=== PATIENT | female | born 1950 | race Two or more races ===

== ENCOUNTER → 2020-11-15 11:10 | Outpatient (BNVA) | payer OTHER, SELFPAY | PROVIDERS: PCP Internal Medicine; Visit Provider Internal Medicine | DX: I25.10 Atherosclerotic heart disease of native coronary artery without angina pectoris (principal); E78.00 Pure hypercholesterolemia, unspecified; E11.22 Type 2 diabetes mellitus with diabetic chronic kidney disease; I12.9 Hypertensive chronic kidney disease with stage 1 through stage 4 chronic kidney disease, or unspecified chronic kidney disease; N18.2 Chronic kidney disease, stage 2 (mild); Z79.4 Long term (current) use of insulin | CPT/HCPCS: 93005 ==

== ENCOUNTER 2020-11-30 07:22 | Outpatient (REF) | payer OTHER, SELFPAY ==
[2020-11-30 08:05] LABS: Basophils Absolute Auto 0.1 X10*3/uL (0.0-0.2); Eosinophils Absolute Auto 0.2 X10*3/uL (0.0-0.4); Eosinophils Percent Auto 3.4 % (0-4); Hematocrit 41.6 % (37-47); Hemoglobin 13.2 g/dl (12.0-16.0); Imm Gran Abs Auto 0.02 X10*3/uL (0.00-0.03); Imm Gran Pct Auto 0.3 % (0.0-0.4); Lymphocytes Absolute Auto 2.7 X10*3/uL (1.2-4.9); Lymphocytes Percent Auto 43.5 % (20-40); MANUAL DIFF FLAG NO; Mean Corpuscular HGB Conc 31.7 g/dl (31.0-35.0); Mean Corpuscular Hemoglobin 26.8 pg (27.0-33.0); Mean Corpuscular Volume 84.6 fL (80-98); Mean Platelet Volume 11.6 fL (9.4-12.3); Monocytes Absolute Auto 0.4 X10*3/uL (0.1-1.2); Monocytes Percent Auto 5.9 % (2-11); Neutrophils Absolute Auto 2.8 X10*3/uL (2.0-8.3); Neutrophils Percent Auto 45.9 % (45-73); Platelet Count 196 X10*3/uL (160-400); Red Blood Count 4.92 X10*6/uL (4.20-5.50); Red Cell Distribution Width 13.2 % (11.0-16.0); White Blood Count 6.1 X10*3/uL (4.8-10.8)
[2020-11-30 08:33] LABS: Creatinine Urine 70.17 mg/dL; Microalbum/Creatinine Ratio Ur 11.4 ug/mg cr
[2020-11-30 08:34] LABS: Alanine Aminotransferase 32 U/L (0-31); Albumin Level 4.4 g/dL (3.5-5.0); Alkaline Phosphatase 83 U/L (39-117); Anion Gap 13 (12-20); Aspartate Amino Transferase 34 U/L (5-31); Bilirubin Total 0.5 mg/dL (0.0-1.0); Blood Urea Nitrogen 17 mg/dL (9-16); Calcium 9.4 mg/dL (8.4-10.2); Carbon Dioxide 26 mmol/L (22-29); Chloride 105 mmol/L (96-108); Cholesterol 163 mg/dL; Estimated Glomerular Filt Rate 60; Glucose Fasting 153 mg/dL (60-99); HDL Cholesterol 35 mg/dL; LDL Cholesterol Calculated 65 mg/dl; Potassium 4.5 mmol/l (3.3-5.1); Sodium 139 mmol/L (135-145); Total Protein 7.1 g/dL (6.5-8.0); Triglycerides 315 mg/dL
[2020-11-30 08:57] LABS: TSH reflex Free T4 2.16 mIU/mL (0.32-4.0)
== END 2020-11-30 07:23 | disposition home or self-care (01) ==
LOC: HO.LAB 07:22
PROVIDERS: PCP Internal Medicine; Visit Provider Nurse Practitioner Family
DX: E11.22 Type 2 diabetes mellitus with diabetic chronic kidney disease (principal); I12.9 Hypertensive chronic kidney disease with stage 1 through stage 4 chronic kidney disease, or unspecified chronic kidney disease; N18.2 Chronic kidney disease, stage 2 (mild); Z79.4 Long term (current) use of insulin; E78.5 Hyperlipidemia, unspecified; E66.3 Overweight; E55.9 Vitamin D deficiency, unspecified
CPT/HCPCS: 36415; 80053; 80061; 82043; 84443; 85025

== ENCOUNTER → 2021-01-02 08:01 | Outpatient (BNVA) | payer OTHER, SELFPAY | PROVIDERS: PCP Internal Medicine; Visit Provider Internal Medicine Endocrinology, Diabetes & Metabolism ==

== ENCOUNTER → 2021-04-02 08:35 | Outpatient (BNVA) | payer OTHER, SELFPAY | PROVIDERS: PCP Internal Medicine; Visit Provider Internal Medicine Endocrinology, Diabetes & Metabolism | DX: E11.65 Type 2 diabetes mellitus with hyperglycemia (principal); E11.3293 Type 2 diabetes mellitus with mild nonproliferative diabetic retinopathy without macular edema, bilateral; E11.21 Type 2 diabetes mellitus with diabetic nephropathy; E11.42 Type 2 diabetes mellitus with diabetic polyneuropathy; Z79.4 Long term (current) use of insulin; E55.9 Vitamin D deficiency, unspecified; E78.00 Pure hypercholesterolemia, unspecified; I10 Essential (primary) hypertension | CPT/HCPCS: 82947 ==

== ENCOUNTER 2021-06-27 08:31 | Outpatient (REF) | payer OTHER, SELFPAY ==
[2021-06-27 09:13] LABS: Estimated Average Glucose 237 mg/dL; Hemoglobin A1c % 9.9 %
== END 2021-06-27 08:32 | disposition home or self-care (01) ==
LOC: HO.LAB 08:31
PROVIDERS: PCP Internal Medicine; Referring Provider Internal Medicine; Visit Provider Internal Medicine Endocrinology, Diabetes & Metabolism
DX: E11.65 Type 2 diabetes mellitus with hyperglycemia (principal)
CPT/HCPCS: 36415; 83036

== ENCOUNTER 2021-06-28 16:01 | Observation (INO) | payer OTHER, SELFPAY ==
[2021-06-28] VITALS (10 sets, daily range): BP systolic 142–205; BP diastolic 67–113; PULSE 65–78; RESP 14–24; TEMP 36.4–37; O2SAT 97–98; BMI 24.4; BMI 25.1
--- NOTE | ~2021-06-28 | CT_ITS ---
EXAMINATION: CT HEAD WITHOUT CONTRAST (STROKE PROTOCOL) CLINICAL INFORMATION: Stroke protocol. Left-sided weakness COMPARISON: None TECHNIQUE: Contiguous axial imaging was performed from the skull base to vertex without intravenous administration of contrast. This CT examination was performed using dose optimization techniques as appropriate, variously including the following: *Automated exposure control *Adjustment of mA and/or kV according to patient size (this includes techniques or standardized protocols for targeted exams where dose is matched to indication/reason for exam; i.e. extremities or head) *Use of iterative reconstruction technique DLP: 653 mGy-cm FINDINGS: There is no intracranial hemorrhage, hematoma, or extra-axial fluid collection. The ventricles are normal in size. There is no hydrocephalus, edema, or mass effect. The fierro-white matter differentiation appears symmetric. There is no acute infarct or mass lesion. The calvarium appears intact. There is no pneumocephalus or orbital emphysema. The visualized mastoid air cells show no significant mucosal thickening or opacification.. There is mucosal thickening seen within the right maxillary sinus. There are no air-fluid levels. CT/CT head for stroke IMPRESSION: No acute intracranial pathology. This critical result was discussed with Dr. Bowen at 4:20 PM hours on June 28, 2021. It was ascertained that the content and urgency of the report was understood at the time of direct communication.
--- NOTE | ~2021-06-28 | MR_ITS ---
EXAMINATION: MR BRAIN WITHOUT CONTRAST CLINICAL INFORMATION: Left-sided pain and slight weakness. COMPARISON: Head CTA June 28, 2021. TECHNIQUE: Multiplanar, multisequence imaging of the brain was performed without intravenous contrast. FINDINGS: There is no acute infarction, mass, hemorrhage, or extra-axial collection. The ventricles, sulci, and basilar cisterns are normal in size and configuration. The flow voids of the major intracranial arteries appear intact. The bones and extracranial soft tissues are unremarkable. MR/MR head/brain wo con IMPRESSION: No acute infarct, mass lesion, intracranial hemorrhage, or evidence of hydrocephalus.
--- NOTE | ~2021-06-28 | CT_ITS ---
EXAMINATION: CT ANGIOGRAM NECK WITH CONTRAST CT ANGIOGRAM BRAIN WITH CONTRAST CLINICAL INFORMATION: Left sided headache and weakness. COMPARISON: Head CT same day. TECHNIQUE: Test bolus sequences followed by intravenous administration 100 mL of Omnipaque 350. Helical imaging was performed in the axial plane from the thoracic inlet to the skull vertex. Delayed postcontrast imaging of the head was also performed. The data was processed at the lead nuclear medicine technologist workstation for generation of MIP sequences. Angled MIPs and volume rendered reformatted images were also generated at an offline 3D workstation. Stenoses are assessed in accordance with NASCET criteria unless otherwise indicated. This CT examination was performed using dose optimization techniques as appropriate, variously including the following: *Automated exposure control *Adjustment of mA and/or kV according to patient size (this includes techniques or standardized protocols for targeted exams where dose is matched to indication/reason for exam; i.e. extremities or head) *Use of iterative reconstruction technique DLP: 1466 mGy-cm FINDINGS: Head CT: There is no intracranial hemorrhage, large acute infarction, or mass lesion. The ventricles are normal in size and configuration without evidence of hydrocephalus. No abnormal enhancement is seen. Neck CTA: The aortic arch is patent. The great vessel origins are patent. The right common carotid artery is patent. There is focal stenosis at the right internal carotid artery origin estimated as 55% by NASCET criteria. The cervical segment of the right internal carotid artery is patent. The left common carotid artery is patent. No stenosis is seen at the left internal carotid artery origin. The cervical segment of the left internal carotid artery is patent. The bilateral vertebral arteries are patent with the right side being mildly dominant. Head CTA: Both vertebral arteries are patent. The basilar artery is patent. Both emblem fuser tender are patent. There is a small right posterior communicating artery. The intracranial internal carotid arteries are patent. The anterior cerebral arteries are patent. Both middle cerebral arteries are patent with symmetric collaterals. No aneurysm is seen. The dural venous sinuses are patent. Non-vascular findings: There is polypoid soft tissue thickening along the floor of the right maxillary sinus. The cervical soft tissues are within normal limits. No consolidation is seen within the upper lungs. Some mosaic attenuation and interlobular septal thickening are present in the lung apices. Multilevel degenerative spondylosis is seen. There is no high-grade osseous encroachment on the spinal canal. CT/CT angio head neck stroke IMPRESSION: CT head: No intracranial hemorrhage or large acute infarction. CTA neck: No high-grade stenosis within the major neck arteries. 55% stenosis of the right internal carotid artery. CTA head: No large vessel occlusion or significant stenosis within the intracranial circulation. This critical result was discussed with Jesus MAYA on 06/28/2021 4:39 PM, and it was ascertained that the content and urgency of the report was understood at the time of direct communication.
--- NOTE | ~2021-06-28 | XR_ITS ---
EXAMINATION: XR CHEST CLINICAL INFORMATION: Weakness COMPARISON: 01/25/2012 TECHNIQUE: Frontal view of the chest was obtained. FINDINGS: Cardiac leads overlie the chest. Elevated right hemidiaphragm. There is minimal left basilar airspace opacity. No edema or effusion. No pneumothorax. The cardiomediastinal silhouette is within normal limits. Degenerative changes of the spine. XR/XR chest 1V IMPRESSION: Minimal airspace opacity at the left base could represent atelectasis or pneumonia.
--- NOTE | 2021-06-28 16:07 | ECG_ITS ---
Test Reason : STROKE Blood Pressure : / mmHG Vent. Rate : 074 BPM Atrial Rate : 074 BPM P-R Int : 164 ms QRS Dur : 084 ms QT Int : 394 ms P-R-T Axes : 080 -35 050 degrees QTc Int : 437 ms Normal sinus rhythm Left axis deviation Abnormal ECG When compared with ECG of 21-MAR-2016 03:47, No significant change was found Referred By: Jesus Bowen Electronically Signed By:KAREN VELEZ
--- NOTE | 2021-06-28 16:25 | ED.WEAKNESS ---
HPI - Weakness General Chief complaint: Stroke Stated complaint: left sided weakness Time Seen by Provider: 06/28/21 16:07 Source: patient and family Mode of arrival: wheelchair Limitations: no limitations History of Present Illness HPI Narrative: 70-year-old female with past medical history that is significant for insulin-dependent diabetes with associated neuropathy, atherosclerotic cardiovascular disease, osteoarthritis, vitamin-D deficiency, gastroesophageal reflux disease, hypertension, CKD stage 2 who presents with complaint of sudden onset of left-sided headache with feeling of left-sided weakness shortly after 1500 (1 hour prior to arrival) MD Complaint: focal weakness Onset (ago): hour(s) (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 ) Location: left hand Migration: none Severity: severe Severity scale (1-10): 8 Quality: numbness and aching Relieving factors: none Exacerbating factors: none Associated symptoms: denies other symptoms Related Data Home Medications Medication Instructions Recorded Confirmed albuterol sulfate 90 mcg/actuation 2 puff INHALATION QID PRN 08/31/20 06/28/21 aerosol inhaler (ProAir HFA) aspirin 81 mg chewable tablet 81 mg PO DAILY 08/31/20 06/28/21 Previous Rx's Medication Instructions Recorded benazepril 5 mg tablet 5 mg PO DAILY #90 cap 12/26/20 cholecalciferol (vitamin D3) 50 50 mcg PO DAILY 30 Days #30 tab 04/02/21 mcg (2,000 unit) tablet insulin lispro 100 unit/mL See Rx Instructions SUBCUT DAILY 04/02/21 subcutaneous solution (Humalog 30 Days #30 ml U-100 Insulin) omega-3 fatty acids 1,000 mg 1,000 mg PO BID 30 Days #60 cap 04/02/21 capsule rosuvastatin 40 mg tablet 40 mg PO DAILY 30 Days #30 tab 04/02/21 sitagliptin 50 mg-metformin 1,000 1 tab PO DAILY 90 Days #90 cap 04/02/21 mg tablet (Janumet) sub-q insulin device, 30 unit #30 ea 04/02/21 (V-GO 30) Allergies Allergy/AdvReac Type Severity Reaction Status Date / Time latex [LATEX] Allergy Intermediate RASH Verified 06/28/21 16:11 atorvastatin [From Lipitor] Allergy Mild MUSCLE Verified 06/28/21 16:11 ACHES dulaglutide [Trulicity] Allergy Unknown rash and Verified 06/28/21 16:11 itching pioglitazone Allergy Unknown Urinary Verified 06/28/21 16:11 frequency pork derived (porcine) Allergy Unknown LUTHERAN Verified 06/28/21 16:11 [PORK DERIVED (PORCINE)] BELIEF canagliflozin [Invokana] AdvReac Unknown recurrent Verified 06/28/21 16:11 UTI, dizziness Tanzeum Allergy Unknown rash Uncoded 11/15/20 11:35 Review of Systems Review of Systems: Yes all other systems are reviewed and are negative [facility] Past Medical History Medical History Allergic rhinitis Chronic interstitial cystitis Chronic kidney disease, stage 2 (mild) Coronary artery disease Diabetes mellitus with stage 2 chronic kidney disease, with long-term current use of insulin Diabetes type 2, uncontrolled Diabetic nephropathy associated with type 2 diabetes mellitus Diabetic polyneuropathy associated with type 2 diabetes mellitus Essential hypertension GERD (gastroesophageal reflux disease) Hyperlipidemia snf (current) use of insulin Lumbosacral spondylosis Non-proliferative diabetic retinopathy, both eyes Osteoarthritis of left hip Overweight (BMI 25.0-29.9) Pityriasis rosea Restrictive lung disease Varicose veins of both lower extremities Vitamin D deficiency Surgical History FH: JUANCHO-BSO (total abdominal hysterectomy and bilateral salpingo-oophorectomy) Family History Family History Father Diabetes Mother CVD (cardiovascular disease) Social History Social History (Updated 09/02/20 @ 23:39 by Darryl Robles MD) Alcohol intake: never Patient Tobacco Use Status: Never used Tobacco Use of substances other than those prescribed or required for medical reasons: No Advance Directives: No Advance Directives Information Provided: No Physical Exam Vital Signs: Vital Signs: Last Vital Signs Temp 98.0 F 06/28/21 19:13 Pulse 69 06/28/21 20:40 Resp 16 06/28/21 20:40 BP 161/67 H 06/28/21 20:40 Pulse Ox 98 06/28/21 20:40 Body Mass Index 24.4 Const: General: cooperative and healthy appearing; No acute distress or intoxicated appearing Nutritional Appearance: average body habitus Orientation/consciousness: patient oriented x3 HENMT: Head: Yes normal to inspection Ears: hearing grossly normal bilaterally Eyes: General: appearance normal, both eyes and all related structures Visual Bennett: normal visual bennett by confrontation Neck: Neck: Yes normal visual inspection, No positive Brudzinski's sign, No positive Kernig's sign and No tender Thyroid: Thyroid normal Chest: Chest palpation & inspection: normal inspection of the chest Resp: Effort & Inspection: normal respiratory effort Cardio: Jugular venous distension: no JVD Bruits: Abdominal aortic bruit present GI: Inspection: Yes normal to inspection Palpation (GI): Abdominal aortic bruit present Percussion: Yes normal to percussion Auscultation: normal bowel sounds : General: Yes no CVA tenderness Back/Spine/Pelvis: Back: no CVA tenderness Skin: General skin exam: no rashes or lesions noted Neuro: General: patient oriented x3 Cranial nerves: Yes CN's II-XII intact bilaterally Cognition (Neuro): normal cognition Gait exam (Neuro): Normal gait present Motor exam (neuro): Other motor observations present (Very mild pronator drift on the left) Sensory Exam: Normal double simultaneous stimulation for sensation Deep tendon reflexes (DTR's): Right triceps reflex intensity grade: 2+, Left triceps reflex intensity grade: 2+, Rt Biceps (C5, C6): 2+, Left biceps reflex intensity grade: 2+, Right brachioradialis reflex intensity grade: 2+, Left brachioradialis reflex intensity grade: 2+, Right patellar reflex intensity grade: 2+, Left patellar reflex intensity grade: 2+, Right ankle reflex intensity grade: 2+ and Left ankle reflex intensity grade: 2+ Coordination: [id number] test normal Comatose Patient: corneal reflex present Pupils: Normal pupillary reactivity/response: right and left (L + colloboma hx of ) Extrem: General: Yes normal to inspection NIH Stroke Scale Internal: Initial- Upon Arrival Level of Consciousness: Alert Level of Consciousness Questions: Answers both questions correctly Level of Consciousness Commands: Performs both tasks correctly Best Gaze: Normal Visual: No visual loss Facial Palsy: Normal Motor Arm (Right): No drift Motor Arm (Left): Drift Motor Leg (Right): No drift Motor Leg (Left): No drift Limb Ataxia: Absent Sensory: Normal Best Language: No aphasia Dysarthia: Normal Extinction and Inattention: No abnormality Score: 1 Course Course Course Narrative: Atypical for CVA stat head CT and CTA head and neck done upon arrival unremarkable. Case discussed with Neurology agreeable consistent with complex migraine type recommendation for aspirin and routine MRI admission for observation. Patient feels much better after treatment with IV fluids, Fioricet, IV Benadryl and Reglan. Reevaluation(s) Reevaluation #1: [id number] Call from [facility] with head CT without evidence of acute findings, specifically no acute bleed/mass/shift. Proceed with CT head neck angio, call placed to neurology. 1640 [facility] with read of the stroke CTA of the head neck- aside from some stenosis of the right ICA about 55% there is no evidence of acute occlusion. MDM - Weakness Lab Data Result diagrams: 06/28/21 16:20 06/28/21 16:20 Labs: Lab Results 06/28/21 06/28/21 06/28/21 Range/Units 16:20 16:20 16:20 WBC 8.4 (4.8-10.8) X10*3/uL RBC 4.90 (4.20-5.50) X10*6/uL Hgb 13.3 (12.0-16.0) g/dl Hct 40.2 (37-47) % MCV 82.0 (80-98) fL MCH 27.1 (27.0-33.0) pg MCHC 33.1 (31.0-35.0) g/dl RDW 13.2 (11.0-16.0) % Plt Count 180 (160-400) X10*3/uL MPV 11.3 (9.4-12.3) fL Immature Gran % (Auto) 0.4 (0.0-0.4) % Neut % (Auto) 46.5 (45-73) % Lymph % (Auto) 45.1 H (20-40) % [place] % (Auto) 5.7 (2-11) % Eos % (Auto) 1.7 (0-4) % Baso % (Auto) 0.6 (0-2) % Lymph # (Auto) 3.8 (1.2-4.9) X10*3/uL [place] # (Auto) 0.5 (0.1-1.2) X10*3/uL Eos # (Auto) 0.1 (0.0-0.4) X10*3/uL Baso # (Auto) 0.1 (0.0-0.2) X10*3/uL Abs Immat Gran (auto) 0.03 (0.00-0.03) X10*3/uL Absolute Neuts (auto) 3.9 (2.0-8.3) X10*3/uL Absolute Nucleated RBC 0.000 (0.0-0.012) X10*3/uL Nucleated RBC % (auto) 0.0 (0.0-0.2) /100WBC ESR (0-20) MM/HR PT 9.7 L (9.9-13.0) SEC INR 0.9 (0.9-1.1) APTT 34.6 (24.1-38.0) SEC Sodium 138 (135-145) mmol/L Potassium 4.0 (3.3-5.1) mmol/L Chloride 105 (96-108) mmol/L Carbon Dioxide 18 L (22-29) mmol/L Anion Gap 19 (12-20) BUN 23 H (9-16) mg/dL Creatinine 1.14 (0.5-1.4) mg/dL Estim Creat Clear Calc 44.2 Estimated GFR 47 POC Glucose (60-115) mg/dL Random Glucose 241 H (60-115) mg/dL Calcium 10.2 D (8.4-10.2) mg/dL Total Bilirubin 0.4 (0.0-1.0) mg/dL AST 40 H (5-31) U/L ALT 42 H (0-31) U/L Alkaline Phosphatase 106 D (39-117) U/L Troponin I High Sens (<3.5-17.0) ng/L Total Protein 7.5 (6.5-8.0) g/dL Albumin 4.5 (3.5-5.0) g/dL TSH 4.76 H (0.32-4.0) uIU/mL COVID-19 (YAO) (Negative) COVID-19 Clin Com 06/28/21 06/28/21 06/28/21 Range/Units 16:20 16:20 16:57 WBC (4.8-10.8) X10*3/uL RBC (4.20-5.50) X10*6/uL Hgb (12.0-16.0) g/dl Hct (37-47) % MCV (80-98) fL MCH (27.0-33.0) pg MCHC (31.0-35.0) g/dl RDW (11.0-16.0) % Plt Count (160-400) X10*3/uL MPV (9.4-12.3) fL Immature Gran % (Auto) (0.0-0.4) % Neut % (Auto) (45-73) % Lymph % (Auto) (20-40) % [place] % (Auto) (2-11) % Eos % (Auto) (0-4) % Baso % (Auto) (0-2) % Lymph # (Auto) (1.2-4.9) X10*3/uL [place] # (Auto) (0.1-1.2) X10*3/uL Eos # (Auto) (0.0-0.4) X10*3/uL Baso # (Auto) (0.0-0.2) X10*3/uL Abs Immat Gran (auto) (0.00-0.03) X10*3/uL Absolute Neuts (auto) (2.0-8.3) X10*3/uL Absolute Nucleated RBC (0.0-0.012) X10*3/uL Nucleated RBC % (auto) (0.0-0.2) /100WBC ESR 13 (0-20) MM/HR PT (9.9-13.0) SEC INR (0.9-1.1) APTT (24.1-38.0) SEC Sodium (135-145) mmol/L Potassium (3.3-5.1) mmol/L Chloride (96-108) mmol/L Carbon Dioxide (22-29) mmol/L Anion Gap (12-20) BUN (9-16) mg/dL Creatinine (0.5-1.4) mg/dL Estim Creat Clear Calc Estimated GFR POC Glucose 214 H (60-115) mg/dL Random Glucose (60-115) mg/dL Calcium (8.4-10.2) mg/dL Total Bilirubin (0.0-1.0) mg/dL AST (5-31) U/L ALT (0-31) U/L Alkaline Phosphatase (39-117) U/L Troponin I High Sens 4.2 (<3.5-17.0) ng/L Total Protein (6.5-8.0) g/dL Albumin (3.5-5.0) g/dL TSH (0.32-4.0) uIU/mL COVID-19 (YAO) (Negative) COVID-19 Clin Com 06/28/21 Range/Units 19:31 WBC (4.8-10.8) X10*3/uL RBC (4.20-5.50) X10*6/uL Hgb (12.0-16.0) g/dl Hct (37-47) % MCV (80-98) fL MCH (27.0-33.0) pg MCHC (31.0-35.0) g/dl RDW (11.0-16.0) % Plt Count (160-400) X10*3/uL MPV (9.4-12.3) fL Immature Gran % (Auto) (0.0-0.4) % Neut % (Auto) (45-73) % Lymph % (Auto) (20-40) % [place] % (Auto) (2-11) % Eos % (Auto) (0-4) % Baso % (Auto) (0-2) % Lymph # (Auto) (1.2-4.9) X10*3/uL [place] # (Auto) (0.1-1.2) X10*3/uL Eos # (Auto) (0.0-0.4) X10*3/uL Baso # (Auto) (0.0-0.2) X10*3/uL Abs Immat Gran (auto) (0.00-0.03) X10*3/uL Absolute Neuts (auto) (2.0-8.3) X10*3/uL Absolute Nucleated RBC (0.0-0.012) X10*3/uL Nucleated RBC % (auto) (0.0-0.2) /100WBC ESR (0-20) MM/HR PT (9.9-13.0) SEC INR (0.9-1.1) APTT (24.1-38.0) SEC Sodium (135-145) mmol/L Potassium (3.3-5.1) mmol/L Chloride (96-108) mmol/L Carbon Dioxide (22-29) mmol/L Anion Gap (12-20) BUN (9-16) mg/dL Creatinine (0.5-1.4) mg/dL Estim Creat Clear Calc Estimated GFR POC Glucose (60-115) mg/dL Random Glucose (60-115) mg/dL Calcium (8.4-10.2) mg/dL Total Bilirubin (0.0-1.0) mg/dL AST (5-31) U/L ALT (0-31) U/L Alkaline Phosphatase (39-117) U/L Troponin I High Sens (<3.5-17.0) ng/L Total Protein (6.5-8.0) g/dL Albumin (3.5-5.0) g/dL TSH (0.32-4.0) uIU/mL COVID-19 (YAO) Negative (Negative) COVID-19 Clin Com See Note Discharge Plan Discharge Clinical Impression: Headache, Acute left-sided weakness Patient Disposition: Admitted As Inpatient Prescriptions: No Action benazepril 5 mg tablet 5 mg PO DAILY Qty: 90 RF: 3 albuterol sulfate [ProAir HFA] 90 mcg/actuation HFA aerosol inhaler 2 puff inhalation QID PRN (Reason: Shortness Of Breath) RF: 0 aspirin 81 mg tablet,chewable 81 mg PO DAILY RF: 0 insulin lispro [Humalog U-100 Insulin] 100 unit/mL solution See Rx Instructions subcut DAILY 30 Days Qty: 30 RF: 5 Janumet 50-1,000 mg tablet 1 tab PO DAILY 90 Days Qty: 90 RF: 2 (DME) V-GO 30 Device See Rx Instructions .ROUTE .MEDSUPPLY Qty: 30 RF: 5 cholecalciferol (vitamin D3) 50 mcg (2,000 unit) tablet 50 mcg PO DAILY 30 Days Qty: 30 RF: 5 rosuvastatin 40 mg tablet 40 mg PO DAILY 30 Days Qty: 30 RF: 5 omega-3 fatty acids 1,000 mg capsule 1,000 mg PO BID 30 Days Qty: 60 RF: 6
[2021-06-28 16:28] LABS: MANUAL DIFF FLAG NO
[2021-06-28 16:31] LABS: Basophils Absolute Auto 0.1 X10*3/uL (0.0-0.2); Basophils Percent Auto 0.6 % (0-2); Eosinophils Absolute Auto 0.1 X10*3/uL (0.0-0.4); Eosinophils Percent Auto 1.7 % (0-4); Hematocrit 40.2 % (37-47); Hemoglobin 13.3 g/dl (12.0-16.0); Imm Gran Abs Auto 0.03 X10*3/uL (0.00-0.03); Imm Gran Pct Auto 0.4 % (0.0-0.4); Lymphocytes Absolute Auto 3.8 X10*3/uL (1.2-4.9); Lymphocytes Percent Auto 45.1 % (20-40); Mean Corpuscular HGB Conc 33.1 g/dl (31.0-35.0); Mean Corpuscular Hemoglobin 27.1 pg (27.0-33.0); Mean Platelet Volume 11.3 fL (9.4-12.3); Monocytes Absolute Auto 0.5 X10*3/uL (0.1-1.2); Monocytes Percent Auto 5.7 % (2-11); Neutrophils Absolute Auto 3.9 X10*3/uL (2.0-8.3); Neutrophils Percent Auto 46.5 % (45-73); Platelet Count 180 X10*3/uL (160-400); Red Cell Distribution Width 13.2 % (11.0-16.0); White Blood Count 8.4 X10*3/uL (4.8-10.8)
[2021-06-28 16:37] LABS: INTERNATIONAL NORM RATIO 0.9 (0.9-1.1); Prothrombin Time 9.7 SEC (9.9-13.0)
[2021-06-28 16:40] LABS: Partial Thromboplastin Time 34.6 SEC (24.1-38.0)
[2021-06-28] MEDS: iohexoL 350 MG/ML 100 ML INFUS..BTL IV (16:40)
[2021-06-28 16:53] LABS: Alanine Aminotransferase 42 U/L (0-31); Albumin Level 4.5 g/dL (3.5-5.0); Alkaline Phosphatase 106 U/L (39-117); Anion Gap 19 (12-20); Aspartate Amino Transferase 40 U/L (5-31); Bilirubin Total 0.4 mg/dL (0.0-1.0); Blood Urea Nitrogen 23 mg/dL (9-16); Calcium 10.2 mg/dL (8.4-10.2); Carbon Dioxide 18 mmol/L (22-29); Chloride 105 mmol/L (96-108); Creatinine Clr Calc Pharmacy 44.2; Estimated Glomerular Filt Rate 47; Glucose Random 241 mg/dL (60-115); Sodium 138 mmol/L (135-145); Total Protein 7.5 g/dL (6.5-8.0)
[2021-06-28 16:55] LABS: Troponin-I High Sensitivity 4.2 ng/L (<3.5-17.0)
[2021-06-28] MEDS: Aspirin Enteric Coated 325 MG TABLET.DR PO (16:58)
[2021-06-28] MEDS: 0.9 % Sodium Chloride 1,000 ML 999 ML IV ×2 (16:58→18:22)
[2021-06-28] MEDS: Butalb/Acetamin/Caff 50/325/40 TABLET 1 TAB PO (16:59)
[2021-06-28 17:12] LABS: Glucose, Whole Blood 214 mg/dL (60-115)
[2021-06-28 17:13] LABS: Thyroid Stimulating Hormone 4.76 uIU/mL (0.32-4.0)
--- NOTE | 2021-06-28 18:10 | PC.NURSE ---
Patient ambulated with minimal assistance to the bathroom and back. Patient needed to pick left leg up with her hands to place it on the bed. Pt continues to have left side facial and head pain.
[2021-06-28] MEDS: Ketorolac Tromethamine 15 MG/ML VIAL IVPUSH (18:17)
[2021-06-28] MEDS: diphenhydrAMINE HCL 50 MG/ML VIAL 25 MG IVPUSH (18:22)
[2021-06-28] MEDS: Metoclopramide HCl 10 MG/2 ML VIAL IVPUSH (18:23)
--- NOTE | 2021-06-28 19:17 | PC.NURSE ---
Pt aaox4, asleep on stretcher in between care. Pt awoke when this RN entered room d/t noise. Pt speech is clear, pt c/o L facial discomfort as charted. When this RN attempted to assess pupils, pt repeatedly moved head away from light when it was shone into L eye. Pt reports light increases pain significantly and she was unable to tolerate the light. R pupil is reactive to light. L pupils is abnormal in shape and not centered in iris. Pt reports this is is baseline when I was little I had a head injury and my pupil has been like that ever since. This RN appreciates LUE and LLE weakness as compared to R side. Pt is able to reposition self independently in bed. Pt without additional complaints at this time. Pt stretcher in low locked position, rails raised, call mancuso within reach, red socks on, red fall star posted and red fall bracelet applied. Pt expresses understanding of needing to call for assistance prior to exiting stretcher.
[2021-06-28 19:26] LABS: Erythrocyte Sedimentation Rate 13 MM/HR (0-20)
--- NOTE | 2021-06-28 19:35 | PHA.MEDREC ---
Pharmacy Consult ? Medication Reconciliation Pharmacy has completed the medication reconciliation. PT will be changing the insulin pump tonight.
[2021-06-28 19:52] LABS: IDNOW Serial# 9DD0AD1C
[2021-06-28 19:53] LABS: COVID-19 Test Negative (Negative)
--- NOTE | 2021-06-28 20:42 | PC.NURSE ---
this rn TT dr gutierrez to ask about asa order. Per Dr Gutierrez, hold 81mg as pt rec'd 325mg asa earlier today as documented in chart
--- NOTE | 2021-06-28 20:51 | PC.NURSE ---
MRI form completed and faxxed to MRI for pt.
--- NOTE | 2021-06-28 21:00 | PC.NURSE ---
This RN TT Dr Mendez regarding pt's insulin pump vs lispro coverage as ordered. Dr Mendez states it doesn't need to be removed. Family bringing a new pump for her. I think pharmacy talked to her so ignore the coverage I'll cancel it.
[2021-06-28 21:15] LABS: Glucose, Whole Blood 193 mg/dL (60-115)
[2021-06-28] MEDS: Zolpidem Tartrate 5 MG TABLET PO (21:22)
[2021-06-28] MEDS: SUMAtriptan succinate 50 MG TABLET PO (21:22)
--- NOTE | 2021-06-28 21:47 | P.HPHOSP_ITS ---
History of Present Illness Date of Service: 06/28/21 Chief Complaint: headache,pain 70-year-old female with extensive past medical history including diabetes, diabetic neuropathy, HTN, GERD HLD, among others who presents to the hospital with complaints of left-sided headache, facial pain, left arm pain, and leg pa in. Patient denies any weakness numbness or tingling, reports that the symptoms started earlier today, she is reporting intolerance to sound and light. Denies any similar previous episode. Reports blurry vision on the left eye, denies any chest pain, no palpitations, no shortness of breath, no abdominal pain, no nausea or vomiting, no diarrhea constipation, no urinary symptoms and no lower extremity edema. On arrival to the ED hemodynamically stable with elevated blood pressure of 1 60s reaching to 190s systolic with no symptoms. Generally unremarkable, head CT showed no intracranial hemorrhage or large acute infarct, CTA head and neck showed no high-grade stenosis Patient's case was discussed with Neurology, thinks this may be complex migraine, to be admitted with MRI in morning Review of system otherwise negative Past medical history as below Review of Systems Review of Systems: Yes all other systems are reviewed and are negative [facility] Medical History Allergic rhinitis Chronic interstitial cystitis Chronic kidney disease, stage 2 (mild) Coronary artery disease Diabetes mellitus with stage 2 chronic kidney disease, with long-term current use of insulin Diabetes type 2, uncontrolled Diabetic nephropathy associated with type 2 diabetes mellitus Diabetic polyneuropathy associated with type 2 diabetes mellitus Essential hypertension GERD (gastroesophageal reflux disease) Hyperlipidemia senior care (current) use of insulin Lumbosacral spondylosis Non-proliferative diabetic retinopathy, both eyes Osteoarthritis of left hip Overweight (BMI 25.0-29.9) Pityriasis rosea Restrictive lung disease Varicose veins of both lower extremities Vitamin D deficiency Family History Father Diabetes Mother CVD (cardiovascular disease) Surgical History FH: JUANCHO-BSO (total abdominal hysterectomy and bilateral salpingo-oophorectomy) Social History Household Members: None Housing: House Do you presently have visiting nurse or other home services: No Alcohol intake: never Patient Tobacco Use Status: Never used Tobacco Use of substances other than those prescribed or required for medical reasons: No Currently Displaying Signs/Symptoms of Drug Intoxication Withdrawal: No Have you been hit, kicked, punched, or otherwise hurt by someone within the past year? If so, by whom?: No Do you feel safe in your current relationship?: No Current Relationship Is there a partner from a previous relationship who is making you feel unsafe now?: No Advance Directives: No Advance Directives Information Provided: No Do you have thoughts of harming others: None Do you have a plan to hurt others: No Plan Recently lost weight without trying: No Eating poorly because of decreased appetite: No Nutrition Risks: No Nutritional Risk Patient : No : No Poor oral hygiene: No Meds Allergies Allergy/AdvReac Type Severity Reaction Status Date / Time latex [LATEX] Allergy Intermediate RASH Verified 06/28/21 16:11 atorvastatin [From Lipitor] Allergy Mild MUSCLE Verified 06/28/21 16:11 ACHES dulaglutide [Trulicity] Allergy Unknown rash and Verified 06/28/21 16:11 itching pioglitazone Allergy Unknown Urinary Verified 06/28/21 16:11 frequency pork derived (porcine) Allergy Unknown GNOSTICIST Verified 06/28/21 16:11 [PORK DERIVED (PORCINE)] BELIEF canagliflozin [Invokana] AdvReac Unknown recurrent Verified 06/28/21 16:11 UTI, dizziness Tanzeum Allergy Unknown rash Uncoded 11/15/20 11:35 Active Medications: Current Medications Generic Name Dose Route Start Last Admin Trade Name Freq PRN Reason Stop Dose Admin Acetaminophen 650 mg 06/28/21 20:35 Acetaminophen 325 Mg Tablet PO Q6H PRN Pain, Mild (Pain Scale 1-3) Albuterol Sulfate 2 puff 06/28/21 20:35 Albuterol Sulfate 90 Mcg 8 Gm Inhaler INHALE QID PRN Shortness Of Breath Aspirin 81 mg 06/28/21 20:35 06/28/21 20:42 Aspirin 81 Mg Tab.Chew PO Not Given DAILY JAY JAY Docusate Sodium 100 mg 06/28/21 21:00 06/28/21 21:22 Docusate Sodium 100 Mg Capsule PO Not Given BID [facility] Insulin Human Lispro 0 unit 06/28/21 21:00 06/28/21 21:05 Insulin Lispro 100 Unit/Ml 3 Ml Vial SUBCUT Not Given QIDACHS [facility] Protocol Lisinopril 5 mg 06/29/21 09:00 Lisinopril 5 Mg Tablet PO DAILY [facility] Non-Formulary Medication 40 mg 06/29/21 09:00 Rosuvastatin PO DAILY [facility] Ondansetron HCl 4 mg 06/28/21 20:35 Ondansetron Hcl 4 Mg/2 Ml Vial IVPUSH Q8H PRN Nausea and Vomiting Pharmacy Consult 1 each 06/28/21 19:15 Consult Rx Perform Med Rec MISCELLANE ONCE PRN Consult order Sodium Chloride 3 ml 06/29/21 00:00 0.9 % Sodium Chloride Flush 3 M[facility] Vitamin D 50 mcg 06/29/21 09:00 Cholecalciferol (Vitamin D3) 25 Mcg Tablet PO DAILY [facility] Home Medications Medication Instructions Recorded Confirmed Last Taken Type albuterol sulfate 90 mcg/actuation 2 puff INHALATION QID PRN 08/31/20 06/28/21 Unknown History aerosol inhaler (ProAir HFA) aspirin 81 mg chewable tablet 81 mg PO DAILY 08/31/20 06/28/21 06/28/21 History Physical Exam Vital Signs and Narrative: Vital Signs: Last Vital Signs Temp 98.0 F 06/28/21 19:13 Pulse 69 06/28/21 20:40 Resp 16 06/28/21 20:40 BP 161/67 H 06/28/21 20:40 Pulse Ox 98 06/28/21 20:40 Body Mass Index 24.4 Const: General: cooperative and no acute distress Orientation/consciousness: patient oriented x3 Eyes: General: appearance normal, both eyes and all related structures Resp: Effort & Inspection: normal respiratory effort and able to speak in complete sentences Cardio: Rate: regular rate Rhythm: regular rhythm GI: Palpation (GI): Soft to palpation Auscultation: normal bowel sounds Skin: General skin exam: no rashes or lesions noted Neuro: Other: Strength only slightly decreased on the left upper extremity may be 4.5 out of Otherwise no neurological deficit General: patient oriented x3 Cognition (Neuro): normal cognition Extrem: General: Yes normal to inspection and Yes no pedal edema Results Labs CBC and Chem 7: 06/29/21 05:33 06/28/21 16:20 Labs: Laboratory Results - last 24 hr 06/28/21 06/28/21 06/28/21 16:20 16:20 16:20 MCV 82.0 MCH 27.1 MCHC 33.1 RDW 13.2 Plt Count 180 MPV 11.3 Immature Gran % (Auto) 0.4 Neut % (Auto) 46.5 Lymph % (Auto) 45.[address] [place] % (Auto) 5.7 Eos % (Auto) 1.7 Baso % (Auto) 0.6 Lymph # (Auto) 3.8 [place] # (Auto) 0.5 Eos # (Auto) 0.1 Baso # (Auto) 0.1 Abs Immat Gran (auto) 0.03 Absolute Neuts (auto) 3.9 Absolute Nucleated RBC 0.000 Nucleated RBC % (auto) 0.0 ESR PT 9.7 L INR 0.9 APTT 34.6 Anion Gap 19 Estim Creat Clear Calc 44.2 Estimated GFR 47 POC Glucose Random Glucose 241 H Calcium 10.2 D Total Bilirubin 0.4 AST 40 H ALT 42 H Alkaline Phosphatase 106 D Troponin I High Sens Total Protein 7.5 Albumin 4.5 TSH 4.76 H COVID-19 (YAO) COVID-19 [employer] 06/28/21 06/28/21 06/28/21 16:20 16:20 16:57 MCV MCH MCHC RDW Plt Count MPV Immature Gran % (Auto) Neut % (Auto) Lymph % (Auto) [place] % (Auto) Eos % (Auto) Baso % (Auto) Lymph # (Auto) [place] # (Auto) Eos # (Auto) Baso # (Auto) Abs Immat Gran (auto) Absolute Neuts (auto) Absolute Nucleated RBC Nucleated RBC % (auto) ESR 13 PT INR APTT Anion Gap Estim Creat Clear Calc Estimated GFR POC Glucose 214 H Random Glucose Calcium Total Bilirubin AST ALT Alkaline Phosphatase Troponin I High Sens 4.2 Total Protein Albumin TSH COVID-19 (YAO) COVID-19 [employer] 06/28/21 06/28/21 19:31 21:10 MCV MCH MCHC RDW Plt Count MPV Immature Gran % (Auto) Neut % (Auto) Lymph % (Auto) [place] % (Auto) Eos % (Auto) Baso % (Auto) Lymph # (Auto) [place] # (Auto) Eos # (Auto) Baso # (Auto) Abs Immat Gran (auto) Absolute Neuts (auto) Absolute Nucleated RBC Nucleated RBC % (auto) ESR PT INR APTT Anion Gap Estim Creat Clear Calc Estimated GFR POC Glucose 193 H Random Glucose Calcium Total Bilirubin AST ALT Alkaline Phosphatase Troponin I High Sens Total Protein Albumin TSH COVID-19 (YAO) Negative COVID-19 Clin Com See Note Imaging Radiologist's Impressions: Impressions Chest X-Ray 06/28/21 16:07 IMPRESSION: Minimal airspace opacity at the left base could represent atelectasis or pneumonia. Head CT 06/28/21 16:07 IMPRESSION: No acute intracranial pathology. This critical result was discussed with Dr. Bowen at 4:20 PM hours on June 28, 2021. It was ascertained that the content and urgency of the report was understood at the time of direct communication. Head/Neck CTA 06/28/21 16:07 IMPRESSION: CT head: No intracranial hemorrhage or large acute infarction. CTA neck: No high-grade stenosis within the major neck arteries. 55% stenosis of the right internal carotid artery. CTA head: No large vessel occlusion or significant stenosis within the intracranial circulation. This critical result was discussed with Jesus MAYA on 06/28/2021 4:39 PM, and it was ascertained that the content and urgency of the report was understood at the time of direct communication. Assessment and Plan (1) Headache: Status: Acute (2) Acute left-sided weakness: Status: Acute 70-year-old female who presents to the hospital with complaints of left-sided pain # left-sided headache, facial pain, arm pain and leg - complex migraine versus stroke - CT head and CT angio head and neck negative - will give 1 dose of sumatriptan - MRI in a.m. - aspirin give - neurology consulted # acute left-sided weakness - no significant weakness on my exam - MRI in a.m. - neurology consult # diabetes - continue home insulin - will add low-dose sliding scale - diabetic diet # hypertension - elevated status post 10 mg of IV labetalol - patient asymptomatic - resume home medications # DVT prophylaxis: lovenox Quality Stroke Does the patient have a stroke diagnosis?: No VTE Prior VTE?: No VTE Risk Level:: Medical - low VTE Device Contraindication: Treatment Not Indicated VTE Drug Contraindication: Treatment Not Indicated
[2021-06-28] MEDS: 0.9 % Sodium Chloride Flush 3 ML SYRINGE IVFLUSH (22:38)
[2021-06-28] MEDS: Labetalol HCL 100 MG/20 ML VIAL 10 MG IVPUSH (22:59)
[2021-06-29 03:55] VITALS: BP 173/93; PULSE 67; RESP 17; TEMP 36.7; O2SAT 94
[2021-06-29 05:58] LABS: MANUAL DIFF FLAG NO
[2021-06-29 06:06] LABS: Basophils Percent Auto 0.4 % (0-2); Eosinophils Absolute Auto 0.2 X10*3/uL (0.0-0.4); Hematocrit 38.2 % (37-47); Hemoglobin 12.3 g/dl (12.0-16.0); Imm Gran Abs Auto 0.02 X10*3/uL (0.00-0.03); Imm Gran Pct Auto 0.3 % (0.0-0.4); Lymphocytes Absolute Auto 3.2 X10*3/uL (1.2-4.9); Lymphocytes Percent Auto 42.5 % (20-40); Mean Corpuscular HGB Conc 32.2 g/dl (31.0-35.0); Mean Corpuscular Hemoglobin 26.7 pg (27.0-33.0); Mean Corpuscular Volume 82.9 fL (80-98); Mean Platelet Volume 11.6 fL (9.4-12.3); Monocytes Absolute Auto 0.5 X10*3/uL (0.1-1.2); Monocytes Percent Auto 6.4 % (2-11); Neutrophils Absolute Auto 3.6 X10*3/uL (2.0-8.3); Neutrophils Percent Auto 48.4 % (45-73); Platelet Count 153 X10*3/uL (160-400); Red Blood Count 4.61 X10*6/uL (4.20-5.50); Red Cell Distribution Width 13.2 % (11.0-16.0); White Blood Count 7.5 X10*3/uL (4.8-10.8)
[2021-06-29 06:41] LABS: Anion Gap 12 (12-20); Blood Urea Nitrogen 17 mg/dL (9-16); Calcium 9.6 mg/dL (8.4-10.2); Carbon Dioxide 21 mmol/L (22-29); Chloride 109 mmol/L (96-108); Creatinine Clr Calc Pharmacy 52.4; Estimated Glomerular Filt Rate 58; Glucose Random 193 mg/dL (60-115); Potassium 4.1 mmol/L (3.3-5.1); Sodium 138 mmol/L (135-145)
[2021-06-29 07:26] VITALS: BP 155/72; PULSE 72; RESP 18; TEMP 36.9; O2SAT 97
[2021-06-29 07:35] LABS: Glucose, Whole Blood 173 mg/dL (60-115)
[2021-06-29] MEDS: Cholecalciferol (Vitamin D3) 25 MCG TABLET 50 MCG PO (07:56)
[2021-06-29 07:58] VITALS: BP 155/72; PULSE 72
[2021-06-29] MEDS: Aspirin 81 MG TAB.CHEW PO (07:58)
[2021-06-29] MEDS: 0.9 % Sodium Chloride Flush 3 ML SYRINGE IVFLUSH (07:59)
--- NOTE | 2021-06-29 08:03 | PC.NURSE ---
Skin assessment completed today. Patient has an insulin pump on left upper arm, clean and intact. No other skin issues noted.
[2021-06-29] MEDS: Fondaparinux Sodium 2.5 MG/0.5 ML SYRINGE SUBCUT (10:08)
[2021-06-29] MEDS: Acetaminophen 325 MG TABLET 650 MG PO (10:13)
[2021-06-29 10:51] VITALS: BP 142/72; PULSE 76; RESP 20; TEMP 36; O2SAT 98
--- NOTE | 2021-06-29 11:07 | MHC.CM.PN ---
met with pt who reports being indepedent cm interventin is not indicated at th time
[2021-06-29 11:30] LABS: Glucose, Whole Blood 237 mg/dL (60-115)
[2021-06-29] MEDS: Butalb/Acetamin/Caff 50/325/40 TABLET 1 TAB PO (12:31)
[2021-06-29] MEDS: Insulin Lispro 100 UNIT/ML 3 ML VIAL SUBCUT (12:32)
--- NOTE | 2021-06-29 13:45 | PM.NEUROCN ---
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 She also noted some difficulty walking because she was having some left foot pain and left hand pain, but no definite weakness. She didd not fall or pass out no speech impediment. No sinus symptoms. She's had a head CT scan in the CT a of the intracranial circulation with no evidence of aneuryysm and AVM etc., no acute findings. Her ESR is 13. She has some right-sided sinusitis on MRI Review of Systems Eyes: Eyes: Reports no additional eye complaints ENT: Reports system reviewed and no additional complaints, except as documented and Reports Normal hearing present Cardiovascular: Cardiovascular: Reports no additional cardiovascular complaints Respiratory: Respiratory: Reports no additional respiratory complaints Gastrointestinal: Gastrointestinal: Reports no additional gastrointestinal complaints Musculoskeletal: Musculoskeletal: Reports no additional musculoskeletal complaints Integumentary/Breasts: Skin/Breast: Reports system reviewed and no additional complaints, except as docu Neurologic: Reports as per HPI and Reports Normal hearing present Psychiatric: Psychiatric: Reports as per HPI Endocrine: Endocrine: Reports no additional endocrine complaints Hematologic/Lymphatic: Hematologic/Lymphatic: Reports no additional hematologic/lymphatic complaints Allergic/Immunologic: Allergic/Immunologic: Reports no additional allergic/immunologic complaints [facility] Past Medical History Medical History Allergic rhinitis Chronic interstitial cystitis Chronic kidney disease, stage 2 (mild) Coronary artery disease Diabetes mellitus with stage 2 chronic kidney disease, with long-term current use of insulin Diabetes type 2, uncontrolled Diabetic nephropathy associated with type 2 diabetes mellitus Diabetic polyneuropathy associated with type 2 diabetes mellitus Essential hypertension GERD (gastroesophageal reflux disease) Hyperlipidemia half-way (current) use of insulin Lumbosacral spondylosis Non-proliferative diabetic retinopathy, both eyes Osteoarthritis of left hip Overweight (BMI 25.0-29.9) Pityriasis rosea Restrictive lung disease Varicose veins of both lower extremities Vitamin D deficiency Family History Family History Father Diabetes Mother CVD (cardiovascular disease) Surgical History Surgical History FH: JUANCHO-BSO (total abdominal hysterectomy and bilateral salpingo-oophorectomy) Social History Social History Household Members: None Housing: House Do you presently have visiting nurse or other home services: No Alcohol intake: never Patient Tobacco Use Status: Never used Tobacco Use of substances other than those prescribed or required for medical reasons: No Currently Displaying Signs/Symptoms of Drug Intoxication Withdrawal: No Have you been hit, kicked, punched, or otherwise hurt by someone within the past year? If so, by whom?: No Do you feel safe in your current relationship?: No Current Relationship Is there a partner from a previous relationship who is making you feel unsafe now?: No Advance Directives: No Advance Directives Information Provided: No Do you have thoughts of harming others: None Do you have a plan to hurt others: No Plan Recently lost weight without trying: No Eating poorly because of decreased appetite: No Nutrition Risks: No Nutritional Risk Patient : No : No Poor oral hygiene: No service: No Meds Allergies Allergy/AdvReac Type Severity Reaction Status Date / Time latex [LATEX] Allergy Intermediate RASH Verified 06/28/21 16:11 atorvastatin [From Lipitor] Allergy Mild MUSCLE Verified 06/28/21 16:11 ACHES dulaglutide [Trulicity] Allergy Unknown rash and Verified 06/28/21 16:11 itching pioglitazone Allergy Unknown Urinary Verified 06/28/21 16:11 frequency pork derived (porcine) Allergy Unknown ORIENTAL ORTHODOX Verified 06/28/21 16:11 [PORK DERIVED (PORCINE)] BELIEF canagliflozin [Invokana] AdvReac Unknown recurrent Verified 06/28/21 16:11 UTI, dizziness Tanzeum Allergy Unknown rash Uncoded 11/15/20 11:35 Active Medications: Current Medications Generic Name Dose Route Start Last Admin Trade Name Freq PRN Reason Stop Dose Admin Acetaminophen 650 mg 06/28/21 20:35 06/29/21 10:13 Acetaminophen 325 Mg Tablet PO 650 mg Q6H PRN Administration Pain, Mild (Pain Scale 1-3) Acetaminophen/Butalbital/Caffeine 1 tab 06/29/21 11:28 06/29/21 12:31 Butalb/Acetamin/Caff 50/325/40 Tablet PO 1 tab Q6H PRN Administration Headache Albuterol Sulfate 2 puff 06/28/21 20:35 Albuterol Sulfate 90 Mcg 8 Gm Inhaler INHALE QID PRN Shortness Of Breath Aspirin 81 mg 06/28/21 20:35 06/29/21 07:58 Aspirin 81 Mg Tab.Chew PO 81 mg DAILY JAY JAY Administration Docusate Sodium 100 mg 06/28/21 21:00 06/29/21 08:22 Docusate Sodium 100 Mg Capsule PO Not Given BID JAY JAY Fondaparinux 2.5 mg 06/29/21 09:00 06/29/21 10:08 Fondaparinux Sodium 2.5 Mg/0.5 Ml Syringe SUBCUT 2.5 mg Q24H JAY JAY Administration Insulin Human Lispro 0 unit 06/28/21 21:00 06/29/21 12:32 Insulin Lispro 100 Unit/Ml 3 Ml Vial SUBCUT 4 unit QIDACHS [facility] Administration Protocol Lisinopril 5 mg 06/29/21 09:00 06/29/21 07:58 Lisinopril 5 Mg Tablet PO 5 mg DAILY [facility] Administration Non-Formulary Medication 40 mg 06/29/21 09:00 Rosuvastatin PO DAILY [facility] Ondansetron HCl 4 mg 06/28/21 20:35 Ondansetron Hcl 4 Mg/2 Ml Vial IVPUSH Q8H PRN Nausea and Vomiting Pharmacy Consult 1 each 06/28/21 19:15 Consult Rx Perform Med Rec MISCELLANE ONCE PRN Consult order Sodium Chloride 3 ml 06/29/21 00:00 06/29/21 07:59 0.9 % Sodium Chloride Flush 3 Ml Syringe IVFLUSH 3 ml QSHIFT [facility] Administration Vitamin D 50 mcg 06/29/21 09:00 06/29/21 07:56 Cholecalciferol (Vitamin D3) 25 Mcg Tablet PO 50 mcg DAILY [facility] Administration Home Medications Medication Instructions Recorded Confirmed Last Taken Type albuterol sulfate 90 mcg/actuation 2 puff INHALATION QID PRN 08/31/20 06/28/21 Unknown History aerosol inhaler (ProAir HFA) aspirin 81 mg chewable tablet 81 mg PO DAILY 08/31/20 06/28/21 06/28/21 History Physical Exam Vital Signs: Vital Signs: Last Vital Signs Temp 96.8 F 06/29/21 10:51 Pulse 76 06/29/21 10:51 Resp 20 06/29/21 10:51 BP 142/72 H 06/29/21 10:51 Pulse Ox 98 06/29/21 10:51 Body Mass Index 25.1 Const: General: cooperative, comfortable, no acute distress, well developed, alert and awake Nutritional Appearance: well nourished Orientation/consciousness: oriented to person, oriented to place and oriented to time Limitations: no limitations HENMT: Head: Yes normal to inspection, Yes normocephalic and Yes atraumatic Ears: hearing grossly normal bilaterally General nose exam: Normal external nose present Face and sinus: Yes normal facial exam Mouth: Normal oral and palatal mucosa present Eyes: General: appearance normal, both eyes and all related structures Visual Perez: normal visual perez by confrontation Alignment and Position: alignment normal Periorbital: periorbital findings normal Eyelids: Yes eyelids normal Conjunctivae: conjunctivae normal Sclerae: sclerae normal Corneas: corneas normal Pupils: Equal, round and reactive pupils present and Pupil accommodation reflex normal EOM: EOMs intact bilaterally Direct Ophthalmoscopy: normal light reflex Neck: Neck: Yes normal visual inspection, Yes full ROM and Yes no meningeal signs Thyroid: Thyroid normal Carotids: normal carotid upstroke and bounding pulses Chest: Chest palpation & inspection: normal inspection of the chest Resp: Effort & Inspection: normal respiratory effort Auscultation: clear to auscultation bilaterally Cardio: Rate: regular rate Rhythm: regular rhythm Heart sounds: S1 normal heart sound present and S2 normal heart sound present Peripheral pulses: Peripheral pulses 2+ throughout GI: Inspection: Yes normal to inspection Percussion: Yes normal to percussion Auscultation: normal bowel sounds Rectal Exam - Female: deferred Back/Spine/Pelvis: Cervical Spine: normal cervical lordosis and cervical ROM normal Thoracic/Lumbar Spine: thoracic and lumbar spine normal to inspection Skin: General skin exam: no rashes or lesions noted Neuro: General: oriented to person, oriented to place, oriented to time, gait normal, tone normal, moves all extremities, Normal light touch and pain sensation, no meningeal signs, no focal motor deficits, CN's II-XI intact bilaterally, normal sensation to monofilament and deep tendon reflexes 2+ bilaterally Cranial nerves: Yes CN's II-XII intact bilaterally, Yes Equal, round and reactive pupils present, Yes Bilaterally intact EOM present, Yes Nystagmus not present, Yes Normal facial strength present, Yes Midline tongue present, Yes Normal gag reflex present, Yes Symmetric palate elevation present, Yes Normal hearing present and Yes Ability to bilaterally rotate head present Cognition (Neuro): normal cognition Speech: Other speech findings present (Neuro) Gait exam (Neuro): Normal gait present Motor exam (neuro): 5/5 motor strength present throughout, Pronator motor function not present, no tremor noted, no asterixis, Motor fasciculations not present, Normal motor muscle tone present throughout and Motor abnormalities not present Sensory Exam: Bilaterally intact graphesthesia Deep tendon reflexes (DTR's): Right triceps reflex intensity grade: 2+, Left triceps reflex intensity grade: 2+, Rt Biceps (C5, C6): 2+, Left biceps reflex intensity grade: 2+, Right brachioradialis reflex intensity grade: 2+, Left brachioradialis reflex intensity grade: 2+, Right patellar reflex intensity grade: 2+, Left patellar reflex intensity grade: 2+, Right ankle reflex intensity grade: 2+ and Left ankle reflex intensity grade: 2+ Plantar Reflex Responses: downgoing: right, left and bilateral Coordination: [id number]-[id number] test normal, iyrx-om-[id number] test normal, tandem gait normal and Romberg test negative Pupils: Normal pupillary reactivity/response: bilateral Extrem: General: Yes normal to inspection, Yes normal exam except as noted and Yes no pedal edema Psych: Appearance: grossly normal Mental Status: mental status grossly normal Speech and movement: Normal speech and movement present and Clear speech present Affect: normal affect Attitude: cooperative Thought process: Normal thought process present Results Labs CBC & Chem 7: 06/29/21 05:33 06/29/21 05:33 Labs: Short CBC 06/28/21 06/29/21 Range/Units 16:20 05:33 WBC 8.4 7.5 (4.8-10.8) X10*3/uL Hgb 13.3 12.3 (12.0-16.0) g/dl Hct 40.2 38.2 (37-47) % Plt Count 180 153 L (160-400) X10*3/uL BMP 06/28/21 06/29/21 16:20 05:33 Sodium 138 138 Potassium 4.0 4.1 Chloride 105 109 H Carbon Dioxide 18 L 21 L BUN 23 H 17 H Creatinine 1.14 0.96 Calcium 10.2 D 9.6 Liver Function 06/28/21 Range/Units 16:20 Total Bilirubin 0.4 (0.0-1.0) mg/dL AST 40 H (5-31) U/L ALT 42 H (0-31) U/L Alkaline Phosphatase 106 D (39-117) U/L Albumin 4.5 (3.5-5.0) g/dL Assessment and Plan (1) Headache: Qualifiers: Headache type: tension-type Status: Acute Recommend treating symptomatically with the Fioricet one every 6 hours when necessary. Ambien 10 mg at bedtime for insomnia. Outpatient followup if headaches persist (2) Diabetic polyneuropathy associated with type 2 diabetes mellitus: Status: Acute Procedures Date of Service Date of Service: 06/29/21
--- NOTE | 2021-06-29 14:39 | MHC.CM.PN ---
pt dcd home no skilled servceis mordered by
--- NOTE | 2021-06-29 14:40 | P.DS_ITS ---
DS: Providers Provider Date of Service: 06/29/21 Date of admission: 06/28/21 20:02 Primary care physician: Darryl Robles MD Consults: 06/28/21 20:35 Consult to Neurology Routine Consulting Provider: [facility] Reason for consultation: left sided pain possible complex migraine, r/o TIA DS: Diagnosis Discharge Diagnosis (1) Headache: Status: Acute (2) Diabetic polyneuropathy associated with type 2 diabetes mellitus: Status: Acute DS: Medications Discharge Medications Home Medications: Home Medications Medication Instructions Recorded Confirmed albuterol sulfate 90 mcg/actuation 2 puff INHALATION QID PRN 08/31/20 06/28/21 aerosol inhaler (ProAir HFA) aspirin 81 mg chewable tablet 81 mg PO DAILY 08/31/20 06/28/21 Previous Rx's Medication Instructions Recorded benazepril 5 mg tablet 5 mg PO DAILY #90 cap 12/26/20 cholecalciferol (vitamin D3) 50 50 mcg PO DAILY 30 Days #30 tab 04/02/21 mcg (2,000 unit) tablet insulin lispro 100 unit/mL See Rx Instructions SUBCUT DAILY 04/02/21 subcutaneous solution (Humalog 30 Days #30 ml U-100 Insulin) omega-3 fatty acids 1,000 mg 1,000 mg PO BID 30 Days #60 cap 04/02/21 capsule rosuvastatin 40 mg tablet 40 mg PO DAILY 30 Days #30 tab 04/02/21 sitagliptin 50 mg-metformin 1,000 1 tab PO DAILY 90 Days #90 cap 04/02/21 mg tablet (Janumet) sub-q insulin device, 30 unit #30 ea 04/02/21 (V-GO 30) tpgclyxwem-vsrdslkiqxtlb-kdkygqgt 1 tab PO Q6H PRN #20 tab 06/29/21 50 mg-325 mg-40 mg tablet zolpidem 5 mg tablet (Ambien) 5 mg PO BEDTIME PRN #10 tab 06/29/21 DS: Summary Hospital Course Hospital Course: History of presenting illness Chief Complaint: headache,pain 70-year-old female with extensive past medical history including diabetes, diabetic neuropathy, HTN, GERD HLD, among others who presents to the hospital with complaints of left-sided headache, facial pain, left arm pain, and leg pain.? Patient denies any weakness numbness or tingling, reports that the symptoms started earlier today, she is reporting intolerance to sound and light.? Denies any similar previous episode.? Reports blurry vision on the left eye, denies any chest pain, no palpitations, no shortness of breath, no abdominal pain, no nausea or vomiting, no diarrhea constipation, no urinary symptoms and no lower extremity edema. On arrival to the ED hemodynamically stable with elevated blood pressure of 1 60s reaching to 190s systolic with no symptoms. Generally unremarkable, head CT? showed no intracranial hemorrhage or large acute infarct, CTA head and neck showed no high-grade stenosis Patient's case was discussed with Neurology, thinks this may be complex migraine, to be admitted with MRI in morning 70-year-old female with past medical history of diabetes, hypertension presented to the hospital with complaints of headache and left-sided weakness, initial workup in the ER including head CT and CT angio head and neck was negative due to persistent symptoms of headache and left-sided weakness she was admitted to hospital and MRI study was obtained that showed no acute abnormality patient evaluated by neurologist Dr. Santos who felt patient has tension headache and insomnia contributing to her symptoms, since patient headache has improved and left-sided weakness has resolved therefore she is being discharged home on Fioricet and Ambien 5 mg 10 tablets and recommended her to follow-up with primary care physician , in regard to her chronic medical issues including diabetes and hypertension she has been recommended to continue home medications. Time Spent with Patient Time attestation: Total time spent providing and/or coordinating discharge services: Discharge coordination time: Greater than 30 minutes Quality: Stroke Does the patient have a stroke diagnosis?: No Physical Exam Vital Signs: Vital Signs: Last Vital Signs Temp 96.8 F 06/29/21 10:51 Pulse 76 06/29/21 10:51 Resp 20 06/29/21 10:51 BP 142/72 H 06/29/21 10:51 Pulse Ox 98 06/29/21 10:51 Body Mass Index 25.1 General no acute distress. Neck supple no JVD. CVS regular rate rhythm, Respiratory lungs clear to auscultation, no respiratory distress, no wheeze, no rhonchi. Gastrointestinal abdomen soft, nontender, bowel sounds audible, no guarding , no rigidity. Extremities no edema. Neuro nonfocal , normalstrength upper and lower extremity, plantar responses downgoing, no pronator drift, speech clear. Skin no rash DS: Data Data Completed and Pending Labs on day of discharge: Laboratory Results - last 24 hr 06/28/21 06/28/21 06/28/21 16:20 16:20 16:20 WBC 8.4 RBC 4.90 Hgb 13.3 Hct 40.2 MCV 82.0 MCH 27.1 MCHC 33.1 RDW 13.2 Plt Count 180 MPV 11.3 Immature Gran % (Auto) 0.4 Neut % (Auto) 46.5 Lymph % (Auto) 45.1 H [place] % (Auto) 5.7 Eos % (Auto) 1.7 Baso % (Auto) 0.6 Lymph # (Auto) 3.8 [place] # (Auto) 0.5 Eos # (Auto) 0.1 Baso # (Auto) 0.1 Abs Immat Gran (auto) 0.03 Absolute Neuts (auto) 3.9 Absolute Nucleated RBC 0.000 Nucleated RBC % (auto) 0.0 ESR PT 9.7 L INR 0.9 APTT 34.6 Sodium 138 Potassium 4.0 Chloride 105 Carbon Dioxide 18 L Anion Gap 19 BUN 23 H Creatinine 1.14 Estim Creat Clear Calc 44.2 Estimated GFR 47 POC Glucose Random Glucose 241 H Calcium 10.2 D Total Bilirubin 0.4 AST 40 H ALT 42 H Alkaline Phosphatase 106 D Troponin I High Sens Total Protein 7.5 Albumin 4.5 TSH 4.76 H COVID-19 (YAO) COVID-[employer] Com 06/28/21 06/28/21 06/28/21 16:20 16:20 16:57 WBC RBC Hgb Hct MCV MCH MCHC RDW Plt Count MPV Immature Gran % (Auto) Neut % (Auto) Lymph % (Auto) [place] % (Auto) Eos % (Auto) Baso % (Auto) Lymph # (Auto) [place] # (Auto) Eos # (Auto) Baso # (Auto) Abs Immat Gran (auto) Absolute Neuts (auto) Absolute Nucleated RBC Nucleated RBC % (auto) ESR 13 PT INR APTT Sodium Potassium Chloride Carbon Dioxide Anion Gap BUN Creatinine Estim Creat Clear Calc Estimated GFR POC Glucose 214 H Random Glucose Calcium Total Bilirubin AST ALT Alkaline Phosphatase Troponin I High Sens 4.2 Total Protein Albumin TSH COVID-19 (YAO) COVID-19 Clin Com 06/28/21 06/28/2121 19:31 21:10 05:33 WBC 7.5 RBC 4.61 Hgb 12.3 Hct 38.2 MCV 82.9 MCH 26.7 L MCHC 32.2 RDW 13.2 Plt Count 153 L MPV 11.6 Immature Gran % (Auto) 0.3 Neut % (Auto) 48.4 Lymph % (Auto) 42.5 H [place] % (Auto) 6.4 Eos % (Auto) 2.0 Baso % (Auto) 0.4 Lymph # (Auto) 3.2 [place] # (Auto) 0.5 Eos # (Auto) 0.2 Baso # (Auto) 0.0 Abs Immat Gran (auto) 0.02 Absolute Neuts (auto) 3.6 Absolute Nucleated RBC 0.000 Nucleated RBC % (auto) 0.0 ESR PT INR APTT Sodium Potassium Chloride Carbon Dioxide Anion Gap BUN Creatinine Estim Creat Clear Calc Estimated GFR POC Glucose 193 H Random Glucose Calcium Total Bilirubin AST ALT Alkaline Phosphatase Troponin I High Sens Total Protein Albumin TSH COVID-19 (YAO) Negative COVID-19 Clin Com See Note 06/29/21 06/29/21 06/29/21 05:33 07:25 11:26 WBC RBC Hgb Hct MCV MCH MCHC RDW Plt Count MPV Immature Gran % (Auto) Neut % (Auto) Lymph % (Auto) [place] % (Auto) Eos % (Auto) Baso % (Auto) Lymph # (Auto) [place] # (Auto) Eos # (Auto) Baso # (Auto) Abs Immat Gran (auto) Absolute Neuts (auto) Absolute Nucleated RBC Nucleated RBC % (auto) ESR PT INR APTT Sodium 138 Potassium 4.1 Chloride 109 H Carbon Dioxide 21 L Anion Gap 12 BUN 17 H Creatinine 0.96 Estim Creat Clear Calc 52.4 Estimated GFR 58 POC Glucose 173 H 237 H Random Glucose 193 H Calcium 9.6 Total Bilirubin AST ALT Alkaline Phosphatase Troponin I High Sens Total Protein Albumin TSH COVID-19 (YAO) COVID-19 Clin Com Discharge Plan Discharge Patient Disposition: Home, Self-Care Discharge Diagnosis: Headache Left-sided weakness resolved Diabetes Referrals: Darryl Robles MD [Primary Care Provider] - 1 Week Discharge Medications: New qxvmcekdlg-bumxmkdydmowj-ualt 50-325-40 mg Tablet 1 tab PO Q6H PRN (Reason: Headache) Qty: 20 RF: 0 zolpidem [Ambien] 5 mg tablet 5 mg PO BEDTIME PRN (Reason: insomnia) Qty: 10 RF: 0 Continued benazepril 5 mg tablet 5 mg PO DAILY Qty: 90 RF: 3 albuterol sulfate [ProAir HFA] 90 mcg/actuation HFA aerosol inhaler 2 puff inhalation QID PRN (Reason: Shortness Of Breath) RF: 0 aspirin 81 mg tablet,chewable 81 mg PO DAILY RF: 0 insulin lispro [Humalog U-100 Insulin] 100 unit/mL solution See Rx Instructions subcut DAILY 30 Days Qty: 30 RF: 5 Janumet 50-1,000 mg tablet 1 tab PO DAILY 90 Days Qty: 90 RF: 2 cholecalciferol (vitamin D3) 50 mcg (2,000 unit) tablet 50 mcg PO DAILY 30 Days Qty: 30 RF: 5 rosuvastatin 40 mg tablet 40 mg PO DAILY 30 Days Qty: 30 RF: 5 omega-3 fatty acids 1,000 mg capsule 1,000 mg PO BID 30 Days Qty: 60 RF: 6 No Action (DME) V-GO 30 Device See Rx Instructions .ROUTE .MEDSUPPLY Qty: 30 RF: 5 Discharge Orders: Discharge Order (Routine); Ordered 06/29/21 Ordered By: Sandip Lou Diet: diabetic diet Activity on Discharge: As tolerated Stand Alone Forms: Patient Portal Discharge page Care Plan Goals: Take Fioricet 1 tablet every 6 hours as needed for recurrent headache Health Concerns: Diabetes mellitus/continue all home medication Plan of Treatment: Follow-up with Dr. Robles in next 7-10 days Assessment: As above
== END 2021-06-29 16:37 | disposition home or self-care (01) ==
LOC: HO.ED 20:50 → HO.IMC 21:18
PROVIDERS: Nurse Practitioner Primary Care; Admitting Provider Internal Medicine; Emergency Provider Internal Medicine; PCP Internal Medicine; Visit Provider Hospitalist
DX: R51.9 Headache, unspecified (principal); G81.94 Hemiplegia, unspecified affecting left nondominant side; H53.8 Other visual disturbances; E11.65 Type 2 diabetes mellitus with hyperglycemia; E11.42 Type 2 diabetes mellitus with diabetic polyneuropathy; E11.22 Type 2 diabetes mellitus with diabetic chronic kidney disease; E11.21 Type 2 diabetes mellitus with diabetic nephropathy; E11.3293 Type 2 diabetes mellitus with mild nonproliferative diabetic retinopathy without macular edema, bilateral; I65.21 Occlusion and stenosis of right carotid artery; I12.9 Hypertensive chronic kidney disease with stage 1 through stage 4 chronic kidney disease, or unspecified chronic kidney disease; N18.2 Chronic kidney disease, stage 2 (mild); E78.5 Hyperlipidemia, unspecified; E55.9 Vitamin D deficiency, unspecified; K21.9 Gastro-esophageal reflux disease without esophagitis; R94.31 Abnormal electrocardiogram [ECG] [EKG]; Z20.822 Contact with and (suspected) exposure to COVID-19; Z90.710 Acquired absence of both cervix and uterus; Z90.79 Acquired absence of other genital organ(s); Z90.722 Acquired absence of ovaries, bilateral; Z91.040 Latex allergy status; Z88.8 Allergy status to other drugs, medicaments and biological substances; Z91.018 Allergy to other foods; Z79.4 Long term (current) use of insulin; Z79.899 Other long term (current) drug therapy
CPT/HCPCS: 36415; 70450; 70496; 70498; 70551; 71045; 80048; 80053; 82947; 84443; 84484; 85025; 85610; 85652; 85730; 87635; 93005; 99219; 99285; J1200; J1652; J1885; J2765; Q9967

== ENCOUNTER 2021-10-17 14:28 | Emergency (ER) | payer OTHER, SELFPAY ==
--- NOTE | ~2021-10-17 | XR_ITS ---
EXAMINATION: XR CHEST CLINICAL INFORMATION: Shortness of breath, pain COMPARISON: Chest radiographs 06/28/2021, 01/25/2012 TECHNIQUE: 2 views of the chest were obtained. FINDINGS: There is no pneumothorax or pleural reaction. No airspace consolidation or definite groundglass opacity. The costophrenic sulci are clear. There is no effusion. The heart is normal in size. The vascularity is normal. The hilar and mediastinal contours are normal. There are degenerative changes thoracic spine. XR/XR chest 2V IMPRESSION: No acute intrathoracic disease.
[2021-10-17 14:35] VITALS: BP 131/78; PULSE 75; RESP 16; TEMP 35.9; O2SAT 98; BMI 24.0
--- NOTE | 2021-10-17 15:04 | ECG_ITS ---
Test Reason : dyspena Blood Pressure : / mmHG Vent. Rate : 072 BPM Atrial Rate : 072 BPM P-R Int : 158 ms QRS Dur : 080 ms QT Int : 394 ms P-R-T Axes : 061 -45 044 degrees QTc Int : 431 ms Normal sinus rhythm Left anterior fascicular block Abnormal ECG When compared with ECG of 28-JUN-2021 17:08, No significant change was found Referred By: Sindi Apple Electronically Signed By:JOSE ALFREDO BEE MD
--- NOTE | 2021-10-17 15:14 | ED.SOB ---
HPI - SOB/Dyspnea General Chief Complaint: Dyspnea Stated Complaint: diff breathing, lung pain, cough Time Seen by Provider: 10/17/21 14:57 Source: patient Mode of arrival: ambulatory Limitations: no limitations History of Present Illness HPI Narrative: 71 y/o female with history of DM2, HTN, CAD, CKD II, restrictive lung disease, allergic rhinitis, GERD, OA, obesity who presents to the ER with 7-8 days of persistent SOB and central chest pain. She reports being seen at a walk in clinic 1 week ago, being diagnosed with bronchitis and was given a prescription for steroids. She reports no improvement in her symptoms. She reports a productive cough of thick phlegm, SOB, HUNT, subjective fever and chills. She is fully vaccinated against COVID-19 and has no known sick contacts. She reports her chest pain comes and goes, worse with inspiration and coughing. MD elicited complaint: shortness of breath, cough, pain with inspiration and chest pain Pertinent past history: diabetes Onset (ago): week(s) (1) Context: recent illness Timing: progressively worsening Severity: moderate Exacerbating factors: exertion, coughing and deep breaths Relieving factors: rest Known history of: diabetes Associated symptoms: chest pain, pain with inspiration, fever, cough, wheezing, sputum production and chest congestion Treatment prior to arrival: none Related Data Home oxygen amount: none Home Medications Medication Instructions Recorded Confirmed albuterol sulfate 90 mcg/actuation 2 puff INHALATION QID PRN 08/31/20 07/15/21 aerosol inhaler (ProAir HFA) Previous Rx's Medication Instructions Recorded benazepril 5 mg tablet 5 mg PO DAILY #90 cap 12/26/20 cholecalciferol (vitamin D3) 50 50 mcg PO DAILY 30 Days #30 tab 04/02/21 mcg (2,000 unit) tablet insulin lispro 100 unit/mL See Rx Instructions SUBCUT DAILY 04/02/21 subcutaneous solution (Humalog 30 Days #30 ml U-100 Insulin) omega-3 fatty acids 1,000 mg 1,000 mg PO BID 30 Days #60 cap 04/02/21 capsule sub-q insulin device, 30 unit #30 ea 04/02/21 (V-GO 30) nakbfibiov-jbporslskaxdy-otujxeyl 1 tab PO Q6H PRN #20 tab 06/29/21 50 mg-325 mg-40 mg tablet zolpidem 5 mg tablet (Ambien) 5 mg PO BEDTIME PRN #10 tab 06/29/21 linagliptin 5 mg-metformin ER 1 tab PO DAILY 30 Days #30 ea 07/13/21 1,000 mg tablet,extended release 24 hr (Jentadueto XR) aspirin 81 mg chewable tablet 1 tab PO DAILY #90 tab 07/29/21 rosuvastatin 40 mg tablet 40 mg PO DAILY 30 Days #30 tab 10/16/21 amoxicillin 875 mg-potassium 1 tab PO BID #14 tab 10/17/21 clavulanate 125 mg tablet (Augmentin) benzonatate 100 mg capsule 100 mg PO Q6H PRN #20 cap 10/17/21 hydrocodone-homatropine 5 mg-1.5 5 ml PO Q6H PRN #60 ml 10/17/21 mg/5 mL oral syrup (Hycodan (with homatropine)) Allergies Allergy/AdvReac Type Severity Reaction Status Date / Time latex [LATEX] Allergy Intermediate RASH Verified 07/15/21 04:55 atorvastatin [From Lipitor] Allergy Mild MUSCLE Verified 07/15/21 04:55 ACHES dulaglutide [Trulicity] Allergy Unknown rash and Verified 07/15/21 04:55 itching pioglitazone Allergy Unknown Urinary Verified 07/15/21 04:55 frequency pork derived (porcine) Allergy Unknown CONGREGATIONAL Verified 07/15/21 04:55 [PORK DERIVED (PORCINE)] BELIEF canagliflozin [Invokana] AdvReac Unknown recurrent Verified 07/15/21 04:55 UTI, dizziness Tanzeum Allergy Unknown rash Uncoded 07/15/21 04:55 [facility] Past Medical History Medical History (Updated 10/17/21 @ 16:45 by ZULMA Mejia) Allergic rhinitis Chronic interstitial cystitis Chronic kidney disease, stage 2 (mild) Coronary artery disease Diabetes mellitus with stage 2 chronic kidney disease, with long-term current use of insulin Diabetes type 2, uncontrolled Diabetic nephropathy associated with type 2 diabetes mellitus Diabetic polyneuropathy associated with type 2 diabetes mellitus Essential hypertension GERD (gastroesophageal reflux disease) Hyperlipidemia Insomnia half-way (current) use of insulin Lumbosacral spondylosis Non-proliferative diabetic retinopathy, both eyes Osteoarthritis of left hip Overweight (BMI 25.0-29.9) Pityriasis rosea Restrictive lung disease Varicose veins of both lower extremities Vitamin D deficiency Surgical History FH: JUANCHO-BSO (total abdominal hysterectomy and bilateral salpingo-oophorectomy) Family History Family History Father Diabetes Mother CVD (cardiovascular disease) Social History Social History Household Members: None Housing: House Do you presently have visiting nurse or other home services: No Alcohol intake: never Patient Tobacco Use Status: Never used Tobacco Second Hand Smoke Exposure: Yes Advance Directives: No Advance Directives Information Provided: No service: No Current occupational status: employed 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 No improvement with prescribed methylprednisolone. She denies having a chest x-ray performed at the urgent care clinic last week. Will get chest x-ray, EKG, lab workup. She is nontoxic appearing with clear lungs and SpO2 99% on room air. Doubt ACS or PE. Reevaluation(s) Reevaluation #1: Chest x-ray is clear, EKG is unremarkable. Troponin is negative and D-dimer is negative. She continues to saturate 99% on RA. Will plan to treat with oral antibiotics and antitussive agents for acute bronchitis. Patient is stable for discharge home with supportive care. Encourage follow-up with her primary care doctor, patient agrees with plan. MDM - SOB/Dyspnea Differential Diagnosis Differential diagnosis: Likely acute exacerbation of chronic obstructive airways disease, congestive heart failure, pneumonia, pulmonary embolism, pleural effusion, sleep apnea and anemia Medical Records Attestation: I reviewed the patient's medical records. Lab Data Attestation: I reviewed the patient's lab results. Result diagrams: 10/17/21 15:19 10/17/21 15:19 Labs: Lab Results 10/17/21 10/17/21 10/17/21 Range/Units 15:19 15:19 15:19 WBC 10.2 (4.8-10.8) X10*3/uL RBC 5.06 (4.20-5.50) X10*6/uL Hgb 13.6 (12.0-16.0) g/dl Hct 42.8 (37.0-47.0) % MCV 84.6 (80.0-98.0) fL MCH 26.9 L (27.0-33.0) pg MCHC 31.8 (31.0-35.0) g/dl RDW 13.3 (11.0-16.0) % Plt Count 239 (160-400) X10*3/uL MPV 11.4 (9.4-12.3) fL Immature Gran % (Auto) 0.7 H (0.0-0.4) % Neut % (Auto) 39.3 L (45-73) % Lymph % (Auto) 52.7 H (20-40) % [place] % (Auto) 5.5 (2-11) % Eos % (Auto) 1.3 (0-4) % Baso % (Auto) 0.5 (0-2) % Lymph # (Auto) 5.4 H (1.2-4.9) X10*3/uL [place] # (Auto) 0.6 (0.1-1.2) X10*3/uL Eos # (Auto) 0.1 (0.0-0.4) X10*3/uL Baso # (Auto) 0.1 (0.0-0.2) X10*3/uL Abs Immat Gran (auto) 0.07 H (0.00-0.03) X10*3/uL Absolute Neuts (auto) 4.0 (2.0-8.3) x10*3/uL Absolute Nucleated RBC 0.000 (0.0-0.012) X10*3/uL Nucleated RBC % (auto) 0.0 (0.0-0.2) /100WBC Smear Tech's Comments VERIFIED D-Dimer High Sensitivty NG/ML Sodium 134 L (135-145) mmol/L Potassium 4.6 (3.3-5.1) mmol/L Chloride 99 (96-108) mmol/L Carbon Dioxide 23 (22-29) mmol/L Anion Gap 17 (12-20) BUN 38 H D (9-16) mg/dL Creatinine 1.27 (0.5-1.4) mg/dL Estim Creat Clear Calc 36.0 Estimated GFR 42 Random Glucose 319 H (60-115) mg/dL Calcium 9.7 (8.4-10.2) mg/dL Magnesium 2.0 (1.6-2.6) mg/dL Total Bilirubin 0.3 (0.0-1.0) mg/dL Direct Bilirubin < 0.2 (0.0-0.5) mg/dL AST 25 (5-31) U/L ALT 26 (0-31) U/L Alkaline Phosphatase 137 H D (39-117) U/L Troponin I High Sens < 3.5 (<3.5-17.0) ng/L B-Natriuretic Peptide 16 (<100) pg/mL Total Protein 7.3 (6.5-8.0) g/dL Albumin 4.1 (3.5-5.0) g/dL Influenza Type A (PCR) (Negative) Influenza Type B (PCR) (Negative) RSV RNA Qual (PCR) (Negative) SARS-CoV-2 RNA (RT-PCR) (Negative) 10/17/21 10/17/21 Range/Units 15:19 15:19 WBC (4.8-10.8) X10*3/uL RBC (4.20-5.50) X10*6/uL Hgb (12.0-16.0) g/dl Hct (37.0-47.0) % MCV (80.0-98.0) fL MCH (27.0-33.0) pg MCHC (31.0-35.0) g/dl RDW (11.0-16.0) % Plt Count (160-400) X10*3/uL MPV (9.4-12.3) fL Immature Gran % (Auto) (0.0-0.4) % Neut % (Auto) (45-73) % Lymph % (Auto) (20-40) % [place] % (Auto) (2-11) % Eos % (Auto) (0-4) % Baso % (Auto) (0-2) % Lymph # (Auto) (1.2-4.9) X10*3/uL [place] # (Auto) (0.1-1.2) X10*3/uL Eos # (Auto) (0.0-0.4) X10*3/uL Baso # (Auto) (0.0-0.2) X10*3/uL Abs Immat Gran (auto) (0.00-0.03) X10*3/uL Absolute Neuts (auto) (2.0-8.3) x10*3/uL Absolute Nucleated RBC (0.0-0.012) X10*3/uL Nucleated RBC % (auto) (0.0-0.2) /100WBC Smear Tech's Comments D-Dimer High Sensitivty < 150 NG/ML Sodium (135-145) mmol/L Potassium (3.3-5.1) mmol/L Chloride (96-108) mmol/L Carbon Dioxide (22-29) mmol/L Anion Gap (12-20) BUN (9-16) mg/dL Creatinine (0.5-1.4) mg/dL Estim Creat Clear Calc Estimated GFR Random Glucose (60-115) mg/dL Calcium (8.4-10.2) mg/dL Magnesium (1.6-2.6) mg/dL Total Bilirubin (0.0-1.0) mg/dL Direct Bilirubin (0.0-0.5) mg/dL AST (5-31) U/L ALT (0-31) U/L Alkaline Phosphatase (39-117) U/L Troponin I High Sens (<3.5-17.0) ng/L B-Natriuretic Peptide (<100) pg/mL Total Protein (6.5-8.0) g/dL Albumin (3.5-5.0) g/dL Influenza Type A (PCR) NEGATIVE (Negative) Influenza Type B (PCR) NEGATIVE (Negative) RSV RNA Qual (PCR) NEGATIVE (Negative) SARS-CoV-2 RNA (RT-PCR) NEGATIVE (Negative) ECG Data Attestation: I personally reviewed and interpreted this ECG as follows: ECG interpretation date: 10/17/21 ECG interpretation time: 15:38 Prior ECG tracings: available for review Interpretation: normal sinus rhythm, left axis deviation, HR 72 bpm, normal ME interval, no ST segment elevations or depressions. No significant change from prior May 2021 Critical Care Time Critical Care Time Critical Care Time: No Discharge Plan Discharge Clinical Impression: Acute bronchitis Qualifiers: Bronchitis organism: unspecified organism Qualified Code(s): J20.9 - Acute bronchitis, unspecified Patient Disposition: Home, Self-Care Instructions: Acute Bronchitis (ED) Additional Instructions: Your chest x-ray was normal. Your EKG was normal. Your blood workup was unremarkable. You are being treated for acute bronchitis with antibiotics and cough medication. Take all medications as prescribed. Do not drive after taking the cough syrup, this can make you lethargic. Recommend taking before bed. Rest and drink plenty of fluids. Follow up with your doctor in 1 week. If you develop new or worsening symptoms call 911 or come back to the ER for further evaluation. Prescriptions: New amoxicillin-pot clavulanate [Augmentin] 875-125 mg tablet 1 tab PO BID Qty: 14 RF: 0 benzonatate 100 mg capsule 100 mg PO Q6H PRN (Reason: cough) Qty: 20 RF: 0 hydrocodone-homatropine [Hycodan (with homatropine)] 5-1.5 mg/5 mL syrup 5 ml PO Q6H PRN (Reason: cough) Qty: 60 RF: 0 No Action benazepril 5 mg tablet 5 mg PO DAILY Qty: 90 RF: 3 aspirin 81 mg tablet,chewable 1 tab PO DAILY Qty: 90 RF: 3 rosuvastatin 40 mg tablet 40 mg PO DAILY 30 Days Qty: 30 RF: 4 navxpzyfzz-kxhfvdrcljdep-rrpt 50-325-40 mg Tablet 1 tab PO Q6H PRN (Reason: Headache) Qty: 20 RF: 0 zolpidem [Ambien] 5 mg tablet 5 mg PO BEDTIME PRN (Reason: insomnia) Qty: 10 RF: 0 albuterol sulfate [ProAir HFA] 90 mcg/actuation HFA aerosol inhaler 2 puff inhalation QID PRN (Reason: Shortness Of Breath) RF: 0 Jentadueto XR 5-1,000 mg tablet, IR - ER, biphasic 24hr 1 tab PO DAILY 30 Days Qty: 30 RF: 3 insulin lispro [Humalog U-100 Insulin] 100 unit/mL solution See Rx Instructions subcut DAILY 30 Days Qty: 30 RF: 5 (DME) V-GO 30 Device See Rx Instructions .ROUTE .MEDSUPPLY Qty: 30 RF: 5 cholecalciferol (vitamin D3) 50 mcg (2,000 unit) tablet 50 mcg PO DAILY 30 Days Qty: 30 RF: 5 omega-3 fatty acids 1,000 mg capsule 1,000 mg PO BID 30 Days Qty: 60 RF: 6 Referrals: Darryl Robles MD [Primary Care Provider] - 1 week (f/u bronchitis) Stand Alone Forms: Work/School Release
[2021-10-17] MEDS: 0.9 % Sodium Chloride 1,000 ML 999 ML IVCONT (15:21)
[2021-10-17 15:32] VITALS: BP 143/74; PULSE 72; RESP 16; TEMP 37.1; O2SAT 99
[2021-10-17 15:35] LABS: Basophils Absolute Auto 0.1 X10*3/uL (0.0-0.2); Basophils Percent Auto 0.5 % (0-2); Eosinophils Absolute Auto 0.1 X10*3/uL (0.0-0.4); Eosinophils Percent Auto 1.3 % (0-4); Hematocrit 42.8 % (37.0-47.0); Hemoglobin 13.6 g/dl (12.0-16.0); Imm Gran Abs Auto 0.07 X10*3/uL (0.00-0.03); Imm Gran Pct Auto 0.7 % (0.0-0.4); Lymphocytes Absolute Auto 5.4 X10*3/uL (1.2-4.9); Lymphocytes Percent Auto 52.7 % (20-40); MANUAL DIFF FLAG SCAN; Mean Corpuscular HGB Conc 31.8 g/dl (31.0-35.0); Mean Corpuscular Hemoglobin 26.9 pg (27.0-33.0); Mean Corpuscular Volume 84.6 fL (80.0-98.0); Mean Platelet Volume 11.4 fL (9.4-12.3); Monocytes Absolute Auto 0.6 X10*3/uL (0.1-1.2); Monocytes Percent Auto 5.5 % (2-11); Neutrophils Percent Auto 39.3 % (45-73); Platelet Count 239 X10*3/uL (160-400); Red Blood Count 5.06 X10*6/uL (4.20-5.50); Red Cell Distribution Width 13.3 % (11.0-16.0); SCAN SMEAR FLAG 1; White Blood Count 10.2 X10*3/uL (4.8-10.8)
[2021-10-17 15:38] LABS: D Dimer High Sensitivity < 150 NG/ML
[2021-10-17 15:48] LABS: B Type Natriuretic Peptide 16 pg/mL (<100); Troponin-I High Sensitivity < 3.5 ng/L (<3.5-17.0)
[2021-10-17 15:49] LABS: Alanine Aminotransferase 26 U/L (0-31); Albumin Level 4.1 g/dL (3.5-5.0); Alkaline Phosphatase 137 U/L (39-117); Anion Gap 17 (12-20); Aspartate Amino Transferase 25 U/L (5-31); Bilirubin Direct < 0.2 mg/dL (0.0-0.5); Bilirubin Total 0.3 mg/dL (0.0-1.0); Blood Urea Nitrogen 38 mg/dL (9-16); Calcium 9.7 mg/dL (8.4-10.2); Carbon Dioxide 23 mmol/L (22-29); Chloride 99 mmol/L (96-108); Estimated Glomerular Filt Rate 42; Glucose Random 319 mg/dL (60-115); Potassium 4.6 mmol/L (3.3-5.1); Sodium 134 mmol/L (135-145); Total Protein 7.3 g/dL (6.5-8.0)
[2021-10-17 16:03] LABS: SLIDE REVIEW VERIFIED
[2021-10-17 16:06] LABS: Influenza A PCR NEGATIVE (Negative); Influenza B PCR NEGATIVE (Negative); Resp Syncy Virus RNA Qual PCR NEGATIVE (Negative); SARS COV2 PCR INHOUSE NEGATIVE (Negative)
== END 2021-10-17 17:09 | disposition home or self-care (01) ==
PROVIDERS: Physician Assistant; Emergency Provider Emergency Medicine; PCP Internal Medicine
DX: J20.9 Acute bronchitis, unspecified (principal); I12.9 Hypertensive chronic kidney disease with stage 1 through stage 4 chronic kidney disease, or unspecified chronic kidney disease; E11.22 Type 2 diabetes mellitus with diabetic chronic kidney disease; N18.2 Chronic kidney disease, stage 2 (mild); I25.10 Atherosclerotic heart disease of native coronary artery without angina pectoris; Z79.4 Long term (current) use of insulin; Z20.822 Contact with and (suspected) exposure to COVID-19
CPT/HCPCS: 0241U; 36415; 71046; 80048; 80076; 83735; 83880; 84484; 85025; 85379; 93005; 96360; 99283; 99284

== ENCOUNTER → 2021-11-05 10:06 | Outpatient (BNVA) | payer OTHER, SELFPAY | PROVIDERS: PCP Internal Medicine; Referring Provider Internal Medicine; Visit Provider Internal Medicine ==

== ENCOUNTER → 2022-01-07 07:28 | Outpatient (BNVA) | payer OTHER, SELFPAY | PROVIDERS: PCP Internal Medicine; Visit Provider Nurse Practitioner Gerontology | DX: E11.65 Type 2 diabetes mellitus with hyperglycemia (principal); E11.3293 Type 2 diabetes mellitus with mild nonproliferative diabetic retinopathy without macular edema, bilateral; E11.21 Type 2 diabetes mellitus with diabetic nephropathy; E55.9 Vitamin D deficiency, unspecified; E78.00 Pure hypercholesterolemia, unspecified; I10 Essential (primary) hypertension; Z79.4 Long term (current) use of insulin | CPT/HCPCS: 82947 ==

== ENCOUNTER 2022-02-13 07:08 | Outpatient (REF) | payer OTHER, SELFPAY ==
[2022-02-13 08:02] LABS: Appearance Urine CLEAR; Color Urine YELLOW; Glucose Urine UA NEG (NEG); Leukocyte Esterase Urine NEG (NEG); Nitrite Urine NEG (NEG); PH 5.5 (5.0-8.0); Specific Gravity - Urine >= 1.030 (1.005-1.025); Urine Blood NEG (NEG); Urine Ketones NEG (NEG); Urine Protein NEG (NEG-TRACE)
[2022-02-13 08:17] LABS: Estimated Average Glucose 226 mg/dL; Hemoglobin A1c % 9.5 %
[2022-02-13 08:26] LABS: Alanine Aminotransferase 42 U/L (0-31); Albumin Level 4.4 g/dL (3.5-5.0); Alkaline Phosphatase 89 U/L (39-117); Anion Gap 15 (12-20); Aspartate Amino Transferase 44 U/L (5-31); Bilirubin Total 0.5 mg/dL (0.0-1.0); Blood Urea Nitrogen 17 mg/dL (9-16); Calcium 10.2 mg/dL (8.4-10.2); Carbon Dioxide 23 mmol/L (22-29); Chloride 108 mmol/L (96-108); Cholesterol 127 mg/dL; Estimated Glomerular Filt Rate 58; Glucose Fasting 151 mg/dL (60-99); HDL Cholesterol 38 mg/dL; LDL Cholesterol Calculated 58 mg/dl; Potassium 4.7 mmol/L (3.3-5.1); Sodium 141 mmol/L (135-145); Total Protein 7.2 g/dL (6.5-8.0); Triglycerides 159 mg/dL
[2022-02-13 08:28] LABS: Creatinine Urine 136.72 mg/dL
[2022-02-13 08:37] LABS: TSH reflex Free T4 2.39 uIU/mL (0.32-4.0)
== END 2022-02-13 07:09 | disposition home or self-care (01) ==
LOC: HO.LAB 07:08
PROVIDERS: Nurse Practitioner Gerontology; PCP Internal Medicine; Visit Provider Internal Medicine
DX: E78.00 Pure hypercholesterolemia, unspecified (principal); E11.9 Type 2 diabetes mellitus without complications; I10 Essential (primary) hypertension
CPT/HCPCS: 36415; 80053; 80061; 81003; 82043; 83036; 84443

== ENCOUNTER 2022-02-25 05:45 | Emergency (ER) | payer OTHER, SELFPAY ==
--- NOTE | ~2022-02-25 | XR_ITS ---
EXAMINATION: XR CHEST CLINICAL INFORMATION: Cough COMPARISON: Previous chest x-ray October 2021 TECHNIQUE: Frontal view of the chest was obtained. FINDINGS: The cardiac and mediastinal contours are stable. The lungs are clear. There is no pleural effusion or pneumothorax. There is slight elevation of the right hemidiaphragm that is stable. There are degenerative changes of the spine. XR/XR chest 1V IMPRESSION: No evidence for acute disease in the chest.
[2022-02-25 06:01] VITALS: BP 146/69; PULSE 88; RESP 16; TEMP 37.3; O2SAT 98; BMI 25.0
--- NOTE | 2022-02-25 07:26 | ED_ITS ---
HPI - URI/Sore Throat General Chief Complaint: Upper Respiratory Symptoms Stated Complaint: fever, cough, CP when coughing Time Seen by Provider: 02/25/22 07:25 Source: patient Mode of arrival: ambulatory Limitations: no limitations History of Present Illness MD elicited complaint: fever, cough and rhinorrhea Pertinent past history: other (pneumonia, bronchitis) Onset (ago): day(s) (2) Consistency: constant Severity: moderate Able to tolerate fluids by mouth: Yes Exacerbating factors: nothing Relieving factors: other (albuterol INH) Context: sick contacts (works at [employer]) Associated symptoms: fever, chills, rhinorrhea and cough Treatments prior to arrival: none Related Data Home Medications Medication Instructions Recorded Confirmed albuterol sulfate 90 mcg/actuation 2 puff INHALATION QID PRN 08/31/20 02/19/22 aerosol inhaler (ProAir HFA) Previous Rx's Medication Instructions Recorded benazepril 5 mg tablet 5 mg PO DAILY #90 cap 12/26/20 cholecalciferol (vitamin D3) 50 50 mcg PO DAILY 30 Days #30 tab 04/02/21 mcg (2,000 unit) tablet insulin lispro 100 unit/mL See Rx Instructions SUBCUT DAILY 04/02/21 subcutaneous solution (Humalog 30 Days #30 ml U-100 Insulin) omega-3 fatty acids 1,000 mg 1,000 mg PO BID 30 Days #60 cap 04/02/21 capsule pwkvlzzkem-vxutbddxngmhg-llohcrff 1 tab PO Q6H PRN #20 tab 06/29/21 50 mg-325 mg-40 mg tablet zolpidem 5 mg tablet (Ambien) 5 mg PO BEDTIME PRN #10 tab 06/29/21 aspirin 81 mg chewable tablet 1 tab PO DAILY #90 tab 07/29/21 rosuvastatin 40 mg tablet 40 mg PO DAILY 30 Days #30 tab 10/16/21 V-GO 40 device #30 ea 10/23/21 pen needle, diabetic 32 gauge x #100 ea 01/09/22 (BD Ultra-Fine [place] Pen Needle) flash glucose scanning reader #1 ea 01/14/22 (FreeStyle Consuelo 2 [place]) flash glucose sensor (FreeStyle #2 ea 01/14/22 Consuelo 2 Sensor) insulin glargine 100 unit/mL (3 8 unit (0.08 mL) SUBCUT QPM #15 ml 01/15/22 mL) subcutaneous pen (Lantus Solostar U-100 Insulin) linagliptin 5 mg-metformin ER 1 tab PO DAILY #30 tab 01/30/22 1,000 mg tablet,extended release 24 hr (Jentadueto XR) sub-q insulin device, 40 unit #30 each 02/11/22 (V-GO 40) mometasone 0.1 % topical cream 1 appl TOPICAL DAILY PRN 30 Days 02/19/22 #45 g doxycycline hyclate 100 mg capsule 100 mg PO BID 7 Days #14 cap 02/25/22 Allergies Allergy/AdvReac Type Severity Reaction Status Date / Time latex [LATEX] Allergy Intermediate RASH Verified 02/19/22 09:04 atorvastatin [From Lipitor] Allergy Mild MUSCLE Verified 02/19/22 09:04 ACHES dulaglutide [Trulicity] Allergy Unknown rash and Verified 02/19/22 09:04 itching pioglitazone Allergy Unknown Urinary Verified 02/19/22 09:04 frequency pork derived (porcine) Allergy Unknown ADVENTIST Verified 02/19/22 09:04 [PORK DERIVED (PORCINE)] BELIEF canagliflozin [Invokana] AdvReac Unknown recurrent Verified 02/19/22 09:04 UTI, dizziness Tanzeum Allergy Unknown rash Uncoded 02/19/22 09:04 Review of Systems Review of Systems: Constitutional : positive Fever, positive Chills, no fatigue, no Malaise ENT/Mouth : no sore throat, positive runny nose Eyes: No Discharge Cardiovascular : No Chest Pain, No SOB Respiratory : pos Cough, pos Sputum Gastrointestinal : No Nausea, No Vomiting, No Diarrhea Genitourinary : No Dysuria, No Urinary Frequency Musculoskeletal : positive Myalgia Skin : No rash, no skin lesions Neuro : No Headache PMFSH Past Medical History Attestation statement: The following information was validated with the patient. Medical History Allergic rhinitis Chronic interstitial cystitis Chronic kidney disease, stage 2 (mild) Coronary artery disease Diabetes mellitus with stage 2 chronic kidney disease, with long-term current use of insulin Diabetes type 2, uncontrolled Diabetic nephropathy associated with type 2 diabetes mellitus Diabetic polyneuropathy associated with type 2 diabetes mellitus Essential hypertension GERD (gastroesophageal reflux disease) Hyperlipidemia Insomnia intermediate (current) use of insulin Lumbosacral spondylosis Non-proliferative diabetic retinopathy, both eyes Osteoarthritis of left hip Overweight (BMI 25.0-29.9) Pityriasis rosea Restrictive lung disease Varicose veins of both lower extremities Vitamin D deficiency Surgical History FH: JUANCHO-BSO (total abdominal hysterectomy and bilateral salpingo-oophorectomy) Family History Family History Father Diabetes Mother CVD (cardiovascular disease) Social History Social History Household Members: None Housing: House Do you presently have visiting nurse or other home services: No Alcohol intake: never Patient Tobacco Use Status: Never used Tobacco Second Hand Smoke Exposure: Yes Advance Directives: No Advance Directives Information Provided: Yes service: No Current occupational status: employed 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 Oriented X3. No acute distress. Eyes: Pupils equal, round and reactive to light. ENT: Pharynx normal. Neck: Normal inspection. Neck supple. CVS: Normal heart rate and rhythm. Pulses normal. Respiratory: No respiratory distress. Breath sounds mild anterior rhonchi noted Abdomen: Soft and nontender. Skin: Skin warm and dry. Normal skin color. Normal skin turgor. Extremities: No lower extremity edema. No calf ttp Neuro: Oriented X 3. No motor deficit. No sensory deficit. Course Course Course Narrative: negative flu/covid and chest xray stable for DC will treat as bronchitis MDM - URI/Sore Throat MDM Narrative Medical decision making narrative: 71 yo female with multiple medical problems including DM, CAD, HTN, HLD, asthma works at [employer] notes 2 days of fevers, productive cough her VS are stable she has been using her INH. She is not toxic or in respiratory distress. Has a hx of bronchitis and pneumonia. Will obtain COVID/Flu and CXR. Dispo per results and findings. Lab Data Labs: Lab Results 02/25/22 02/25/22 Range/Units 07:22 07:44 COVID-19 (YAO) Negative (Negative) COVID-19 Clin Com See Note Influenza Type A (DANIA) Negative (Negative) Influenza Type B (DANIA) Negative (Negative) Influenza A & B Note See Note Discharge Plan Discharge Clinical Impression: Bronchitis Patient Disposition: Home, Self-Care Instructions: Acute Bronchitis (ED) Additional Instructions: return to ED for any worsening symptoms or concerns NEGATIVE FOR FLU/COVID CHEST XRAY NO PNEUMONIA Prescriptions: New doxycycline hyclate 100 mg capsule 100 mg PO BID 7 Days Qty: 14 0RF No Action benazepril 5 mg tablet 5 mg PO DAILY Qty: 90 3RF aspirin 81 mg tablet,chewable 1 tab PO DAILY Qty: 90 3RF rosuvastatin 40 mg tablet 40 mg PO DAILY 30 Days Qty: 30 4RF (DME) pen needle, diabetic [BD Ultra-Fine [place] Pen Needle] 32 gauge x 5/32 needle See Rx Instructions .ROUTE .MEDSUPPLY Qty: 100 3RF Rx Instructions: As directed once daily (DME) FreeStyle Consuelo 2 Sensor Kit See Rx Instructions .ROUTE .MEDSUPPLY Qty: 2 11RF Rx Instructions: As directed every 2 weeks (DME) FreeStyle Consuelo 2 [place] Misc See Rx Instructions .ROUTE .MEDSUPPLY Qty: 1 0RF Rx Instructions: As directed Lantus Solostar U-100 Insulin 100 unit/mL (3 mL) insulin pen 8 unit subcut QPM Qty: 15 2RF Jentadueto XR 5-1,000 mg tablet, IR - ER, biphasic 24hr 1 tab PO DAILY Qty: 30 3RF (DME) V-GO 40 Device See Rx Instructions .ROUTE .COMPLEX Qty: 30 3RF Dose Instruction: USE DIRECTED Rx Instructions: USE DIRECTED dldulmvxhn-hpknhjoszgngo-vhdj 50-325-40 mg Tablet 1 tab PO Q6H PRN (Reason: Headache) Qty: 20 0RF zolpidem [Ambien] 5 mg tablet 5 mg PO BEDTIME PRN (Reason: insomnia) Qty: 10 0RF albuterol sulfate [ProAir HFA] 90 mcg/actuation HFA aerosol inhaler 2 puff inhalation QID PRN (Reason: Shortness Of Breath) 0RF (DME) V-GO 40 device See Rx Instructions .Route .MEDSUPPLY Qty: 30 3RF Rx Instructions: As directed mometasone 0.1 % cream 1 appl topical DAILY PRN (Reason: skin irritation) 30 Days Qty: 45 2RF insulin lispro [Humalog U-100 Insulin] 100 unit/mL solution See Rx Instructions subcut DAILY 30 Days Qty: 30 5RF Rx Instructions: Up to 78 units via VGO subcut daily; cholecalciferol (vitamin D3) 50 mcg (2,000 unit) tablet 50 mcg PO DAILY 30 Days Qty: 30 5RF omega-3 fatty acids 1,000 mg capsule 1,000 mg PO BID 30 Days Qty: 60 6RF Referrals: Darryl Robles MD [Primary Care Provider] - 2 days (IF NOT BETTER) Stand Alone Forms: Work/School Release
[2022-02-25 07:48] LABS: COVID-19 Test Negative (Negative); IDNOW Serial# 16C4AD1C
[2022-02-25 08:04] LABS: Influenza A Negative (Negative); Influenza B2 Negative (Negative)
[2022-02-25] MEDS: Acetaminophen 325 MG TABLET 650 MG PO (08:26)
--- NOTE | 2022-02-25 09:17 | PC.NURSE ---
PT EVALUATED BY DR DAS. SWABS SENT, CXR COMPLETE. PLAN IS FOR DC HOME PT AGREEABLE TO PLAN
== END 2022-02-25 09:19 | disposition home or self-care (01) ==
PROVIDERS: Emergency Provider Emergency Medicine; PCP Internal Medicine
DX: J40 Bronchitis, not specified as acute or chronic (principal); R50.9 Fever, unspecified; E11.22 Type 2 diabetes mellitus with diabetic chronic kidney disease; I12.9 Hypertensive chronic kidney disease with stage 1 through stage 4 chronic kidney disease, or unspecified chronic kidney disease; N18.30 Chronic kidney disease, stage 3 unspecified; E78.5 Hyperlipidemia, unspecified; Z20.822 Contact with and (suspected) exposure to COVID-19; Z79.4 Long term (current) use of insulin; Z79.02 Long term (current) use of antithrombotics/antiplatelets; Z79.82 Long term (current) use of aspirin
CPT/HCPCS: 71045; 87502; 87635; 99283

== ENCOUNTER → 2022-03-21 11:09 | Outpatient (BNVA) | payer OTHER, SELFPAY | PROVIDERS: PCP Internal Medicine; Visit Provider Internal Medicine | DX: Z13.89 Encounter for screening for other disorder (principal) ==

== ENCOUNTER → 2022-05-06 07:35 | Outpatient (BNVA) | payer OTHER, SELFPAY | PROVIDERS: PCP Internal Medicine; Visit Provider Nurse Practitioner Gerontology | DX: E11.21 Type 2 diabetes mellitus with diabetic nephropathy (principal); E55.9 Vitamin D deficiency, unspecified; E78.00 Pure hypercholesterolemia, unspecified; I10 Essential (primary) hypertension | CPT/HCPCS: 82947 ==

== ENCOUNTER 2022-05-13 10:08 | Outpatient (REF) | payer OTHER, SELFPAY ==
--- NOTE | ~2022-05-13 | XR_ITS ---
EXAMINATION: XR CHEST CLINICAL INFORMATION: J45.909 - Unspecified asthma, uncomplicated COMPARISON: Chest radiographs 02/25/2022, 10/17/2021 TECHNIQUE: 2 views of the chest were obtained. FINDINGS: Lungs clear. Heart size normal. Vascularity normal. Costophrenic sulci are clear. No hyperinflation. Hilar and mediastinal contours and visualized bony structures are stable. XR/XR chest 2V IMPRESSION: Unremarkable examination.
[2022-05-13 11:59] LABS: Alanine Aminotransferase 33 U/L (0-31); Albumin Level 4.4 g/dL (3.5-5.0); Alkaline Phosphatase 93 U/L (39-117); Anion Gap 15 (12-20); Aspartate Amino Transferase 37 U/L (5-31); Bilirubin Total 0.7 mg/dL (0.0-1.0); Blood Urea Nitrogen 21 mg/dL (9-16); Calcium 9.9 mg/dL (8.4-10.2); Carbon Dioxide 24 mmol/L (22-29); Chloride 108 mmol/L (96-108); Cholesterol 198 mg/dL; Estimated Glomerular Filt Rate 50; Glucose Fasting 97 mg/dL (60-99); HDL Cholesterol 37 mg/dL; LDL Cholesterol Calculated 96 mg/dl; Potassium 4.4 mmol/L (3.3-5.1); Sodium 143 mmol/L (135-145); Total Protein 7.3 g/dL (6.5-8.0); Triglycerides 326 mg/dL
[2022-05-13 12:14] LABS: Estimated Average Glucose 209 mg/dL; Hemoglobin A1c % 8.9 %
[2022-05-13 12:24] LABS: Appearance Urine CLEAR; Color Urine YELLOW; Glucose Urine UA NEG (NEG); Leukocyte Esterase Urine TRACE (NEG); Nitrite Urine NEG (NEG); PH 5.5 (5.0-8.0); Specific Gravity - Urine 1.025 (1.005-1.025); Urine Blood NEG (NEG); Urine Ketones NEG (NEG); Urine Protein NEG (NEG-TRACE)
[2022-05-13 13:18] LABS: Bacteria Urine 1+ /LPF; Squamous Epithelial Cell Urine 2+ /LPF
== END 2022-05-13 10:09 | disposition home or self-care (01) ==
LOC: HO.XRAY 10:08
PROVIDERS: Absent Provider Internal Medicine; PCP Internal Medicine; Visit Provider Internal Medicine
DX: J45.909 Unspecified asthma, uncomplicated (principal); J98.4 Other disorders of lung; E11.9 Type 2 diabetes mellitus without complications; E78.00 Pure hypercholesterolemia, unspecified
CPT/HCPCS: 36415; 71046; 80053; 80061; 81001; 83036; 94010

== ENCOUNTER → 2022-10-10 09:17 | Outpatient (BNVA) | payer OTHER, SELFPAY | PROVIDERS: PCP Internal Medicine; Visit Provider Internal Medicine Endocrinology, Diabetes & Metabolism | DX: E11.65 Type 2 diabetes mellitus with hyperglycemia (principal) | CPT/HCPCS: 82947 ==

== ENCOUNTER → 2022-10-31 09:49 | Outpatient (BNVA) | payer OTHER, SELFPAY | PROVIDERS: PCP Internal Medicine; Referring Provider Internal Medicine; Visit Provider Internal Medicine | DX: I25.10 Atherosclerotic heart disease of native coronary artery without angina pectoris (principal); I10 Essential (primary) hypertension | CPT/HCPCS: 93005 ==

== ENCOUNTER 2022-12-19 07:22 | Outpatient (REF) | payer OTHER, SELFPAY ==
[2022-12-19 09:10] LABS: Appearance Urine Clear; Color Urine Yellow; Glucose Urine UA 250 mg/dL (Negative); Leukocyte Esterase Urine Small (1+) (Negative); Nitrite Urine Negative (Negative); PH 5.5 (5.0-9.0); UMIC TRIGGER UACC YES; Urine Blood Negative (Negative); Urine Ketones Negative (Negative); Urine Protein Negative (Neg-Trace)
[2022-12-19 09:16] LABS: Bacteria Urine None Seen (None Seen); Hyaline Casts Urine 0-2 /LPF (0-2); RBC Urine 0-2 /HPF (0-2); UACC Culture Trigger YES
[2022-12-19 09:22] LABS: Estimated Average Glucose 220 mg/dL; Hemoglobin A1c % 9.3 %
[2022-12-19 09:37] LABS: Creatinine Urine 88.47 mg/dL
[2022-12-19 09:50] LABS: Alanine Aminotransferase 29 U/L (0-31); Albumin Level 4.3 g/dL (3.5-5.0); Alkaline Phosphatase 84 U/L (39-117); Anion Gap 15 (12-20); Aspartate Amino Transferase 29 U/L (5-31); Bilirubin Total 0.6 mg/dL (0.0-1.0); Blood Urea Nitrogen 19 mg/dL (9-16); Calcium 9.7 mg/dL (8.4-10.2); Carbon Dioxide 24 mmol/L (22-29); Chloride 106 mmol/L (96-108); Cholesterol 126 mg/dL; Estimated Glomerular Filt Rate 55; Glucose Fasting 147 mg/dL (60-99); HDL Cholesterol 31 mg/dL; LDL Cholesterol Calculated 56 mg/dl; Potassium 4.2 mmol/L (3.3-5.1); Sodium 141 mmol/L (135-145); Total Protein 7.1 g/dL (6.5-8.0); Triglycerides 198 mg/dL
== END 2022-12-19 07:23 | disposition home or self-care (01) ==
LOC: HO.LAB 07:22
PROVIDERS: PCP Internal Medicine; Visit Provider Internal Medicine
DX: E78.00 Pure hypercholesterolemia, unspecified (principal); E11.9 Type 2 diabetes mellitus without complications; R30.0 Dysuria
CPT/HCPCS: 36415; 80053; 80061; 81001; 82043; 83036; 87086

== ENCOUNTER → 2023-01-08 07:55 | Outpatient (BNVA) | payer OTHER, SELFPAY | PROVIDERS: PCP Internal Medicine; Visit Provider Internal Medicine Endocrinology, Diabetes & Metabolism | DX: E11.65 Type 2 diabetes mellitus with hyperglycemia (principal); Z79.84 Long term (current) use of oral hypoglycemic drugs; Z79.4 Long term (current) use of insulin | CPT/HCPCS: 82947 ==

== ENCOUNTER 2023-02-27 07:39 | Outpatient (REF) | payer OTHER, SELFPAY ==
[2023-02-27 07:54] LABS: MANUAL DIFF FLAG NO
[2023-02-27 08:16] LABS: Basophils Absolute Auto 0.1 X10*3/uL (0.0-0.2); Basophils Percent Auto 0.8 % (0-2); Eosinophils Absolute Auto 0.1 X10*3/uL (0.0-0.4); Eosinophils Percent Auto 1.8 % (0-4); Hematocrit 42.7 % (37.0-47.0); Imm Gran Abs Auto 0.04 X10*3/uL (0.00-0.03); Imm Gran Pct Auto 0.5 % (0.0-0.4); Lymphocytes Absolute Auto 3.1 X10*3/uL (1.2-4.9); Lymphocytes Percent Auto 40.2 % (20-40); Mean Corpuscular HGB Conc 32.8 g/dl (31.0-35.0); Mean Corpuscular Hemoglobin 27.2 pg (27.0-33.0); Mean Corpuscular Volume 83.1 fL (80.0-98.0); Monocytes Absolute Auto 0.4 X10*3/uL (0.1-1.2); Monocytes Percent Auto 5.7 % (2-11); Neutrophils Absolute Auto 3.9 x10*3/uL (2.0-8.3); Platelet Count 210 X10*3/uL (160-400); Red Blood Count 5.14 X10*6/uL (4.20-5.50); Red Cell Distribution Width 14.1 % (11.0-16.0); White Blood Count 7.7 X10*3/uL (4.8-10.8)
[2023-02-27 08:18] LABS: Appearance Urine Clear; Color Urine Yellow; Glucose Urine UA Negative (Negative); Leukocyte Esterase Urine Trace (Negative); Nitrite Urine Negative (Negative); PH 5.5 (5.0-9.0); UMIC TRIGGER UACC YES; Urine Blood Negative (Negative); Urine Ketones Negative (Negative); Urine Protein Negative (Neg-Trace)
[2023-02-27 08:24] LABS: Estimated Average Glucose 200 mg/dL; Hemoglobin A1C 263.4594 umol/L; Hemoglobin A1c % 8.6 %
[2023-02-27 08:24] LABS: Bacteria Urine None Seen (None Seen); Hyaline Casts Urine 0-2 /LPF (0-2); RBC Urine 0-2 /HPF (0-2); WBC Urine 0-5 /HPF (0-5)
[2023-02-27 08:39] LABS: Creatinine Urine 135.46 mg/dL; Microalbum/Creatinine Ratio Ur 19.9 ug/mg cr
[2023-02-27 08:51] LABS: Alanine Aminotransferase 32 U/L (0-31); Albumin Level 4.3 g/dL (3.5-5.0); Alkaline Phosphatase 88 U/L (39-117); Anion Gap 15 (12-20); Aspartate Amino Transferase 31 U/L (5-31); Bilirubin Total 0.6 mg/dL (0.0-1.0); Blood Urea Nitrogen 19 mg/dL (9-16); Carbon Dioxide 24 mmol/L (22-29); Chloride 106 mmol/L (96-108); Cholesterol 214 mg/dL; Estimated Glomerular Filt Rate 49; Glucose Fasting 146 mg/dL (60-99); HDL Cholesterol 37 mg/dL; LDL Cholesterol Calculated 108 mg/dl; Potassium 4.7 mmol/L (3.3-5.1); Sodium 140 mmol/L (135-145); Total Protein 7.1 g/dL (6.5-8.0); Triglycerides 345 mg/dL
[2023-02-27 09:09] LABS: TSH reflex Free T4 8.99 uIU/mL (0.32-4.0)
== END 2023-02-27 07:40 | disposition home or self-care (01) ==
LOC: HO.LAB 07:39
PROVIDERS: PCP Internal Medicine; Visit Provider Internal Medicine
DX: E78.00 Pure hypercholesterolemia, unspecified (principal); E11.9 Type 2 diabetes mellitus without complications; E55.9 Vitamin D deficiency, unspecified; I10 Essential (primary) hypertension
CPT/HCPCS: 36415; 80053; 80061; 81001; 82043; 82306; 83036; 84439; 84443; 85025

== ENCOUNTER 2023-03-19 09:28 | Outpatient (REF) | payer OTHER, SELFPAY ==
--- NOTE | ~2023-03-19 | XR_ITS ---
EXAMINATION: XR CHEST CLINICAL INFORMATION: Bronchitis. COMPARISON: 05/13/2022 TECHNIQUE: 2 views of the chest were obtained. FINDINGS: Lungs are well expanded and clear. No airspace disease, mass or pleural effusion. Cardiac silhouette is normal in size. The hilar contours are normal. The right diaphragm is chronically elevated. Mild spondylosis of the thoracic spine. XR/XR chest 2V IMPRESSION: No acute pulmonary disease.
== END 2023-03-19 09:29 | disposition home or self-care (01) ==
LOC: HO.HMGCX 09:28
PROVIDERS: PCP Internal Medicine; Visit Provider Internal Medicine
DX: J40 Bronchitis, not specified as acute or chronic (principal)
CPT/HCPCS: 71046

== ENCOUNTER 2023-05-12 07:38 | Outpatient (REF) | payer OTHER, SELFPAY ==
[2023-05-12 07:54] LABS: MANUAL DIFF FLAG NO
[2023-05-12 08:23] LABS: Basophils Percent Auto 0.5 % (0-2); Eosinophils Absolute Auto 0.2 X10*3/uL (0.0-0.4); Eosinophils Percent Auto 2.2 % (0-4); Hematocrit 40.2 % (37.0-47.0); Hemoglobin 12.7 g/dl (12.0-16.0); Imm Gran Abs Auto 0.03 X10*3/uL (0.00-0.03); Imm Gran Pct Auto 0.4 % (0.0-0.4); Lymphocytes Absolute Auto 2.7 X10*3/uL (1.2-4.9); Lymphocytes Percent Auto 37.4 % (20-40); Mean Corpuscular HGB Conc 31.6 g/dl (31.0-35.0); Mean Corpuscular Hemoglobin 26.5 pg (27.0-33.0); Mean Corpuscular Volume 83.9 fL (80.0-98.0); Mean Platelet Volume 12.2 fL (9.4-12.3); Monocytes Absolute Auto 0.4 X10*3/uL (0.1-1.2); Monocytes Percent Auto 5.6 % (2-11); Neutrophils Absolute Auto 3.9 x10*3/uL (2.0-8.3); Neutrophils Percent Auto 53.9 % (45-73); Platelet Count 206 X10*3/uL (160-400); Red Blood Count 4.79 X10*6/uL (4.20-5.50); Red Cell Distribution Width 13.9 % (11.0-16.0); White Blood Count 7.3 X10*3/uL (4.8-10.8)
[2023-05-12 08:35] LABS: Estimated Average Glucose 197 mg/dL; Hemoglobin A1c % 8.5 %
[2023-05-12 09:12] LABS: Alanine Aminotransferase 29 U/L (0-31); Albumin Level 4.3 g/dL (3.5-5.0); Alkaline Phosphatase 77 U/L (39-117); Anion Gap 13 (12-20); Aspartate Amino Transferase 33 U/L (5-31); Bilirubin Total 0.6 mg/dL (0.0-1.0); Blood Urea Nitrogen 15 mg/dL (9-16); Calcium 9.6 mg/dL (8.4-10.2); Carbon Dioxide 25 mmol/L (22-29); Chloride 109 mmol/L (96-108); Cholesterol 107 mg/dL; Estimated Glomerular Filt Rate 57; Glucose Fasting 110 mg/dL (60-99); HDL Cholesterol 37 mg/dL; LDL Cholesterol Calculated 36 mg/dl; Potassium 4.7 mmol/L (3.3-5.1); Sodium 142 mmol/L (135-145); Total Protein 6.7 g/dL (6.5-8.0); Triglycerides 173 mg/dL
[2023-05-12 10:00] LABS: Free T4 (Free Thyroxine) 0.82 ng/dL (0.71-1.85); Vitamin D 25-OH Total 34.4 ng/mL (>30)
[2023-05-12 10:18] LABS: Creatinine Urine 102.48 mg/dL; Microalbum/Creatinine Ratio Ur 6.8 ug/mg cr
[2023-05-12 10:52] LABS: Appearance Urine Cloudy; Color Urine Yellow; Glucose Urine UA Negative (Negative); Leukocyte Esterase Urine Small (1+) (Negative); Nitrite Urine Negative (Negative); PH 5.5 (5.0-9.0); UMIC TRIGGER UACC YES; Urine Blood Negative (Negative); Urine Ketones Negative (Negative); Urine Protein Negative (Neg-Trace)
[2023-05-12 11:06] LABS: Bacteria Urine None Seen (None Seen); Hyaline Casts Urine 0-2 /LPF (0-2); RBC Urine 0-2 /HPF (0-2); UACC Culture Trigger YES; WBC Urine 0-5 /HPF (0-5)
== END 2023-05-12 07:39 | disposition home or self-care (01) ==
LOC: HO.LAB 07:38
PROVIDERS: PCP Internal Medicine; Visit Provider Internal Medicine
DX: E78.00 Pure hypercholesterolemia, unspecified (principal); I10 Essential (primary) hypertension; E55.9 Vitamin D deficiency, unspecified; E03.9 Hypothyroidism, unspecified; E11.9 Type 2 diabetes mellitus without complications; R82.90 Unspecified abnormal findings in urine
CPT/HCPCS: 36415; 80053; 80061; 81001; 81003; 82043; 82306; 83036; 84439; 84443; 85025; 87086

== ENCOUNTER 2023-07-20 13:19 | Emergency (ER) | payer OTHER, SELFPAY ==
--- NOTE | ~2023-07-20 | XR_ITS ---
EXAMINATION: XR CHEST CLINICAL INFORMATION: Cough off ingested bleach COMPARISON: None available. TECHNIQUE: 2 views of the chest were obtained. FINDINGS: No significant abnormality is noted involving the heart, lungs, mediastinum and soft tissues. There is mild to moderate spondylosis mid and lower dorsal spine. XR/XR chest 2V IMPRESSION: Unremarkable chest examination.
[2023-07-20 13:41] VITALS: BP 133/65; PULSE 87; RESP 20; TEMP 37.3; O2SAT 97; BMI 25.7
--- NOTE | 2023-07-20 13:48 | ED_ITS ---
HPI - General Adult General Chief complaint: General Medical Stated complaint: accidently drank bleach Time Seen by Provider: 07/20/23 14:06 Source: patient Mode of arrival: ambulatory Limitations: no limitations History of Present Illness HPI narrative: 73 yo female with hx of diabetes accidentally drank household lysol bleach which was kept in water bottle she states she drank one mouthful then tried to rinse m outh with water has burning in mouth and throat. No other ingestions occurred one hour prior to arrival. MD complaint: accidental bleach household ingestion Onset (ago): hour(s) (1) Location: mouth Radiation: non-radiation Severity: mild Quality: burning Pain Consistency: constant Relieving factors: none Exacerbating factors: other (swallowing) Associated symptoms: cough Treatments prior to arrival: none Related Data Previous Rx's Medication Instructions Recorded omega-3 fatty acids 1,000 mg 1,000 mg PO BID 30 days #60 caps 04/02/21 capsule V-GO 40 device #30 ea 10/23/21 pen needle, diabetic 32 gauge x #100 ea 01/09/22/32 (BD Ultra-Fine Bronwyn Pen Needle) flash glucose scanning reader #1 ea 01/14/22 (FreeStyle Consuelo 2 [place]) flash glucose sensor (FreeStyle #2 ea 01/14/22 Consuelo 2 Sensor kit) insulin glargine 100 unit/mL (3 16 unit (0.16 mL) subcut QPM #15 mL 05/06/22 mL) subcutaneous pen (Lantus Solostar U-100 Insulin) albuterol sulfate 90 mcg/actuation 2 puff inhalation QID PRN 10/02/22 aerosol inhaler (ProAir HFA) shortness of breath or wheezing 30 days #8.5 grams mometasone 0.1 % topical cream 1 appl topical DAILY PRN skin 10/02/22 irritation 30 days #45 grams betamethasone dipropionate 0.05 % 1 appl topical BID PRN skin rash 12/20/22 topical cream #45 grams cholecalciferol (vitamin D3) 50 50 mcg PO DAILY 90 days #90 caps 03/03/23 mcg (2,000 unit) capsule hydroxyzine HCl 10 mg tablet 10 mg PO Q8H PRN itching/rash #90 03/03/23 tabs levothyroxine 25 mcg tablet 25 mcg PO DAILY 90 days #90 tabs 04/03/23 rosuvastatin 40 mg tablet 40 mg PO DAILY 90 days #90 tabs 03/03/23 prednisone 20 mg tablet 60 mg PO DAILY #9 tabs 03/11/23 benzonatate 100 mg capsule 100 mg PO TID #30 caps 03/19/23 prednisone 10 mg tablet 10 mg PO DAILY #28 tabs 03/19/23 insulin lispro 100 unit/mL See Rx Instructions subcut DAILY 05/09/23 subcutaneous solution (Humalog 30 days #30 mL U-100 Insulin) Jardiance 25 mg tablet 25 mg PO QAM 30 days #30 tabs 05/12/23 (empagliflozin) benazepril 5 mg tablet 5 mg PO DAILY 90 days #90 caps 05/12/23 sub-q insulin device, 40 unit #30 ea 05/29/23 (V-GO 40 device) Allergies Allergy/AdvReac Type Severity Reaction Status Date / Time latex [LATEX] Allergy Intermediate RASH Verified 05/12/23 16:35 atorvastatin [From Lipitor] Allergy Mild MUSCLE Verified 05/12/23 16:35 ACHES dulaglutide [Trulicity] Allergy Unknown rash and Verified 05/12/23 16:35 itching pioglitazone Allergy Unknown Urinary Verified 05/12/23 16:35 frequency pork derived (porcine) Allergy Unknown RESTORATION Verified 05/12/23 16:35 [PORK DERIVED (PORCINE)] BELIEF canagliflozin [Invokana] AdvReac Unknown recurrent Verified 05/12/23 16:35 UTI, dizziness Tanzeum Allergy Unknown rash Uncoded 05/12/23 16:35 Review of Systems Review of Systems: Constitutional : No Weight loss, No Fever, No Chills ENT/Mouth : pos sore throat, No Rhinorrhea Cardiovascular : No Chest Pain, No SOB, NoEdema Respiratory : pos Cough, No Sputum, No Wheezing Gastrointestinal : no Nausea, no Vomiting, no Diarrhea, positive abdominal Pain, No Hematochezia, No Melena Genitourinary : No Dysuria, No Urinary Frequency, No Hematuria, No Urgency Musculoskeletal : No joint pain, No Myalgias, No Joint Swelling Skin : No Skin Lesions, No rash Neuro : No Weakness, No Numbness, No Dizziness, No Headache Psych : No Anxiety/Panic, No Depression All other systems reviewed and are negative. [facility] Past Medical History Attestation statement: The following information was validated with the patient. 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 Lumbosacral spondylosis Non-proliferative diabetic retinopathy, both eyes Osteoarthritis of left hip Overweight (BMI 25.0-29.9) Pityriasis rosea Restrictive lung disease Restrictive lung disease Restrictive lung disease Varicose veins of both lower extremities Vitamin D deficiency Surgical History FH: JUANCHO-BSO (total abdominal hysterectomy and bilateral salpingo-oophorectomy) Hx of colonoscopy (~08/11/19) Family History Family History Father Diabetes Mother CVD (cardiovascular disease) Social History Social History Household Members: None Housing: House Do you presently have visiting nurse or other home services: No Alcohol intake: never Patient Tobacco Use Status: Never used Tobacco e-Cigarette/Vaping Use: Never Used Second Hand Smoke Exposure: Yes Advance Directives: No Advance Directives Information Provided: No service: No Current occupational status: employed 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 Oriented X3. No acute distress. Eyes: Pupils equal, round and reactive to light. ENT: Pharynx normal. no blisters seen no stridor no hoarseness no drooling Neck: Normal inspection. Neck supple. CVS: Normal heart rate and rhythm. Pulses normal. Respiratory: No respiratory distress. Breath sounds normal. Abdomen: Soft and nontender. Skin: Skin warm and dry. Normal skin color. Normal skin turgor. Extremities: No lower extremity edema. No calf ttp Neuro: Oriented X 3. No motor deficit. No sensory deficit. Course Course Course Narrative: RME: 73 yold female brought to the ED drinking bleache by accident while cleaning. patient state drinking a large gulp and than came to the ED. Patient states burning sensatino in throat. Patient brought immeiatley to the ED into bed 22. Medications Administered Discontinued Medications Generic Name Dose Route Start Last Admin Trade Name Freq PRN Reason Stop Dose Admin Al Hydroxide/Mg Hydroxide 15 ml 07/20/23 15:43 07/20/23 15:57 Magnesium Hydrox/Alum Hydrox 30 Ml Oral.Susp PO 07/20/23 15:44 15 ml ONCE ONE Administration Albuterol Sulfate 2 puff 07/20/23 15:47 07/20/23 15:57 Albuterol Sulfate 90 Mcg 8 Gm Inhaler INHALE 07/20/23 15:48 2 puff ONCE ONE Administration Medical Decision Making Medical Decision Making MDM Narrative: 73 yo female with PMH of diabetes, hypothyroidism here with c/o accidental household bleach ingestion swallowed one mouthful would not anticipate much other than supportive care but will obtain CXR - she has no stridor no drooling she does not like the burning feeling will consult poison control. at this time I see no blisters or swelling. Differential Diagnosis Differential Diagnoses: The differential diagnosis associated with the presentation includes accidental ingestion Admission/Observation Consideration of admission/observation: Escalation of care including admission/observation considered observe for 4 to 6 hours in ED per poison control Consult Healthcare Provider Management of the patient was discussed with: Truck Rental Manager poison control poison control - monitor for 4 to 6 hours - GI consult for vomiting or mouth blisters, difficulty breathing. supportive care only Independent Interpretation I performed an independent interpretation of an: Plain X-Ray (no free air) Radiology Impression Discussion of test interpretation with radiology: I have reviewed the radiologist's reading. External Record Review External record reviewed: Inpatient record Prescription Management I considered prescription management with: Other Discharge Plan Discharge Clinical Impression: Ingestion of bleach Qualifiers: Encounter type: initial encounter Injury intent: accidental or unintentional Qualified Code(s): T54.91XA - Toxic effect of unspecified corrosive substance, accidental (unintentional), initial encounter Patient Disposition: Home, Self-Care Instructions: Foreign Body Ingestion (ED) Additional Instructions: return for drooling, vomiting, swelling, blisters, bleeding, difficulty breathing or any other concerns. avoid NSAIDs for 8 days (motrin, aleve, ibuprofen). eat a bland diet for 48 hours. Prescriptions: No Action (DME) pen needle, diabetic [BD Ultra-Fine Bronwyn Pen Needle] 32 gauge x 5/32 needle See Rx Instructions .ROUTE .MEDSUPPLY Qty: 100 3RF Rx Instructions: As directed once daily (DME) FreeStyle Consuelo 2 Sensor Kit See Rx Instructions .ROUTE .MEDSUPPLY Qty: 2 11RF Rx Instructions: As directed every 2 weeks (DME) FreeStyle Consuelo 2 [place] Misc See Rx Instructions .ROUTE .MEDSUPPLY Qty: 1 0RF Rx Instructions: As directed insulin lispro [Humalog U-100 Insulin] 100 unit/mL solution See Rx Instructions subcut DAILY 30 Days Qty: 30 3RF Rx Instructions: Up to 78 units via VGO subcut daily; (DME) V-GO 40 Device See Rx Instructions .ROUTE .COMPLEX Qty: 30 3RF Dose Instruction: USE DIRECTED Rx Instructions: USE DIRECTED (DME) V-GO 40 device See Rx Instructions .Route .MEDSUPPLY Qty: 30 3RF Rx Instructions: As directed mometasone 0.1 % cream 1 appl topical DAILY PRN (Reason: skin irritation) 30 Days Qty: 45 2RF albuterol sulfate [ProAir HFA] 90 mcg/actuation HFA aerosol inhaler 2 puff inhalation QID PRN (Reason: shortness of breath or wheezing) 30 Days Qty: 8.5 0RF cholecalciferol (vitamin D3) 50 mcg (2,000 unit) capsule 50 mcg PO DAILY 90 Days Qty: 90 3RF rosuvastatin 40 mg tablet 40 mg PO DAILY 90 Days Qty: 90 3RF hydroxyzine HCl 10 mg tablet 10 mg PO Q8H PRN (Reason: itching/rash) Qty: 90 1RF levothyroxine 25 mcg tablet 25 mcg PO DAILY 90 Days Qty: 90 1RF Rx Instructions: Take on an empty stomach, first thing in the morning, with water. Do not eat or drink anything else for 30 minutes afterwards prednisone 20 mg tablet 60 mg PO DAILY Qty: 9 0RF betamethasone dipropionate 0.05 % cream 1 appl topical BID PRN (Reason: skin rash) Qty: 45 0RF Jardiance 25 mg tablet 25 mg PO QAM 30 Days Qty: 30 2RF benazepril 5 mg tablet 5 mg PO DAILY 90 Days Qty: 90 3RF prednisone 10 mg tablet 10 mg PO DAILY Qty: 28 0RF Rx Instructions: 6 pills by mouth day 1, 6 pills by mouth day 2, 5 pills by mouth day 3, 4 pills by mouth day 4, 3 pills by mouth day 5, 2 pills by mouth day 6, 1 pill by mouth day 7 and 1 pill by mouth day 8. benzonatate 100 mg capsule 100 mg PO TID Qty: 30 0RF omega-3 fatty acids 1,000 mg capsule 1,000 mg PO BID 30 Days Qty: 60 6RF Lantus Solostar U-100 Insulin 100 unit/mL (3 mL) insulin pen 16 unit subcut QPM Qty: 15 2RF Stand Alone Forms: Work/School Release Interventions: ED Discharge Assessment Last Done: 07/20/23 18:17 Discharge Date/Time: 07/20/23 18:16
--- NOTE | 2023-07-20 14:40 | PC.NURSE ---
Poison control called, they recommend supportive care. observation 4-6 hrs then po challenge if sxs progress to drooling,vomiting,chest burning, recommend GI consult
[2023-07-20] MEDS: Magnesium Hydrox/Alum Hydrox 30 ML ORAL.SUSP 15 ML PO (15:57)
[2023-07-20] MEDS: Albuterol Sulfate 90 MCG 8 GM INHALER 2 PUFF INHALE (15:57)
[2023-07-20 16:49] VITALS: BP 138/66; PULSE 69; RESP 16; O2SAT 98
--- NOTE | 2023-07-20 16:49 | PC.NURSE ---
pt is speaking in full clear sentences, she periodically feels the need to clear her throat, but no visible irritation noted in the post mouth.
== END 2023-07-20 18:16 | disposition home or self-care (01) ==
PROVIDERS: Emergency Provider Emergency Medicine; PCP Internal Medicine
DX: T54.91XA Toxic effect of unspecified corrosive substance, accidental (unintentional), initial encounter (principal); Y92.9 Unspecified place or not applicable
CPT/HCPCS: 71046; 99283

== ENCOUNTER 2023-08-05 06:38 | Outpatient (REF) | payer OTHER, SELFPAY ==
[2023-08-05 07:10] LABS: MANUAL DIFF FLAG NO
[2023-08-05 07:51] LABS: Basophils Percent Auto 0.6 % (0-2); Eosinophils Absolute Auto 0.2 X10*3/uL (0.0-0.4); Eosinophils Percent Auto 3.3 % (0-4); Hematocrit 46.1 % (37.0-47.0); Hemoglobin 14.6 g/dl (12.0-16.0); Imm Gran Abs Auto 0.01 X10*3/uL (0.00-0.03); Imm Gran Pct Auto 0.2 % (0.0-0.4); Lymphocytes Percent Auto 45.9 % (20-40); Mean Corpuscular HGB Conc 31.7 g/dl (31.0-35.0); Mean Platelet Volume 11.9 fL (9.4-12.3); Monocytes Absolute Auto 0.4 X10*3/uL (0.1-1.2); Monocytes Percent Auto 6.3 % (2-11); Neutrophils Absolute Auto 2.9 x10*3/uL (2.0-8.3); Neutrophils Percent Auto 43.7 % (45-73); Platelet Count 163 X10*3/uL (160-400); Red Blood Count 5.62 X10*6/uL (4.20-5.50); Red Cell Distribution Width 14.3 % (11.0-16.0); White Blood Count 6.6 X10*3/uL (4.8-10.8)
[2023-08-05 07:57] LABS: Estimated Average Glucose 192 mg/dL; Hemoglobin A1c % 8.3 % (<6.0)
[2023-08-05 08:20] LABS: Alanine Aminotransferase 27 U/L (0-31); Albumin Level 4.3 g/dL (3.5-5.0); Alkaline Phosphatase 96 U/L (39-117); Anion Gap 13 (12-20); Aspartate Amino Transferase 30 U/L (5-31); Bilirubin Total 0.3 mg/dL (0.0-1.0); Blood Urea Nitrogen 21 mg/dL (9-16); Calcium 10.4 mg/dL (8.4-10.2); Carbon Dioxide 23 mmol/L (22-29); Chloride 110 mmol/L (96-108); Cholesterol 268 mg/dL (<200); Estimated Glomerular Filt Rate 40; Glucose Fasting 177 mg/dL (60-99); HDL Cholesterol 42 mg/dL (>40); Potassium 4.3 mmol/L (3.3-5.1); Sodium 142 mmol/L (135-145); Total Protein 7.5 g/dL (6.5-8.0); Triglycerides 407 mg/dL (<150)
[2023-08-05 08:37] LABS: TSH reflex Free T4 4.62 uIU/mL (0.32-4.0); Vitamin D 25-OH Total 40.5 ng/mL (>30)
[2023-08-05 09:10] LABS: Free T4 (Free Thyroxine) 0.79 ng/dL (0.71-1.85)
[2023-08-05 10:51] LABS: Appearance Urine Clear; Color Urine Yellow; Glucose Urine UA >=1000 mg/dL (Negative); Leukocyte Esterase Urine Negative (Negative); Nitrite Urine Negative (Negative); PH 5.5 (5.0-9.0); Specific Gravity - Urine >= 1.030 (1.005-1.025); UMIC TRIGGER UACC YES; Urine Blood Negative (Negative); Urine Ketones Negative (Negative); Urine Protein Negative (Neg-Trace)
[2023-08-05 10:59] LABS: Bacteria Urine None Seen (None Seen); Hyaline Casts Urine 0-2 /LPF (0-2); RBC Urine 0-2 /HPF (0-2); Squamous Epithelial Cell Urine 0-2 /HPF (0-2); WBC Urine 0-5 /HPF (0-5)
[2023-08-05 11:32] LABS: Creatinine Urine 60.53 mg/dL; Microalbumin Urine < 5.0 mg/L
== END 2023-08-05 06:39 | disposition home or self-care (01) ==
LOC: HO.LAB 06:38
PROVIDERS: PCP Internal Medicine; Visit Provider Internal Medicine
DX: E11.9 Type 2 diabetes mellitus without complications (principal); I10 Essential (primary) hypertension; E55.9 Vitamin D deficiency, unspecified; E78.00 Pure hypercholesterolemia, unspecified
CPT/HCPCS: 36415; 80053; 80061; 81001; 82043; 82306; 82570; 83036; 84439; 84443; 85025

== ENCOUNTER 2023-08-22 15:28 | Outpatient (AMB) | payer OTHER, SELFPAY ==
--- NOTE | 2023-08-22 15:54 | AM.OFFWIN_ITS ---
Intake Vital Signs 08/22/23 15:55 Height 5 ft 4 in Weight 152 lb BMI 26.1 BP 128/70 Blood Pressure Location Lt brachial Position Sitting Pulse 78 Pulse Source Pulse Oximeter Temp 98.5 F Temp Source Oral Pulse Oximetry (%) 98 Oxygen Delivery Method Room Air Intake Visit Reasons: EST/sore throat Intake Note: Patient here for sore throat, cough, feverish, thick and green mucus and feels like she has a temp which has been present for about 3-4 days. Patient Tobacco Use Status: Never used Tobacco Allergies latex [LATEX] Allergy (Intermediate, Verified 08/22/23 15:57) RASH atorvastatin [From Lipitor] Allergy (Mild, Verified 08/22/23 15:57) MUSCLE ACHES dulaglutide [Trulicity] Allergy (Unknown, Verified 08/22/23 15:57) rash and itching pioglitazone Allergy (Unknown, Verified 08/22/23 15:57) Urinary frequency pork derived (porcine) [PORK DERIVED (PORCINE)] Allergy (Unknown, Verified 08/22/23 15:57) NONDENOMINATIONAL BELIEF canagliflozin [Invokana] Adverse Reaction (Unknown, Verified 08/22/23 15:57) recurrent UTI, dizziness Tanzeum Allergy (Unknown, Uncoded 08/22/23 15:57) rash Do you need a note to return to daycare/school/sports/work: No HPI HPI Comments History of Present Illness Details This is a 73-year-old female who presents to the office today for sick visit. Patient complaining of sore throat, dry cough, congestion, and subjective fevers x4 days. 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 She reports some mild chest pain with coughing. She denies any shortness of breath. She denies any abdominal pain or nausea/vomiting/diarrhea. 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 Lumbosacral spondylosis Non-proliferative diabetic retinopathy, both eyes Osteoarthritis of left hip Overweight (BMI 25.0-29.9) Pityriasis rosea Restrictive lung disease Restrictive lung disease Restrictive lung disease Varicose veins of both lower extremities Vitamin D deficiency Surgical History FH: JUANCHO-BSO (total abdominal hysterectomy and bilateral salpingo-oophorectomy) Hx of colonoscopy (~08/11/19) Family History Father Diabetes Mother CVD (cardiovascular disease) Social History Household Members: None Housing: House Do you presently have visiting nurse or other home services: No Alcohol intake: never Patient Tobacco Use Status: Never used Tobacco e-Cigarette/Vaping Use: Never Used Second Hand Smoke Exposure: Yes service: No Current occupational status: employed 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 needs: No Hearing needs: No Vision needs: No Review of Systems Const All systems reviewed & are unremarkable except as noted in HPI and below Reports no additional complaints Eyes Reports no additional complaints ENT Reports no additional complaints Card Reports no additional complaints Resp Reports no additional complaints GI Reports no additional complaints Reports no additional complaints Musc Reports no additional complaints Skin/Breast Reports system reviewed and no additional complaints, except as documented Neuro Reports no additional complaints Psych Reports no additional complaints Endo Reports no additional complaints Woody/Lymph Reports no additional complaints Aller/Immun Reports no additional complaints Physical Exam Vital Signs: Last Vital Signs Temp 98.5 F 08/22/23 15:55 Pulse 78 08/22/23 15:55 BP 128/70 08/22/23 15:55 Pulse Ox 98 08/22/23 15:55 Oxygen Delivery Method Room Air 08/22/23 15:55 BMI result Body Mass Index 26.1 Const Other: Vital signs reviewed. Constitutional: Non-toxic appearing. No acute distress. Well-developed and well-nourished. HEENT: Normocephalic and atraumatic. Tympanic membranes without erythema, edema, or bulging bilaterally. External auditory canals without erythema or e kt bilaterally. Moist mucous membranes. No pharyngeal erythema or exudates. Skin: Warm and dry. No rashes or lesions noted. Neck: Full and painless range of motion. No cervical lymphadenopathy. Cardio: Regular rate and rhythm. No murmurs, gallops, or rubs. No lower extremity edema. No JVD. Pulmonary: No respiratory distress. No accessory muscle usage. Clear to auscultation bilaterally without wheezing, crackles, or rhonchi. Gastrointestinal: Soft, nontender, and nondistended in all 4 quadrants. Normoactive bowel sounds in all 4 quadrants. Genitourinary: No CVA tenderness. Musculoskeletal: Normal range of motion in joints throughout the body. No deformity or other signs of injury. Neuro: Alert and oriented x4. Cranial nerves 2-12 grossly intact. No focal deficits appreciated. Psych: Normal mood and affect. Results AMB Rapid Strep AMB Rapid Strep Negative Last Edit by RACHELL Bustamante on 08/22/23 16:12 Results Reviewed Results Reviewed: Laboratory Last Values Strep Scn Rapid Clinic Negative 08/22/23 16:11 Assessment & Plan Assessment & Plan (1) Bronchitis: Code(s): J40 - Bronchitis, not specified as acute or chronic (2) Viral URI with cough: Code(s): J06.9 - Acute upper respiratory infection, unspecified Plan This is a 73-year-old female presenting to the office with dry cough, sore throat, congestion, and subjective fevers x4 days. Her physical examination is completely benign. Her vital signs are stable and she is overall nontoxic appearing. Her history and physical most consistent with acute bronchitis secondary to viral URI. Rapid strep negative. Patient was sent home with p.o. azithromycin 500 mg today followed by 250 mg daily x4 days, p.o. prednisone 40 mg daily x5 days, and PO benzonatate 100 mg 3 times daily as needed for cough. Recommended symptomatic management including rest, increased fluids, advil/tylenol for pain/fever, and over the counter throat lozenges/decongestants. Patient advised to follow up here or go to the emergency room for worsening/persistent symptoms. Patient verbalized understanding and is agreeable with the plan. Orders: Orders AMB Rapid Strep Screen Today Z13.9 - Encounter for screening, unspecified Medications: New prednisone 40 mg (2 x 20 mg) PO DAILY 10 tabs 0RF benzonatate 100 mg PO TID PRN 14 caps 0RF cough azithromycin For 250 mg dose pack: take 500 mg today (day 1), then 250 mg for 4 days (days 2-5) PO 6 tabs 0RF Coding Level of Care Code Est Pt Level 3 (81035) Diagnoses Bronchitis J40 Viral URI with cough J06.9
[2023-08-22 15:55] VITALS: BP 128/70; PULSE 78; TEMP 36.9; O2SAT 98; BMI 26.1
== END 2023-08-22 16:33 | disposition home or self-care (01) ==
PROVIDERS: PCP Internal Medicine; Visit Provider Physician Assistant Medical
DX: J40 Bronchitis, not specified as acute or chronic (principal); J06.9 Acute upper respiratory infection, unspecified; J02.9 Acute pharyngitis, unspecified
CPT/HCPCS: 87880; 99213

== ENCOUNTER 2023-10-17 09:06 | Outpatient (AMB) | payer OTHER, SELFPAY ==
--- NOTE | 2023-10-17 09:08 | A.OFFPC_ITS ---
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: No Accompanied by: Self / Same As Patient Allergies latex [LATEX] Allergy (Intermediate, Verified 10/17/23 09:33) RASH atorvastatin [From Lipitor] Allergy (Mild, Verified 10/17/23 09:33) MUSCLE ACHES dulaglutide [Trulicity] Allergy (Unknown, Verified 10/17/23 09:33) rash and itching pioglitazone Allergy (Unknown, Verified 10/17/23 09:33) Urinary frequency pork derived (porcine) [PORK DERIVED (PORCINE)] Allergy (Unknown, Verified 10/17/23 09:33) HOAHAOISM BELIEF canagliflozin [Invokana] Adverse Reaction (Unknown, Verified 10/17/23 09:33) recurrent UTI, dizziness Tanzeum Allergy (Unknown, Uncoded 10/17/23 09:33) rash Medication List - Last Reconciled 10/17/23 by Darryl Robles MD albuterol sulfate 90 mcg/actuation (ProAir HFA) 2 puffs inhalation QID PRN 30 days benazepril 5 mg PO DAILY 90 days betamethasone dipropionate 0.05% 1 appl topical BID PRN cholecalciferol (vitamin D3) 50 mcg PO DAILY 90 days flash glucose scanning reader (FreeStyle [place]uel[place] 2 [place]) As directed flash glucose sensor (FreeStyle Consuelo 2 Sensor kit) As directed every 2 weeks hydroxyzine HCl 10 mg PO Q8H PRN insulin glargine (Lantus Solostar U-100 Insulin) 16 units (0.16 mL) subcut QPM insulin lispro (Humalog U-100 Insulin) Up to 78 units via VGO subcut daily; 30 days Jardiance (empagliflozin) 25 mg PO QAM 30 days NS levothyroxine 25 mcg PO DAILY 90 days mometasone 0.1% 1 appl topical DAILY PRN 30 days omega-3 fatty acids 1,000 mg PO BID 30 days pen needle, diabetic (BD Ultra-Fine [place] Pen Needle) As directed once daily rosuvastatin 40 mg PO DAILY 90 days sub-q insulin device, 40 unit (V-GO 40 device) USE DIRECTED [V-GO 40 device As directed] Tobacco use date assessed: 10/17/23 Fall risk assessment: No Falls in past year Last assessed Fall Risk: 10/17/23 Dental Screening Dental Screen Date: 10/17/23 Did you have a dental visit in the last 12 months?: Yes Did you have a dental problem in the last 6 months where you did not have access to dental care?: No Was dental information given to patient?: Patient has dentist HPI Annual exam HPI Details Patient comes in today for her annual physical examination States that she has been experiencing increased cough and congestion for at least 3 days now - tested negative for COVID at work recently Relates (+) fatigue and sore throat; denies any fever Has been reportedly coughing up thick whitish to yellowish phlegm at times She denies any headaches or dizziness Denies any chest pains, no increased SOB but states that her chest feels congested for the past few days No nausea/vomiting, no abdominal pain No change in bowel habits noted Relates (+) urinary frequency but no dysuria lately Had her follow up labs done a couple of months ago - to discuss her results States that she missed her last appointment and had to reschedule but could not get in right away Admits that she stopped taking her Jardiance a while back as she felt that it was causing her to develop some palpitations but now thinks that it may have be en because she was sick at the time as well and is willing to try taking it again now She also has not followed up with Dr. Jimenez since January 2023 as she felt that he was pressuring her to get a CGM, which her insurance would not cover and she cannot afford to pay for it [id number] She is not due yet for her repeat colonoscopy until 2028 but has not had her annual mammogram done since 2019 and also had not had BMD done in over 10 years [facility] Medical History Acquired hypothyroidism Restrictive lung disease Restrictive lung disease Bronchial asthma Allergic rhinitis Insomnia Diabetic polyneuropathy associated with type 2 diabetes mellitus Diabetic nephropathy associated with type 2 diabetes mellitus Non-proliferative diabetic retinopathy, both eyes retirement (current) use of insulin Diabetes type 2, uncontrolled Overweight (BMI 25.0-29.9) Chronic interstitial cystitis Varicose veins of both lower extremities Osteoarthritis of left hip Lumbosacral spondylosis Vitamin D deficiency Pityriasis rosea GERD (gastroesophageal reflux disease) Allergic rhinitis Restrictive lung disease Coronary artery disease Essential hypertension Hyperlipidemia Chronic kidney disease, stage 2 (mild) Diabetes mellitus with stage 2 chronic kidney disease, with long-term current use of insulin Surgical History Hx of colonoscopy (~08/11/19) FH: JUANCHO-BSO (total abdominal hysterectomy and bilateral salpingo-oophorectomy) Family History Father Diabetes Mother CVD (cardiovascular disease) Social History Household Members: None Housing: House Do you presently have visiting nurse or other home services: No Alcohol intake: never Patient Tobacco Use Status: Never used Tobacco e-Cigarette/Vaping Use: Never Used Second Hand Smoke Exposure: Yes service: No Current occupational status: employed 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 1. Little interest or pleasure in doing things: not at all 2. Feeling down, depressed, or hopeless: not at all 3. Trouble falling or staying asleep, or sleeping too much: not at all 4. Feeling tired or having little energy: not at all 5. Poor appetite or overeating: not at all 6. Feeling bad about yourself - or that you are a failure or have let yourself or your family down: not at all 7. Trouble concentrating on things, such as reading the newspaper or watching television: not at all 8. Moving or speaking so slowly that other people could have noticed. Or the opposite - being so fidgety or restless that you have been moving around a lot more than usual: not at all 9. Thoughts that you would be better off or of hurting yourself in some way: not at all Total score: 0 Depression Screening Interpretation: Negative Depression Screening Done: Yes 17360 - PHQ-9 Billing: Yes Source: Developed by Drs. Gilbert Khan, Hugo Tillman and colleagues, with an educational jose alfredo from [employer]. Thrive Questionnaire Date Thrive assessed: 10/17/23 I am a: Patient What is your living situation today?: I have a steady place to live Within the past 12 months, did the food you bought not last and you didn't have the money to get more?: Never true Within the past 12 months, did you worry whether your food would run out before you got money to buy more?: Never true Do you have trouble paying for medicines?: No Do you have trouble getting transportation to medical appointments?: No Do you have trouble paying your heating and electricity bill?: No Do you have trouble taking care of your child, family member or friend?: No Do you have trouble with day-to-day activities such as bathing, preparing meals, shopping, managing finances, etc.?: No Are you currently unemployed and looking for a job?: No Are you interested in more education?: No Please select the resources that you would like help with: None Currently or been in a relationship where the following occur: no concerns reported AUDIT C Alcohol Use Questionnaire (AUDIT-C) 1. How often do you have a drink containing alcohol?: Never 3. How often do you have six or more drinks on one occasion?: Never Total Score: 0 Score Reviewed/Action Taken: Yes VITALY-7 AMB Questionnaire VITALY-7 Date VITALY - 7 assessed: 10/17/23 Feeling nervous, anxious, or on edge: 0 = Not at all Not being able to stop or control worryin = Not at all Worrying too much about different things: 0 = Not at all Trouble relaxin = Not at all Being so restless that it is hard to sit still: 0 = Not at all Becoming easily annoyed or irritable: 0 = Not at all Feeling afraid as if something awful might happen: 0 = Not at all Total VITALY-7 score (0-4 normal; 5-9 mild; 10-14 moderate; 15-21 severe): 0 Source: Developed by Drs. Gilbert Khan, Hugo Tillman and colleagues, with an educational jose alfredo from [employer]. Review of Systems Const Denies chills, Reports fatigue, Denies fever(s), Denies headache(s) and Denies malaise Eyes Reports blurry vision (has cataract), Denies change in vision, Denies irritation and Denies itchy eyes ENT Denies dysphagia, Denies dizziness, Denies otalgia (but ears feel full/congested lately), Denies headache(s), Reports nasal congestion, Denies neck pain, Denies odynophagia, Denies sinus pain and Denies sore throat Card Denies chest pain, Denies rapid heart rate, Denies irregular heart rhythm, Denies palpitations and Reports dyspnea on exertion (mild) Resp Reports chest congestion, Reports cough (recurrent - coughs up thick whitish to yellowish phlegm at times), Reports dyspnea on exertion (mild) and Denies wheezing GI Denies abdominal pain, Denies constipation, Denies dysphagia, Denies heartburn, Denies diarrhea, Denies nausea, Denies odynophagia and Denies vomiting Denies hematuria, Denies urinary frequency, Reports nocturia, Denies dysuria, Denies urinary incontinence and Denies urinary urgency Musc Denies back pain, Denies arthralgias, Denies joint swelling, Denies muscle weakness and Denies neck pain Skin/Breast Denies breast pain, Denies breast mass, Denies change in pigmentation, Denies lesions, Denies rash and Denies unusual bruising Neuro Denies dizziness, Denies headache(s) and Denies paresthesias Psych Denies anxiety and Denies depression Endo Reports fatigue and Denies palpitations Woody/Lymph Denies easy bruising Aller/Immun Denies itchy eyes and Denies wheezing Physical exam (Primary Care) Vital Signs: Last Vital Signs Pulse 90 10/17/23 09:09 BP 142/80 H 10/17/23 09:09 Pulse Ox 98 10/17/23 09:09 Oxygen Delivery Method Room Air 10/17/23 09:09 BMI result Body Mass Index 26.9 Tobacco/Smoking Status: Tobacco use Status Tobacco use date assessed 10/17/23 10/17/23 09:16 Patient Tobacco Use Status Never used Tobacco 10/17/23 09:16 e-Cigarette/Vaping Use Never Used 10/17/23 09:16 PHQ-9: PHQ-9 Score PHQ-9: Total score 0 10/17/23 09:16 Depression Screening Interpretation: Negative Thrive Assessment: Date of Thrive Assessment Date Thrive assessed 10/17/23 10/17/23 09:16 Currently or been in a relationship where the following occur: no concerns reported Const General: no acute distress, alert and awake Orientation/consciousness: patient oriented x3 HENMT Head: Yes normocephalic and Yes atraumatic Ears: external ears normal, TM's normal bilaterally and EAC's normal General nose exam: No nasal discharge present Face and sinus: Yes normal facial exam and Yes sinuses nontender Teeth and gingiva: dentition normal Throat: Yes posterior oropharynx normal and Yes tonsils normal (no TP congestion) Eyes Eyelids: Yes eyelids normal Conjunctivae: conjunctivae normal Pupils: Equal, round and reactive pupils present EOM: EOMs intact bilaterally Neck Neck: Yes no lymphadenopathy and Yes supple Thyroid: Thyroid normal Resp Auscultation: no crackles, no rales, rhonchi (scattered) throughout, no wheezes and diminished lung sounds (slightly) bilateral Cardio Rate: regular rate Rhythm: regular rhythm Heart sounds: no murmurs GI Palpation (GI): Soft to palpation, nontender and No hepatosplenomegaly present Auscultation: normal bowel sounds General: Yes no CVA tenderness Back/Spine/Pelvis Back: no CVA tenderness Thoracic/Lumbar Spine: thoracic and lumbar spine normal to inspection Skin Lesions: no lesions Rashes: no rashes Neuro General: patient oriented x3, moves all extremities, no focal motor deficits and CN's II-XI intact bilaterally Cranial nerves: Yes Equal, round and reactive pupils present Cognition (Neuro): normal cognition Gait exam (Neuro): Normal gait present Extrem General: Yes no clubbing, cyanosis or edema Results Reviewed Results Reviewed: Laboratory Tests 08/05/23 08/05/23 08/05/23 07:04 07:09 07:09 WBC 6.6 Hgb 14.6 Hct 46.1 Plt Count 163 Sodium 142 Potassium 4.3 Creatinine 1.30 Estimated GFR 40 Fasting Glucose 177 H Hemoglobin A1c % 8.3 H Calcium 10.4 H D AST 30 ALT 27 Triglycerides 407 H Cholesterol 268 H LDL Cholesterol, Calc TNP HDL Cholesterol 42 25-OH Vitamin D Total 40.5 TSH 4.62 H Free T4 0.79 Ur Specific [place] >= 1.030 H Urine Protein Negative Urine Glucose (UA) >=1000 H Urine Blood Negative Assessment and Plan Assessment & Plan (1) Annual physical exam: Code(s): Z00.00 - Encounter for general adult medical examination without abnormal findings Plan: Results of her labs done a couple of months ago reviewed and discussed with patient - she missed her previous appt 1 to 2 months ago and could not get her appt rescheduled until today She is up-to-date with her colon cancer screening (repeat colonoscopy not due until 2028) but is overdue for her annual mammogram (last done in 2019) and BMD (last done >10 years ago) She no longer has to keep up with 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 and pap smear, based on her age (2) Diabetes mellitus with stage 2 chronic kidney disease, with long-term current use of insulin: Code(s): E11.22 - Type 2 diabetes mellitus with diabetic chronic kidney disease; N18.2 - Chronic kidney disease, stage 2 (mild); 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 1 click for correction BS > 200 mg/DL, 1 click with snacks. To use bolus 10 min before meals Per her request, we switched her from Jantidueto XR 5-1000 mg QD to Jardiance 25 mg QD at her last visit but she admits to stopping it a few months ago as she felt that the medication was causing her to experience heart palpitations but she now thinks that it may have been because she was also sick at the time and is now willing to try taking Jardiance again She has not been back to see endocrinology since January 2023 as she states that Endocrinology was trying to get her started additionally on the CeQur insulin administration device/pump but patient states that she will likely not be able to afford it as her insurance is declining to cover a lot of her Rx, and that her VGo alone is costing her already up to $150 per device Is advised that she really needs to get her diabetes under control as quickly as possible as her renal function has declined significantly on her recent labs from previous Will try to refer her BACK to Dr. iJmenez for endocrinology consultation and management of her poorly-controlled diabetes (3) Chronic kidney disease, stage III (moderate): Code(s): N18.30 - Chronic kidney disease, stage 3 unspecified Qualifiers: Chronic kidney disease stage 3 subtype: stage 3b (GFR 30-44) Qualified Code(s): N18.32 - Chronic kidney disease, stage 3b Plan: Patient is cautioned that her renal function and GFR have declined significantly on her recent labs, likely because of her ongoing poor diabetes control Will refer her now to nephrology ANA for further evaluation and management (4) Hyperlipidemia: Code(s): E78.5 - Hyperlipidemia, unspecified Qualifiers: Hyperlipidemia type: pure hypercholesterolemia Qualified Code(s): E78.00 - Pure hypercholesterolemia, unspecified Plan: She is advised/cautioned that her cholesterol levels, especially her serum triglyceride, have all increased significantly from previous on her recent labs, likely related to her poor diabetes control lately Reinforced low cholesterol diet Continue Rosuvastatin 40 mg QD for now Will recheck her labs and fasting lipids in 3 months for follow-up (5) Essential hypertension: Code(s): I10 - Essential (primary) hypertension Plan: Reinforced low sodium diet - goal is systolic BP of at least 130 mm or less Continue Benazepril 5 mg QD - patient stopped taking this on her own a while back and never mentioned it to us but she was started back on this at her last visit (6) Coronary artery disease: Code(s): I25.10 - Atherosclerotic heart disease of [place] coronary artery without angina pectoris Qualifiers: Coronary Disease-Associated Artery/Lesion type: [place] artery [place] vs. transplanted heart: [place] heart Associated angina: without angina Qualified Code(s): I25.10 - Atherosclerotic heart disease of [place] coronary artery without angina pectoris Plan: Follow up with cardiology as scheduled (7) Acquired hypothyroidism: Code(s): E03.9 - Hypothyroidism, unspecified Plan: Advised that her TFTs remain off on her recent labs Will increase her Levothyroxine to 50 mcg QD Will recheck her TFTs in 3 months for follow up (8) Restrictive lung disease: Code(s): J98.4 - Other disorders of lung Plan: PFTs done in January 2019 revealed (+) moderately severe restrictive pulmonary disease with no obstructive component Patient uses her Albuterol inhaler (ProAir HFA) 4 times a day as needed mostly for symptomatic relief Follow up with pulmonary as scheduled - now sees Dr. Gamboa (9) Headache: Code(s): R51.9 - Headache, unspecified Qualifiers: Headache chronicity pattern: acute headache Headache type: unspecified Intractability: not intractable Qualified Code(s): R51.9 - Headache, unspecified Plan: Most likely tension headaches Continue Fioricet 1 tablet 3 to 4 times a day as needed Follow up with neurology as scheduled (10) Allergic rhinitis: Code(s): J30.9 - Allergic rhinitis, unspecified Qualifiers: Allergic rhinitis trigger: unspecified Allergic rhinitis seasonality: unspecified Qualified Code(s): J30.9 - Allergic rhinitis, unspecified Plan: Continue Hydroxyzine 10 mg every 8 hours as needed Patient also takes OTC Benadryl 25 mg Q 6 hrs PRN additionally for symptomatic relief (11) Pityriasis rosea: Code(s): L42 - Pityriasis rosea Plan: Continue Betamethasone dipropionate 0.05% BID PRN; Mometasone 0.1% cream QD was not helping Follow up with dermatology as scheduled (12) Vitamin D deficiency: Code(s): E55.9 - Vitamin D deficiency, unspecified Plan: Continue Vitamin D3 2000 units (capsule) QD (13) Insomnia: Code(s): G47.00 - Insomnia, unspecified Qualifiers: Insomnia type: unspecified Qualified Code(s): G47.00 - Insomnia, unspecified Plan: Sleep hygiene reinforced Continue Zolpidem 5 mg Q HS PRN (14) Overweight (BMI 25.0-29.9): Code(s): E66.3 - Overweight Plan: Reinforced diet/exercise as tolerated/lose weight (15) Breast cancer screening by mammogram: Code(s): Z12.31 - Encounter for screening mammogram for malignant neoplasm of breast Plan: Will send patient for screening mammogram - last done in 2019 (16) Osteoporosis screening: Code(s): Z13.820 - Encounter for screening for osteoporosis Plan: Will send patient for BMD for osteoporosis screening - states that she has not had one done in over 10 years Plan Follow up in 3 months Orders: Orders Complete Blood Count Auto Diff 3 Months I10 - Essential (primary) hypertension Comprehensive [place]. Panel Fast 3 Months E78.00 - Pure hypercholesterolemia, unspecified Lipid Panel 3 Months E78.00 - Pure hypercholesterolemia, unspecified Microalbumin, Random (w Creat) 3 Months E11.9 - Type 2 diabetes mellitus without complications Vitamin D 25-OH Total 3 Months E55.9 - Vitamin D deficiency, unspecified MM tomosynthesis screening BI Today Z12.31 - Encounter for screening mammogram for malignant neoplasm of breast XR DEXA axial skeleton Today Z78.0 - Asymptomatic menopausal state Hemoglobin A1c 3 Months E11.9 - Type 2 diabetes mellitus without complications Thyroid Stimulating Hormone 3 Months E03.9 - Hypothyroidism, unspecified Free T4 (Free Thyroxine) 3 Months E03.9 - Hypothyroidism, unspecified UA CC w/rflx Micro + Cult 3 Months R30.0 - Dysuria Referrals Endocrinology Referral E11.65 - Type 2 diabetes mellitus with hyperglycemia, N18.30 - Chronic kidney disease, stage 3 unspecified Nephrology Referral E11.21 - Type 2 diabetes mellitus with diabetic nephropathy, E11.65 - Type 2 diabetes mellitus with hyperglycemia, N18.30 - Chronic kidney disease, stage 3 unspecified Medications: New doxycycline monohydrate 100 mg PO BID 10 days 20 tabs 0RF Changed From levothyroxine Take on an empty stomach, first thing in the morning, with water. Do not eat or drink anything else for 30 minutes afterwards 25 mcg PO DAILY 90 days 90 tabs 1RF E03.9 - Hypothyroidism, unspecified To levothyroxine Take on an empty stomach, first thing in the morning, with water. Do not eat or drink anything else for 30 minutes afterwards 50 mcg PO DAILY 90 days 90 tabs 1RF E03.9 - Hypothyroidism, unspecified Coding Level of Care Code Est Pt Prev Care >65y(67745) Diagnoses Annual physical exam Z00.00 Type 2 diabetes mellitus with stage 2 chronic kidney disease, with long-term current use of insulin E11.22; N18.2; Z79.4 Diabetes mellitus type: type 2 Stage 3b chronic kidney disease N18.32 Chronic kidney disease stage 3 subtype: stage 3b (GFR 30-44) Pure hypercholesterolemia E78.00 Hyperlipidemia type: pure hypercholesterolemia Essential hypertension I10 Coronary artery disease involving [place] coronary artery of [place] heart without angina pectoris I25.10 Coronary Disease-Associated Artery/Lesion type: [place] artery [place] vs. transplanted heart: [place] heart Associated angina: without angina Acquired hypothyroidism E03.9 Restrictive lung disease J98.4 Acute nonintractable headache, unspecified headache type R51.9 Headache chronicity pattern: acute headache Headache type: unspecified Intractability: not intractable Allergic rhinitis, unspecified seasonality, unspecified trigger J30.9 Allergic rhinitis trigger: unspecified Allergic rhinitis seasonality: unspecified Pityriasis rosea L42 Vitamin D deficiency E55.9 Insomnia, unspecified type G47.00 Insomnia type: unspecified Overweight (BMI 25.0-29.9) E66.3 Breast cancer screening by mammogram Z12.31 Osteoporosis screening Z13.820
[2023-10-17 09:09] VITALS: BP 142/80; PULSE 90; O2SAT 98; BMI 26.9
== END 2023-10-17 09:59 | disposition home or self-care (01) ==
PROVIDERS: Visit Provider Internal Medicine
DX: Z00.00 Encounter for general adult medical examination without abnormal findings (principal); E11.22 Type 2 diabetes mellitus with diabetic chronic kidney disease; Z79.4 Long term (current) use of insulin; N18.32 Chronic kidney disease, stage 3b; N18.2 Chronic kidney disease, stage 2 (mild); E78.00 Pure hypercholesterolemia, unspecified; I12.9 Hypertensive chronic kidney disease with stage 1 through stage 4 chronic kidney disease, or unspecified chronic kidney disease; I25.10 Atherosclerotic heart disease of native coronary artery without angina pectoris; E03.9 Hypothyroidism, unspecified; J98.4 Other disorders of lung; R51.9 Headache, unspecified; J30.9 Allergic rhinitis, unspecified
CPT/HCPCS: 99397

== ENCOUNTER 2023-10-31 10:30 | Outpatient (AMB) | payer OTHER, SELFPAY ==
[2023-10-31 10:35] VITALS: BP 124/70; PULSE 78; BMI 26.5
--- NOTE | 2023-10-31 10:35 | HO.NEPHOV_ITS ---
HPI HPI Comments History of Present Illness Details I had the privilege of seeing Dre in consultation for chronic kidney disease. She has longstanding diabetes and hypertension. Her blood sugar control is fair. She is not known to have any significant proteinuria. She is on angiotensin receptor racheal. She has no family history of any renal disease. She has no history of malignancy, renal stones, edema or hematuria. She denies having chest pain, shortness of breath, proximal nocturnal dyspnea, orthopnea. She was given Invokana in the past which she did not tolerate due to urinary symptoms. She is currently on Jardiance or having other medications including statins. She denies congestive heart failure, carotid stenosis, CVA, SVETLANA or PD. She is active. Her last serum creatinine was 1.3. 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 Diabetes type 2, uncontrolled Overweight (BMI 25.0-29.9) Chronic interstitial cystitis Varicose veins of both lower extremities Osteoarthritis of left hip Lumbosacral spondylosis Vitamin D deficiency Pityriasis rosea GERD (gastroesophageal reflux disease) Allergic rhinitis Restrictive lung disease Coronary artery disease Essential hypertension Hyperlipidemia Chronic kidney disease, stage 2 (mild) Diabetes mellitus with stage 2 chronic kidney disease, with long-term current use of insulin Surgical History Hx of colonoscopy (~08/11/19) FH: JUANCHO-BSO (total abdominal hysterectomy and bilateral salpingo-oophorectomy) Family History Father Diabetes Mother CVD (cardiovascular disease) Social History Household Members: None Housing: House Do you presently have visiting nurse or other home services: No Alcohol intake: never Patient Tobacco Use Status: Never used Tobacco e-Cigarette/Vaping Use: Never Used Second Hand Smoke Exposure: Yes service: No Current occupational status: employed 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 needs: No Hearing needs: No Vision needs: No Vital Signs 10/31/23 10:35 Height 5 ft 4 in Weight 154 lb 8 oz BMI 26.5 BP 124/70 Blood Pressure Location Lt brachial Position Sitting Pulse 78 Pulse Source Pulse Oximeter Physical Exam Vital Signs: Last Vital Signs Pulse 78 10/31/23 10:35 BP 124/70 10/31/23 10:35 BMI result Body Mass Index 26.5 Const General: comfortable and no acute distress Orientation/consciousness: patient oriented x3 HEENT Head: Yes normocephalic Mouth: Normal oral and palatal mucosa present Eyes EOM: EOMs intact bilaterally Neck Neck: Yes supple Resp Auscultation: clear to auscultation bilaterally Cardio Jugular venous distension: no JVD Rate: regular rate GI Palpation (GI): Soft to palpation Auscultation: normal bowel sounds General: Yes no CVA tenderness Back/Spine/Pelvis Back: no CVA tenderness Skin General skin exam: no rashes or lesions noted Neuro General: patient oriented x3 and moves all extremities Extrem General: Yes no pedal edema Assessment & Plan Assessment & Plan (1) CKD stage 2 due to type 2 diabetes mellitus: Code(s): E11.22 - Type 2 diabetes mellitus with diabetic chronic kidney disease; N18.2 - Chronic kidney disease, stage 2 (mild) (2) Essential hypertension: Code(s): I10 - Essential (primary) hypertension Plan Dre has chronic kidney disease most likely from vascular disease. She does not have any proteinuria. There was a question of her having retinopathy. She denies any neuropathy as well as peripheral arterial disease. Her urine output is good. She is on Jardiance and benazepril. I will get a renal ultrasound in the future. I have ordered preliminary blood work and urine studies. She may need a renal biopsy. I did not make any medication changes today. She should avoid nonsteroidal anti-inflammatories, maintain good hydration and minimize sodium in the diet. All questions were answered. Follow-up given Orders: Orders Creatinine 10/31/23 E11.22 - Type 2 diabetes mellitus with diabetic chronic kidney disease, N18.2 - Chronic kidney disease, stage 2 (mild) Calcium 10/31/23 E11.22 - Type 2 diabetes mellitus with diabetic chronic kidney disease, N18.2 - Chronic kidney disease, stage 2 (mild) Parathyroid Hormone Intact 10/31/23 E11.22 - Type 2 diabetes mellitus with diabetic chronic kidney disease, N18.2 - Chronic kidney disease, stage 2 (mild) Complete Blood Count Auto Diff 10/31/23 E11. - Type 2 diabetes mellitus with diabetic chronic kidney disease, N18.2 - Chronic kidney disease, stage 2 (mild) Protein Creatinine Ratio, Ur 10/31/23. - Type 2 diabetes mellitus with diabetic chronic kidney disease, N18.2 - Chronic kidney disease, stage 2 (mild) Electrolytes 10/31/23. - Type 2 diabetes mellitus with diabetic chronic kidney disease, N18.2 - Chronic kidney disease, stage 2 (mild) Blood Urea Nitrogen 10/31/23. - Type 2 diabetes mellitus with diabetic chronic kidney disease, N18.2 - Chronic kidney disease, stage 2 (mild) Immunofixation Pnl, Serum 10/31/23 - Type 2 diabetes mellitus with diabetic chronic kidney disease, N18.2 - Chronic kidney disease, stage 2 (mild) Coding Level of Care Code New Pt Level 4 (26098) Diagnoses CKD stage 2 due to type 2 diabetes mellitus ; N18.2 Essential hypertension I10 Results Reviewed Nephrology Results: Hgb 14.6 g/dl (12.0-16.0) 08/05/23 WBC 6.6 X10*3/uL (4.8-10.8) 08/05/23 Plt Count 163 X10*3/uL (160-400) 08/05/23 Sodium 142 mmol/L (135-145) 08/05/23 Potassium 4.3 mmol/L (3.3-5.1) 08/05/23 Chloride 110 mmol/L (96-108) H 08/05/23 Carbon Dioxide 23 mmol/L (22-29) 08/05/23 BUN 21 mg/dL (9-16) H 08/05/23 Creatinine 1.30 mg/dL (0.5-1.4) 08/05/23 Calcium 10.4 mg/dL (8.4-10.2) H 08/05/23 Urine Protein Negative mg/dL (Neg-Trace) 08/05/23 Urine Creatinine 60.53 mg/dL 08/05/23
== END 2023-10-31 11:23 | disposition home or self-care (01) ==
LOC: HO.HKA 10:31
PROVIDERS: PCP Internal Medicine; Visit Provider Internal Medicine Nephrology
DX: E11.22 Type 2 diabetes mellitus with diabetic chronic kidney disease (principal); N18.2 Chronic kidney disease, stage 2 (mild); I12.9 Hypertensive chronic kidney disease with stage 1 through stage 4 chronic kidney disease, or unspecified chronic kidney disease
CPT/HCPCS: 99204

== ENCOUNTER → 2023-10-31 10:30 | Outpatient (BNVA) | payer OTHER, SELFPAY | PROVIDERS: PCP Internal Medicine; Visit Provider Internal Medicine Nephrology ==

== ENCOUNTER 2024-01-05 07:06 | Outpatient (REF) | payer OTHER, SELFPAY ==
[2024-01-05 07:26] LABS: MANUAL DIFF FLAG NO
[2024-01-05 07:44] LABS: Appearance Urine Clear; Color Urine Yellow; Glucose Urine UA >=1000 mg/dL (Negative); Leukocyte Esterase Urine Negative (Negative); Nitrite Urine Negative (Negative); PH 5.5 (5.0-9.0); Specific Gravity - Urine 1.025 (1.005-1.025); UMIC TRIGGER UACC YES; Urine Blood Negative (Negative); Urine Ketones Negative (Negative); Urine Protein Negative (Neg-Trace)
[2024-01-05 07:47] LABS: Basophils Absolute Auto 0.1 X10*3/uL (0.0-0.2); Basophils Percent Auto 0.7 % (0-2); Eosinophils Absolute Auto 0.1 X10*3/uL (0.0-0.4); Eosinophils Percent Auto 1.4 % (0-4); Hematocrit 48.4 % (37.0-47.0); Hemoglobin 15.6 g/dl (12.0-16.0); Imm Gran Abs Auto 0.04 X10*3/uL (0.00-0.03); Imm Gran Pct Auto 0.4 % (0.0-0.4); Lymphocytes Absolute Auto 2.5 X10*3/uL (1.2-4.9); Mean Corpuscular HGB Conc 32.2 g/dl (31.0-35.0); Mean Corpuscular Hemoglobin 26.6 pg (27.0-33.0); Mean Corpuscular Volume 82.5 fL (80.0-98.0); Mean Platelet Volume 12.1 fL (9.4-12.3); Monocytes Absolute Auto 0.4 X10*3/uL (0.1-1.2); Monocytes Percent Auto 4.9 % (2-11); Neutrophils Absolute Auto 5.8 x10*3/uL (2.0-8.3); Neutrophils Percent Auto 64.6 % (45-73); Platelet Count 216 X10*3/uL (160-400); Red Blood Count 5.87 X10*6/uL (4.20-5.50); Red Cell Distribution Width 13.5 % (11.0-16.0)
[2024-01-05 07:50] LABS: Bacteria Urine None Seen (None Seen); Hyaline Casts Urine 0-2 /LPF (0-2); RBC Urine 0-2 /HPF (0-2); WBC Urine 0-5 /HPF (0-5)
[2024-01-05 07:52] LABS: Estimated Average Glucose 183 mg/dL
[2024-01-05 08:15] LABS: Alanine Aminotransferase 22 U/L (0-31); Albumin Level 4.5 g/dL (3.5-5.0); Alkaline Phosphatase 103 U/L (39-117); Anion Gap 16 (12-20); Aspartate Amino Transferase 22 U/L (5-31); Bilirubin Total 0.5 mg/dL (0.0-1.0); Blood Urea Nitrogen 29 mg/dL (9-16); Calcium 10.1 mg/dL (8.4-10.2); Carbon Dioxide 23 mmol/L (22-29); Chloride 105 mmol/L (96-108); Cholesterol 190 mg/dL (<200); Estimated Glomerular Filt Rate 33; Glucose Fasting 257 mg/dL (60-99); HDL Cholesterol 42 mg/dL (>40); LDL Cholesterol Calculated 92 mg/dL (<100); Sodium 139 mmol/L (135-145); Triglycerides 280 mg/dL (<150)
[2024-01-05 08:23] LABS: Creatinine Urine 92.88 mg/dL; Microalbum/Creatinine Ratio Ur 9.6 ug/mg cr (<30)
[2024-01-05 08:37] LABS: Free T4 (Free Thyroxine) 0.86 ng/dL (0.71-1.85); Thyroid Stimulating Hormone 4.42 uIU/mL (0.32-4.0); Vitamin D 25-OH Total 26.9 ng/mL (>30)
== END 2024-01-05 07:07 | disposition home or self-care (01) ==
LOC: HO.LAB 07:06
PROVIDERS: Absent Provider Internal Medicine Nephrology; PCP Internal Medicine; Visit Provider Internal Medicine
DX: I10 Essential (primary) hypertension (principal); E78.00 Pure hypercholesterolemia, unspecified; E11.9 Type 2 diabetes mellitus without complications; E03.9 Hypothyroidism, unspecified; E55.9 Vitamin D deficiency, unspecified
CPT/HCPCS: 36415; 80053; 80061; 81001; 82043; 82306; 82570; 83036; 84439; 84443; 85025

== ENCOUNTER 2024-01-09 09:27 | Outpatient (AMB) | payer OTHER, SELFPAY ==
[2024-01-09 09:30] VITALS: BP 112/60; PULSE 84; O2SAT 96; BMI 26.5
--- NOTE | 2024-01-09 09:30 | HO.NEPHOV_ITS ---
HPI HPI Comments History of Present Illness Details I had the privilege of seeing Dre in follow up for chronic kidney disease. She has longstanding diabetes and hypertension. Her blood sugar control is fair. She is not known to have any significant proteinuria. She is on angiotensin receptor racheal. She has no family history of any renal disease. She has no history of malignancy, renal stones, edema or hematuria. She denies having chest pain, shortness of breath, proximal nocturnal dyspnea, orthopnea. She was given Invokana in the past which she did not tolerate due to urinary symptoms. She is currently on Jardiance & statins. She denies loi estive heart failure, carotid stenosis, CVA, SVETLANA or PD. She is active. 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 Diabetes type 2, uncontrolled Overweight (BMI 25.0-29.9) Chronic interstitial cystitis Varicose veins of both lower extremities Osteoarthritis of left hip Lumbosacral spondylosis Vitamin D deficiency Pityriasis rosea GERD (gastroesophageal reflux disease) Allergic rhinitis Restrictive lung disease Coronary artery disease Essential hypertension Hyperlipidemia Chronic kidney disease, stage 2 (mild) Diabetes mellitus with stage 2 chronic kidney disease, with long-term current use of insulin Surgical History Hx of colonoscopy (~08/11/19) FH: JUANCHO-BSO (total abdominal hysterectomy and bilateral salpingo-oophorectomy) Family History Father Diabetes Mother CVD (cardiovascular disease) Social History Household Members: None Housing: House Do you presently have visiting nurse or other home services: No Alcohol intake: never Patient Tobacco Use Status: Never used Tobacco e-Cigarette/Vaping Use: Never Used Second Hand Smoke Exposure: Yes service: No Current occupational status: employed 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 needs: No Hearing needs: No Vision needs: No Vital Signs 01/09/24 09:30 Height 5 ft 4 in Weight 154 lb 4 oz BMI 26.5 BP 112/60 Blood Pressure Location Rt brachial Position Sitting Pulse 84 Pulse Source Pulse Oximeter Pulse Oximetry (%) 96 Oxygen Delivery Method Room Air Physical Exam Vital Signs: Last Vital Signs Pulse 84 01/09/24 09:30 BP 112/60 01/09/24 09:30 Pulse Ox 96 01/09/24 09:30 Oxygen Delivery Method Room Air 01/09/24 09:30 BMI result Body Mass Index 26.5 Const General: comfortable and no acute distress Orientation/consciousness: patient oriented x3 HEENT Head: Yes normocephalic Mouth: Normal oral and palatal mucosa present Eyes EOM: EOMs intact bilaterally Neck Neck: Yes supple Resp Auscultation: clear to auscultation bilaterally Cardio Jugular venous distension: no JVD Rate: regular rate GI Palpation (GI): Soft to palpation Auscultation: normal bowel sounds General: Yes no CVA tenderness Back/Spine/Pelvis Back: no CVA tenderness Skin General skin exam: no rashes or lesions noted Neuro General: patient oriented x3 and moves all extremities Extrem General: Yes no pedal edema Assessment & Plan Assessment & Plan (1) Chronic kidney disease, stage III (moderate): Code(s): N18.30 - Chronic kidney disease, stage 3 unspecified Qualifiers: Chronic kidney disease stage 3 subtype: stage 3b (GFR 30-44) Qualified Code(s): N18.32 - Chronic kidney disease, stage 3b (2) Essential hypertension: Code(s): I10 - Essential (primary) hypertension Plan Dre has chronic kidney disease most likely from vascular disease. She does not have any proteinuria. There was a question of her having retinopathy. She denies any neuropathy as well as peripheral arterial disease. Her urine output is good. She is on Jardiance and benazepril. Her serum creatinine has gone up to 1.54. I reduced the benazepril by 50%. I will get a renal ultrasound in the future. I have ordered follow-up blood work. She may need a renal biopsy. I did not make any other medication changes today. She should avoid nonsteroidal anti-inflammatories, maintain good hydration and minimize sodium in the diet. All questions were answered. Follow-up given Orders: Orders Electrolytes Today N18.30 - Chronic kidney disease, stage 3 unspecified Blood Urea Nitrogen Today N18.30 - Chronic kidney disease, stage 3 unspecified Creatinine Today N18.30 - Chronic kidney disease, stage 3 unspecified Medications: New benzonatate 100 mg PO TID 30 caps 0RF Changed From benazepril 5 mg PO DAILY 90 days 90 caps 3RF To benazepril 2.5 mg (1/2 x 5 mg) PO DAILY 45 caps 3RF 90 days Coding Level of Care Code Est Pt Level 4 (11254) Diagnoses Stage 3b chronic kidney disease N18.32 Chronic kidney disease stage 3 subtype: stage 3b (GFR 30-44) Essential hypertension I10 Results Reviewed Nephrology Results: Hgb 15.6 g/dl (12.0-16.0) 01/05/24 WBC 9.0 X10*3/uL (4.8-10.8) 01/05/24 Plt Count 216 X10*3/uL (160-400) 01/05/24 Sodium 139 mmol/L (135-145) 01/05/24 Potassium 5.0 mmol/L (3.3-5.1) 01/05/24 Chloride 105 mmol/L (96-108) 01/05/24 Carbon Dioxide 23 mmol/L (22-29) 01/05/24 BUN 29 mg/dL (9-16) H 01/05/24 Creatinine 1.54 mg/dL (0.5-1.4) H 01/05/24 Calcium 10.1 mg/dL (8.4-10.2) 01/05/24 Urine Protein Negative mg/dL (Neg-Trace) 01/05/24 Urine Creatinine 92.88 mg/dL 01/05/24
== END 2024-01-09 10:04 | disposition home or self-care (01) ==
PROVIDERS: PCP Internal Medicine; Visit Provider Internal Medicine Nephrology
DX: N18.32 Chronic kidney disease, stage 3b (principal); I10 Essential (primary) hypertension
CPT/HCPCS: 99214

== ENCOUNTER → 2024-01-09 09:27 | Outpatient (BNVA) | payer OTHER, SELFPAY | PROVIDERS: PCP Internal Medicine; Visit Provider Internal Medicine Nephrology | DX: E11.22 Type 2 diabetes mellitus with diabetic chronic kidney disease (principal); N18.2 Chronic kidney disease, stage 2 (mild) ==

== ENCOUNTER 2024-02-04 08:11 | Outpatient (REF) | payer OTHER, SELFPAY ==
--- NOTE | ~2024-02-04 | MM_ITS ---
EXAMINATION: BONE DENSITOMETRY CLINICAL INDICATION: Menopause. COMPARISON: Baseline BD dated 10/18/2008. TECHNIQUE: Using a [employer] DXA System (software version: 13.1) manufactured by [employer], dual-energy x-ray absorptiometry was performed of the lumbar spine and left hip. The images are of good technical quality. Summary results are attached. FINDINGS: LEFT FEMUR, NECK: Current: BMD 1.069 g/cm2, Z-score 2.0, T-score 0.2, normal. Baseline: BMD 1.098 g/cm2. LEFT FEMUR, TOTAL: Current: BMD 1.172 g/cm2, Z-score 2.8, T-score 1.3, normal, 2.6% decrease from baseline (<5% change is not significant). Baseline: BMD 1.203 g/cm2. AP SPINE L1-L4: Current: BMD 1.254 g/cm2, Z-score 2.3, T-score 0.6, normal, 1.4% decrease from baseline (<5% change is not significant). Baseline: BMD 1.272 g/cm2. IDENTIFIED RISK FACTORS: Early menopause, bilateral oophorectomy, hysterectomy, secondary osteoporosis. HISTORY OF FRACTURE: None listed. MEDICATIONS: Multivitamin, vitamin D. MM/XR DEXA axial skeleton IMPRESSION: 1. DIAGNOSIS: Normal bone density based on the lowest T-score value of 0.2 in the femoral neck applying World Health Organization criteria. 2. 10-YEAR FRACTURE RISK PREDICTION, FRAX: According to the guidelines, FRAX calculation should only be performed on patients in the osteopenia bone density category. Therefore, FRAX was not performed on this patient. 3. Treatment Recommendations: NOF guidelines recommend consideration for treatment in postmenopausal women and men age 50 and older presenting with the following: -A hip or vertebral (clinical or morphometric) fracture. -T-score less than or equal to -2.5 at the femoral neck or spine after appropriate evaluation to exclude secondary causes. -Low bone mass at the hip or spine and a 10-year fracture probability by FRAX of greater than or equal to 3% for hip fracture or greater than or equal to 20% for major osteoporotic fracture based on the [place] adapted WHO algorithm. 4. Other Recommendations: All treatment decisions require clinical judgment and consideration of individual patient factors, including patient preferences, comorbidities, previous drug use, risk factors not captured in the FRAX model (e.g. frailty, falls, vitamin D deficiency, increased bone turnover, interval significant decline in bone density) and possible under or overestimation of fracture risk by FRAX. FUTURE SCAN RECOMMENDATION: People with diagnosed cases of osteoporosis or at high risk for fracture should have regular bone mineral density tests. For patients eligible for Medicare, routine testing is allowed once every 2 years. The testing frequency can be increased to one year for patients who have rapidly progressing disease, those who are receiving or discontinuing medical therapy to restore bone mass, or have additional risk factors.
--- NOTE | ~2024-02-04 | MM_ITS ---
EXAMINATION: MM SCREENING DIGITAL BREAST TOMOSYNTHESIS, BILATERAL CLINICAL INFORMATION: Screening. Asymptomatic. The patient has a history of a benign left excisional biopsy in 2012. COMPARISON: Mammography: This study is compared with prior exams dating back to 2018. TECHNIQUE: Digital breast tomosynthesis is performed in both the craniocaudal and mediolateral oblique views along with computer-aided detection (CAD). Synthesized 2D images are generated from the tomosynthesis. FINDINGS: There are scattered areas of fibroglandular density (ACR BI-RADS breast composition Category b). There are no significant masses, abnormal calcifications, or other abnormalities. MM/MM tomosynthesis screening BI IMPRESSION: No mammographic evidence of malignancy. ASSESSMENT: BI-RADS BI-RADS 1 - Negative RECOMMENDATION: Routine annual mammography screening. 1 year F/U This examination should not preclude the clinical evaluation of a suspicious palpable abnormality. This patient's information was entered into a reminder system with a target due date for their next mammogram.
== END 2024-02-04 08:12 | disposition home or self-care (01) ==
LOC: HO.MAMMO 08:11
PROVIDERS: PCP Internal Medicine; Visit Provider Internal Medicine
DX: Z12.31 Encounter for screening mammogram for malignant neoplasm of breast (principal); Z13.820 Encounter for screening for osteoporosis; Z78.0 Asymptomatic menopausal state
CPT/HCPCS: 77063; 77067; 77080

== ENCOUNTER → 2024-02-04 08:45 | Outpatient (BNV) | payer OTHER, SELFPAY | PROVIDERS: PCP Internal Medicine; Visit Provider Radiology Diagnostic Radiology | DX: Z12.31 Encounter for screening mammogram for malignant neoplasm of breast (principal) | CPT/HCPCS: 77063; 77067 ==

== ENCOUNTER 2024-02-05 07:41 | Outpatient (AMB) | payer OTHER, SELFPAY ==
--- NOTE | 2024-02-05 07:51 | A.OFFVIS_ITS ---
Intake Vital Signs 02/05/24 07:52 Height 5 ft 4 in Weight 154 lb 15.759 oz BMI 26.6 BP 114/62 Blood Pressure Location Rt brachial Position Sitting Pulse 59 Pulse Source Pulse Oximeter Intake Visit Reasons: DM-confirmed Intake Note: Patient presents today to follow up on D2MT. Last Diabetic Eye exam: October 2023 Last Podiatry Visit: Doesn't have one. 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 Accompanied by: Self / Same As Patient Allergies latex [LATEX] Allergy (Intermediate, Verified 02/05/24 07:57) RASH atorvastatin [From Lipitor] Allergy (Mild, Verified 02/05/24 07:57) MUSCLE ACHES dulaglutide [Trulicity] Allergy (Unknown, Verified 02/05/24 07:57) rash and itching pioglitazone Allergy (Unknown, Verified 02/05/24 07:57) Urinary frequency pork derived (porcine) [PORK DERIVED (PORCINE)] Allergy (Unknown, Verified 02/05/24 07:57) ZOROASTRIANISM BELIEF canagliflozin [Invokana] Adverse Reaction (Unknown, Verified 02/05/24 07:57) recurrent UTI, dizziness Tanzeum Allergy (Unknown, Uncoded 02/05/24 07:57) rash HPI HPI Comments History of Present Illness Details Patient is 73-year-old female with DM type 2 diagnosed October 2005 who pres ents for management of diabetes. Past medical history: Diabetes type 2, hypertension, hyperlipidemia Micro and macrovascular complications: retinopathy, nephropathy, neuropathy, CAD Diabetes medications: Lantus 16 units not using , V Go 40, 5 clicks with meals. Plus one click for blood glucose over 200, 1 with snacks (but does not eat snacks), Jardiance 25 mg QD Intolerant of Trulicity causes allergic site reactions. Reports intolerant of Victoza, Tanzeum. She had recurrent UTI with Invokana Blood glucose monitoring: Unfortunately, patient did not bring her her sensor or glucometer with her to the follow-up visit Symptoms reported: denies numbness, tingling, cramping in lower extremities Hypoglycemia: No Hyperglycemia: urinary frequency, nocturia 1x/night, occasional polydypsia Exercise: walks all-night at home. 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 Other specialists: [employer], Dr. Ayala Did not meet with the consumer educator Laboratory Tests 02/13/22 02/13/22 02/13/22 07:20 07:22 07:22 Creatinine 0.96 Estimated GFR 58 Hemoglobin A1c % 9.5 Triglycerides 159 Cholesterol 127 D LDL Cholesterol, C alc 58 HDL Cholesterol 38 TSH 2.39 Microalb/Creat Rat io 8.0 06/28/21 10/17/21 10/23/21 16:20 15:19 08:51 Creatinine 1.27 Estimated GFR 42 Hgb A1c (Clinic) 10.9 H TSH 4.76 [facility] Medical History (Updated 01/09/24 @ 09:59 by Shoaib Boucher MD) Chronic kidney disease, stage III (moderate) Acquired hypothyroidism Restrictive lung disease Restrictive lung disease Bronchial asthma Allergic rhinitis Insomnia Diabetic polyneuropathy associated with type 2 diabetes mellitus Diabetic nephropathy associated with type 2 diabetes mellitus Non-proliferative diabetic retinopathy, 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 Diabetes type 2, uncontrolled Overweight (BMI 25.0-29.9) Chronic interstitial cystitis Varicose veins of both lower extremities Osteoarthritis of left hip Lumbosacral spondylosis Vitamin D deficiency Pityriasis rosea GERD (gastroesophageal reflux disease) Allergic rhinitis Restrictive lung disease Coronary artery disease Essential hypertension Hyperlipidemia Chronic kidney disease, stage 2 (mild) Diabetes mellitus with stage 2 chronic kidney disease, with long-term current use of insulin Surgical History Hx of colonoscopy (~08/11/19) FH: JUANCHO-BSO (total abdominal hysterectomy and bilateral salpingo-oophorectomy) Family History Father Diabetes Mother CVD (cardiovascular disease) Social History Household Members: None Housing: House Do you presently have visiting nurse or other home services: No Alcohol intake: never Patient Tobacco Use Status: Never used Tobacco e-Cigarette/Vaping Use: Never Used Second Hand Smoke Exposure: Yes service: No Current occupational status: employed 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 needs: No Hearing needs: No Vision needs: No Physical Exam Vital Signs: Last Vital Signs Pulse 59 02/05/24 07:52 BP 114/62 02/05/24 07:52 BMI result Body Mass Index 26.6 Assessment & Plan Assessment & Plan (1) Diabetes type 2, uncontrolled: Code(s): E11.65 - Type 2 diabetes mellitus with hyperglycemia Qualifiers: Glycemic state: with hyperglycemia Qualified Code(s): E11.65 - Type 2 diabetes mellitus with hyperglycemia Plan: This is a 72-year-old female with a history of type 2 diabetes being treated with Tradjenta, metformin, basal insulin along with V-Go system with glycemic control and known microvascular and macrovascular complications namely retinopathy, nephropathy, neuropathy, CAD. Plan is have the patient bring the sensor or glucometer with a to follow-up visit. Because of lack of data can not make any changes to the regimen.. I am not sure the V-Go is the best way to treat long-term. Once she meets with the educator, we could consider stopping the V-GO and increasing Lantus to 20 units, using a Humalog scale before meals and adding Ozempic. I would not attempt to do this without having a sensor in place. Will once again refer patient to consumer educator Coding Level of Care Code Est Pt Level 4 (64471) Diagnoses Uncontrolled type 2 diabetes mellitus with hyperglycemia E11.65 Glycemic state: with hyperglycemia
[2024-02-05 07:52] VITALS: BP 114/62; PULSE 59; BMI 26.6
[2024-02-05 08:03] LABS: Glucose, Whole Blood 106 mg/dL (60-115)
== END 2024-02-05 08:25 | disposition home or self-care (01) ==
PROVIDERS: PCP Internal Medicine; Visit Provider Internal Medicine Endocrinology, Diabetes & Metabolism
DX: E11.65 Type 2 diabetes mellitus with hyperglycemia (principal)
CPT/HCPCS: 99214

== ENCOUNTER → 2024-02-05 07:41 | Outpatient (BNVA) | payer OTHER, SELFPAY | PROVIDERS: PCP Internal Medicine; Visit Provider Internal Medicine Endocrinology, Diabetes & Metabolism | DX: E11.65 Type 2 diabetes mellitus with hyperglycemia (principal); Z79.4 Long term (current) use of insulin | CPT/HCPCS: 82947 ==

== ENCOUNTER 2024-03-15 07:07 | Outpatient (REF) | payer OTHER, SELFPAY ==
[2024-03-15 07:23] LABS: MANUAL DIFF FLAG NO
[2024-03-15 07:31] LABS: Basophils Percent Auto 0.6 % (0-2); Eosinophils Absolute Auto 0.2 X10*3/uL (0.0-0.4); Eosinophils Percent Auto 2.5 % (0-4); Hematocrit 48.4 % (37.0-47.0); Hemoglobin 15.4 g/dl (12.0-16.0); Imm Gran Abs Auto 0.02 X10*3/uL (0.00-0.03); Imm Gran Pct Auto 0.3 % (0.0-0.4); Lymphocytes Absolute Auto 2.5 X10*3/uL (1.2-4.9); Lymphocytes Percent Auto 36.5 % (20-40); Mean Corpuscular HGB Conc 31.8 g/dl (31.0-35.0); Mean Corpuscular Hemoglobin 26.2 pg (27.0-33.0); Mean Corpuscular Volume 82.5 fL (80.0-98.0); Mean Platelet Volume 11.2 fL (9.4-12.3); Monocytes Absolute Auto 0.4 X10*3/uL (0.1-1.2); Monocytes Percent Auto 5.2 % (2-11); Neutrophils Absolute Auto 3.8 x10*3/uL (2.0-8.3); Neutrophils Percent Auto 54.9 % (45-73); Platelet Count 197 X10*3/uL (160-400); Red Blood Count 5.87 X10*6/uL (4.20-5.50); Red Cell Distribution Width 14.4 % (11.0-16.0); White Blood Count 6.9 X10*3/uL (4.8-10.8)
[2024-03-15 07:45] LABS: Anion Gap 14 (12-20); Blood Urea Nitrogen 26 mg/dL (9-16); Calcium 10.3 mg/dL (8.4-10.2); Carbon Dioxide 26 mmol/L (22-29); Chloride 105 mmol/L (96-108); Estimated Glomerular Filt Rate 46; Potassium 4.7 mmol/L (3.3-5.1); Sodium 140 mmol/L (135-145)
[2024-03-15 07:54] LABS: Parathyroid Hormone Intact 116.4 pg/mL (8.7-77.1)
[2024-03-18 14:34] LABS: IgA 290 mg/dL (70-320); IgG 1126 mg/dL (600-1540); IgM 65 mg/dL (50-300)
== END 2024-03-15 07:08 | disposition home or self-care (01) ==
LOC: HO.LAB 07:07
PROVIDERS: Absent Provider Internal Medicine; PCP Internal Medicine; Visit Provider Internal Medicine Nephrology
DX: E11.22 Type 2 diabetes mellitus with diabetic chronic kidney disease (principal); N18.30 Chronic kidney disease, stage 3 unspecified
CPT/HCPCS: 36415; 80051; 82310; 82565; 82784; 83970; 84520; 85025; 86334

== ENCOUNTER 2024-03-26 14:28 | Outpatient (AMB) | payer OTHER, SELFPAY ==
[2024-03-26 14:33] VITALS: BP 144/74; PULSE 78; O2SAT 97; BMI 26.3
--- NOTE | 2024-03-26 14:33 | MHC.PC.OV ---
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: No Accompanied by: Self / Same As Patient Allergies latex [LATEX] Allergy (Intermediate, Verified 03/26/24 15:02) RASH atorvastatin [From Lipitor] Allergy (Mild, Verified 03/26/24 15:02) MUSCLE ACHES dulaglutide [Trulicity] Allergy (Unknown, Verified 03/26/24 15:02) rash and itching pioglitazone Allergy (Unknown, Verified 03/26/24 15:02) Urinary frequency pork derived (porcine) [PORK DERIVED (PORCINE)] Allergy (Unknown, Verified 03/26/24 15:02) MANDAEISM BELIEF canagliflozin [Invokana] Adverse Reaction (Unknown, Verified 03/26/24 15:02) recurrent UTI, dizziness Tanzeum Allergy (Unknown, Uncoded 03/26/24 15:02) rash Medication List - Last Reconciled 03/26/24 by Darryl Robles MD albuterol sulfate 90 mcg/actuation (ProAir HFA) 2 puffs inhalation QID PRN 30 days benazepril 2.5 mg (1/2 x 5 mg) PO DAILY 90 days benzonatate 100 mg PO TID betamethasone dipropionate 0.05% 1 appl topical BID PRN blood sugar diagnostic (FreeStyle Lite Strips) As directed 4 times a day blood-glucose meter (FreeStyle Lite Meter kit) As directed cholecalciferol (vitamin D3) 50 mcg PO DAILY 90 days flash glucose scanning reader (FreeStyle Consuelo 2 [place]) As directed flash glucose sensor (FreeStyle Consuelo 2 Sensor kit) As directed every 2 weeks hydroxyzine HCl 10 mg PO Q8H PRN insulin lispro (Humalog U-100 Insulin) Up to 78 units via VGO subcut daily; 30 days Jardiance (empagliflozin) 25 mg PO QAM 30 days NS lancets (FreeStyle Lancets) As directed 4 times a day levothyroxine 50 mcg PO DAILY 90 days mometasone 0.1% 1 appl topical DAILY PRN 30 days omega-3 fatty acids 1,000 mg PO BID 30 days pen needle, diabetic (BD Ultra-Fine [place] Pen Needle) As directed once daily rosuvastatin 40 mg PO DAILY 90 days sub-q insulin device, 40 unit (V-GO 40 device) USE DIRECTED [V-GO 40 device As directed] Tobacco use date assessed: 03/26/24 Fall risk assessment: No Falls in past year Last assessed Fall Risk: 03/26/24 Dental Screening Dental Screen Date: 03/26/24 Did you have a dental visit in the last 12 months?: Yes Did you have a dental problem in the last 6 months where you did not have access to dental care?: No Was dental information given to patient?: Patient has dentist HPI DM, CKD, Hyperlipidemia HPI Details Patient comes in today for her follow up visit States that she currently feels okay She denies any headaches or dizziness Denies any chest pains, no SOB No nausea/vomiting, no abdominal pain No change in bowel habits noted Needs a couple of her Rx refilled She had her follow up labs done early last week - to discuss her results [facility] Medical History (Updated 03/26/24 @ 15:13 by Darryl Robles MD) Chronic kidney disease, stage III (moderate) Acquired hypothyroidism Restrictive lung disease Restrictive lung disease Bronchial asthma Allergic rhinitis Insomnia Diabetic polyneuropathy associated with type 2 diabetes mellitus Diabetic nephropathy associated with type 2 diabetes mellitus Non-proliferative diabetic retinopathy, both eyes manager long term care (current) use of insulin Diabetes type 2, uncontrolled Overweight (BMI 25.0-29.9) Chronic interstitial cystitis Varicose veins of both lower extremities Osteoarthritis of left hip Lumbosacral spondylosis Vitamin D deficiency Pityriasis rosea GERD (gastroesophageal reflux disease) Allergic rhinitis Restrictive lung disease Coronary artery disease Essential hypertension Hyperlipidemia Chronic kidney disease, stage 2 (mild) Diabetes mellitus with stage 2 chronic kidney disease, with long-term current use of insulin Surgical History Hx of colonoscopy (~08/11/19) FH: JUANCHO-BSO (total abdominal hysterectomy and bilateral salpingo-oophorectomy) Family History Father Diabetes Mother CVD (cardiovascular disease) Social History Household Members: None Housing: House Do you presently have visiting nurse or other home services: No Alcohol intake: never Patient Tobacco Use Status: Never used Tobacco e-Cigarette/Vaping Use: Never Used Second Hand Smoke Exposure: Yes service: No Current occupational status: employed 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 1. Little interest or pleasure in doing things: not at all 2. Feeling down, depressed, or hopeless: not at all 3. Trouble falling or staying asleep, or sleeping too much: not at all 4. Feeling tired or having little energy: not at all 5. Poor appetite or overeating: not at all 6. Feeling bad about yourself - or that you are a failure or have let yourself or your family down: not at all 7. Trouble concentrating on things, such as reading the newspaper or watching television: not at all 8. Moving or speaking so slowly that other people could have noticed. Or the opposite - being so fidgety or restless that you have been moving around a lot more than usual: not at all 9. Thoughts that you would be better off or of hurting yourself in some way: not at all Total score: 0 Depression Screening Interpretation: Negative Depression Screening Done: Yes 95148 - PHQ-9 Billing: Yes Source: Developed by Drs. Gilbert Khan, Aleja Phillip, Hugo Aleman and colleagues, with an educational jose alfredo from [employer]. Thrive Questionnaire Date Thrive assessed: 03/26/24 I am a: Patient What is your living situation today?: I have a steady place to live Within the past 12 months, did the food you bought not last and you didn't have the money to get more?: Never true Within the past 12 months, did you worry whether your food would run out before you got money to buy more?: Never true Do you have trouble paying for medicines?: No Do you have trouble getting transportation to medical appointments?: No Do you have trouble paying your heating and electricity bill?: No Do you have trouble taking care of your child, family member or friend?: No Do you have trouble with day-to-day activities such as bathing, preparing meals, shopping, managing finances, etc.?: No Are you currently unemployed and looking for a job?: No Are you interested in more education?: No Please select the resources that you would like help with: None Currently or been in a relationship where the following occur: no concerns reported THRIVE Score: 0 AUDIT C Alcohol Use Questionnaire (AUDIT-C) 1. How often do you have a drink containing alcohol?: Never 3. How often do you have six or more drinks on one occasion?: Never Total Score: 0 Score Reviewed/Action Taken: Yes VITALY-7 AMB Questionnaire VITALY-7 Date VITALY - 7 assessed: 03/26/24 Feeling nervous, anxious, or on edge: 0 = Not at all Not being able to stop or control worryin = Not at all Worrying too much about different things: 0 = Not at all Trouble relaxin = Not at all Being so restless that it is hard to sit still: 0 = Not at all Becoming easily annoyed or irritable: 0 = Not at all Feeling afraid as if something awful might happen: 0 = Not at all Total VITALY-7 score (0-4 normal; 5-9 mild; 10-14 moderate; 15-21 severe): 0 Source: Developed by Drs. Gilbert Khan, Aleja Phillip, Hugo Aleman and colleagues, with an educational jose alfredo from [employer]. VITALY-7 Assessment Billing VITALY-7 Assessment Tool: VITALY-7 Assessment 96925 Review of Systems Const Denies chills, Reports fatigue, Denies fever(s) and Denies headache(s) ENT Denies dysphagia, Denies dizziness, Denies otalgia, Denies headache(s), Denies neck pain, Denies odynophagia and Denies sore throat Card Denies chest pain, Denies rapid heart rate, Denies irregular heart rhythm, Denies palpitations and Denies dyspnea Resp Denies cough, Denies dyspnea and Denies wheezing GI Denies abdominal pain, Denies constipation, Denies dysphagia, Denies heartburn, Denies diarrhea, Denies nausea, Denies odynophagia and Denies vomiting Denies hematuria, Denies urinary frequency, Reports nocturia, Denies dysuria and Denies urinary urgency Musc Denies back pain, Denies arthralgias and Denies neck pain Skin/Breast Denies rash Neuro Denies dizziness, Denies headache(s) and Denies paresthesias Psych Denies anxiety and Denies depression Endo Reports fatigue and Denies palpitations Woody/Lymph Denies easy bruising Aller/Immun Denies wheezing Physical exam (Primary Care) Vital Signs: Last Vital Signs Pulse 78 03/26/24 14:33 BP 144/74 H 03/26/24 14:33 Pulse Ox 97 03/26/24 14:33 Oxygen Delivery Method Room Air 03/26/24 14:33 BMI result Body Mass Index 26.3 Tobacco/Smoking Status: Tobacco use Status Tobacco use date assessed 03/26/24 03/26/24 14:40 Patient Tobacco Use Status Never used Tobacco 03/26/24 14:40 e-Cigarette/Vaping Use Never Used 03/26/24 14:40 PHQ-9: PHQ-9 Score PHQ-9: Total score 0 03/26/24 15:07 Depression Screening Interpretation: Negative Thrive Assessment: Date of Thrive Assessment Date Thrive assessed 03/26/24 03/26/24 14:40 Currently or been in a relationship where the following occur: no concerns reported Const General: no acute distress and alert HENMT Ears: TM's normal bilaterally and EAC's normal Throat: Yes posterior oropharynx normal and Yes tonsils normal (no TP congestion) Neck Neck: Yes no lymphadenopathy and Yes supple Thyroid: Thyroid normal Resp Auscultation: no rales, no wheezes and diminished lung sounds (slightly) bilateral Cardio Rate: regular rate Rhythm: regular rhythm Heart sounds: no murmurs GI Palpation (GI): Soft to palpation and nontender Auscultation: normal bowel sounds General: Yes no CVA tenderness Back/Spine/Pelvis Back: no CVA tenderness Thoracic/Lumbar Spine: thoracic and lumbar spine normal to inspection Skin Rashes: no rashes Extrem General: Yes no clubbing, cyanosis or edema Results Reviewed Results Reviewed: Laboratory Tests 01/05/24 03/15/24 07:25 07:20 WBC 6.9 Hgb 15.4 Hct 48.4 H Plt Count 197 Sodium 140 Potassium 4.7 Creatinine 1.16 Estimated GFR 46 Fasting Glucose 257 H Hemoglobin A1c % 8.0 H Calcium 10.3 H AST 22 ALT 22 Triglycerides 280 H Cholesterol 190 LDL Cholesterol, Calc 92 HDL Cholesterol 42 25-OH Vitamin D Total 26.9 L TSH 4.42 H Free T4 0.86 PTH Intact 116.4 H Ur Specific [place] 1.025 Urine Protein Negative Urine Glucose (UA) >=1000 H Urine Blood Negative Urine Nitrite Negative Ur Leukocyte Esterase Negative Microalb/Creat Ratio 9.6 IgG Total 1126 IgA Total 290 IgM 65 Assessment and Plan Assessment & Plan (1) Diabetes mellitus with stage 2 chronic kidney disease, with long-term current use of insulin: Code(s): E11.22 - Type 2 diabetes mellitus with diabetic chronic kidney disease; N18.2 - Chronic kidney disease, stage 2 (mild); Z79.4 - longterm (current) use of insulin Qualifiers: Diabetes mellitus type: type 2 Qualified Code(s): E11.22 - Type 2 diabetes mellitus with diabetic chronic kidney disease; N18.2 - Chronic kidney disease, stage 2 (mild); Z79.4 - manager long term care (current) use of insulin Plan: In-office HgbA1c done today is at 8.4% (her HgbA1c was at 8.0% about 2 to 3 months ago) - goal is at least <7.0% Reinforced diabetic diet Per her request, we previously switched her from Jantidueto XR 5-1000 mg QD to Jardiance 25 mg QD at her last visit but she admits to stopping it a few months ago as she felt that the medication was causing her to experience heart palpitations but she now thinks that it may have been because she was also sick at the time but has since gone back on Jardiance again Continue Humalog via [employer] at 40, 5 clicks with meals. 1 click for correction BS > 200 mg/DL, 1 click with snacks. To use bolus 10 min before meals and Jardiance 25 mg QD for now She has not been back to see endocrinology since January 2023 as she states that Endocrinology was trying to get her started additionally on the CeQur insulin administration device/pump but patient states that she will likely not be able to afford it as her insurance is declining to cover a lot of her Rx, and that her VGo alone is costing her already up to $150 per device She was advised at her last visit that she really needs to get her diabetes under control as quickly as possible as her renal function has declined significantly on her recent labs She was referred her BACK to Dr. Jimenez for endocrinology consultation and management of her poorly-controlled diabetes and she was seen by him briefly last month and he is currently trying to gather more information on her before deciding on what to do BUT he did mention that the VGo may not be the way to go with this patient - is thinking about switching her later over to Lantus 20 units QD, Humalog TID with meals per sliding scale and weekly Ozempic Patient also adds that she has been eating a lot of beets lately as she read somewhere and heard from some family members that it can help with her diabetes States that she now also eats mostly just 2 meals a day and takes her insulin only when her blood sugars goes up very high and states that she actually feels much better than she did before when doing her meal and schedule this way Follow up with endocrinology as scheduled (2) Chronic kidney disease, stage III (moderate): Code(s): N18.30 - Chronic kidney disease, stage 3 unspecified Qualifiers: Chronic kidney disease stage 3 subtype: stage 3b (GFR 30-44) Qualified Code(s): N18.32 - Chronic kidney disease, stage 3b Plan: She is now seeing nephrology for follow up and management of her CKD Follow up with nephrology as scheduled (3) Hyperlipidemia: Code(s): E78.5 - Hyperlipidemia, unspecified Qualifiers: Hyperlipidemia type: pure hypercholesterolemia Qualified Code(s): E78.00 - Pure hypercholesterolemia, unspecified Plan: Results of her labs done a couple of months ago reviewed and discussed with patient Reinforced low cholesterol diet Continue Rosuvastatin 40 mg QD for now Will recheck her labs and fasting lipids in 3 months for follow-up (4) Essential hypertension: Code(s): I10 - Essential (primary) hypertension Plan: Reinforced low sodium diet - goal is systolic BP of at least 130 mm or less Continue Benazepril 2.5 mg QD (5) Coronary artery disease: Code(s): I25.10 - Atherosclerotic heart disease of [place] coronary artery without angina pectoris Qualifiers: Coronary Disease-Associated Artery/Lesion type: [place] artery [place] vs. transplanted heart: [place] heart Associated angina: without angina Qualified Code(s): I25.10 - Atherosclerotic heart disease of [place] coronary artery without angina pectoris Plan: Follow up with cardiology as scheduled (6) Acquired hypothyroidism: Code(s): E03.9 - Hypothyroidism, unspecified Plan: Her TFTs were okay on her recent labs Continue Levothyroxine 50 mcg QD Will recheck her TFTs in 3 months for follow up (7) Restrictive lung disease: Code(s): J98.4 - Other disorders of lung Plan: PFTs done in January 2019 revealed (+) moderately severe restrictive pulmonary disease with no obstructive component Patient uses her Albuterol inhaler (ProAir HFA) 4 times a day as needed mostly for symptomatic relief Follow up with pulmonary as scheduled - now sees Dr. Gamboa (8) Headache: Code(s): R51.9 - Headache, unspecified Qualifiers: Headache chronicity pattern: acute headache Headache type: unspecified Intractability: not intractable Qualified Code(s): R51.9 - Headache, unspecified Plan: Most likely tension headaches Continue Fioricet 1 tablet 3 to 4 times a day as needed Follow up with neurology as scheduled (9) Allergic rhinitis: Code(s): J30.9 - Allergic rhinitis, unspecified Qualifiers: Allergic rhinitis trigger: unspecified Allergic rhinitis seasonality: unspecified Qualified Code(s): J30.9 - Allergic rhinitis, unspecified Plan: Continue Hydroxyzine 10 mg every 8 hours as needed Patient also takes OTC Benadryl 25 mg Q 6 hrs PRN additionally for symptomatic relief (10) Pityriasis rosea: Code(s): L42 - Pityriasis rosea Plan: Continue Betamethasone dipropionate 0.05% BID PRN; Mometasone 0.1% cream QD was not helping Follow up with dermatology as scheduled (11) Vitamin D deficiency: Code(s): E55.9 - Vitamin D deficiency, unspecified Plan: Continue Vitamin D3 2000 units (capsule) QD (12) Insomnia: Code(s): G47.00 - Insomnia, unspecified Qualifiers: Insomnia type: unspecified Qualified Code(s): G47.00 - Insomnia, unspecified Plan: Sleep hygiene reinforced Continue Zolpidem 5 mg Q HS PRN (13) Overweight (BMI 25.0-29.9): Code(s): E66.3 - Overweight Plan: Reinforced diet/exercise as tolerated/lose weight Plan Follow up in 3 months Orders: Orders Complete Blood Count Auto Diff 3 Months D64.9 - Anemia, unspecified, N25.81 - Secondary hyperparathyroidism of renal origin Comprehensive [place]. Panel Fast 3 Months E78.00 - Pure hypercholesterolemia, unspecified, N25.81 - Secondary hyperparathyroidism of renal origin Hemoglobin A1c 3 Months E11.9 - Type 2 diabetes mellitus without complications, N25.81 - Secondary hyperparathyroidism of renal origin UA CC w/rflx Micro + Cult 3 Months N25.81 - Secondary hyperparathyroidism of renal origin, R30.0 - Dysuria Lipid Panel 3 Months E78.00 - Pure hypercholesterolemia, unspecified, N25.81 - Secondary hyperparathyroidism of renal origin Microalbumin, Random (w Creat) 3 Months E11.9 - Type 2 diabetes mellitus without complications, N25.81 - Secondary hyperparathyroidism of renal origin Thyroid Stimulating Hormone 3 Months E03.9 - Hypothyroidism, unspecified, N25.81 - Secondary hyperparathyroidism of renal origin Free T4 (Free Thyroxine) 3 Months E03.9 - Hypothyroidism, unspecified, N25.81 - Secondary hyperparathyroidism of renal origin Vitamin D 25-OH Total 3 Months E55.9 - Vitamin D deficiency, unspecified, N25.81 - Secondary hyperparathyroidism of renal origin Vitamin B12 and Folate 3 Months E53.8 - Deficiency of other specified B group vitamins, N25.81 - Secondary hyperparathyroidism of renal origin Parathyroid Hormone Intact 3 Months N25.81 - Secondary hyperparathyroidism of renal origin Medications: Refilled benzonatate 100 mg PO TID 30 caps 0RF levothyroxine Take on an empty stomach, first thing in the morning, with water. Do not eat or drink anything else for 30 minutes afterwards 50 mcg PO DAILY 90 days 90 tabs 1RF E03.9 - Hypothyroidism, unspecified Coding Level of Care Code Est Pt Level 4 (99304) Diagnoses Type 2 diabetes mellitus with stage 2 chronic kidney disease, with long-term current use of insulin E11.22; N18.2; Z79.4 Diabetes mellitus type: type 2 Stage 3b chronic kidney disease N18.32 Chronic kidney disease stage 3 subtype: stage 3b (GFR 30-44) Pure hypercholesterolemia E78.00 Hyperlipidemia type: pure hypercholesterolemia Essential hypertension I10 Coronary artery disease involving [place] coronary artery of [place] heart without angina pectoris I25.10 Coronary Disease-Associated Artery/Lesion type: [place] artery [place] vs. transplanted heart: [place] heart Associated angina: without angina Acquired hypothyroidism E03.9 Restrictive lung disease J98.4 Acute nonintractable headache, unspecified headache type R51.9 Headache chronicity pattern: acute headache Headache type: unspecified Intractability: not intractable Allergic rhinitis, unspecified seasonality, unspecified trigger J30.9 Allergic rhinitis trigger: unspecified Allergic rhinitis seasonality: unspecified Pityriasis rosea L42 Vitamin D deficiency E55.9 Insomnia, unspecified type G47.00 Insomnia type: unspecified Overweight (BMI 25.0-29.9) E66.3 Additional Codes VITALY-7 Assessment Billing - VITALY-7 Assessment Tool: VITALY-7 Assessment [id number] ([id number])
== END 2024-03-26 15:12 | disposition home or self-care (01) ==
PROVIDERS: PCP Internal Medicine; Visit Provider Internal Medicine
DX: E11.22 Type 2 diabetes mellitus with diabetic chronic kidney disease (principal); N18.2 Chronic kidney disease, stage 2 (mild); Z79.4 Long term (current) use of insulin; N18.32 Chronic kidney disease, stage 3b; E78.00 Pure hypercholesterolemia, unspecified; I12.9 Hypertensive chronic kidney disease with stage 1 through stage 4 chronic kidney disease, or unspecified chronic kidney disease; I25.10 Atherosclerotic heart disease of native coronary artery without angina pectoris; E03.9 Hypothyroidism, unspecified; J98.4 Other disorders of lung; R51.9 Headache, unspecified; J30.9 Allergic rhinitis, unspecified; L42 Pityriasis rosea; E55.9 Vitamin D deficiency, unspecified; G47.00 Insomnia, unspecified; E66.3 Overweight
CPT/HCPCS: 99214

== ENCOUNTER 2024-05-05 14:41 | Outpatient (AMB) | payer OTHER, SELFPAY ==
[2024-05-05 14:49] VITALS: BP 118/60; PULSE 74; O2SAT 95; BMI 26.5
--- NOTE | 2024-05-05 14:49 | HO.NEPHOV ---
Vital Signs 05/05/24 14:49 Height 5 ft 4 in Weight 154 lb 2 oz BMI 26.5 BP 118/60 Blood Pressure Location Rt brachial Position Sitting Pulse 74 Pulse Source Pulse Oximeter Pulse Oximetry (%) 95 Oxygen Delivery Method Room Air Intake Visit Reasons: Rsjay'suzette 04/14 appt/ Conf [employer] Work[employer] Required: No Accompanied by: Self / Same As Patient Allergies latex [LATEX] Allergy (Intermediate, Verified 05/05/24 14:51) RASH atorvastatin [From Lipitor] Allergy (Mild, Verified 05/05/24 14:51) MUSCLE ACHES dulaglutide [Trulicity] Allergy (Unknown, Verified 05/05/24 14:51) rash and itching pioglitazone Allergy (Unknown, Verified 05/05/24 14:51) Urinary frequency pork derived (porcine) [PORK DERIVED (PORCINE)] Allergy (Unknown, Verified 05/05/24 14:51) JAINISM BELIEF canagliflozin [Invokana] Adverse Reaction (Unknown, Verified 05/05/24 14:51) recurrent UTI, dizziness Tanzeum Allergy (Unknown, Uncoded 03/26/24 15:02) rash HPI Comments Details: I had the privilege of seeing Dre in follow up for chronic kidney disease. She has longstanding diabetes and hypertension. Her blood sugar control is fair. She is not known to have any significant proteinuria. She is on angiotensin receptor racheal. She has no family history of any renal disease. She has no history of malignancy, renal stones, edema or hematuria. She denies having chest pain, shortness of breath, proximal nocturnal dyspnea, orthopnea. She was given Invokana in the past which she did not tolerate due to urinary symptoms. She is currently on Jardiance & statins. She denies congestive heart failure, carotid stenosis, CVA, SVETLANA or PD. She is active. Her last serum creatinine has settled to baseline [facility] Medical History (Updated 03/26/24 @ 15:13 by Darryl Robles MD) Chronic kidney disease, stage III (moderate) Acquired hypothyroidism Restrictive lung disease Restrictive lung disease Bronchial asthma Allergic rhinitis Insomnia Diabetic polyneuropathy associated with type 2 diabetes mellitus Diabetic nephropathy associated with type 2 diabetes mellitus Non-proliferative diabetic retinopathy, both eyes intermediate designer (current) use of insulin Diabetes type 2, uncontrolled Overweight (BMI 25.0-29.9) Chronic interstitial cystitis Varicose veins of both lower extremities Osteoarthritis of left hip Lumbosacral spondylosis Vitamin D deficiency Pityriasis rosea GERD (gastroesophageal reflux disease) Allergic rhinitis Restrictive lung disease Coronary artery disease Essential hypertension Hyperlipidemia Chronic kidney disease, stage 2 (mild) Diabetes mellitus with stage 2 chronic kidney disease, with long-term current use of insulin Surgical History Hx of colonoscopy (~08/11/19) FH: JUANCHO-BSO (total abdominal hysterectomy and bilateral salpingo-oophorectomy) Family History Father Diabetes Mother CVD (cardiovascular disease) Social History Household Members: None Housing: House Do you presently have visiting nurse or other home services: No Alcohol intake: never Patient Tobacco Use Status: Never used Tobacco e-Cigarette/Vaping Use: Never Used Second Hand Smoke Exposure: Yes service: No Current occupational status: employed 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 needs: No Hearing needs: No Vision needs: No Physical Exam Vital Signs: Last Vital Signs Pulse 74 05/05/24 14:49 BP 118/60 05/05/24 14:49 Pulse Ox 95 05/05/24 14:49 Oxygen Delivery Method Room Air 05/05/24 14:49 BMI result Body Mass Index 26.5 Const General: comfortable and no acute distress Orientation/consciousness: patient oriented x3 HEENT Head: Yes normocephalic Mouth: Normal oral and palatal mucosa present Eyes EOM: EOMs intact bilaterally Neck Neck: Yes supple Resp Auscultation: clear to auscultation bilaterally Cardio Jugular venous distension: no JVD Rate: regular rate GI Palpation (GI): Soft to palpation Auscultation: normal bowel sounds General: Yes no CVA tenderness Back/Spine/Pelvis Back: no CVA tenderness Skin General skin exam: no rashes or lesions noted Neuro General: patient oriented x3 and moves all extremities Extrem General: Yes no pedal edema Results Reviewed Nephrology Results: Hgb 15.4 g/dl (12.0-16.0) 03/15/24 WBC 6.9 X10*3/uL (4.8-10.8) 03/15/24 Plt Count 197 X10*3/uL (160-400) 03/15/24 Sodium 140 mmol/L (135-145) 03/15/24 Potassium 4.7 mmol/L (3.3-5.1) 03/15/24 Chloride 105 mmol/L (96-108) 03/15/24 Carbon Dioxide 26 mmol/L (22-29) 03/15/24 BUN 26 mg/dL (9-16) H 03/15/24 Creatinine 1.16 mg/dL (0.5-1.4) 03/15/24 Calcium 10.3 mg/dL (8.4-10.2) H 03/15/24 PTH Intact 116.4 pg/mL (8.7-77.1) H 03/15/24 Urine Protein Negative mg/dL (Neg-Trace) 01/05/24 Urine Creatinine 92.88 mg/dL 01/05/24 Assessment & Plan Assessment & Plan (1) Essential hypertension: Code(s): I10 - Essential (primary) hypertension Category: Medical (2) Chronic kidney disease, stage III (moderate): Code(s): N18.30 - Chronic kidney disease, stage 3 unspecified Category: Medical Qualifiers: Chronic kidney disease stage 3 subtype: stage 3b (GFR 30-44) Qualified Code(s): N18.32 - Chronic kidney disease, stage 3b Plan Dre has chronic kidney disease most likely from vascular disease. She does not have any proteinuria. There was a question of her having retinopathy. She denies any neuropathy as well as peripheral arterial disease. Her urine output is good. She is on Jardiance and benazepril. She may need a sestamibi scan for her parathyroid given her calcium and PTH levels being on the higher side. I have ordered follow-up blood work. She does not need a renal biopsy now. I did not make any other medication changes today. She should avoid nonsteroidal anti-inflammatories, maintain good hydration and minimize sodium in the diet. All questions were answered. Follow-up given Orders: Orders Blood Urea Nitrogen 05/05/24 I10 - Essential (primary) hypertension, N18.32 - Chronic kidney disease, stage 3b Creatinine 05/05/24 I10 - Essential (primary) hypertension Electrolytes 05/05/24 I10 - Essential (primary) hypertension, N18.32 - Chronic kidney disease, stage 3b Protein Creatinine Ratio, Ur 05/05/24 I10 - Essential (primary) hypertension, N18.32 - Chronic kidney disease, stage 3b Medications: Refilled benzonatate 100 mg PO TID 30 caps 0RF albuterol sulfate 90 mcg/actuation (ProAir HFA) 2 puffs inhalation QID 30 days PRN 8.5 grams 0RF shortness of breath or wheezing Coding Level of Care Code Est Pt Level 4 (93481) Diagnoses Essential hypertension I10 Stage 3b chronic kidney disease N18.32 Chronic kidney disease stage 3 subtype: stage 3b (GFR 30-44)
== END 2024-05-05 15:09 | disposition home or self-care (01) ==
PROVIDERS: PCP Internal Medicine; Visit Provider Internal Medicine Nephrology
DX: I10 Essential (primary) hypertension (principal); N18.32 Chronic kidney disease, stage 3b
CPT/HCPCS: 99214

== ENCOUNTER → 2024-05-05 14:41 | Outpatient (BNVA) | payer OTHER, SELFPAY | PROVIDERS: PCP Internal Medicine; Visit Provider Internal Medicine Nephrology | DX: I12.9 Hypertensive chronic kidney disease with stage 1 through stage 4 chronic kidney disease, or unspecified chronic kidney disease (principal); N18.32 Chronic kidney disease, stage 3b | CPT/HCPCS: 99212 ==

== ENCOUNTER 2024-05-08 07:19 | Emergency (ER) | payer OTHER, SELFPAY ==
--- NOTE | ~2024-05-08 | XR_ITS ---
EXAMINATION: XR CHEST CLINICAL INFORMATION: Shortness of breath cough COMPARISON: Chest radiograph from 07/20/2023 TECHNIQUE: 2 views of the chest were obtained. FINDINGS: Stable elevation right hemidiaphragm. No pneumothorax. Trachea is midline. Cardiac mediastinal silhouette is not enlarged. No large pleural effusion. Degenerative changes of the thoracolumbar spine. Soft tissues are unremarkable. XR/XR chest 2V IMPRESSION: 1. No acute cardiopulmonary process. 2. Stable elevation right hemidiaphragm.
--- NOTE | 2024-05-08 07:24 | ECG_ITS ---
Test Reason : CHEST PAIN Blood Pressure : / mmHG Vent. Rate : 066 BPM Atrial Rate : 066 BPM P-R Int : 164 ms QRS Dur : 086 ms QT Int : 442 ms P-R-T Axes : 065 -43 059 degrees QTc Int : 463 ms Normal sinus rhythm Left axis deviation Septal infarct (cited on or before 08-MAY-2024) Abnormal ECG When compared with ECG of 17-OCT-2021 15:25, No significant change was found Referred By: Generic ED Physician Electronically Signed By:SARAH BGIGS MD
[2024-05-08 07:37] VITALS: BP 130/62; PULSE 66; RESP 16; TEMP 36.4; O2SAT 99; BMI 26.6
[2024-05-08 07:55] LABS: MANUAL DIFF FLAG NO
[2024-05-08 07:58] LABS: Basophils Absolute Auto 0.1 X10*3/uL (0.0-0.2); Basophils Percent Auto 0.6 % (0-2); Eosinophils Absolute Auto 0.2 X10*3/uL (0.0-0.4); Eosinophils Percent Auto 2.9 % (0-4); Hemoglobin 14.6 g/dl (12.0-16.0); Imm Gran Abs Auto 0.03 X10*3/uL (0.00-0.03); Imm Gran Pct Auto 0.4 % (0.0-0.4); Lymphocytes Absolute Auto 3.9 X10*3/uL (1.2-4.9); Lymphocytes Percent Auto 47.2 % (20-40); Mean Corpuscular HGB Conc 33.2 g/dl (31.0-35.0); Mean Corpuscular Hemoglobin 27.3 pg (27.0-33.0); Mean Corpuscular Volume 82.2 fL (80.0-98.0); Mean Platelet Volume 11.4 fL (9.4-12.3); Monocytes Absolute Auto 0.4 X10*3/uL (0.1-1.2); Monocytes Percent Auto 5.3 % (2-11); Neutrophils Absolute Auto 3.6 x10*3/uL (2.0-8.3); Neutrophils Percent Auto 43.6 % (45-73); Platelet Count 210 X10*3/uL (160-400); Red Blood Count 5.35 X10*6/uL (4.20-5.50); Red Cell Distribution Width 13.7 % (11.0-16.0); White Blood Count 8.3 X10*3/uL (4.8-10.8)
[2024-05-08 08:31] LABS: Alanine Aminotransferase 24 U/L (0-31); Albumin Level 4.2 g/dL (3.5-5.0); Alkaline Phosphatase 90 U/L (39-117); Anion Gap 13 (12-20); Aspartate Amino Transferase 29 U/L (5-31); Bilirubin Total 0.3 mg/dL (0.0-1.0); Blood Urea Nitrogen 21 mg/dL (9-16); Calcium 9.9 mg/dL (8.4-10.2); Carbon Dioxide 23 mmol/L (22-29); Chloride 109 mmol/L (96-108); Creatinine Clr Calc Pharmacy 47.7; Estimated Glomerular Filt Rate 52; Glucose Random 164 mg/dL (60-115); Potassium 4.1 mmol/L (3.3-5.1); Sodium 141 mmol/L (135-145); Total Protein 7.3 g/dL (6.5-8.0)
[2024-05-08 09:15] LABS: Influenza A PCR NEGATIVE (Negative); Influenza B PCR NEGATIVE (Negative); Resp Syncy Virus RNA Qual PCR NEGATIVE (Negative); SARS COV2 PCR INHOUSE NEGATIVE (Negative)
[2024-05-08 09:28] VITALS: BP 145/65; PULSE 65; RESP 15; O2SAT 98
--- NOTE | 2024-05-08 09:36 | ED_ITS ---
HPI - General Adult General Chief complaint: Dyspnea Stated complaint: chest pain diff breathing cough Time Seen by Provider: 05/08/24 09:31 History of Present Illness HPI narrative: The patient is a 73-year-old woman who comes to the emergency room because she has not been feeling well for about a week. She says she has been coughing a lot. She says that she has bringing up a lot of sputum that she says is yellow sputum. She feels run down. She has a burning sensation in her chest when she coughs. She has had no pain or swelling in her legs. No definite fever. Related Data Previous Rx's ?Medication ?Instructions ?Recorded omega-3 fatty acids 1,000 mg 1,000 mg PO BID 30 days #60 caps 04/02/21 capsule V-GO 40 device #30 ea 10/23/21 pen needle, diabetic 32 gauge x #100 ea 01/09/22 (BD Ultra-Fine [place] Pen Needle) mometasone 0.1 % topical cream 1 appl topical DAILY PRN skin 10/02/22 irritation 30 days #45 grams betamethasone dipropionate 0.05 % 1 appl topical BID PRN skin rash 12/20/22 topical cream #45 grams cholecalciferol (vitamin D3) 50 50 mcg PO DAILY 90 days #90 caps 03/03/23 mcg (2,000 unit) capsule hydroxyzine HCl 10 mg tablet 10 mg PO Q8H PRN itching/rash #90 03/03/23 tabs benazepril 5 mg tablet 2.5 mg (1/2 x 5 mg) PO DAILY 90 01/09/24 days #45 caps rosuvastatin 40 mg tablet 40 mg PO DAILY 90 days #90 tabs 03/15/24 blood sugar diagnostic (FreeStyle #120 ea 03/25/24 Lite Strips) blood-glucose meter (FreeStyle #1 ea 03/25/24 Lite Meter kit) lancets 28 gauge (FreeStyle #120 ea 03/25/24 Lancets) levothyroxine 50 mcg tablet 50 mcg PO DAILY 90 days #90 tabs 03/26/24 sub-q insulin device, 40 unit #30 ea 04/12/24 (V-GO 40 device) Jardiance 25 mg tablet 25 mg PO QAM 30 days #30 tabs 05/16/24 (empagliflozin) insulin lispro 100 unit/mL See Rx Instructions subcut DAILY 04/15/24 subcutaneous solution (Humalog 30 days #30 mL U-100 Insulin) albuterol sulfate 90 mcg/actuation 2 puff inhalation QID PRN 05/05/24 aerosol inhaler (ProAir HFA) shortness of breath or wheezing 30 days #8.5 grams benzonatate 100 mg capsule 100 mg PO TID #30 caps 05/05/24 blood-glucose meter,continuous #1 ea 05/05/24 (FreeStyle Consuelo 3 [place]) blood-glucose sensor (FreeStyle #2 ea 05/05/24 Consuelo 3 Sensor device) azithromycin 250 mg tablet 250 mg PO DAILY 4 days #4 tabs 05/08/24 prednisone 20 mg tablet 40 mg (2 x 20 mg) PO DAILY 4 days 05/08/24 #8 tabs Allergies Allergy/AdvReac Type Severity Reaction Status Date / Time latex [LATEX] Allergy Intermediate RASH Verified 05/08/24 07:38 atorvastatin [From Lipitor] Allergy Mild MUSCLE Verified 05/08/24 07:38 ACHES dulaglutide [Trulicity] Allergy Unknown rash and Verified 05/08/24 07:38 itching pioglitazone Allergy Unknown Urinary Verified 05/08/24 07:38 frequency pork derived (porcine) Allergy Unknown JEW Verified 05/08/24 07:38 [PORK DERIVED (PORCINE)] BELIEF canagliflozin [Invokana] AdvReac Unknown recurrent Verified 05/08/24 07:38 UTI, dizziness Tanzeum Allergy Unknown rash Uncoded 05/08/24 07:38 [facility] Past Medical History Medical History (Updated 05/08/24 @ 10:36 by Ayush Harden MD) Chronic kidney disease, stage III (moderate) Acquired hypothyroidism Restrictive lung disease Restrictive lung disease Bronchial asthma Allergic rhinitis Insomnia Diabetic polyneuropathy associated with type 2 diabetes mellitus Diabetic nephropathy associated with type 2 diabetes mellitus Non-proliferative diabetic retinopathy, both eyes detention (current) use of insulin Diabetes type 2, uncontrolled Overweight (BMI 25.0-29.9) Chronic interstitial cystitis Varicose veins of both lower extremities Osteoarthritis of left hip Lumbosacral spondylosis Vitamin D deficiency Pityriasis rosea GERD (gastroesophageal reflux disease) Allergic rhinitis Restrictive lung disease Coronary artery disease Essential hypertension Hyperlipidemia Chronic kidney disease, stage 2 (mild) Diabetes mellitus with stage 2 chronic kidney disease, with long-term current use of insulin Surgical History Hx of colonoscopy (~08/11/19) FH: JUANCHO-BSO (total abdominal hysterectomy and bilateral salpingo-oophorectomy) Family History Family History Father Diabetes Mother CVD (cardiovascular disease) Social History Social History Household Members: None Housing: House Do you presently have visiting nurse or other home services: No Alcohol intake: never Patient Tobacco Use Status: Never used Tobacco e-Cigarette/Vaping Use: Never Used Second Hand Smoke Exposure: Yes Advance Directives: Yes Advance Directives on File: Yes Advance Directives Date on File: 07/02/21 service: No Current occupational status: employed 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 Coughing intermittently throughout the interview but did not seem in distress otherwise. Pleasant and cooperative HENMT Other: Face is symmetrical, mucous membranes moist. Eyes Other: Pupils are round equal, conjunctivae clear, extraocular movements intact Neck Other: No JVD Resp Other: Breath sounds are mildly diminished but without wheezing or crackles. No increased work of breathing. Cardio Rate: regular rate Rhythm: regular rhythm Heart sounds: S1 normal heart sound present and S2 normal heart sound present GI Other: Abdomen is soft and nontender Skin Other: Skin is dry and unremarkable Neuro Other: The patient is awake, alert, oriented, appropriate, grossly neurologically intact. Extrem Other: Calves are soft and nontender. No swelling. No edema. No tenderness. No asymmetry. Medications Administered Discontinued Medications Generic Name Dose Route Start Last Admin Trade Name Radha PRN Reason Stop Dose Admin Albuterol/Ipratropium 3 ml 05/08/24 09:42 05/08/24 09:50 Albuterol/Iprat 2.5/0.5mg 3 Ml Ampul.Neb INHALE 05/08/24 09:43 3 ml ONCE ONE Administration Azithromycin 500 mg 05/08/24 10:35 05/08/24 10:48 Azithromycin 500 Mg Tablet PO 05/08/24 10:36 500 mg ONCE ONE Administration Prednisone 60 mg 05/08/24 10:35 05/08/24 10:48 Prednisone 20 Mg Tablet PO 05/08/24 10:36 60 mg ONCE ONE Administration Medical Decision Making Medical Decision Making [facility] Narrative: The patient is a very pleasant 73-year-old who reports a history of asthma and who says she has felt unwell for about a week with a frequent cough and sputum production. She feels run down but she has not had a fever. She says ?I think I have pneumonia. ? 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 ? Chest x-ray shows no pneumonia. EKG is unremarkable and unchanged from previous. She has a normal white count of 8.3 with lymphocyte predominance. I suspect that she likely has a viral illness causing an asthmatic bronchitis. The patient was given a DuoNeb updraft with improvement in her symptoms. She will be discharged with a 5 day course of prednisone, a course of azithromycin, and instructions to continue using her inhaler. Lab Data 05/08/24 07:51 05/08/24 07:51 Labs: Lab Results 05/08/24 Range/Units 07:51 WBC 8.3 (4.8-10.8) X10*3/uL RBC 5.35 (4.20-5.50) X10*6/uL Hgb 14.6 (12.0-16.0) g/dl Hct 44.0 (37.0-47.0) % MCV 82.2 (80.0-98.0) fL MCH 27.3 (27.0-33.0) pg MCHC 33.2 (31.0-35.0) g/dl RDW 13.7 (11.0-16.0) % Plt Count 210 (160-400) X10*3/uL MPV 11.4 (9.4-12.3) fL Immature Gran % (Auto) 0.4 (0.0-0.4) % Neut % (Auto) 43.6 L (45-73) % Lymph % (Auto) 47.2 H (20-40) % Beadle % (Auto) 5.3 (2-11) % Eos % (Auto) 2.9 (0-4) % Baso % (Auto) 0.6 (0-2) % Lymph # (Auto) 3.9 (1.2-4.9) X10*3/uL Beadle # (Auto) 0.4 (0.1-1.2) X10*3/uL Eos # (Auto) 0.2 (0.0-0.4) X10*3/uL Baso # (Auto) 0.1 (0.0-0.2) X10*3/uL Abs Immat Gran (auto) 0.03 (0.00-0.03) X10*3/uL Absolute Neuts (auto) 3.6 (2.0-8.3) x10*3/uL Absolute Nucleated RBC 0.000 (0.0-0.012) X10*3/uL Nucleated RBC % (auto) 0.0 (0.0-0.2) /100WBC Sodium 141 (135-145) mmol/L Potassium 4.1 (3.3-5.1) mmol/L Chloride 109 H (96-108) mmol/L Carbon Dioxide 23 (22-29) mmol/L Anion Gap 13 (12-20) BUN 21 H (9-16) mg/dL Creatinine 1.04 (0.5-1.4) mg/dL Estim Creat Clear Calc 47.7 Estimated GFR 52 Random Glucose 164 H (60-115) mg/dL Calcium 9.9 (8.4-10.2) mg/dL Total Bilirubin 0.3 (0.0-1.0) mg/dL AST 29 (5-31) U/L ALT 24 (0-31) U/L Alkaline Phosphatase 90 (39-117) U/L Troponin I High Sens < 2.7 (<3.5-17.0) ng/L Total Protein 7.3 (6.5-8.0) g/dL Albumin 4.2 (3.5-5.0) g/dL Influenza Type A (PCR) NEGATIVE (Negative) Influenza Type B (PCR) NEGATIVE (Negative) RSV RNA Qual (PCR) NEGATIVE (Negative) SARS-CoV-2 RNA (RT-PCR) NEGATIVE (Negative) Discharge Plan Discharge Clinical Impression: Acute asthmatic bronchitis Patient Disposition: Home, Self-Care Instructions: Asthma (ED), Acute Bronchitis (ED) Additional Instructions: Your chest x-ray today does not show an actual pneumonia. I think you have a case of asthmatic bronchitis. Please take the prednisone daily as prescribed. Next dose tomorrow. Please also take the azithromycin daily as prescribed, next dose tomorrow. Continue to use your albuterol inhaler as needed. Follow up soon with your regular doctor. Return emergency room if you feel significantly worse. Prescriptions: New prednisone 20 mg tablet 40 mg PO DAILY 4 Days Qty: 8 0RF azithromycin 250 mg tablet 250 mg PO DAILY 4 Days Qty: 4 0RF Rx Instructions: start on day 2 of therapy No Action (DME) pen needle, diabetic [BD Ultra-Fine [place] Pen Needle] 32 gauge x 5/32 needle See Rx Instructions .ROUTE .MEDSUPPLY Qty: 100 3RF Rx Instructions: As directed once daily rosuvastatin 40 mg tablet 40 mg PO DAILY 90 Days Qty: 90 3RF (DME) blood-glucose meter [FreeStyle Lite Meter] Kit See Rx Instructions .ROUTE .MEDSUPPLY Qty: 1 0RF Rx Instructions: As directed (DME) FreeStyle Lite Strips Strip See Rx Instructions .ROUTE .MEDSUPPLY Qty: 120 12RF Rx Instructions: As directed 4 times a day (DME) lancets [FreeStyle Lancets] 28 gauge misc See Rx Instructions .ROUTE .MEDSUPPLY Qty: 120 12RF Rx Instructions: As directed 4 times a day (DME) V-GO 40 Device See Rx Instructions .ROUTE .COMPLEX Qty: 30 3RF Dose Instruction: USE DIRECTED Rx Instructions: USE DIRECTED Jardiance 25 mg tablet 25 mg PO QAM 30 Days Qty: 30 2RF insulin lispro [Humalog U-100 Insulin] 100 unit/mL solution See Rx Instructions subcut DAILY 30 Days Qty: 30 3RF Rx Instructions: Up to 78 units via VGO subcut daily; (DME) FreeStyle Consuelo 3 Sensor Device See Rx Instructions .Route Qty: 2 4RF Rx Instructions: As directed change every 14 days (DME) FreeStyle Consuelo 3 [place] Misc See Rx Instructions .Route Qty: 1 0RF Rx Instructions: As directed (DME) V-GO 40 device See Rx Instructions .Route .MEDSUPPLY Qty: 30 3RF Rx Instructions: As directed mometasone 0.1 % cream 1 appl topical DAILY PRN (Reason: skin irritation) 30 Days Qty: 45 2RF cholecalciferol (vitamin D3) 50 mcg (2,000 unit) capsule 50 mcg PO DAILY 90 Days Qty: 90 3RF hydroxyzine HCl 10 mg tablet 10 mg PO Q8H PRN (Reason: itching/rash) Qty: 90 1RF betamethasone dipropionate 0.05 % cream 1 appl topical BID PRN (Reason: skin rash) Qty: 45 0RF levothyroxine 50 mcg tablet 50 mcg PO DAILY 90 Days Qty: 90 1RF Rx Instructions: Take on an empty stomach, first thing in the morning, with water. Do not eat or drink anything else for 30 minutes afterwards omega-3 fatty acids 1,000 mg capsule 1,000 mg PO BID 30 Days Qty: 60 6RF benazepril 5 mg tablet 2.5 mg PO DAILY 90 Days Qty: 45 3RF benzonatate 100 mg capsule 100 mg PO TID Qty: 30 0RF albuterol sulfate [ProAir HFA] 90 mcg/actuation HFA aerosol inhaler 2 puff inhalation QID PRN (Reason: shortness of breath or wheezing) 30 Days Qty: 8.5 0RF Discharge Date/Time: 05/08/24 11:06 Print Language: Luxembourgish
[2024-05-08 09:50] VITALS: PULSE 65; RESP 15; O2SAT 100
[2024-05-08] MEDS: Albuterol/Iprat 2.5/0.5MG 3 ML AMPUL.NEB INHALE (09:50)
[2024-05-08 10:10] LABS: Troponin-I High Sensitivity < 2.7 ng/L (<3.5-17.0)
[2024-05-08 10:46] VITALS: BP 142/55; PULSE 66; RESP 18; TEMP 36.4; O2SAT 98
[2024-05-08] MEDS: predniSONE 20 MG TABLET 60 MG PO (10:48)
[2024-05-08] MEDS: Azithromycin 500 MG TABLET PO (10:48)
[2024-05-08 13:36] LABS: Adenovirus PCR Not Detected (Not Detect.); Bordetella parapertussis PCR Not Detected (Not Detect.); Bordetella pertussis PCR Not Detected (Not Detect.); Chlamydia pneumoniae PCR Not Detected (Not Detect.); Coronavirus 229E PCR Not Detected (Not Detect.); Coronavirus HKU1 PCR Not Detected (Not Detect.); Coronavirus NL63 PCR Not Detected (Not Detect.); Coronavirus OC43 PCR Not Detected (Not Detect.); Human metapneumovirus PCR Not Detected (Not Detect.); Influenza A PCR Not Detected (Not Detect.); Influenza B PCR Not Detected (Not Detect.); Mycoplasma pneumoniae PCR Not Detected (Not Detect.); Parainfluenza 1 PCR Not Detected (Not Detect.); Parainfluenza 2 PCR Not Detected (Not Detect.); Parainfluenza 3 PCR Not Detected (Not Detect.); Parainfluenza 4 PCR Not Detected (Not Detect.); RSV PCR Not Detected (Not Detect.); Rhino/Enterovirus PCR Detected (Not Detect.)
[2024-05-08 13:42] LABS: SARS-CoV-2 PCR Not Detected (Not Detect.)
== END 2024-05-08 11:06 | disposition home or self-care (01) ==
PROVIDERS: Emergency Provider Emergency Medicine; PCP Internal Medicine
DX: J45.909 Unspecified asthma, uncomplicated (principal); B34.1 Enterovirus infection, unspecified; R05.9 Cough, unspecified; Z03.818 Encounter for observation for suspected exposure to other biological agents ruled out
CPT/HCPCS: 0241U; 71046; 80053; 84484; 85025; 87633; 93005; 94640; 99284

== ENCOUNTER → 2024-05-08 07:24 | Outpatient (BNV) | payer OTHER, SELFPAY | PROVIDERS: Emergency Provider Emergency Medicine; PCP Internal Medicine; Visit Provider Internal Medicine Cardiovascular Disease | DX: R94.31 Abnormal electrocardiogram [ECG] [EKG] (principal); R07.9 Chest pain, unspecified | CPT/HCPCS: 93010 ==

== ENCOUNTER 2024-06-07 08:38 | Outpatient (AMB) | payer OTHER, SELFPAY ==
--- NOTE | 2024-06-07 08:39 | MHC.OFFVIS ---
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: No Accompanied by: Self / Same As Patient Allergies latex [LATEX] Allergy (Intermediate, Verified 06/07/24 08:40) RASH atorvastatin [From Lipitor] Allergy (Mild, Verified 06/07/24 08:40) MUSCLE ACHES dulaglutide [Trulicity] Allergy (Unknown, Verified 06/07/24 08:40) rash and itching pioglitazone Allergy (Unknown, Verified 06/07/24 08:40) Urinary frequency pork derived (porcine) [PORK DERIVED (PORCINE)] Allergy (Unknown, Verified 06/07/24 08:40) CATHOLIC BELIEF canagliflozin [Invokana] Adverse Reaction (Unknown, Verified 06/07/24 08:40) recurrent UTI, dizziness Tanzeum Allergy (Unknown, Uncoded 06/07/24 08:40) rash Medication List - Last Reconciled 06/07/24 by Bettina Doran PA-C albuterol sulfate 90 mcg/actuation (ProAir HFA) 2 puffs inhalation QID PRN 30 days azithromycin 250 mg PO DAILY 4 days benazepril 2.5 mg (1/2 x 5 mg) PO DAILY 90 days benzonatate 100 mg PO TID betamethasone dipropionate 0.05% 1 appl topical BID PRN blood sugar diagnostic (FreeStyle Lite Strips) As directed 4 times a day blood-glucose meter (FreeStyle Lite Meter kit) As directed blood-glucose meter,continuous (FreeStyle Consuelo 3 [place]) USE DIRECTED blood-glucose sensor (FreeStyle Consuelo 3 Sensor device) As directed change every 14 days cholecalciferol (vitamin D3) 50 mcg PO DAILY 90 days [DIABETIC SHOES As directed] Humalog U-100 Insulin (insulin lispro) Up to 78 units via VGO subcut daily; 30 days NS hydroxyzine HCl 10 mg PO Q8H PRN Jardiance (empagliflozin) 25 mg PO QAM 30 days NS lancets (FreeStyle Lancets) As directed 4 times a day levothyroxine 50 mcg PO DAILY 90 days mometasone 0.1% 1 appl topical DAILY PRN 30 days [NEBULIZER and all related accessories, including tubing and mask As directed] omega-3 fatty acids 1,000 mg PO BID 30 days pen needle, diabetic (BD Ultra-Fine [place]wyn Pen Needle) As directed once daily rosuvastatin 40 mg PO DAILY 90 days sub-q insulin device, 40 unit (V-GO 40 device) USE DIRECTED [V-GO 40 device As directed] HPI HPI [id number]: Details: Patient is a 73-year-old female with a significant past medical history chronic kidney disease, secondary hyperparathyroidism, hypothyroidism, asthma, GERD, hypertension, hyperlipidemia and type 2 diabetes with long-term insulin use presenting today for a diabetic follow-up. Endo: She last saw Dr. Jimenez in January for management of dm. At last visit she was supposed to follow with the health promotion educator however she did not. The plan was to stop the pump, start Lantus nightly and use Humalog t.i.d. and add on Ozempic. She states that she is allergic to Ozempic and that her PCP has already tried this and Trulicity. Her last A1c was 8.2 today. She is currently on Humalog, Jardiance and insulin pump. 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 She understands how to count carbohydrates and understands what she should be eating. She does not believe that a health promotion educator would be helpful. CGM-use age 66% of the time, average glucose 169, 7.4%, variability 28.4. Very high 6%, high 34%, target 60%, hypoglycemic 0% Denies hypoglycemic events. She uses soda to correct her hypoglycemic events. States that she does not want any glucose tablets. Follows with Podiatry and Ophthalmology She states that she has tried ozempic and trulicity but developed a rash and other times felt drunk with it. CV: Blood pressure in the office is 104/74. She is currently on benazepril 2.5 mg. Cholesterol is controlled with Crestor 40 mg. 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 Diabetes type 2, uncontrolled Overweight (BMI 25.0-29.9) Chronic interstitial cystitis Varicose veins of both lower extremities Osteoarthritis of left hip Lumbosacral spondylosis Vitamin D deficiency Pityriasis rosea GERD (gastroesophageal reflux disease) Allergic rhinitis Restrictive lung disease Coronary artery disease Essential hypertension Hyperlipidemia Chronic kidney disease, stage 2 (mild) Diabetes mellitus with stage 2 chronic kidney disease, with long-term current use of insulin Surgical History Hx of colonoscopy (~08/11/19) FH: JUANCHO-BSO (total abdominal hysterectomy and bilateral salpingo-oophorectomy) Family History Father Diabetes Mother CVD (cardiovascular disease) Social History Household Members: None Housing: House Do you presently have visiting nurse or other home services: No Alcohol intake: never Patient Tobacco Use Status: Never used Tobacco e-Cigarette/Vaping Use: Never Used Second Hand Smoke Exposure: Yes Advance Directives Date on File: 07/02/21 service: No Current occupational status: employed 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 needs: No Hearing needs: No Vision needs: No Physical Exam Vital Signs: Last Vital Signs Pulse 73 06/07/24 08:42 BP 104/74 06/07/24 08:42 BMI result Body Mass Index 25.7 Const Orientation/consciousness: patient oriented x3 Neck Neck: Yes no lymphadenopathy Thyroid: Thyroid normal Carotids: no bruits Resp Auscultation: clear to auscultation bilaterally Cardio Rate: regular rate Rhythm: regular rhythm Heart sounds: S1 normal heart sound present and S2 normal heart sound present Peripheral pulses: dorsalis pedis present Neuro General: patient oriented x3, gait normal and no focal motor deficits Extrem Other: Monofilament sensation intact bilaterally. Vibratory sensation intact bilaterally. Skin intact. 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 Continue with pump and Jardiance. Signs and symptoms of hyper and hypoglycemia that required emergent medical treatment were discussed. Offered glucose tabs. Declines. Feels comfortable using her CGM. (2) Diabetic nephropathy associated with type 2 diabetes mellitus: Code(s): E11.21 - Type 2 diabetes mellitus with diabetic nephropathy Category: Medical Plan: As above. Labs ordered to complete prior to 3. Dr. Jimenez. Sooner if needed. (3) Essential hypertension: Code(s): I10 - Essential (primary) hypertension Category: Medical Plan: Continue current regimen. Blood pressure WNL today. (4) Hyperlipidemia: Code(s): E78.5 - Hyperlipidemia, unspecified Category: Medical Qualifiers: Hyperlipidemia type: pure hypercholesterolemia Qualified Code(s): E78.00 - Pure hypercholesterolemia, unspecified Plan: We will check lipids prior to next appointment. 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
[2024-06-07 08:42] VITALS: BP 104/74; PULSE 73; BMI 25.7
[2024-06-07 08:53] LABS: Glucose, Whole Blood 161 mg/dL (60-115)
== END 2024-06-07 09:16 | disposition home or self-care (01) ==
PROVIDERS: PCP Internal Medicine; Visit Provider Physician Assistant
DX: Z79.4 Long term (current) use of insulin (principal); E11.21 Type 2 diabetes mellitus with diabetic nephropathy; I10 Essential (primary) hypertension; E78.00 Pure hypercholesterolemia, unspecified
CPT/HCPCS: 99214; G2211

== ENCOUNTER → 2024-06-07 08:38 | Outpatient (BNVA) | payer OTHER, SELFPAY | PROVIDERS: PCP Internal Medicine; Visit Provider Physician Assistant | DX: E11.21 Type 2 diabetes mellitus with diabetic nephropathy (principal); I10 Essential (primary) hypertension; E78.00 Pure hypercholesterolemia, unspecified; Z79.4 Long term (current) use of insulin | CPT/HCPCS: 82947; 83036; 99212 ==

== ENCOUNTER 2024-06-19 16:31 | Emergency (ER) | payer OTHER, SELFPAY ==
--- NOTE | ~2024-06-19 | XR_ITS ---
EXAMINATION: XR CHEST CLINICAL INFORMATION: Cough COMPARISON: None available. TECHNIQUE: 2 views of the chest were obtained. FINDINGS: No significant abnormality is noted involving the heart, lungs, mediastinum, bony thorax or soft tissues. XR/XR chest 2V IMPRESSION: Unremarkable examination.
[2024-06-19 16:38] VITALS: BP 116/57; PULSE 76; RESP 18; TEMP 37.2; O2SAT 95; BMI 25.5
--- NOTE | 2024-06-19 16:40 | ED_ITS ---
HPI - General Adult General Chief complaint: Upper Respiratory Symptoms Stated complaint: dry cough/body pain and fever Time Seen by Provider: 06/19/24 16:55 Source: patient Mode of arrival: ambulatory Limitations: no limitations History of Present Illness ED Provider: Yelena Rollins APRN HPI narrative: This is a 73-year-old female who has a history of chronic kidney disease, high cholesterol, asthma who presents to the ER with complaints of 2 days of productive cough, subjective fevers, chills, poor p.o. intake. 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 She is on known to have any sick exposure. She denies recent travel. She has no chest pain, shortness of breath, leg swelling, leg pain, abdominal pain, vomiting or diarrhea. No skin rash, neck pain or neck stiffness. Related Data Previous Rx's ?Medication ?Instructions ?Recorded omega-3 fatty acids 1,000 mg 1,000 mg PO BID 30 days #60 caps 04/02/21 capsule V-GO 40 device #30 ea 10/23/21 pen needle, diabetic 32 gauge x #100 ea 01/09/22/32 (BD Ultra-Fine [place] Pen Needle) mometasone 0.1 % topical cream 1 appl topical DAILY PRN skin 10/02/22 irritation 30 days #45 grams betamethasone dipropionate 0.05 % 1 appl topical BID PRN skin rash 12/20/22 topical cream #45 grams cholecalciferol (vitamin D3) 50 50 mcg PO DAILY 90 days #90 caps 03/03/23 mcg (2,000 unit) capsule hydroxyzine HCl 10 mg tablet 10 mg PO Q8H PRN itching/rash #90 03/03/23 tabs benazepril 5 mg tablet 2.5 mg (1/2 x 5 mg) PO DAILY 90 01/09/24 days #45 caps rosuvastatin 40 mg tablet 40 mg PO DAILY 90 days #90 tabs 03/15/24 blood sugar diagnostic (FreeStyle #120 ea 03/25/24 Lite Strips) blood-glucose meter (FreeStyle #1 ea 03/25/24 Lite Meter kit) lancets 28 gauge (FreeStyle #120 ea 03/25/24 Lancets) levothyroxine 50 mcg tablet 50 mcg PO DAILY 90 days #90 tabs 03/26/24 sub-q insulin device, 40 unit #30 ea 04/12/24 (V-GO 40 device) albuterol sulfate 90 mcg/actuation 2 puff inhalation QID PRN 05/05/24 aerosol inhaler (ProAir HFA) shortness of breath or wheezing 30 days #8.5 grams benzonatate 100 mg capsule 100 mg PO TID #30 caps 05/05/24 blood-glucose sensor (FreeStyle #2 ea 05/05/24 Consuelo 3 Sensor device) azithromycin 250 mg tablet 250 mg PO DAILY 4 days #4 tabs 05/08/24 DIABETIC SHOES #2 ea 05/21/24 blood-glucose meter,continuous #1 ea 05/24/24 (FreeStyle Consuelo 3 [place]) Humalog U-100 Insulin 100 unit/mL See Rx Instructions subcut DAILY 05/25/24 subcutaneous solution (insulin 30 days #30 mL lispro) NEBULIZER and all related #1 ea 06/07/24 accessories, including tubing and mask insulin glargine 100 unit/mL (3 10 unit (0.1 mL) subcut QPM #15 mL 06/07/24 mL) subcutaneous pen (Lantus Solostar U-100 Insulin) pen needle, diabetic 31 gauge x #100 ea 06/07/24/ (1st Tier Unifine Pentips) albuterol sulfate 2.5 mg/3 mL 2.5 mg (3 mL) inhalation QID PRN 06/11/24 (0.083 %) solution for nebulization shortness of breath or wheezing 30 days #180 mL Jardiance 25 mg tablet 25 mg PO QAM 30 days #30 tabs 06/16/24 (empagliflozin) benzonatate 200 mg capsule 200 mg PO TID PRN cough #30 caps 06/19/24 nirmatrelvir 150 mg-ritonavir 100 See Rx Instructions PO .COMPLEX 06/19/24 mg tablets in a dose pack #20 ea (Paxlovid) Allergies Allergy/AdvReac Type Severity Reaction Status Date / Time latex [LATEX] Allergy Intermediate RASH Verified 06/19/24 16:40 atorvastatin [From Lipitor] Allergy Mild MUSCLE Verified 06/19/24 16:40 ACHES dulaglutide [Trulicity] Allergy Unknown rash and Verified 06/19/24 16:40 itching pioglitazone Allergy Unknown Urinary Verified 06/19/24 16:40 frequency pork derived (porcine) Allergy Unknown RELIGION Verified 06/19/24 16:40 [PORK DERIVED (PORCINE)] BELIEF canagliflozin [Invokana] AdvReac Unknown recurrent Verified 06/19/24 16:40 UTI, dizziness Tanzeum Allergy Unknown rash Uncoded 06/19/24 16:40 Review of Systems Review of Systems: Yes all other systems are reviewed and are negative Constitutional: Constitutional: Reports no additional constitutional complaints, Reports body ache(s), Denies chills, Reports fever(s), Denies headache(s), Reports poor appetite and Denies weakness Eyes: Eyes: Reports no additional eye complaints and Denies change in vision ENT: Reports system reviewed and no additional complaints, except as documented, Denies dizziness, Denies headache(s), Denies nasal congestion, De nies nasal discharge and Denies neck pain Cardiovascular: Cardiovascular: Reports no additional cardiovascular complaints, Denies chest pain, Denies leg edema and Denies dyspnea Respiratory: Respiratory: Reports no additional respiratory complaints, Reports cough and Denies dyspnea Gastrointestinal: Gastrointestinal: Reports no additional gastrointestinal complaints, Denies abdominal pain, Denies diarrhea, Denies nausea and Denies vom iting Genitourinary: Genitourinary: Reports no additional female genitourinary complaints and Denies urinary incontinence Musculoskeletal: Musculoskeletal: Reports no additional musculoskeletal complaints, Denies back pain, Denies arthralgias, Denies joint swelling, Denies neck pain, Denies numbness and Denies tingling Integumentary/Breasts: Skin/Breast: Reports system reviewed and no additional complaints, except as docu and Denies rash Neurologic: Reports system reviewed and no additional complaints, except as documented, Denies Abnormal speech present, Denies dizziness, Denies headache(s), Denies numbness, Denies tingling and Denies weakness [facility] Past Medical History Attestation statement: The following information was validated with the patient. Source: old records reviewed and nursing notes reviewed Medical History Chronic kidney disease, stage III (moderate) Acquired hypothyroidism Restrictive lung disease Restrictive lung disease Bronchial asthma Allergic rhinitis Insomnia Diabetic polyneuropathy associated with type 2 diabetes mellitus Diabetic nephropathy associated with type 2 diabetes mellitus Non-proliferative diabetic retinopathy, both eyes care home (current) use of insulin Diabetes type 2, uncontrolled Overweight (BMI 25.0-29.9) Chronic interstitial cystitis Varicose veins of both lower extremities Osteoarthritis of left hip Lumbosacral spondylosis Vitamin D deficiency Pityriasis rosea GERD (gastroesophageal reflux disease) Allergic rhinitis Restrictive lung disease Coronary artery disease Essential hypertension Hyperlipidemia Chronic kidney disease, stage 2 (mild) Diabetes mellitus with stage 2 chronic kidney disease, with long-term current use of insulin Surgical History Hx of colonoscopy (~08/11/19) FH: JUANCHO-BSO (total abdominal hysterectomy and bilateral salpingo-oophorectomy) Family History Family History Father Diabetes Mother CVD (cardiovascular disease) Social History Social History Household Members: None Housing: House Do you presently have visiting nurse or other home services: No Alcohol intake: never Patient Tobacco Use Status: Never used Tobacco e-Cigarette/Vaping Use: Never Used Second Hand Smoke Exposure: Yes Advance Directives: Yes Advance Directives on File: Yes Advance Directives Date on File: 07/02/21 service: No Current occupational status: employed 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 needs: No Hearing needs: No Vision needs: No Physical Exam ED Vital Signs: Vital Signs - 24 hr 06/19/24 16:38 06/19/24 17:50 06/19/24 17:54 Temperature 99 F 97.4 F 97.4 F Pulse Rate 76 69 69 Respiratory Rate 18 19 19 Blood Pressure 116/57 L 118/59 L 118/59 L Pulse Oximetry 95 95 95 Oxygen Delivery Method Room Air Room Air Room Air BMI result Body Mass Index 25.5 Const General: cooperative, healthy appearing, comfortable and no acute distress Orientation/consciousness: patient oriented x3 Limitations: no limitations HENMT Head: Yes normal to inspection Ears: hearing grossly normal bilaterally and TM's normal bilaterally General nose exam: Normal external nose present Face and sinus: Yes normal facial exam Mouth: Normal oral and palatal mucosa present Throat: Yes posterior oropharynx normal, Yes tonsils normal and Yes uvula midline Eyes General: appearance normal, both eyes and all related structures Pupils: Equal, round and reactive pupils present Neck Neck: Yes normal visual inspection, Yes full ROM, Yes no lymphadenopathy and Yes no meningeal signs Chest Chest palpation & inspection: normal inspection of the chest Resp Effort & Inspection: normal respiratory effort Auscultation: clear to auscultation bilaterally Cardio Rate: regular rate Rhythm: regular rhythm Peripheral pulses: Peripheral pulses 2+ throughout GI Inspection: Yes normal to inspection Palpation (GI): Soft to palpation and nontender Auscultation: normal bowel sounds Back/Spine/Pelvis Thoracic/Lumbar Spine: thoracic and lumbar spine normal to inspection Skin General skin exam: no rashes or lesions noted Neuro General: patient oriented x3, no meningeal signs, no focal motor deficits and normal sensation to monofilament Cranial nerves: Yes Equal, round and reactive pupils present Cognition (Neuro): normal cognition Speech: No Abnormal speech present Gait exam (Neuro): Normal gait present Motor exam (neuro): 5/5 motor strength present throughout Extrem General: Yes normal to inspection, Yes no pedal edema and Yes no calf tenderness Course Course Course Narrative: RME performed by Dinah Villagomez PA-C. Patient is a 73 year old assigned female at presenting to the emergency department with a cough and feeling generally unwell. Detailed physical exam and review of systems are deferred to the felt cutter. Swabs ordered. Patient placed back in the waiting room pending room availability and results. Reevaluation(s) Reevaluation #1: COVID screen is positive. No hypoxia or tachypnea requiring supplemental oxygen and or admission. I did review the available antiviral with the patient. We did discuss that she does have chronic kidney disease and so I will need to renally dose of the medication. Additionally she is on a statin so she will need to hold the Crestor while on the medication. We also discussed potential side effects of the medication. She would like to move forward with taking a prescription for Paxlovid. Reviewed worrisome signs and symptoms of when to return to the emergency room. Comfortable plan for discharge home. Medical Decision Making Medical Decision Making [facility] Narrative: This is a 73-year-old female who has a history of chronic kidney disease, high cholesterol, asthma who presents to the ER with complaints of 2 days of productive cough, subjective fevers, chills, poor p.o. intake. 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 She is on known to have any sick exposure. She denies recent travel. She has no chest pain, shortness of breath, leg swelling, leg pain, abdominal pain, vomiting or diarrhea. No skin rash, neck pain or neck stiffness. Vitals are stable. Exam is benign. Will send viral testing, obtain chest x-ray Differential Diagnosis Differential Diagnoses: The differential diagnosis associated with the presentation includes Viral syndrome, influenza Low suspicion for pneumonia Admission/Observation Consideration of admission/observation: Escalation of care including admission/observation considered Patient is COVID positive. She has no hypoxia or tachypnea. She does not require supplemental oxygen and or admission Lab Data MDM Lab Attestation statement: I reviewed the patient's lab results. Labs: Lab Results 06/19/24 Range/Units 16:44 Influenza Type A (PCR) NEGATIVE (Negative) Influenza Type B (PCR) NEGATIVE (Negative) RSV RNA Qual (PCR) NEGATIVE (Negative) SARS-CoV-2 RNA (RT-PCR) POSITIVE A (Negative) S. pyogenes GrpA DANIA Negative (Negative) Independent Interpretation I performed an independent interpretation of an: Plain X-Ray Interpretation: I independently reviewed the x-ray and agree with the radiology report Radiology Impression Discussion of test interpretation with radiology: I have reviewed the radiologist's reading. Radiologist Impression: [address] [address] XRay Report Signed Patient: Dre Carmichael MR#: [id number] : 1950 Acct:[id number] Age/Sex: 73 / F ADM Date: 06/19/24 Loc: .ED Attending Dr: Ordering Physician: Dinah Villagomez Date of Service: 06/19/24 Procedure(s): XR chest 2V Accession Number(s): [id number] cc: Darryl Robles MD; Dinah Villagomez~ EXAMINATION: XR CHEST CLINICAL INFORMATION: Cough COMPARISON: None available. TECHNIQUE: 2 views of the chest were obtained. FINDINGS: No significant abnormality is noted involving the heart, lungs, mediastinum, bony thorax or soft tissues. XR/XR chest 2V IMPRESSION: Unremarkable examination. Prescription Management I considered prescription management with: Antiviral and Antibiotic Discharge Plan Discharge Clinical Impression: COVID-19 Patient Disposition: Home, Self-Care Instructions: COVID-19 (Coronavirus Disease 2019) (ED) Additional Instructions: Your x-ray shows no signs of pneumonia You need to quarantine for 5 days in the mask for an additional 5 more days We are prescribing an antiviral medication. It can cause vomiting and diarrhea. If these occur please discontinue the medication. Please do not take your rosuvastatin while taking this antiviral medication. You may resume it after your completed the course of antiviral Prescriptions: New Paxlovid 150-100 mg tablets,dose pack See Rx Instructions .ROUTE .COMPLEX Qty: 20 0RF Rx Instructions: take ONE 150 mg tablet of nirmatrelvir with ONE 100 mg tablet of ritonavir twice daily for 5 days benzonatate 200 mg capsule 200 mg PO TID PRN (Reason: cough) Qty: 30 0RF No Action (DME) pen needle, diabetic [BD Ultra-Fine [place] Pen Needle] 32 gauge x 5/32 needle See Rx Instructions .ROUTE .MEDSUPPLY Qty: 100 3RF Rx Instructions: As directed once daily rosuvastatin 40 mg tablet 40 mg PO DAILY 90 Days Qty: 90 3RF (DME) blood-glucose meter [FreeStyle Lite Meter] Kit See Rx Instructions .ROUTE .MEDSUPPLY Qty: 1 0RF Rx Instructions: As directed (DME) FreeStyle Lite Strips Strip See Rx Instructions .ROUTE .MEDSUPPLY Qty: 120 12RF Rx Instructions: As directed 4 times a day (DME) lancets [FreeStyle Lancets] 28 gauge misc See Rx Instructions .ROUTE .MEDSUPPLY Qty: 120 12RF Rx Instructions: As directed 4 times a day (DME) V-GO 40 Device See Rx Instructions .ROUTE .COMPLEX Qty: 30 3RF Dose Instruction: USE DIRECTED Rx Instructions: USE DIRECTED (DME) FreeStyle Consuelo 3 Sensor Device See Rx Instructions .Route Qty: 2 4RF Rx Instructions: As directed change every 14 days (DME) DIABETIC SHOES See Rx Instructions .Route .MEDSUPPLY Qty: 2 0RF Rx Instructions: As directed (DME) FreeStyle Consuelo 3 [place] Misc See Rx Instructions .ROUTE .COMPLEX Qty: 1 0RF Dose Instruction: USE DIRECTED Rx Instructions: USE DIRECTED insulin lispro [Humalog U-100 Insulin] 100 unit/mL solution See Rx Instructions subcut DAILY 30 Days Qty: 30 3RF Rx Instructions: Up to 78 units via VGO subcut daily; (DME) NEBULIZER and all related accessories, including tubing and mask See Rx Instructions .Route .MEDSUPPLY Qty: 1 0RF Rx Instructions: As directed albuterol sulfate 2.5 mg /3 mL (0.083 %) solution for nebulization 2.5 mg inhalation QID PRN (Reason: shortness of breath or wheezing) 30 Days Qty: 180 3RF Jardiance 25 mg tablet 25 mg PO QAM 30 Days Qty: 30 2RF azithromycin 250 mg tablet 250 mg PO DAILY 4 Days Qty: 4 0RF Rx Instructions: start on day 2 of therapy (DME) V-GO 40 device See Rx Instructions .Route .MEDSUPPLY Qty: 30 3RF Rx Instructions: As directed mometasone 0.1 % cream 1 appl topical DAILY PRN (Reason: skin irritation) 30 Days Qty: 45 2RF cholecalciferol (vitamin D3) 50 mcg (2,000 unit) capsule 50 mcg PO DAILY 90 Days Qty: 90 3RF hydroxyzine HCl 10 mg tablet 10 mg PO Q8H PRN (Reason: itching/rash) Qty: 90 1RF betamethasone dipropionate 0.05 % cream 1 appl topical BID PRN (Reason: skin rash) Qty: 45 0RF levothyroxine 50 mcg tablet 50 mcg PO DAILY 90 Days Qty: 90 1RF Rx Instructions: Take on an empty stomach, first thing in the morning, with water. Do not eat or drink anything else for 30 minutes afterwards omega-3 fatty acids 1,000 mg capsule 1,000 mg PO BID 30 Days Qty: 60 6RF benazepril 5 mg tablet 2.5 mg PO DAILY 90 Days Qty: 45 3RF benzonatate 100 mg capsule 100 mg PO TID Qty: 30 0RF albuterol sulfate [ProAir HFA] 90 mcg/actuation HFA aerosol inhaler 2 puff inhalation QID PRN (Reason: shortness of breath or wheezing) 30 Days Qty: 8.5 0RF insulin glargine [Lantus Solostar U-100 Insulin] 100 unit/mL (3 mL) insulin pen 10 unit subcut QPM Qty: 15 3RF (DME) pen needle, diabetic [1st Tier Unifine Pentips] 31 gauge x 1/4 needle See Rx Instructions .Route Qty: 100 3RF Rx Instructions: As directed Referrals: Darryl Robles MD [Primary Care Provider] - 1 week Stand Alone Forms: Work/School Release Interventions: ED Discharge Assessment Last Done: 06/19/24 17:54 Discharge Date/Time: 06/19/24 17:54 Print Language: Divehi
[2024-06-19 17:10] LABS: IDNOW Serial# 08D9AD1C; Strep A Nucleic Acid Negative (Negative)
[2024-06-19 17:30] LABS: Influenza A PCR NEGATIVE (Negative); Influenza B PCR NEGATIVE (Negative); Resp Syncy Virus RNA Qual PCR NEGATIVE (Negative); SARS COV2 PCR INHOUSE POSITIVE (Negative)
[2024-06-19 17:50] VITALS: BP 118/59; PULSE 69; RESP 19; TEMP 36.3; O2SAT 95
[2024-06-19 17:54] VITALS: BP 118/59; PULSE 69; RESP 19; TEMP 36.3; O2SAT 95
== END 2024-06-19 17:54 | disposition home or self-care (01) ==
PROVIDERS: Physician Assistant Medical; Emergency Provider Emergency Medicine; PCP Internal Medicine
DX: U07.1 COVID-19 (principal)
CPT/HCPCS: 0241U; 71046; 87651; 99283

== ENCOUNTER 2024-07-06 13:31 | Emergency (ER) | payer OTHER, SELFPAY ==
[2024-07-06 14:02] VITALS: BP 138/63; PULSE 69; RESP 16; TEMP 37; O2SAT 96; BMI 25.7
--- NOTE | 2024-07-06 14:02 | ED_ITS ---
HPI - General Adult General Chief complaint: Abdominal Pain Stated complaint: UTI? Time Seen by Provider: 07/06/24 15:28 Source: patient Mode of arrival: ambulatory Limitations: no limitations History of Present Illness ED Provider: meenakshi MCCOY narrative: Patient is a 74-year-old female with history of CKD stage III, T2DM, secondary hyperparathyroidism, acquired hypothyroidism, asthma, restricive lung disease, HTN, CAD presenting to the emergency department with complaint of dysuria and urinary frequency for the past few days. States that she was recently sick with the COVID and was not getting up to go to the bathroom as frequently as she normally would have. At 1st thought she had a yeast infection. She used [id number] Monistat for 3 days which improved her symptoms but when she discontinued the medication her symptoms returned. Reports suprapubic discomfort. Denies abdominal pain, fevers, nausea or vomiting. Complains of mild low back pain. Denies concern for STIs. Denies recent antibiotic use. Related Data Previous Rx's ?Medication ?Instructions ?Recorded omega-3 fatty acids 1,000 mg 1,000 mg PO BID 30 days #60 caps 04/02/21 capsule V-GO 40 device #30 ea 10/23/21 pen needle, diabetic 32 gauge x #100 ea 01/09/22 (BD Ultra-Fine [place] Pen Needle) mometasone 0.1 % topical cream 1 appl topical DAILY PRN skin 10/02/22 irritation 30 days #45 grams betamethasone dipropionate 0.05 % 1 appl topical BID PRN skin rash 12/20/22 topical cream #45 grams cholecalciferol (vitamin D3) 50 50 mcg PO DAILY 90 days #90 caps 03/03/23 mcg (2,000 unit) capsule hydroxyzine HCl 10 mg tablet 10 mg PO Q8H PRN itching/rash #90 03/03/23 tabs benazepril 5 mg tablet 2.5 mg (1/2 x 5 mg) PO DAILY 90 01/09/24 days #45 caps rosuvastatin 40 mg tablet 40 mg PO DAILY 90 days #90 tabs 03/15/24 blood sugar diagnostic (FreeStyle #120 ea 03/25/24 Lite Strips) blood-glucose meter (FreeStyle #1 ea 03/25/24 Lite Meter kit) lancets 28 gauge (FreeStyle #120 ea 03/25/24 Lancets) levothyroxine 50 mcg tablet 50 mcg PO DAILY 90 days #90 tabs 03/26/24 albuterol sulfate 90 mcg/actuation 2 puff inhalation QID PRN 05/05/24 aerosol inhaler (ProAir HFA) shortness of breath or wheezing 30 days #8.5 grams benzonatate 100 mg capsule 100 mg PO TID #30 caps 05/05/24 blood-glucose sensor (FreeStyle #2 ea 05/05/24 Consuelo 3 Sensor device) azithromycin 250 mg tablet 250 mg PO DAILY 4 days #4 tabs 05/08/24 DIABETIC SHOES #2 ea 05/21/24 blood-glucose meter,continuous #1 ea 05/24/24 (FreeStyle [place] 3 [place]) Humalog U-100 Insulin 100 unit/mL See Rx Instructions subcut DAILY 05/25/24 subcutaneous solution (insulin 30 days #30 mL lispro) NEBULIZER and all related #1 ea 06/07/24 accessories, including tubing and mask insulin glargine 100 unit/mL (3 10 unit (0.1 mL) subcut QPM #15 mL 06/07/24 mL) subcutaneous pen (Lantus Solostar U-100 Insulin) pen needle, diabetic 31 gauge x #100 ea 06/07/2412/04 (1st Tier Unifine Pentips) albuterol sulfate 2.5 mg/3 mL 2.5 mg (3 mL) inhalation QID PRN 06/11/24 (0.083 %) solution for nebulization shortness of breath or wheezing 30 days #180 mL Jardiance 25 mg tablet 25 mg PO QAM 30 days #30 tabs 06/16/24 (empagliflozin) benzonatate 200 mg capsule 200 mg PO TID PRN cough #30 caps 06/19/24 nirmatrelvir 150 mg-ritonavir 100 See Rx Instructions PO .COMPLEX 06/19/24 mg tablets in a dose pack #20 ea (Paxlovid) sub-q insulin device, 40 unit #30 ea 06/26/24 (V-GO 40 device) cefuroxime axetil 500 mg tablet 500 mg PO BID #10 tabs 07/06/24 fluconazole 150 mg tablet 150 mg PO Q3D 2 doses #2 tabs 07/06/24 Allergies Allergy/AdvReac Type Severity Reaction Status Date / Time latex [LATEX] Allergy Intermediate RASH Verified 07/06/24 14:05 atorvastatin [From Lipitor] Allergy Mild MUSCLE Verified 07/06/24 14:05 ACHES dulaglutide [Trulicity] Allergy Unknown rash and Verified 07/06/24 14:05 itching pioglitazone Allergy Unknown Urinary Verified 07/06/24 14:05 frequency pork derived (porcine) Allergy Unknown HOLINESS Verified 07/06/24 14:05 [PORK DERIVED (PORCINE)] BELIEF canagliflozin [Invokana] AdvReac Unknown recurrent Verified 07/06/24 14:05 UTI, dizziness Tanzeum Allergy Unknown rash Uncoded 06/19/24 16:40 Review of Systems 2 Review of Systems: As per HPI Yes all other systems are reviewed and are negative Constitutional: Constitutional: Reports as per HPI PMFSH Past Medical History Medical History Chronic kidney disease, stage III (moderate) Acquired hypothyroidism Restrictive lung disease Restrictive lung disease Bronchial asthma Allergic rhinitis Insomnia Diabetic polyneuropathy associated with type 2 diabetes mellitus Diabetic nephropathy associated with type 2 diabetes mellitus Non-proliferative diabetic retinopathy, 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 Diabetes type 2, uncontrolled Overweight (BMI 25.0-29.9) Chronic interstitial cystitis Varicose veins of both lower extremities Osteoarthritis of left hip Lumbosacral spondylosis Vitamin D deficiency Pityriasis rosea GERD (gastroesophageal reflux disease) Allergic rhinitis Restrictive lung disease Coronary artery disease Essential hypertension Hyperlipidemia Chronic kidney disease, stage 2 (mild) Diabetes mellitus with stage 2 chronic kidney disease, with long-term current use of insulin Surgical History Hx of colonoscopy (~08/11/19) FH: JUANCHO-BSO (total abdominal hysterectomy and bilateral salpingo-oophorectomy) Family History Family History Father Diabetes Mother CVD (cardiovascular disease) Social History Social History Household Members: None Housing: House Do you presently have visiting nurse or other home services: No Alcohol intake: never Patient Tobacco Use Status: Never used Tobacco e-Cigarette/Vaping Use: Never Used Second Hand Smoke Exposure: Yes Advance Directives: Yes Advance Directives on File: Yes Advance Directives Date on File: 07/02/21 service: No Current occupational status: employed 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 Blood pressure normal. Heart rate normal. Respiratory rate normal. Temperature normal. Oxygen saturation normal. Const General: cooperative, healthy appearing and no acute distress Orientation/consciousness: oriented to person, oriented to place, oriented to time and patient oriented x3 Limitations: no limitations HENMT Head: Yes normocephalic and Yes atraumatic Ears: external ears normal General nose exam: Normal external nose present Face and sinus: Yes face symmetric Mouth: oropharynx normal and moist mucous membranes Throat: Yes uvula midline Eyes Pupils: Equal, round and reactive pupils present Neck Neck: Yes normal visual inspection and Yes supple Resp Effort & Inspection: normal respiratory effort and able to speak in complete sentences Auscultation: clear to auscultation bilaterally Cardio Rate: regular rate Rhythm: regular rhythm Heart sounds: S1 normal heart sound present and S2 normal heart sound present GI Palpation (GI): Soft to palpation and Tenderness to palpation present (GI) suprapubicly Auscultation: normoactive bowel sounds General: Yes no CVA tenderness Back/Spine/Pelvis Back: no CVA tenderness Skin General skin exam: elasticity normal and turgor normal Neuro General: oriented to person, oriented to place, oriented to time, patient oriented x3, moves all extremities, no focal motor deficits and CN's II-XI intact bilaterally Cranial nerves: Yes Equal, round and reactive pupils present Cognition (Neuro): normal cognition Extrem General: Yes full ROM, Yes no pedal edema and Yes no calf tenderness Psych Mental Status: mental status grossly normal Affect: normal affect Thought process: Normal thought process present Course Course Course Narrative: This is a Rapid Medical Examination (RME) performed by Ari Davila PA-C in triage. Full HPI, ROS, assessment and treatment plan per primary provider in the Main ED. 74 yo female hx of T2DM, CKD, HDL, HTN, CAD, restrictive lung disease, and asthma here for eval of suprapubic abdominal pain, increased urinary frequency, urinating small amount, and the feeling of incomplete bladder emptying x5 days. admits urine is dark yellow. endorses assoc b/l flank pain. denies hx of nephrolithiasis. + right CVAT Plan: labs, UA, bladder scan ordered Medical Decision Making Medical Decision Making [facility] Narrative: Patient is a 74-year-old female with history of CKD stage III, T2DM, secondary hyperparathyroidism, acquired hypothyroidism, asthma, restricive lung disease, HTN, CAD presenting to the emergency department with complaint of dysuria and urinary frequency for the past few days. On exam patient is awake, A+Ox3, VS WNL, afebrile, normal neurological exam without focal deficits, physical exam findings as above. Given reported symptoms and physical exam findings, initial differential includes UTI, pyelonephritis, vulvovaginal candidiasis. Labs grossly within normal limits, no evidence of DAVIAN. Urinalysis notable for trace leukocytes, no blood, 6-10 wbc's. No CVAT tenderness on exam, unlikely renal colic. Given that patient is symptomatic, will treat for UTI at this time. Will also send prescription for Diflucan as patient reports her symptoms did improve with Monistat. Instructed patient to follow-up with PCP. Return precautions discussed. Patient verbalized understanding of and agreement with plan. Differential Diagnosis Differential Diagnoses: The differential diagnosis associated with the presentation includes As per MDM. Lab Data [facility] Lab Attestation statement: I reviewed the patient's lab results. As per [facility]. 07/06/24 14:28 07/06/24 14:28 Labs: Lab Results 07/06/24 07/06/24 Range/Units 14:24 14:28 WBC 8.4 (4.8-10.8) X10*3/uL RBC 5.30 (4.20-5.50) X10*6/uL Hgb 14.3 (12.0-16.0) g/dl Hct 43.2 (37.0-47.0) % MCV 81.5 (80.0-98.0) fL MCH 27.0 (27.0-33.0) pg MCHC 33.1 (31.0-35.0) g/dl RDW 14.5 (11.0-16.0) % Plt Count 191 (160-400) X10*3/uL MPV 11.7 (9.4-12.3) fL Immature Gran % (Auto) 0.2 (0.0-0.4) % Neut % (Auto) 53.8 (45-73) % Lymph % (Auto) 37.3 (20-40) % [place] % (Auto) 6.2 (2-11) % Eos % (Auto) 2.0 (0-4) % Baso % (Auto) 0.5 (0-2) % Lymph # (Auto) 3.1 (1.2-4.9) X10*3/uL [place] # (Auto) 0.5 (0.1-1.2) X10*3/uL Eos # (Auto) 0.2 (0.0-0.4) X10*3/uL Baso # (Auto) 0.0 (0.0-0.2) X10*3/uL Abs Immat Gran (auto) 0.02 (0.00-0.03) X10*3/uL Absolute Neuts (auto) 4.5 (2.0-8.3) x10*3/uL Absolute Nucleated RBC 0.000 (0.0-0.012) X10*3/uL Nucleated RBC % (auto) 0.0 (0.0-0.2) /100WBC Sodium 140 (135-145) mmol/L Potassium 4.0 (3.3-5.1) mmol/L Chloride 109 H (96-108) mmol/L Carbon Dioxide 24 (22-29) mmol/L Anion Gap 11 L (12-20) BUN 20 H (9-16) mg/dL Creatinine 1.01 (0.5-1.4) mg/dL Estim Creat Clear Calc 47.7 Estimated GFR 54 Random Glucose 197 H (60-115) mg/dL Calcium 9.9 (8.4-10.2) mg/dL Magnesium 2.1 (1.6-2.6) mg/dL Total Bilirubin 0.4 (0.0-1.0) mg/dL AST 18 (5-31) U/L ALT 17 (0-31) U/L Alkaline Phosphatase 97 (39-117) U/L Total Protein 7.1 (6.5-8.0) g/dL Albumin 4.1 (3.5-5.0) g/dL Lipase 33 (8-78) U/L Urine Color Yellow Urine Appearance Clear Urine pH 5.5 (5.0-9.0) Ur Specific [place] >= 1.030 H (1.005-1.025) Urine Protein Negative (Neg-Trace) mg/dL Urine Glucose (UA) >=1000 H (Negative) mg/dL Urine Ketones Negative (Negative) mg/dL Urine Blood Negative (Negative) Urine Nitrite Negative (Negative) Ur Leukocyte Esterase Trace H (Negative) Urine RBC 0-2 (0-2) /HPF Urine WBC 6-10 H (0-5) /HPF Ur Squamous Epith Cells 3-5 (0-2) /HPF Urine Bacteria None Seen (None Seen) Hyaline Casts 0-2 (0-2) /LPF External Record Review External record reviewed: Inpatient record, Office record and Outpatient record Prescription Management I considered prescription management with: Antibiotic and Other Discharge Plan Discharge Clinical Impression: UTI (urinary tract infection) Patient Disposition: Home, Self-Care Instructions: Urinary Tract Infection in Women (DC), Yeast Infection (ED) Additional Instructions: You were evaluated in the emergency department today for urinary symptoms. You are being treated for urinary tract infection with antibiotics, please complete the full course as prescribed. You are also being treated for a vaginal yeast infection with Diflucan, please take this medication as prescribed. Follow-up with your primary care provider. Return to the emergency department if you develop increasing pain, nausea or vomiting, fever, inability to urinate or any other concerning symptoms. Prescriptions: New fluconazole 150 mg tablet 150 mg PO Q3D Qty: 2 0RF Rx Instructions: may repeat second dose 72 hrs after first dose if symptoms persist cefuroxime axetil 500 mg tablet 500 mg PO BID Qty: 10 0RF No Action (DME) pen needle, diabetic [BD Ultra-Fine [place] Pen Needle] 32 gauge x 5/32 needle See Rx Instructions .ROUTE .MEDSUPPLY Qty: 100 3RF Rx Instructions: As directed once daily rosuvastatin 40 mg tablet 40 mg PO DAILY 90 Days Qty: 90 3RF (DME) blood-glucose meter [FreeStyle Lite Meter] Kit See Rx Instructions .ROUTE .MEDSUPPLY Qty: 1 0RF Rx Instructions: As directed (DME) FreeStyle Lite Strips Strip See Rx Instructions .ROUTE .MEDSUPPLY Qty: 120 12RF Rx Instructions: As directed 4 times a day (DME) lancets [FreeStyle Lancets] 28 gauge misc See Rx Instructions .ROUTE .MEDSUPPLY Qty: 120 12RF Rx Instructions: As directed 4 times a day (DME) FreeStyle Consuelo 3 Sensor Device See Rx Instructions .Route Qty: 2 4RF Rx Instructions: As directed change every 14 days (DME) DIABETIC SHOES See Rx Instructions .Route .MEDSUPPLY Qty: 2 0RF Rx Instructions: As directed (DME) FreeStyle Consuleo 3 [place] Misc See Rx Instructions .ROUTE .COMPLEX Qty: 1 0RF Dose Instruction: USE DIRECTED Rx Instructions: USE DIRECTED insulin lispro [Humalog U-100 Insulin] 100 unit/mL solution See Rx Instructions subcut DAILY 30 Days Qty: 30 3RF Rx Instructions: Up to 78 units via VGO subcut daily; (DME) NEBULIZER and all related accessories, including tubing and mask See Rx Instructions .Route .MEDSUPPLY Qty: 1 0RF Rx Instructions: As directed albuterol sulfate 2.5 mg /3 mL (0.083 %) solution for nebulization 2.5 mg inhalation QID PRN (Reason: shortness of breath or wheezing) 30 Days Qty: 180 3RF Jardiance 25 mg tablet 25 mg PO QAM 30 Days Qty: 30 2RF (DME) V-GO 40 Device See Rx Instructions .ROUTE .COMPLEX Qty: 30 3RF Dose Instruction: USE DIRECTED Rx Instructions: USE DIRECTED azithromycin 250 mg tablet 250 mg PO DAILY 4 Days Qty: 4 0RF Rx Instructions: start on day 2 of therapy Paxlovid 150-100 mg tablets,dose pack See Rx Instructions .ROUTE .COMPLEX Qty: 20 0RF Rx Instructions: take ONE 150 mg tablet of nirmatrelvir with ONE 100 mg tablet of ritonavir twice daily for 5 days benzonatate 200 mg capsule 200 mg PO TID PRN (Reason: cough) Qty: 30 0RF (DME) V-GO 40 device See Rx Instructions .Route .MEDSUPPLY Qty: 30 3RF Rx Instructions: As directed mometasone 0.1 % cream 1 appl topical DAILY PRN (Reason: skin irritation) 30 Days Qty: 45 2RF cholecalciferol (vitamin D3) 50 mcg (2,000 unit) capsule 50 mcg PO DAILY 90 Days Qty: 90 3RF hydroxyzine HCl 10 mg tablet 10 mg PO Q8H PRN (Reason: itching/rash) Qty: 90 1RF betamethasone dipropionate 0.05 % cream 1 appl topical BID PRN (Reason: skin rash) Qty: 45 0RF levothyroxine 50 mcg tablet 50 mcg PO DAILY 90 Days Qty: 90 1RF Rx Instructions: Take on an empty stomach, first thing in the morning, with water. Do not eat or drink anything else for 30 minutes afterwards omega-3 fatty acids 1,000 mg capsule 1,000 mg PO BID 30 Days Qty: 60 6RF benazepril 5 mg tablet 2.5 mg PO DAILY 90 Days Qty: 45 3RF benzonatate 100 mg capsule 100 mg PO TID Qty: 30 0RF albuterol sulfate [ProAir HFA] 90 mcg/actuation HFA aerosol inhaler 2 puff inhalation QID PRN (Reason: shortness of breath or wheezing) 30 Days Qty: 8.5 0RF insulin glargine [Lantus Solostar U-100 Insulin] 100 unit/mL (3 mL) insulin pen 10 unit subcut QPM Qty: 15 3RF (DME) pen needle, diabetic [1st Tier Unifine Pentips] 31 gauge x 1/4 needle See Rx Instructions .Route Qty: 100 3RF Rx Instructions: As directed Print Language: Romanian
[2024-07-06 14:33] LABS: MANUAL DIFF FLAG NO
[2024-07-06 14:36] LABS: Basophils Percent Auto 0.5 % (0-2); Eosinophils Absolute Auto 0.2 X10*3/uL (0.0-0.4); Hematocrit 43.2 % (37.0-47.0); Hemoglobin 14.3 g/dl (12.0-16.0); Imm Gran Abs Auto 0.02 X10*3/uL (0.00-0.03); Imm Gran Pct Auto 0.2 % (0.0-0.4); Lymphocytes Absolute Auto 3.1 X10*3/uL (1.2-4.9); Lymphocytes Percent Auto 37.3 % (20-40); Mean Corpuscular HGB Conc 33.1 g/dl (31.0-35.0); Mean Corpuscular Volume 81.5 fL (80.0-98.0); Mean Platelet Volume 11.7 fL (9.4-12.3); Monocytes Absolute Auto 0.5 X10*3/uL (0.1-1.2); Monocytes Percent Auto 6.2 % (2-11); Neutrophils Absolute Auto 4.5 x10*3/uL (2.0-8.3); Neutrophils Percent Auto 53.8 % (45-73); Platelet Count 191 X10*3/uL (160-400); Red Cell Distribution Width 14.5 % (11.0-16.0); White Blood Count 8.4 X10*3/uL (4.8-10.8)
[2024-07-06 14:39] LABS: Appearance Urine Clear; Color Urine Yellow; Glucose Urine UA >=1000 mg/dL (Negative); Leukocyte Esterase Urine Trace (Negative); Nitrite Urine Negative (Negative); PH 5.5 (5.0-9.0); UMIC TRIGGER UACC YES; Urine Blood Negative (Negative); Urine Ketones Negative (Negative); Urine Protein Negative (Neg-Trace)
[2024-07-06 15:02] LABS: Bacteria Urine None Seen (None Seen); Hyaline Casts Urine 0-2 /LPF (0-2); RBC Urine 0-2 /HPF (0-2); UACC Culture Trigger YES
[2024-07-06 15:03] LABS: Specific Gravity - Urine >= 1.030 (1.005-1.025)
[2024-07-06 15:05] LABS: Alanine Aminotransferase 17 U/L (0-31); Albumin Level 4.1 g/dL (3.5-5.0); Alkaline Phosphatase 97 U/L (39-117); Anion Gap 11 (12-20); Aspartate Amino Transferase 18 U/L (5-31); Bilirubin Total 0.4 mg/dL (0.0-1.0); Blood Urea Nitrogen 20 mg/dL (9-16); Calcium 9.9 mg/dL (8.4-10.2); Carbon Dioxide 24 mmol/L (22-29); Chloride 109 mmol/L (96-108); Creatinine Clr Calc Pharmacy 47.7; Estimated Glomerular Filt Rate 54; Glucose Random 197 mg/dL (60-115); Lipase 33 U/L (8-78); Magnesium 2.1 mg/dL (1.6-2.6); Sodium 140 mmol/L (135-145); Total Protein 7.1 g/dL (6.5-8.0)
[2024-07-06 15:30] VITALS: BP 165/69; PULSE 62; RESP 18; TEMP 36.8; O2SAT 99
[2024-07-06 16:47] VITALS: BP 141/60; PULSE 63; RESP 16; TEMP 36.1; O2SAT 99
== END 2024-07-06 16:49 | disposition home or self-care (01) ==
PROVIDERS: Physician Assistant Medical; Emergency Provider Internal Medicine; PCP Internal Medicine
DX: N39.0 Urinary tract infection, site not specified (principal); R30.0 Dysuria; R35.0 Frequency of micturition; E11.22 Type 2 diabetes mellitus with diabetic chronic kidney disease; I12.9 Hypertensive chronic kidney disease with stage 1 through stage 4 chronic kidney disease, or unspecified chronic kidney disease; N18.30 Chronic kidney disease, stage 3 unspecified; E03.9 Hypothyroidism, unspecified; I25.10 Atherosclerotic heart disease of native coronary artery without angina pectoris
CPT/HCPCS: 36415; 51798; 80053; 81001; 83690; 83735; 85025; 87086; 99283

== ENCOUNTER 2024-07-18 08:57 | Emergency (ER) | payer OTHER, SELFPAY ==
--- NOTE | ~2024-07-18 | CT_ITS ---
EXAMINATION: CT ABDOMEN AND PELVIS WITHOUT CONTRAST CLINICAL INFORMATION: Suprapubic pain. Urinary symptoms. COMPARISON: None available. TECHNIQUE: Multidetector volumetric imaging was performed from the superior aspect of the liver through the pubic symphysis. Sagittal and coronal reformatted images were obtained on the technologist's workstation. This CT examination was performed using dose optimization techniques as appropriate, variously including the following: *Automated exposure control *Adjustment of mA and/or kV according to patient size (this includes techniques or standardized protocols for targeted exams where dose is matched to indication/reason for exam; i.e. extremities or head) *Use of iterative reconstruction technique DLP: 488 mGy-cm FINDINGS: LUNG BASES: No pulmonary consolidation or pleural effusion. HEPATOBILIARY: Liver has normal size, shape, and attenuation. Gallbladder has a normal appearance. No dilated bile ducts. PANCREAS: No acute abnormality. No pancreatic edema or pancreatic ductal dilatation. There is a small lipoma involving the superior aspect of the pancreatic body. SPLEEN: Normal. ADRENAL GLANDS: Normal. KIDNEYS AND URETERS: Kidneys have normal size and cortical thickness. No perinephric edema, urolithiasis or hydroureteronephrosis. BLADDER: Normal. BOWEL AND PERITONEUM: Stomach and small bowel are unremarkable. No dilated loops. The appendix is normal. No overt colonic wall thickening or mesenteric fat stranding. No free fluid or pneumoperitoneum. ABDOMINAL WALL: No acute findings in the abdominal wall. There appears to be chronic protrusion of some of the extraperitoneal fat into each proximal inguinal canal. VASCULATURE: Mild atherosclerosis of the abdominal aorta without aneurysm. LYMPH NODES: No pathologic sized lymph nodes in the abdomen or pelvis. No inguinal lymphadenopathy. PELVIC VISCERA: Status post hysterectomy. No adnexal mass or pelvic free fluid. MUSCULOSKELETAL: Severe facet arthropathy and grade 1 anterolisthesis at L4-L5. CT/CT abdomen pelvis wo IV con IMPRESSION: No acute imaging abnormalities in the abdomen or pelvis. No findings to suggest urinary tract infection. No evidence of urolithiasis, urinary tract obstruction or perinephric edema.
[2024-07-18 08:59] VITALS: BP 125/71; PULSE 77; RESP 18; TEMP 37.1; O2SAT 97; BMI 25.4
--- NOTE | 2024-07-18 09:07 | ED_ITS ---
HPI - Female Genitourinary General Chief complaint: Urogenital-Female Stated complaint: ?UTI Time Seen by Provider: 07/18/24 09:07 Source: patient and RN notes reviewed Mode of arrival: ambulatory Limitations: no limitations History of Present Illness ED Provider: Swetha Whitfield PA-C HPI Narrative: 74-year-old female with history of CKD stage III, T2DM, secondary hyperparathyroidism, acquired hypothyroidism, asthma, restrictive lung disease, HTN, CAD presenting to the emergency department with complaint of urinary frequency, urgent, suprapubic pain, and back pain x 2 weeks. She states that she had COVID 2 weeks ago and states that since this infection she has had these urinary complaints. Pt states that she was seen here two weeks ago where she was treated for a UTI and yeast infection which she completed treatment for however her symptoms did not improve. She denies any fevers, chills, nausea, or vomiting. She does report that over the last 2 weeks her symptoms have improved however they are not completely resolved which is why she returns to the emergency room for recheck. Denies any other complaints or concerns at this time. MD elicited complaint: dysuria and UTI Onset (ago): week(s) Location of symptoms: suprapubic and low back Severity: moderate Vaginal discharge: none Vaginal bleeding: none Urinary symptoms: Dysuria and Frequency Exacerbating factors: none Relieving factors: none Associated symptoms: abdominal pain and back pain Treatment prior to arrival: none Sexual activity: No Patient : No Related Data Previous Rx's ?Medication ?Instructions ?Recorded omega-3 fatty acids 1,000 mg 1,000 mg PO BID 30 days #60 caps 04/02/21 capsule V-GO 40 device #30 ea 10/23/21 pen needle, diabetic 32 gauge x #100 ea 01/09/22 (BD Ultra-Fine [place] Pen Needle) mometasone 0.1 % topical cream 1 appl topical DAILY PRN skin 10/02/22 irritation 30 days #45 grams betamethasone dipropionate 0.05 % 1 appl topical BID PRN skin rash 12/20/22 topical cream #45 grams cholecalciferol (vitamin D3) 50 50 mcg PO DAILY 90 days #90 caps 03/03/23 mcg (2,000 unit) capsule hydroxyzine HCl 10 mg tablet 10 mg PO Q8H PRN itching/rash #90 03/03/23 tabs benazepril 5 mg tablet 2.5 mg (1/2 x 5 mg) PO DAILY 90 01/09/24 days #45 caps rosuvastatin 40 mg tablet 40 mg PO DAILY 90 days #90 tabs 03/15/24 blood sugar diagnostic (FreeStyle #120 ea 03/25/24 Lite Strips) blood-glucose meter (FreeStyle #1 ea 03/25/24 Lite Meter kit) lancets 28 gauge (FreeStyle #120 ea 03/25/24 Lancets) levothyroxine 50 mcg tablet 50 mcg PO DAILY 90 days #90 tabs 03/26/24 albuterol sulfate 90 mcg/actuation 2 puff inhalation QID PRN 05/05/24 aerosol inhaler (ProAir HFA) shortness of breath or wheezing 30 days #8.5 grams benzonatate 100 mg capsule 100 mg PO TID #30 caps 05/05/24 blood-glucose sensor (FreeStyle #2 ea 05/05/24 Consuelo 3 Sensor device) azithromycin 250 mg tablet 250 mg PO DAILY 4 days #4 tabs 05/08/24 DIABETIC SHOES #2 ea 05/21/24 blood-glucose meter,continuous #1 ea 05/24/24 (FreeStyle Consuelo 3 [place]) Humalog U-100 Insulin 100 unit/mL See Rx Instructions subcut DAILY 05/25/24 subcutaneous solution (insulin 30 days #30 mL lispro) NEBULIZER and all related #1 ea 06/07/24 accessories, including tubing and mask insulin glargine 100 unit/mL (3 10 unit (0.1 mL) subcut QPM #15 mL 06/07/24 mL) subcutaneous pen (Lantus Solostar U-100 Insulin) pen needle, diabetic 31 gauge x #100 ea 06/07/2412/04 (1st Tier Unifine Pentips) albuterol sulfate 2.5 mg/3 mL 2.5 mg (3 mL) inhalation QID PRN 06/11/24 (0.083 %) solution for nebulization shortness of breath or wheezing 30 days #180 mL Jardiance 25 mg tablet 25 mg PO QAM 30 days #30 tabs 06/16/24 (empagliflozin) benzonatate 200 mg capsule 200 mg PO TID PRN cough #30 caps 06/19/24 nirmatrelvir 150 mg-ritonavir 100 See Rx Instructions PO .COMPLEX 06/19/24 mg tablets in a dose pack #20 ea (Paxlovid) sub-q insulin device, 40 unit #30 ea 06/26/24 (V-GO 40 device) cefuroxime axetil 500 mg tablet 500 mg PO BID #10 tabs 07/06/24 fluconazole 150 mg tablet 150 mg PO Q3D 2 doses #2 tabs 07/06/24 Allergies Allergy/AdvReac Type Severity Reaction Status Date / Time latex [LATEX] Allergy Intermediate RASH Verified 07/18/24 09:04 atorvastatin [From Lipitor] Allergy Mild MUSCLE Verified 07/18/24 09:04 ACHES dulaglutide [Trulicity] Allergy Unknown rash and Verified 07/18/24 09:04 itching pioglitazone Allergy Unknown Urinary Verified 07/18/24 09:04 frequency pork derived (porcine) Allergy Unknown SHINTO Verified 07/18/24 09:04 [PORK DERIVED (PORCINE)] BELIEF canagliflozin [Invokana] AdvReac Unknown recurrent Verified 07/18/24 09:04 UTI, dizziness Tanzeum Allergy Unknown rash Uncoded 06/19/24 16:40 Review of Systems 2 Review of Systems: Yes all other systems are reviewed and are negative [facility] Past Medical History Attestation statement: The following information was validated with the patient. 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 Diabetes type 2, uncontrolled Overweight (BMI 25.0-29.9) Chronic interstitial cystitis Varicose veins of both lower extremities Osteoarthritis of left hip Lumbosacral spondylosis Vitamin D deficiency Pityriasis rosea GERD (gastroesophageal reflux disease) Allergic rhinitis Restrictive lung disease Coronary artery disease Essential hypertension Hyperlipidemia Chronic kidney disease, stage 2 (mild) Diabetes mellitus with stage 2 chronic kidney disease, with long-term current use of insulin Surgical History Hx of colonoscopy (~08/11/19) FH: JUANCHO-BSO (total abdominal hysterectomy and bilateral salpingo-oophorectomy) Family History Family History Father Diabetes Mother CVD (cardiovascular disease) Social History Social History Household Members: None Housing: House Do you presently have visiting nurse or other home services: No Alcohol intake: never Patient Tobacco Use Status: Never used Tobacco e-Cigarette/Vaping Use: Never Used Second Hand Smoke Exposure: Yes Advance Directives: Yes Advance Directives on File: Yes Advance Directives Date on File: 07/02/21 Do you have a plan to hurt others: No Plan Patient : No service: No Current occupational status: employed 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 No findings to suggest urinary tract infection. Labs returned, she has no leukocytosis, stable H&H, lipase slightly elevated at 87. Hyperglycemic at 244. Creatinine 1.1 > no evidence of DVAIAN. Discussed findings and workup with patient. Offered to perform a pelvic examination to see if this is a type of atrophic vaginitis however patient defers at this time. She will follow-up with the primary care physician, advised to call tomorrow to make an appointment. Given return precautions. She understands and agrees with plan. Patient stable for discharge. Time: 10:33 Medical Decision Making Medical Decision Making MDM Narrative: 74-year-old female with history of CKD stage III, T2DM, secondary hyperparathyroidism, acquired hypothyroidism, asthma, restrictive lung disease, HTN, CAD presenting to the emergency department with complaint of urinary frequency, urgent, suprapubic pain, and back pain x 2 weeks. On arrival, vital signs within normal limits. Patient is alert and oriented x4. Patient has mild suprapubic tenderness on examination. Review of lasts record revealing that urine sample did not grow any bacteria. Her symptoms have not alleviated with the antibiotics and Flagyl. No fevers or chills. Differential diagnoses include obstructive uropathy, cystitis, mass. Plan: Labs, UA, CT abdomen and pelvis Differential Diagnosis Differential Diagnoses: The differential diagnosis associated with the presentation includes See above Lab Data 07/18/24 09:44 07/18/24 09:44 Labs: Lab Results 07/18/24 Range/Units 09:44 WBC 7.5 (4.8-10.8) X10*3/uL RBC 5.33 (4.20-5.50) X10*6/uL Hgb 14.6 (12.0-16.0) g/dl Hct 43.4 (37.0-47.0) % MCV 81.4 (80.0-98.0) fL MCH 27.4 (27.0-33.0) pg MCHC 33.6 (31.0-35.0) g/dl RDW 14.4 (11.0-16.0) % Plt Count 167 (160-400) X10*3/uL MPV 11.6 (9.4-12.3) fL Immature Gran % (Auto) 0.4 (0.0-0.4) % Neut % (Auto) 52.3 (45-73) % Lymph % (Auto) 37.2 (20-40) % [place] % (Auto) 6.4 (2-11) % Eos % (Auto) 3.2 (0-4) % Baso % (Auto) 0.5 (0-2) % Lymph # (Auto) 2.8 (1.2-4.9) X10*3/uL [place] # (Auto) 0.5 (0.1-1.2) X10*3/uL Eos # (Auto) 0.2 (0.0-0.4) X10*3/uL Baso # (Auto) 0.0 (0.0-0.2) X10*3/uL Abs Immat Gran (auto) 0.03 (0.00-0.03) X10*3/uL Absolute Neuts (auto) 3.9 (2.0-8.3) x10*3/uL Absolute Nucleated RBC 0.000 (0.0-0.012) X10*3/uL Nucleated RBC % (auto) 0.0 (0.0-0.2) /100WBC Sodium 141 (135-145) mmol/L Potassium 4.3 (3.3-5.1) mmol/L Chloride 111 H (96-108) mmol/L Carbon Dioxide 22 (22-29) mmol/L Anion Gap 12 (12-20) BUN 28 H (9-16) mg/dL Creatinine 1.11 (0.5-1.4) mg/dL Estim Creat Clear Calc 43.1 Estimated GFR 48 Random Glucose 244 H (60-115) mg/dL Calcium 10.3 H (8.4-10.2) mg/dL Magnesium 2.1 (1.6-2.6) mg/dL Total Bilirubin 0.3 (0.0-1.0) mg/dL Direct Bilirubin 0.1 (0.0-0.5) mg/dL AST 21 (5-31) U/L ALT 18 (0-31) U/L Alkaline Phosphatase 105 (39-117) U/L Total Protein 7.3 (6.5-8.0) g/dL Albumin 4.2 (3.5-5.0) g/dL Lipase 87 H (8-78) U/L Urine Color Yellow Urine Appearance Clear Urine pH 5.5 (5.0-9.0) Ur Specific [place] 1.025 (1.005-1.025) Urine Protein Negative (Neg-Trace) mg/dL Urine Glucose (UA) >=1000 H (Negative) mg/dL Urine Ketones Negative (Negative) mg/dL Urine Blood Negative (Negative) Urine Nitrite Negative (Negative) Ur Leukocyte Esterase Negative (Negative) Urine RBC 0-2 (0-2) /HPF Urine WBC 0-5 (0-5) /HPF Ur Squamous Epith Cells 3-5 (0-2) /HPF Urine Bacteria None Seen (None Seen) Hyaline Casts 0-2 (0-2) /LPF Discharge Plan Discharge Clinical Impression: Dysuria Patient Disposition: Home, Self-Care Instructions: Dysuria (ED) Additional Instructions: You were seen in the emergency department due to ongoing painful urination, urinary frequency. Your urine does not show a urinary tract infection today. Your blood work was reassuring. Your CT scan did not show any abnormalities to explain your symptoms. Please drink plenty of fluids get plenty of rest. Please follow-up with your primary care physician, call tomorrow to make an appointment. You may follow-up with the urologist for further management of your symptoms. We are sending her urine out for further testing, we will call you if this turns out to be a urinary tract infection. Prescriptions: No Action (DME) pen needle, diabetic [BD Ultra-Fine [place] Pen Needle] 32 gauge x 5/32 needle See Rx Instructions .ROUTE .MEDSUPPLY Qty: 100 3RF Rx Instructions: As directed once daily rosuvastatin 40 mg tablet 40 mg PO DAILY 90 Days Qty: 90 3RF (DME) blood-glucose meter [FreeStyle Lite Meter] Kit See Rx Instructions .ROUTE .MEDSUPPLY Qty: 1 0RF Rx Instructions: As directed (DME) FreeStyle Lite Strips Strip See Rx Instructions .ROUTE .MEDSUPPLY Qty: 120 12RF Rx Instructions: As directed 4 times a day (DME) lancets [FreeStyle Lancets] 28 gauge misc See Rx Instructions .ROUTE .MEDSUPPLY Qty: 120 12RF Rx Instructions: As directed 4 times a day (DME) FreeStyle Consuelo 3 Sensor Device See Rx Instructions .Route Qty: 2 4RF Rx Instructions: As directed change every 14 days (DME) DIABETIC SHOES See Rx Instructions .Route .MEDSUPPLY Qty: 2 0RF Rx Instructions: As directed (DME) FreeStyle Consuelo 3 [place] Misc See Rx Instructions .ROUTE .COMPLEX Qty: 1 0RF Dose Instruction: USE DIRECTED Rx Instructions: USE DIRECTED insulin lispro [Humalog U-100 Insulin] 100 unit/mL solution See Rx Instructions subcut DAILY 30 Days Qty: 30 3RF Rx Instructions: Up to 78 units via VGO subcut daily; (DME) NEBULIZER and all related accessories, including tubing and mask See Rx Instructions .Route .MEDSUPPLY Qty: 1 0RF Rx Instructions: As directed albuterol sulfate 2.5 mg /3 mL (0.083 %) solution for nebulization 2.5 mg inhalation QID PRN (Reason: shortness of breath or wheezing) 30 Days Qty: 180 3RF Jardiance 25 mg tablet 25 mg PO QAM 30 Days Qty: 30 2RF (DME) V-GO 40 Device See Rx Instructions .ROUTE .COMPLEX Qty: 30 3RF Dose Instruction: USE DIRECTED Rx Instructions: USE DIRECTED azithromycin 250 mg tablet 250 mg PO DAILY 4 Days Qty: 4 0RF Rx Instructions: start on day 2 of therapy fluconazole 150 mg tablet 150 mg PO Q3D Qty: 2 0RF Rx Instructions: may repeat second dose 72 hrs after first dose if symptoms persist cefuroxime axetil 500 mg tablet 500 mg PO BID Qty: 10 0RF Paxlovid 150-100 mg tablets,dose pack See Rx Instructions .ROUTE .COMPLEX Qty: 20 0RF Rx Instructions: take ONE 150 mg tablet of nirmatrelvir with ONE 100 mg tablet of ritonavir twice daily for 5 days benzonatate 200 mg capsule 200 mg PO TID PRN (Reason: cough) Qty: 30 0RF (DME) V-GO 40 device See Rx Instructions .Route .MEDSUPPLY Qty: 30 3RF Rx Instructions: As directed mometasone 0.1 % cream 1 appl topical DAILY PRN (Reason: skin irritation) 30 Days Qty: 45 2RF cholecalciferol (vitamin D3) 50 mcg (2,000 unit) capsule 50 mcg PO DAILY 90 Days Qty: 90 3RF hydroxyzine HCl 10 mg tablet 10 mg PO Q8H PRN (Reason: itching/rash) Qty: 90 1RF betamethasone dipropionate 0.05 % cream 1 appl topical BID PRN (Reason: skin rash) Qty: 45 0RF levothyroxine 50 mcg tablet 50 mcg PO DAILY 90 Days Qty: 90 1RF Rx Instructions: Take on an empty stomach, first thing in the morning, with water. Do not eat or drink anything else for 30 minutes afterwards omega-3 fatty acids 1,000 mg capsule 1,000 mg PO BID 30 Days Qty: 60 6RF benazepril 5 mg tablet 2.5 mg PO DAILY 90 Days Qty: 45 3RF benzonatate 100 mg capsule 100 mg PO TID Qty: 30 0RF albuterol sulfate [ProAir HFA] 90 mcg/actuation HFA aerosol inhaler 2 puff inhalation QID PRN (Reason: shortness of breath or wheezing) 30 Days Qty: 8.5 0RF insulin glargine [Lantus Solostar U-100 Insulin] 100 unit/mL (3 mL) insulin pen 10 unit subcut QPM Qty: 15 3RF (DME) pen needle, diabetic [1st Tier Unifine Pentips] 31 gauge x 1/4 needle See Rx Instructions .Route Qty: 100 3RF Rx Instructions: As directed Referrals: [facility] [Provider Group] Print Language: Croatian
[2024-07-18 09:47] LABS: MANUAL DIFF FLAG NO
[2024-07-18 09:48] LABS: Basophils Percent Auto 0.5 % (0-2); Eosinophils Absolute Auto 0.2 X10*3/uL (0.0-0.4); Eosinophils Percent Auto 3.2 % (0-4); Hematocrit 43.4 % (37.0-47.0); Hemoglobin 14.6 g/dl (12.0-16.0); Imm Gran Abs Auto 0.03 X10*3/uL (0.00-0.03); Imm Gran Pct Auto 0.4 % (0.0-0.4); Lymphocytes Absolute Auto 2.8 X10*3/uL (1.2-4.9); Lymphocytes Percent Auto 37.2 % (20-40); Mean Corpuscular HGB Conc 33.6 g/dl (31.0-35.0); Mean Corpuscular Hemoglobin 27.4 pg (27.0-33.0); Mean Corpuscular Volume 81.4 fL (80.0-98.0); Mean Platelet Volume 11.6 fL (9.4-12.3); Monocytes Absolute Auto 0.5 X10*3/uL (0.1-1.2); Monocytes Percent Auto 6.4 % (2-11); Neutrophils Absolute Auto 3.9 x10*3/uL (2.0-8.3); Neutrophils Percent Auto 52.3 % (45-73); Platelet Count 167 X10*3/uL (160-400); Red Blood Count 5.33 X10*6/uL (4.20-5.50); Red Cell Distribution Width 14.4 % (11.0-16.0); White Blood Count 7.5 X10*3/uL (4.8-10.8)
[2024-07-18 09:51] LABS: Appearance Urine Clear; Color Urine Yellow; Glucose Urine UA >=1000 mg/dL (Negative); Leukocyte Esterase Urine Negative (Negative); Nitrite Urine Negative (Negative); PH 5.5 (5.0-9.0); Specific Gravity - Urine 1.025 (1.005-1.025); UMIC TRIGGER UACC YES; Urine Blood Negative (Negative); Urine Ketones Negative (Negative); Urine Protein Negative (Neg-Trace)
[2024-07-18 09:57] LABS: Bacteria Urine None Seen (None Seen); Hyaline Casts Urine 0-2 /LPF (0-2); RBC Urine 0-2 /HPF (0-2); WBC Urine 0-5 /HPF (0-5)
[2024-07-18 10:02] LABS: Alanine Aminotransferase 18 U/L (0-31); Albumin Level 4.2 g/dL (3.5-5.0); Alkaline Phosphatase 105 U/L (39-117); Anion Gap 12 (12-20); Aspartate Amino Transferase 21 U/L (5-31); Bilirubin Direct 0.1 mg/dL (0.0-0.5); Bilirubin Total 0.3 mg/dL (0.0-1.0); Blood Urea Nitrogen 28 mg/dL (9-16); Calcium 10.3 mg/dL (8.4-10.2); Carbon Dioxide 22 mmol/L (22-29); Chloride 111 mmol/L (96-108); Creatinine Clr Calc Pharmacy 43.1; Estimated Glomerular Filt Rate 48; Glucose Random 244 mg/dL (60-115); Lipase 87 U/L (8-78); Magnesium 2.1 mg/dL (1.6-2.6); Potassium 4.3 mmol/L (3.3-5.1); Sodium 141 mmol/L (135-145); Total Protein 7.3 g/dL (6.5-8.0)
[2024-07-18 11:08] VITALS: BP 125/71; PULSE 77; RESP 18; TEMP 37.1; O2SAT 97
== END 2024-07-18 11:09 | disposition home or self-care (01) ==
PROVIDERS: Physician Assistant Medical; Emergency Provider Emergency Medicine; PCP Internal Medicine
DX: R30.0 Dysuria (principal); R35.0 Frequency of micturition; I25.10 Atherosclerotic heart disease of native coronary artery without angina pectoris; I10 Essential (primary) hypertension; Z79.899 Other long term (current) drug therapy
CPT/HCPCS: 36415; 74176; 80048; 80076; 81001; 83690; 83735; 85025; 99284

== ENCOUNTER 2024-09-01 15:35 | Outpatient (AMB) | payer OTHER, SELFPAY ==
--- NOTE | 2024-09-01 08:06 | A.OFFVIS_ITS ---
Vital Signs 09/01/24 15:43 Height 5 ft 4 in Weight 149 lb 14.629 oz BMI 25.7 BP 116/78 Blood Pressure Location Rt brachial Position Sitting Pulse 74 Pulse Source Pulse Oximeter Intake Visit Reasons: T2DM/CONFIRMED Intake Note: Patient presents today for a follow-up on Diabetes Type 2: Most recent Diabetic Eye Exam: DUE Most recent Podiatry Exam: Does not see a Foaming Machine Operator Most recent HbA1c: 8.2%, 06/07/2024 Random Glucose- mg/dL, Today Histology Technician Required: No Accompanied by: Self / Same As Patient Allergies latex [LATEX] Allergy (Intermediate, Verified 07/18/24 09:04) RASH atorvastatin [From Lipitor] Allergy (Mild, Verified 07/18/24 09:04) MUSCLE ACHES dulaglutide [Trulicity] Allergy (Unknown, Verified 07/18/24 09:04) rash and itching pioglitazone Allergy (Unknown, Verified 07/18/24 09:04) Urinary frequency pork derived (porcine) [PORK DERIVED (PORCINE)] Allergy (Unknown, Verified 07/18/24 09:04) BAPTISM BELIEF canagliflozin [Invokana] Adverse Reaction (Unknown, Verified 07/18/24 09:04) recurrent UTI, dizziness Tanzeum Allergy (Unknown, Uncoded 06/19/24 16:40) rash HPI Comments Details: Patient is 74-year-old female with DM type 2 diagnosed October 2005 who presents for management of diabetes. She was last seen by Dr. Jimenez in January and by Mari MAYA 06/07/24 at which time Lantus 10 units was added to her diabetes regime. Past medical history: Diabetes type 2, hypertension, hyperlipidemia Micro and macrovascular complications: retinopathy, nephropathy, neuropathy, CAD Medications tried in the past: Intolerant of Trulicity causes allergic site reactions. Reports intolerant of Victoza, Tanzeum. She had recurrent UTI with Invokana Past medical history: Diabetes type 2, hypertension, hyperlipidemia Micro and macrovascular complications: retinopathy, nephropathy, CAD Diabetes medications: Lantus 10 units V Go 40, 5 clicks with meals. Plus one click for blood glucose over 200 Freestyle eleonora sensor 3 average glucose: 186 14 day continuous glucose sensor report reviewed Glucose Management indicator 7.8% Time in ranges: Fifteen % very high (above 250) 34 % high (181-250) 51 % in range (70-180] 0 % low (69-55) 0 % very low (below 54) 32.8 Glucose variability [ ] (target <36%) Interpretation of CGMS [she is having persistent highs after lunch ] Symptoms reported: denies numbness, tingling, cramping in lower extremities Hypoglycemia: No Hyperglycemia: urinary frequency, nocturia 1x/night, occasional polydypsia Exercise: walks 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 Other specialists: Software Qa System Specialist, Dr. Ayala Did not meet with the medical educator Diabetes medications: Lantus 10 units in the evening V Go 40, 5 clicks with meals. Plus one click for blood glucose over 200 Jardiance 25 mg QD Intolerant of Trulicity causes allergic site reactions. Reports intolerant of Victoza, Tanzeum. She had recurrent UTI with Invokana Blood glucose monitoring: Unfortunately, patient did not bring her her sensor or glucometer with her to the follow-up visit Symptoms reported: denies numbness, tingling, cramping in lower extremities Hypoglycemia: No Hyperglycemia: urinary frequency, nocturia 1x/night, occasional polydypsia Exercise: walks all-night at home. 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 Other specialists: Software Qa System SpecialistDr. Ayala Did not meet with the medical educator [facility] Medical History Chronic kidney disease, stage III (moderate) Acquired hypothyroidism Restrictive lung disease Restrictive lung disease Bronchial asthma Allergic rhinitis Insomnia Diabetic polyneuropathy associated with type 2 diabetes mellitus Diabetic nephropathy associated with type 2 diabetes mellitus Non-proliferative diabetic retinopathy, both eyes residential (current) use of insulin Diabetes type 2, uncontrolled Overweight (BMI 25.0-29.9) Chronic interstitial cystitis Varicose veins of both lower extremities Osteoarthritis of left hip Lumbosacral spondylosis Vitamin D deficiency Pityriasis rosea GERD (gastroesophageal reflux disease) Allergic rhinitis Restrictive lung disease Coronary artery disease Essential hypertension Hyperlipidemia Chronic kidney disease, stage 2 (mild) Diabetes mellitus with stage 2 chronic kidney disease, with long-term current use of insulin Surgical History Hx of colonoscopy (~08/11/19) FH: JUANCHO-BSO (total abdominal hysterectomy and bilateral salpingo-oophorectomy) Family History Father Diabetes Mother CVD (cardiovascular disease) Social History Household Members: None Housing: House Do you presently have visiting nurse or other home services: No Unable to assess alcohol history related to: Unknown Alcohol intake: never Patient Tobacco Use Status: Never used Tobacco e-Cigarette/Vaping Use: Never Used Second Hand Smoke Exposure: Yes Advance Directives Date on File: 07/02/21 service: No Current occupational status: employed 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 Absence of acromegalic features. Neck exam reveals nl size thyroid about 15 gms. No thyroid nodules palpable. Heart S1 S2, Reg R/R. No M/R G. Skin exam reveals absence of vitiligo or acanthosis nigricans. No edema Visual exam of foot performed. No ulcerations or open lesions. No inter digit maceration or fissuring. No onychomycosis, no callouses. Sensation intact to monofilament exam. Vibratory sensation is normal with 128 Hz tuning fork. Office Procedures Glucose Monitoring Details Details: see [facility] [id number] - Glucose monitoring, continuous-physician I&R Procedure code (CPT) selection complete Results Reviewed Results Reviewed: Laboratory Last Values Glucose (Clinic) 125 mg/dL (60-115) H 09/01/24 15:52 Laboratory Tests 01/05/24 06/07/24 07/06/24 07:25 08:41 14:28 Plt Count Potassium Estimated GFR Hgb A1c (Clinic) 8.2 H Calcium 9.9 AST 18 ALT 17 Urine Microalbumin 9.0 Microalb/Creat Ratio 9.6 07/18/24 09:44 Plt Count 167 Potassium 4.3 Estimated GFR 48 Hgb A1c (Clinic) Calcium 10.3 H AST 21 ALT 18 Urine Microalbumin Microalb/Creat Ratio Assessment & Plan Assessment & Plan (1) Diabetes type 2, uncontrolled: Code(s): E11.65 - Type 2 diabetes mellitus with hyperglycemia Category: Medical Qualifiers: Glycemic state: with hyperglycemia Qualified Code(s): E11.65 - Type 2 diabetes mellitus with hyperglycemia Plan: Type 2 diabetic persistent elevation in glucose readings in the morning after her meal. She will continue with the same settings on V-Go 40 and continue with the Jardiance. We will increase Lantus to 14 units and have her take this in the morning as her highest readings are after her can a.mArturo torres. Will send clinic notes to her prosthetic company for diabetic shoes that she has numbness She will continue to follow up with Nephrology and Ophthalmology Orders: Orders AMB Glucose Monitoring Today E11.65 - Type 2 diabetes mellitus with hyperglycemia Medications: New acetone (urine) test (Ketone Urine Test strips) P.r.n. glucose over 250, nausea, and vomiting, illness up to t.i.d. 25 ea 1RF glucagon 3 mg/actuation (Baqsimi) 3 mg intranasal ONCE 30 days PRN 2 ea 1RF Unresponsive hypoglycemia may repeat in 15 minutes Changed From insulin glargine (Lantus Solostar U-100 Insulin) 10 units (0.1 mL) subcut QPM 15 mL 3RF To insulin glargine (Lantus Solostar U-100 Insulin) 14 units (0.14 mL) subcut QPM 90 days 15 mL 3RF Coding Level of Care Code Est Pt Level 4 (82642) Diagnoses Uncontrolled type 2 diabetes mellitus with hyperglycemia E11.65 Glycemic state: with hyperglycemia CPT Codes Details - CPT: 73365 - Glucose monitoring, continuous-physician I&R ([id number])
[2024-09-01 15:43] VITALS: BP 116/78; PULSE 74; BMI 25.7
[2024-09-01 15:56] LABS: Glucose, Whole Blood 125 mg/dL (60-115)
== END 2024-09-01 16:18 | disposition home or self-care (01) ==
PROVIDERS: PCP Internal Medicine; Visit Provider Nurse Practitioner Adult Health
DX: E11.65 Type 2 diabetes mellitus with hyperglycemia (principal)
CPT/HCPCS: 95251; 99214

== ENCOUNTER → 2024-09-01 15:35 | Outpatient (BNVA) | payer OTHER, SELFPAY | PROVIDERS: PCP Internal Medicine; Visit Provider Nurse Practitioner Adult Health | DX: E11.65 Type 2 diabetes mellitus with hyperglycemia (principal) | CPT/HCPCS: 82947; 99212 ==

== ENCOUNTER 2024-09-21 07:14 | Outpatient (REF) | payer OTHER, SELFPAY ==
[2024-09-21 08:11] LABS: MANUAL DIFF FLAG NO
[2024-09-21 08:23] LABS: Basophils Absolute Auto 0.1 X10*3/uL (0.0-0.2); Basophils Percent Auto 0.6 % (0-2); Eosinophils Absolute Auto 0.1 X10*3/uL (0.0-0.4); Eosinophils Percent Auto 1.7 % (0-4); Hematocrit 44.9 % (37.0-47.0); Hemoglobin 14.4 g/dl (12.0-16.0); Imm Gran Abs Auto 0.01 X10*3/uL (0.00-0.03); Imm Gran Pct Auto 0.1 % (0.0-0.4); Lymphocytes Absolute Auto 2.8 X10*3/uL (1.2-4.9); Lymphocytes Percent Auto 36.1 % (20-40); Mean Corpuscular HGB Conc 32.1 g/dl (31.0-35.0); Mean Corpuscular Hemoglobin 27.2 pg (27.0-33.0); Mean Corpuscular Volume 84.9 fL (80.0-98.0); Mean Platelet Volume 11.4 fL (9.4-12.3); Monocytes Absolute Auto 0.4 X10*3/uL (0.1-1.2); Monocytes Percent Auto 5.2 % (2-11); Neutrophils Absolute Auto 4.3 x10*3/uL (2.0-8.3); Neutrophils Percent Auto 56.3 % (45-73); Platelet Count 196 X10*3/uL (160-400); Red Blood Count 5.29 X10*6/uL (4.20-5.50); Red Cell Distribution Width 14.1 % (11.0-16.0); White Blood Count 7.7 X10*3/uL (4.8-10.8)
[2024-09-21 08:38] LABS: Appearance Urine Clear; Color Urine Yellow; Glucose Urine UA >=1000 mg/dL (Negative); Leukocyte Esterase Urine Negative (Negative); Nitrite Urine Negative (Negative); PH 5.5 (5.0-9.0); Specific Gravity - Urine >= 1.030 (1.005-1.025); UMIC TRIGGER UACC YES; Urine Blood Negative (Negative); Urine Ketones Negative (Negative); Urine Protein Negative (Neg-Trace)
[2024-09-21 08:43] LABS: Estimated Average Glucose 166 mg/dL; Hemoglobin A1C 196.5397 umol/L; Hemoglobin A1c % 7.4 % (<6.0); Total Hemoglobin (HGBA1C) 3452.2135 umol/L
[2024-09-21 08:46] LABS: Bacteria Urine None Seen (None Seen); Hyaline Casts Urine 0-2 /LPF (0-2); RBC Urine 0-2 /HPF (0-2); WBC Urine 0-5 /HPF (0-5)
[2024-09-21 09:09] LABS: Parathyroid Hormone Intact 124.2 pg/mL (8.7-77.1)
[2024-09-21 09:16] LABS: Creatinine Urine 91.04 mg/dL; Microalbumin Urine < 5.0 mg/L
[2024-09-21 09:17] LABS: Creatinine Urine 90.94 mg/dL; Total Protein Urine Random < 7 mg/dL (<12)
[2024-09-21 09:25] LABS: Alanine Aminotransferase 29 U/L (0-31); Albumin Level 4.2 g/dL (3.5-5.0); Alkaline Phosphatase 80 U/L (39-117); Anion Gap 11 (12-20); Aspartate Amino Transferase 51 U/L (5-31); Bilirubin Total 0.5 mg/dL (0.0-1.0); Blood Urea Nitrogen 24 mg/dL (9-16); Calcium 10.1 mg/dL (8.4-10.2); Carbon Dioxide 26 mmol/L (22-29); Chloride 108 mmol/L (96-108); Cholesterol 153 mg/dL (<200); Estimated Glomerular Filt Rate 43; Glucose Fasting 212 mg/dL (60-99); HDL Cholesterol 38 mg/dL (>40); LDL Cholesterol Calculated 81 mg/dL (<100); Potassium 5.1 mmol/L (3.3-5.1); Sodium 140 mmol/L (135-145); Total Protein 7.2 g/dL (6.5-8.0); Triglycerides 174 mg/dL (<150)
[2024-09-21 09:31] LABS: Free T4 (Free Thyroxine) 1.12 ng/dL (0.71-1.85); Thyroid Stimulating Hormone 2.97 uIU/mL (0.32-4.0); Vitamin D 25-OH Total 40.3 ng/mL (>30)
[2024-09-21 09:35] LABS: Folate 14.3 ng/mL (> or = 4.0); Vitamin B12 674 pg/mL (200-900)
== END 2024-09-21 07:15 | disposition home or self-care (01) ==
LOC: HO.LAB 07:14
PROVIDERS: Internal Medicine Nephrology; PCP Internal Medicine; Visit Provider Internal Medicine
DX: D64.9 Anemia, unspecified (principal); N25.81 Secondary hyperparathyroidism of renal origin; E78.00 Pure hypercholesterolemia, unspecified; E03.9 Hypothyroidism, unspecified; E55.9 Vitamin D deficiency, unspecified; E53.8 Deficiency of other specified B group vitamins; E11.22 Type 2 diabetes mellitus with diabetic chronic kidney disease; N18.2 Chronic kidney disease, stage 2 (mild)
CPT/HCPCS: 36415; 80053; 80061; 81001; 82043; 82306; 82570; 82607; 82746; 83036; 83970; 84156; 84439; 84443; 85025

== ENCOUNTER 2024-09-22 15:04 | Outpatient (AMB) | payer OTHER, SELFPAY ==
[2024-09-22 15:11] VITALS: BP 120/80; PULSE 74; O2SAT 97; BMI 25.5
--- NOTE | 2024-09-22 15:11 | MHC.PC.OV ---
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: No Accompanied by: Self / Same As Patient Allergies latex [LATEX] Allergy (Intermediate, Verified 09/22/24 15:34) RASH atorvastatin [From Lipitor] Allergy (Mild, Verified 09/22/24 15:34) MUSCLE ACHES dulaglutide [Trulicity] Allergy (Unknown, Verified 09/22/24 15:34) rash and itching pioglitazone Allergy (Unknown, Verified 09/22/24 15:34) Urinary frequency pork derived (porcine) [PORK DERIVED (PORCINE)] Allergy (Unknown, Verified 09/22/24 15:34) SHINTO BELIEF canagliflozin [Invokana] Adverse Reaction (Unknown, Verified 09/22/24 15:34) recurrent UTI, dizziness Tanzeum Allergy (Unknown, Uncoded 09/22/24 15:34) rash Medication List - Last Reconciled 09/22/24 by Darryl Robles MD acetone (urine) test (Ketone Urine Test strips) P.r.n. glucose over 250, nausea, and vomiting, illness up to t.i.d. albuterol sulfate 2.5 mg (3 mL) inhalation QID PRN 30 days albuterol sulfate 90 mcg/actuation (ProAir HFA) 2 puffs inhalation QID PRN 30 days benazepril 2.5 mg (1/2 x 5 mg) PO DAILY 90 days betamethasone dipropionate 0.05% 1 appl topical BID PRN blood sugar diagnostic (FreeStyle Lite Strips) As directed 4 times a day blood-glucose meter (FreeStyle Lite Meter kit) As directed blood-glucose meter,continuous (FreeStyle Consuelo 3 [place]) USE DIRECTED blood-glucose sensor (FreeStyle Consuelo 3 Sensor device) As directed change every 14 days blood-glucose sensor (FreeStyle Consuelo 3 Plus Sensor device) As directed every 15 days cholecalciferol (vitamin D3) 50 mcg PO DAILY 90 days [DIABETIC SHOES As directed] glucagon 3 mg/actuation (Baqsimi) 3 mg intranasal ONCE PRN 30 days Humalog U-100 Insulin (insulin lispro) Up to 78 units via VGO subcut daily; 30 days NS hydroxyzine HCl 10 mg PO Q8H PRN insulin glargine (Lantus Solostar U-100 Insulin) 14 units (0.14 mL) subcut QPM 90 days Jardiance (empagliflozin) 25 mg PO QAM 30 days NS lancets (FreeStyle Lancets) As directed 4 times a day levothyroxine 50 mcg PO DAILY 90 days mometasone 0.1% 1 appl topical DAILY PRN 30 days [NEBULIZER and all related accessories, including tubing and mask As directed] omega-3 fatty acids 1,000 mg PO BID 30 days pen needle, diabetic (BD Ultra-Fine [place] Pen Needle) As directed once daily pen needle, diabetic (1st Tier Unifine Pentips) As directed rosuvastatin 40 mg PO DAILY 90 days sub-q insulin device, 40 unit (V-GO 40 device) USE DIRECTED [V-GO 40 device As directed] Tobacco use date assessed: 09/22/24 Fall risk assessment: No Falls in past year Last assessed Fall Risk: 09/22/24 Dental Screening Dental Screen Date: 09/22/24 Did you have a dental visit in the last 12 months?: Yes Did you have a dental problem in the last 6 months where you did not have access to dental care?: No Was dental information given to patient?: Patient has dentist HPI follow up HPI Details Patient comes in today for her follow up visit States that she is still experiencing a lot of anxiety and feels depressed about her younger sister passing away suddenly a couple of days ago and would like to request a note from the office to help in her request to stay out of work for a few days States that she feels okay otherwise She denies any headaches or dizziness Denies any chest pains, no SOB No nausea/vomiting, no abdominal pain No change in bowel habits noted She had her follow up labs done yesterday - to discuss her results [facility] Medical History (Updated 09/22/24 @ 16:40 by Darryl Robles MD) Mixed hyperlipidemia Diabetes mellitus with stage 3 chronic kidney disease, with long-term current use of insulin Chronic kidney disease, stage III (moderate) Acquired hypothyroidism Restrictive lung disease Restrictive lung disease Bronchial asthma Allergic rhinitis Insomnia Diabetic polyneuropathy associated with type 2 diabetes mellitus Diabetic nephropathy associated with type 2 diabetes mellitus Non-proliferative diabetic retinopathy, both eyes assisted (current) use of insulin Diabetes type 2, uncontrolled Overweight (BMI 25.0-29.9) Chronic interstitial cystitis Varicose veins of both lower extremities Osteoarthritis of left hip Lumbosacral spondylosis Vitamin D deficiency Pityriasis rosea GERD (gastroesophageal reflux disease) Allergic rhinitis Restrictive lung disease Coronary artery disease Essential hypertension Hyperlipidemia Chronic kidney disease, stage 2 (mild) Diabetes mellitus with stage 2 chronic kidney disease, with long-term current use of insulin Surgical History Hx of colonoscopy (~08/11/19) FH: JUANCHO-BSO (total abdominal hysterectomy and bilateral salpingo-oophorectomy) Family History Father Diabetes Mother CVD (cardiovascular disease) Social History Household Members: None Housing: House Do you presently have visiting nurse or other home services: No Unable to assess alcohol history related to: Unknown Alcohol intake: never Patient Tobacco Use Status: Never used Tobacco e-Cigarette/Vaping Use: Never Used Second Hand Smoke Exposure: Yes Advance Directives Date on File: 07/02/21 service: No Current occupational status: employed 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 1. Little interest or pleasure in doing things: not at all 2. Feeling down, depressed, or hopeless: not at all 3. Trouble falling or staying asleep, or sleeping too much: not at all 4. Feeling tired or having little energy: not at all 5. Poor appetite or overeating: not at all 6. Feeling bad about yourself - or that you are a failure or have let yourself or your family down: not at all 7. Trouble concentrating on things, such as reading the newspaper or watching television: not at all 8. Moving or speaking so slowly that other people could have noticed. Or the opposite - being so fidgety or restless that you have been moving around a lot more than usual: not at all 9. Thoughts that you would be better off or of hurting yourself in some way: not at all Total score: 0 Depression Screening Interpretation: Negative Depression Screening Done: Yes 67028 - PHQ-9 Billing: Yes Source: Developed by Drs. Gilbert Khan, Aleja Phillip, Hugo Aleman and colleagues, with an educational jose alfredo from [employer]. Thrive Questionnaire Date Thrive assessed: 09/22/24 I am a: Patient What is your living situation today?: I have a steady place to live Within the past 12 months, did the food you bought not last and you didn't have the money to get more?: Never true Within the past 12 months, did you worry whether your food would run out before you got money to buy more?: Never true Do you have trouble paying for medicines?: No Do you have trouble getting transportation to medical appointments?: No Do you have trouble paying your heating and electricity bill?: No Do you have trouble taking care of your child, family member or friend?: No Do you have trouble with day-to-day activities such as bathing, preparing meals, shopping, managing finances, etc.?: No Are you currently unemployed and looking for a job?: No Are you interested in more education?: No Please select the resources that you would like help with: None Currently or been in a relationship where the following occur: No concerns reported THRIVE Score: 0 AUDIT C Alcohol Use Questionnaire (AUDIT-C) 1. How often do you have a drink containing alcohol?: Never 3. How often do you have six or more drinks on one occasion?: Never Total Score: 0 Score Reviewed/Action Taken: Yes VITALY-7 AMB Questionnaire VITALY-7 Date VITALY - 7 assessed: 09/22/24 Feeling nervous, anxious, or on edge: 0 = Not at all Not being able to stop or control worryin = Not at all Worrying too much about different things: 0 = Not at all Trouble relaxin = Not at all Being so restless that it is hard to sit still: 0 = Not at all Becoming easily annoyed or irritable: 0 = Not at all Feeling afraid as if something awful might happen: 0 = Not at all Total VITALY-7 score (0-4 normal; 5-9 mild; 10-14 moderate; 15-21 severe): 0 Source: Developed by Drs. Gilbert Khan, Aleja Phillip, Hugo Aleman and colleagues, with an educational jose alfredo from [employer]. VITALY-7 Assessment Billing VITALY-7 Assessment Tool: VITALY-7 Assessment 17849 Review of Systems Const Denies chills, Reports fatigue, Denies fever(s) and Denies headache(s) ENT Denies dysphagia, Denies dizziness, Reports otalgia (reports pain over the outer ear and earlobes - son found sore 2 days ago), Denies headache(s), Denies neck pain, Denies odynophagia and Denies sore throat Card Denies chest pain, Denies rapid heart rate, Denies irregular heart rhythm, Denies palpitations and Denies dyspnea Resp Denies chest congestion, Denies cough and Denies dyspnea GI Denies abdominal pain, Denies constipation, Denies dysphagia, Denies heartburn, Denies diarrhea, Denies nausea, Denies odynophagia and Denies vomiting Denies hematuria, Denies urinary frequency, Denies nocturia, Denies dysuria and Denies urinary urgency Musc Denies back pain, Denies arthralgias and Denies neck pain Skin/Breast Denies rash Neuro Denies dizziness, Denies headache(s) and Denies paresthesias Psych Denies anxiety and Denies depression Endo Reports fatigue and Denies palpitations Woody/Lymph Denies easy bruising Physical exam (Primary Care) Vital Signs: Last Vital Signs Pulse 74 09/22/24 15:11 BP 120/80 09/22/24 15:11 Pulse Ox 97 09/22/24 15:11 Oxygen Delivery Method Room Air 09/22/24 15:11 BMI result Body Mass Index 25.5 Tobacco/Smoking Status: Tobacco use Status Tobacco use date assessed 09/22/24 09/22/24 15:16 Patient Tobacco Use Status Never used Tobacco 09/22/24 15:16 e-Cigarette/Vaping Use Never Used 09/22/24 15:16 PHQ-9: PHQ-9 Score PHQ-9: Total score 0 09/22/24 15:16 Depression Screening Interpretation: Negative Thrive Assessment: Date of Thrive Assessment Date Thrive assessed 09/22/24 09/22/24 15:16 Currently or been in a relationship where the following occur: No concerns reported Const General: no acute distress and alert HENMT Ears: TM's normal bilaterally and EAC's normal Throat: Yes posterior oropharynx normal and Yes tonsils normal (no TP congestion) Neck Neck: Yes no lymphadenopathy and Yes supple Thyroid: Thyroid normal Resp Auscultation: no rales, no wheezes and diminished lung sounds (slightly) bilateral Cardio Rate: regular rate Rhythm: regular rhythm Heart sounds: no murmurs GI Palpation (GI): Soft to palpation and nontender Auscultation: normal bowel sounds General: Yes no CVA tenderness Back/Spine/Pelvis Back: no CVA tenderness Thoracic/Lumbar Spine: No lumbar spinal tenderness Skin Rashes: no rashes Extrem General: Yes no clubbing, cyanosis or edema Results Reviewed Results Reviewed: Laboratory Tests 06/07/24 09/21/24 08:41 08:00 WBC 7.7 Hgb 14.4 Hct 44.9 Plt Count 196 Sodium 140 Potassium 5.1 Creatinine 1.24 Estimated GFR 43 Fasting Glucose 212 H Hgb A1c (Clinic) 8.2 H Hemoglobin A1c % 7.4 H Calcium 10.1 AST 51 H ALT 29 Triglycerides 174 H Cholesterol 153 LDL Cholesterol, Calc 81 HDL Cholesterol 38 L Vitamin B12 674 25-OH Vitamin D Total 40.3 TSH 2.97 PTH Intact 124.2 H Ur Specific [place] >= 1.030 H Urine Protein Negative Urine Glucose (UA) >=1000 H Urine Blood Negative Urine Nitrite Negative Ur Leukocyte Esterase Negative Coding Level of Care Code Est Pt Level 4 (16724) Complex EM visit Add On G2211 Diagnoses Type 2 diabetes mellitus with stage 3b chronic kidney disease, with long-term current use of insulin E11.22; N18.32; Z79.4 Diabetes mellitus type: type 2 Chronic kidney disease stage 3 subtype: stage 3b (GFR 30-44) Stage 3b chronic kidney disease N18.32 Chronic kidney disease stage 3 subtype: stage 3b (GFR 30-44) Mixed hyperlipidemia E78.2 Essential hypertension I10 Coronary artery disease involving [place] coronary artery of [place] heart without angina pectoris I25.10 Coronary Disease-Associated Artery/Lesion type: [place] artery [place] vs. transplanted heart: [place] heart Associated angina: without angina Acquired hypothyroidism E03.9 Restrictive lung disease J98.4 Acute nonintractable headache, unspecified headache type R51.9 Headache chronicity pattern: acute headache Headache type: unspecified Intractability: not intractable Allergic rhinitis, unspecified seasonality, unspecified trigger J30.9 Allergic rhinitis trigger: unspecified Allergic rhinitis seasonality: unspecified Pityriasis rosea L42 Vitamin D deficiency E55.9 Insomnia, unspecified type G47.00 Insomnia type: unspecified Overweight (BMI 25.0-29.9) E66.3 Additional Codes VITALY-7 Assessment Billing - VITALY-7 Assessment Tool: VITALY-7 Assessment 55013 ([id number]) Assessment & Plan Assessment & Plan (1) Diabetes mellitus with stage 3 chronic kidney disease, with long-term current use of insulin: Code(s): E11.22 - Type 2 diabetes mellitus with diabetic chronic kidney disease; N18.30 - Chronic kidney disease, stage 3 unspecified; Z79.4 - 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 [employer] (current) use of insulin Category: Medical Qualifiers: Diabetes mellitus type: type 2 Chronic kidney disease stage 3 subtype: stage 3b (GFR 30-44) Qualified Code(s): E11.22 - Type 2 diabetes mellitus with diabetic chronic kidney disease; N18.32 - Chronic kidney disease, stage 3b; Z79.4 - 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 [employer] (current) use of insulin Plan: Her HgbA1c was at 7.4% on her labs done yesterday (her in-office HgbA1c was at 8.4% a few months ago) - goal is at least <7.0% Reinforced diabetic diet Continue Jardiance 25 mg Q AM, Lantus 10 units Q PM and Humalog via VGO at 40, 5 clicks with meals; 1 click for correction BS > 200 mg/DL, 1 click with snacks. To use bolus 10 min before meals Her dose of Lantus was increased by endocrinology to 14 units about 3 weeks ago but patient felt that her blood sugar was dropping too low and she lowered her dose back down to 10 units on her own Follow up with endocrinology as scheduled (2) Chronic kidney disease, stage III (moderate): Code(s): N18.30 - Chronic kidney disease, stage 3 unspecified Category: Medical Qualifiers: Chronic kidney disease stage 3 subtype: stage 3b (GFR 30-44) Qualified Code(s): N18.32 - Chronic kidney disease, stage 3b Plan: She is advised that her renal function appears to have stabilized recently Continue Jardiance 25 mg Q AM Follow up with nephrology as scheduled (3) Mixed hyperlipidemia: Code(s): E78.2 - Mixed hyperlipidemia Category: Medical Plan: Results of her labs done yesterday reviewed and discussed with patient Reinforced low cholesterol diet Continue Rosuvastatin 40 mg QD Will reorder her follow up labs when she comes in for her annual physical exam next month (4) Essential hypertension: Code(s): I10 - Essential (primary) hypertension Category: Medical Plan: Reinforced low sodium diet - goal is systolic BP of at least 130 mm or less Continue Benazepril 2.5 mg QD (5) Coronary artery disease: Code(s): I25.10 - Atherosclerotic heart disease of [place] coronary artery without angina pectoris Category: Medical Qualifiers: Coronary Disease-Associated Artery/Lesion type: [place] artery [place] vs. transplanted heart: [place] heart Associated angina: without angina Qualified Code(s): I25.10 - Atherosclerotic heart disease of [place] coronary artery without angina pectoris Plan: Patient is advised to continue with aggressive risk factor modification, including her blood pressure, blood sugar and cholesterol levels Follow up with cardiology as scheduled (6) Acquired hypothyroidism: Code(s): E03.9 - Hypothyroidism, unspecified Category: Medical Plan: Her TFTs were normal on her recent labs Continue Levothyroxine 50 mcg QD (7) Restrictive lung disease: Comment: PER SPIROMETRY SHE HAS EVIDENCE OF MODERATE DEGREE OF RESTRICTIVE LUNG DISORDER. ETIOLOGY OF THIS ISSUE IS NOT CLEAR, SHE DOES HAVE A RELATIVELY FLAT CHEST. X-RAY CHEST IS ORDERED TO SEE IF THERE IS ANY PARENCHYMAL LUNG DISEASE . AT ANY RATE IT IS NOT VERY SYMPTOMATIC FOR HER AT THIS TIME. Code(s): J98.4 - Other disorders of lung Category: Medical Plan: PFTs done in January 2019 revealed (+) moderately severe restrictive pulmonary disease with no obstructive component Patient uses her Albuterol inhaler (Ventolin HFA) 4 times a day as needed mostly for symptomatic relief Follow up with pulmonary as scheduled - she now sees Dr. Gamboa (8) Headache: Code(s): R51.9 - Headache, unspecified Category: Medical Qualifiers: Headache chronicity pattern: acute headache Headache type: unspecified Intractability: not intractable Qualified Code(s): R51.9 - Headache, unspecified Plan: These are most likely tension headaches Continue Fioricet 1 tablet 3 to 4 times a day as needed Follow up with neurology as scheduled (9) Allergic rhinitis: Code(s): J30.9 - Allergic rhinitis, unspecified Category: Medical Qualifiers: Allergic rhinitis trigger: unspecified Allergic rhinitis seasonality: unspecified Qualified Code(s): J30.9 - Allergic rhinitis, unspecified Plan: Continue Hydroxyzine 10 mg every 8 hours as needed Patient also takes OTC Benadryl 25 mg Q 6 hrs PRN additionally for symptomatic relief (10) Pityriasis rosea: Code(s): L42 - Pityriasis rosea Category: Medical Plan: Continue Betamethasone dipropionate 0.05% BID PRN; Mometasone 0.1% cream QD was not helping Follow up with dermatology as scheduled (11) Vitamin D deficiency: Code(s): E55.9 - Vitamin D deficiency, unspecified Category: Medical Plan: Continue Vitamin D3 2000 units (capsule) QD (12) Insomnia: Code(s): G47.00 - Insomnia, unspecified Category: Medical Qualifiers: Insomnia type: unspecified Qualified Code(s): G47.00 - Insomnia, unspecified Plan: Sleep hygiene reinforced Continue Zolpidem 5 mg Q HS PRN (13) Overweight (BMI 25.0-29.9): Code(s): E66.3 - Overweight Category: Medical Plan: Reinforced diet/exercise as tolerated/lose weight Plan To return as scheduled next month for her annual physical examination Medications: New mupirocin 2% 1 appl topical TID 7 days 50 grams 0RF
== END 2024-09-22 15:53 | disposition home or self-care (01) ==
PROVIDERS: PCP Internal Medicine; Visit Provider Internal Medicine
DX: E11.22 Type 2 diabetes mellitus with diabetic chronic kidney disease (principal); N18.32 Chronic kidney disease, stage 3b; Z79.4 Long term (current) use of insulin; E78.2 Mixed hyperlipidemia; I10 Essential (primary) hypertension; I25.10 Atherosclerotic heart disease of native coronary artery without angina pectoris; E03.9 Hypothyroidism, unspecified; J98.4 Other disorders of lung; R51.9 Headache, unspecified; J30.9 Allergic rhinitis, unspecified; L42 Pityriasis rosea; E55.9 Vitamin D deficiency, unspecified; G47.00 Insomnia, unspecified; E66.3 Overweight

== ENCOUNTER → 2024-09-22 15:04 | Outpatient (BNVA) | payer OTHER, SELFPAY | PROVIDERS: PCP Internal Medicine; Visit Provider Internal Medicine | DX: E11.22 Type 2 diabetes mellitus with diabetic chronic kidney disease (principal); I12.9 Hypertensive chronic kidney disease with stage 1 through stage 4 chronic kidney disease, or unspecified chronic kidney disease; N18.32 Chronic kidney disease, stage 3b; E78.2 Mixed hyperlipidemia; I25.10 Atherosclerotic heart disease of native coronary artery without angina pectoris; E03.9 Hypothyroidism, unspecified; J98.4 Other disorders of lung; R51.9 Headache, unspecified; J30.9 Allergic rhinitis, unspecified; L42 Pityriasis rosea; E55.9 Vitamin D deficiency, unspecified; G47.00 Insomnia, unspecified; E66.3 Overweight; Z68.25 Body mass index [BMI] 25.0-25.9, adult; Z79.4 Long term (current) use of insulin; Z79.899 Other long term (current) drug therapy | CPT/HCPCS: 96127; 99212 ==

== ENCOUNTER 2024-09-24 17:56 | Emergency (ER) | payer OTHER, SELFPAY ==
--- NOTE | 2024-09-24 | ECG_ITS ---
Test Reason : CHEST PAIN Blood Pressure : / mmHG Vent. Rate : 071 BPM Atrial Rate : 071 BPM P-R Int : 158 ms QRS Dur : 084 ms QT Int : 392 ms P-R-T Axes : 073 -36 068 degrees QTc Int : 425 ms Normal sinus rhythm Left axis deviation Septal infarct (cited on or before 08-MAY-2024) Abnormal ECG When compared with ECG of 08-MAY-2024 07:22, No significant change was found Referred By: Generic ED Physician Electronically Signed By:Reynold Domingo
[2024-09-24 18:00] VITALS: BP 155/70; PULSE 77; O2SAT 99
[2024-09-24 18:06] VITALS: BP 163/72; PULSE 72; RESP 18; TEMP 36.9; O2SAT 98; BMI 26.0
[2024-09-24 18:15] LABS: Glucose, Whole Blood 205 mg/dL (60-115)
--- NOTE | 2024-09-24 18:17 | MHC.EDTECH ---
Patient was biba ,vitals taken ,ekg done and was read by Provider ,Patient was change into hospital attire and hooked up to traffic monitor specialist .Blood sugar check .
--- NOTE | 2024-09-24 18:17 | ED.GENADULT ---
HPI - General Adult General Chief complaint: Dizziness Stated complaint: DIZZINESS FEELING UNWELL Time Seen by Provider: 09/24/24 18:17 History of Present Illness ED Provider: Dereck MCCOY narrative: The patient is a 74-year-old female with a history of type 2 diabetes and asthma. The patient went to a home today to view the body of her sister who recently. While viewing the body the patient is started feel abruptly dizzy and developed some chest discomfort. She felt generally unwell. An ambulance was called and she was brought to the hospital. The patient says she has not had this kind of episode before. No report of speech difficulty or facial asymmetry. No weakness or numbness in the extremities. No fever, sweats, chills. Related Data Previous Rx's ?Medication ?Instructions ?Recorded omega-3 fatty acids 1,000 mg 1,000 mg PO BID 30 days #60 caps 04/02/21 capsule pen needle, diabetic 32 gauge x #100 ea 01/09/22 (BD Ultra-Fine [place] Pen Needle) mometasone 0.1 % topical cream 1 appl topical DAILY PRN skin 10/02/22 irritation 30 days #45 grams betamethasone dipropionate 0.05 % 1 appl topical BID PRN skin rash 12/20/22 topical cream #45 grams cholecalciferol (vitamin D3) 50 50 mcg PO DAILY 90 days #90 caps 03/03/23 mcg (2,000 unit) capsule hydroxyzine HCl 10 mg tablet 10 mg PO Q8H PRN itching/rash #90 03/03/23 tabs benazepril 5 mg tablet 2.5 mg (1/2 x 5 mg) PO DAILY 90 01/09/24 days #45 caps rosuvastatin 40 mg tablet 40 mg PO DAILY 90 days #90 tabs 03/15/24 blood sugar diagnostic (FreeStyle #120 ea 03/25/24 Lite Strips) blood-glucose meter (FreeStyle #1 ea 03/25/24 Lite Meter kit) lancets 28 gauge (FreeStyle #120 ea 03/25/24 Lancets) levothyroxine 50 mcg tablet 50 mcg PO DAILY 90 days #90 tabs 03/26/24 albuterol sulfate 90 mcg/actuation 2 puff inhalation QID PRN 05/05/24 aerosol inhaler (ProAir HFA) shortness of breath or wheezing 30 days #8.5 grams blood-glucose meter,continuous #1 ea 05/24/24 (FreeStyle Consuelo 3 [place]) NEBULIZER and all related #1 ea 06/07/24 accessories, including tubing and mask pen needle, diabetic 31 gauge x #100 ea 06/07/24 1/ (1st Tier Unifine Pentips) albuterol sulfate 2.5 mg/3 mL 2.5 mg (3 mL) inhalation QID PRN 06/11/24 (0.083 %) solution for nebulization shortness of breath or wheezing 30 days #180 mL sub-q insulin device, 40 unit #30 ea 06/26/24 (V-GO 40 device) blood-glucose sensor (FreeStyle #2 ea 08/26/24 Consuelo 3 Plus Sensor device) DIABETIC SHOES #2 ea 09/01/24 acetone (urine) test (Ketone Urine #25 ea 09/01/24 Test strips) glucagon 3 mg/actuation nasal 3 mg intranasal ONCE PRN 09/01/24 spray (Baqsimi) Unresponsive hypoglycemia may repeat in 15 minutes 30 days #2 ea mupirocin 2 % topical ointment 1 appl topical TID 7 days #50 grams 09/22/24 Humalog U-100 Insulin 100 unit/mL See Rx Instructions subcut DAILY 09/24/24 subcutaneous solution (insulin 30 days #30 mL lispro) Jardiance 25 mg tablet 25 mg PO QAM 90 days #90 tabs 09/24/24 (empagliflozin) V-GO 40 device #30 ea 09/24/24 blood-glucose sensor (FreeStyle #2 ea 09/24/24 Consuelo 3 Sensor device) insulin glargine 100 unit/mL (3 14 unit (0.14 mL) subcut QPM 90 09/24/24 mL) subcutaneous pen (Lant days #15 mL Solostar U-100 Insulin) Allergies Allergy/AdvReac Type Severity Reaction Status Date / Time latex [LATEX] Allergy Intermediate RASH Verified 09/24/24 18:07 atorvastatin [From Lipitor] Allergy Mild MUSCLE Verified 09/24/24 18:07 ACHES dulaglutide [Trulicity] Allergy Unknown rash and Verified 09/24/24 18:07 itching pioglitazone Allergy Unknown Urinary Verified 09/24/24 18:07 frequency pork derived (porcine) Allergy Unknown TEMPLE Verified 09/24/24 18:07 [PORK DERIVED (PORCINE)] BELIEF canagliflozin [Invokana] AdvReac Unknown recurrent Verified 09/24/24 18:07 UTI, dizziness Tanzeum Allergy Unknown rash Uncoded 09/24/24 18:07 Review of Systems Review of Systems: Yes all other systems are reviewed and are negative [facility] Past Medical History Medical History (Updated 09/25/24 @ 00:01 by Matt Ny) Mixed hyperlipidemia Diabetes mellitus with stage 3 chronic kidney disease, with long-term current use of insulin Chronic kidney disease, stage III (moderate) Acquired hypothyroidism Restrictive lung disease Restrictive lung disease Bronchial asthma Allergic rhinitis Insomnia Diabetic polyneuropathy associated with type 2 diabetes mellitus Diabetic nephropathy associated with type 2 diabetes mellitus Non-proliferative diabetic retinopathy, both eyes 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 Diabetes type 2, uncontrolled Overweight (BMI 25.0-29.9) Chronic interstitial cystitis Varicose veins of both lower extremities Osteoarthritis of left hip Lumbosacral spondylosis Vitamin D deficiency Pityriasis rosea GERD (gastroesophageal reflux disease) Allergic rhinitis Restrictive lung disease Coronary artery disease Essential hypertension Hyperlipidemia Chronic kidney disease, stage 2 (mild) Diabetes mellitus with stage 2 chronic kidney disease, with long-term current use of insulin Surgical History Hx of colonoscopy (~08/11/19) FH: JUANCHO-BSO (total abdominal hysterectomy and bilateral salpingo-oophorectomy) Family History Family History Father Diabetes Mother CVD (cardiovascular disease) Social History Social History Household Members: None Housing: House Do you presently have visiting nurse or other home services: No Unable to assess alcohol history related to: Unknown Alcohol intake: never Patient Tobacco Use Status: Never used Tobacco Smoked in Last 30 Days: No e-Cigarette/Vaping Use: Never Used Second Hand Smoke Exposure: Yes Use of substances other than those prescribed or required for medical reasons: No Advance Directives: Yes Advance Directives on File: Yes Advance Directives Date on File: 07/02/21 service: No Current occupational status: employed 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 needs: No Hearing needs: No Vision needs: No Physical Exam ED Vital Signs: Vital Signs - 24 hr 09/24/24 18:06 09/24/24 19:30 09/24/24 20:20 Temperature 98.5 F 98.2 F Pulse Rate 72 75 73 Respiratory Rate 18 14 19 Blood Pressure 163/72 H 166/69 H 162/77 H Pulse Oximetry 98 98 100 Oxygen Delivery Method Room Air Room Air Room Air 09/24/24 21:41 09/24/24 21:42 Temperature 98.0 F 98.0 F Pulse Rate 72 72 Respiratory Rate 18 18 Blood Pressure 147/67 H 147/67 H Pulse Oximetry 97 97 Oxygen Delivery Method Room Air Room Air BMI result Body Mass Index 26.0 Const Other: The patient is awake and alert. She was in a darkened room. She was wearing sunglasses. She had a subdued demeanor but did not seem in distress or ill otherwise. HENMT Other: Face is symmetrical. Mucous membranes are moist. Eyes Other: Pupils are round equal, no nystagmus, extraocular movements are intact, conjunctivae are clear Neck Other: Moving her neck easily, no JVD Resp Effort & Inspection: normal respiratory effort Auscultation: clear to auscultation bilaterally Cardio Rate: regular rate Rhythm: regular rhythm Heart sounds: S1 normal heart sound present and S2 normal heart sound present GI Other: Abdomen is soft and nontender Skin Other: Skin is dry and unremarkable Neuro Other: The patient is awake and alert. She has a subdued demeanor and answers questions slowly. Otherwise she seems to have a normal mental status. She follows commands appropriately. Pupils are round equal, eye movements are intact, face is symmetrical, speech is clear and normal, she has intact strength in all extremities, no pronator drift. Finger-nose is normal in both upper extremities. Extrem Other: No peripheral edema Medications Administered Discontinued Medications Generic Name Dose Route Start Last Admin Trade Name Freq PRN Reason Stop Dose Admin Sodium Chloride 500 mls @ 500 mls/hr 09/24/24 18:30 09/24/24 20:34 Ns IV 09/24/24 19:29 Infused .Q1H JAY JAY Infusion Medical Decision Making Medical Decision Making MDM Narrative: The patient presents with a complaint of dizziness and chest pressure after attending a . I felt that she did not exhibit any neurological deficit that I could find. Her EKG shows no acute ischemic changes compared to previous and her troponins are flat. She was observed in the emergency room and given some IV fluids. Her symptoms seemed to resolve. I think she may be discharged to follow up with the regular doctor. She should return if worse. Lab Data 09/24/24 18:37 09/24/24 18:37 Labs: Lab Results 09/24/24 09/24/24 09/24/24 Range/Units 18:12 18:37 20:28 WBC 7.8 (4.8-10.8) X10*3/uL RBC 5.34 (4.20-5.50) X10*6/uL Hgb 14.5 (12.0-16.0) g/dl Hct 44.1 (37.0-47.0) % MCV 82.6 (80.0-98.0) fL MCH 27.2 (27.0-33.0) pg MCHC 32.9 (31.0-35.0) g/dl RDW 14.2 (11.0-16.0) % Plt Count 142 L D (160-400) X10*3/uL MPV 11.7 (9.4-12.3) fL Immature Gran % (Auto) 0.3 (0.0-0.4) % Neut % (Auto) 49.3 (45-73) % Lymph % (Auto) 41.6 H (20-40) % [place] % (Auto) 6.5 (2-11) % Eos % (Auto) 1.5 (0-4) % Baso % (Auto) 0.8 (0-2) % Lymph # (Auto) 3.2 (1.2-4.9) X10*3/uL [place] # (Auto) 0.5 (0.1-1.2) X10*3/uL Eos # (Auto) 0.1 (0.0-0.4) X10*3/uL Baso # (Auto) 0.1 (0.0-0.2) X10*3/uL Abs Immat Gran (auto) 0.02 (0.00-0.03) X10*3/uL Absolute Neuts (auto) 3.8 (2.0-8.3) x10*3/uL Absolute Nucleated RBC 0.000 (0.0-0.012) X10*3/uL Nucleated RBC % (auto) 0.0 (0.0-0.2) /100WBC Sodium 142 (135-145) mmol/L Potassium 4.3 (3.3-5.1) mmol/L Chloride 109 H (96-108) mmol/L Carbon Dioxide 24 (22-29) mmol/L Anion Gap 13 (12-20) BUN 29 H (9-16) mg/dL Creatinine 1.51 H (0.5-1.4) mg/dL Estim Creat Clear Calc 33.2 Estimated GFR 34 POC Glucose 205 H (60-115) mg/dL Random Glucose 200 H (60-115) mg/dL Calcium 10.3 H (8.4-10.2) mg/dL Magnesium 2.3 (1.6-2.6) mg/dL Total Bilirubin 0.2 (0.0-1.0) mg/dL Direct Bilirubin < 0.2 (0.0-0.5) mg/dL AST 39 H (5-31) U/L ALT 28 (0-31) U/L Alkaline Phosphatase 109 (39-117) U/L Troponin I High Sens < 2.7 < 2.7 (<3.5-17.0) ng/L B-Natriuretic Peptide 46 (<100) pg/mL Total Protein 7.4 (6.5-8.0) g/dL Albumin 4.3 (3.5-5.0) g/dL Ethyl Alcohol < 10 mg/dL Discharge Plan Discharge Clinical Impression: Dizziness, Chest discomfort Patient Disposition: Home, Self-Care Additional Instructions: Your testing in the emergency room today seems reassuring. Please resume your normal medications. Please plan on following up with your regular doctor soon. Call the office on Friday to set up a follow up appointment to discuss this episode further. If you feel significantly worse at any time please return to the emergency room for further evaluation. Prescriptions: No Action (DME) pen needle, diabetic [BD Ultra-Fine [place] Pen Needle] 32 gauge x 5/32 needle See Rx Instructions .ROUTE .MEDSUPPLY Qty: 100 3RF Rx Instructions: As directed once daily rosuvastatin 40 mg tablet 40 mg PO DAILY 90 Days Qty: 90 3RF (DME) blood-glucose meter [FreeStyle Lite Meter] Kit See Rx Instructions .ROUTE .MEDSUPPLY Qty: 1 0RF Rx Instructions: As directed (DME) FreeStyle Lite Strips Strip See Rx Instructions .ROUTE .MEDSUPPLY Qty: 120 12RF Rx Instructions: As directed 4 times a day (DME) lancets [FreeStyle Lancets] 28 gauge misc See Rx Instructions .ROUTE .MEDSUPPLY Qty: 120 12RF Rx Instructions: As directed 4 times a day (DME) FreeStyle Consuelo 3 [place] Misc See Rx Instructions .ROUTE .COMPLEX Qty: 1 0RF Dose Instruction: USE DIRECTED Rx Instructions: USE DIRECTED (DME) NEBULIZER and all related accessories, including tubing and mask See Rx Instructions .Route .MEDSUPPLY Qty: 1 0RF Rx Instructions: As directed albuterol sulfate 2.5 mg /3 mL (0.083 %) solution for nebulization 2.5 mg inhalation QID PRN (Reason: shortness of breath or wheezing) 30 Days Qty: 180 3RF (DME) V-GO 40 Device See Rx Instructions .ROUTE .COMPLEX Qty: 30 3RF Dose Instruction: USE DIRECTED Rx Instructions: USE DIRECTED (DME) FreeStyle Consuelo 3 Plus Sensor Device See Rx Instructions .Route Qty: 2 11RF Rx Instructions: As directed every 15 days (DME) DIABETIC SHOES See Rx Instructions .Route .MEDSUPPLY Qty: 2 0RF Rx Instructions: As directed (DME) FreeStyle Consuelo 3 Sensor Device See Rx Instructions .Route Qty: 2 4RF Rx Instructions: As directed change every 14 days Jardiance 25 mg tablet 25 mg PO QAM 90 Days Qty: 90 1RF insulin glargine [Lantus Solostar U-100 Insulin] 100 unit/mL (3 mL) insulin pen 14 unit subcut QPM 90 Days Qty: 15 3RF (DME) V-GO 40 device See Rx Instructions .Route .MEDSUPPLY Qty: 30 3RF Rx Instructions: As directed insulin lispro [Humalog U-100 Insulin] 100 unit/mL solution See Rx Instructions subcut DAILY 30 Days Qty: 30 3RF Rx Instructions: Up to 78 units via VGO subcut daily; mometasone 0.1 % cream 1 appl topical DAILY PRN (Reason: skin irritation) 30 Days Qty: 45 2RF cholecalciferol (vitamin D3) 50 mcg (2,000 unit) capsule 50 mcg PO DAILY 90 Days Qty: 90 3RF hydroxyzine HCl 10 mg tablet 10 mg PO Q8H PRN (Reason: itching/rash) Qty: 90 1RF betamethasone dipropionate 0.05 % cream 1 appl topical BID PRN (Reason: skin rash) Qty: 45 0RF levothyroxine 50 mcg tablet 50 mcg PO DAILY 90 Days Qty: 90 1RF Rx Instructions: Take on an empty stomach, first thing in the morning, with water. Do not eat or drink anything else for 30 minutes afterwards omega-3 fatty acids 1,000 mg capsule 1,000 mg PO BID 30 Days Qty: 60 6RF benazepril 5 mg tablet 2.5 mg PO DAILY 90 Days Qty: 45 3RF (DME) Ketone Urine Test Strip See Rx Instructions .ROUTE .MEDSUPPLY Qty: 25 1RF Rx Instructions: P.r.n. glucose over 250, nausea, and vomiting, illness up to t.i.d. Baqsimi 3 mg/actuation spray,non-aerosol 3 mg intranasal ONCE PRN (Reason: Unresponsive hypoglycemia may repeat in 15 minutes) 30 Days Qty: 2 1RF albuterol sulfate [ProAir HFA] 90 mcg/actuation HFA aerosol inhaler 2 puff inhalation QID PRN (Reason: shortness of breath or wheezing) 30 Days Qty: 8.5 0RF (DME) pen needle, diabetic [1st Tier Unifine Pentips] 31 gauge x 1/4 needle See Rx Instructions .Route Qty: 100 3RF Rx Instructions: As directed mupirocin 2 % ointment 1 appl topical TID 7 Days Qty: 50 0RF Stand Alone Forms: Work/School Release Interventions: ED Discharge Assessment Last Done: 09/24/24 21:42 Discharge Date/Time: 09/24/24 21:43 Print Language: [place]
[2024-09-24 18:41] LABS: MANUAL DIFF FLAG NO
[2024-09-24 18:48] LABS: Eosinophils Absolute Auto 0.1 X10*3/uL (0.0-0.4); Mean Corpuscular HGB Conc 32.9 g/dl (31.0-35.0); PLT CLUMP 1; SCAN SMEAR FLAG 1
[2024-09-24] MEDS: 0.9 % Sodium Chloride 500 ML IV (18:49)
[2024-09-24 18:50] LABS: Basophils Absolute Auto 0.1 X10*3/uL (0.0-0.2); Basophils Percent Auto 0.8 % (0-2); Eosinophils Percent Auto 1.5 % (0-4); Hematocrit 44.1 % (37.0-47.0); Hemoglobin 14.5 g/dl (12.0-16.0); Imm Gran Abs Auto 0.02 X10*3/uL (0.00-0.03); Imm Gran Pct Auto 0.3 % (0.0-0.4); Lymphocytes Absolute Auto 3.2 X10*3/uL (1.2-4.9); Lymphocytes Percent Auto 41.6 % (20-40); Mean Corpuscular Hemoglobin 27.2 pg (27.0-33.0); Mean Corpuscular Volume 82.6 fL (80.0-98.0); Mean Platelet Volume 11.7 fL (9.4-12.3); Monocytes Absolute Auto 0.5 X10*3/uL (0.1-1.2); Monocytes Percent Auto 6.5 % (2-11); Neutrophils Absolute Auto 3.8 x10*3/uL (2.0-8.3); Neutrophils Percent Auto 49.3 % (45-73); Red Blood Count 5.34 X10*6/uL (4.20-5.50); Red Cell Distribution Width 14.2 % (11.0-16.0)
[2024-09-24 19:03] LABS: Alanine Aminotransferase 28 U/L (0-31); Albumin Level 4.3 g/dL (3.5-5.0); Alkaline Phosphatase 109 U/L (39-117); Anion Gap 13 (12-20); Aspartate Amino Transferase 39 U/L (5-31); Bilirubin Direct < 0.2 mg/dL (0.0-0.5); Bilirubin Total 0.2 mg/dL (0.0-1.0); Blood Urea Nitrogen 29 mg/dL (9-16); Calcium 10.3 mg/dL (8.4-10.2); Carbon Dioxide 24 mmol/L (22-29); Chloride 109 mmol/L (96-108); Creatinine Clr Calc Pharmacy 33.2; Estimated Glomerular Filt Rate 34; Glucose Random 200 mg/dL (60-115); Magnesium 2.3 mg/dL (1.6-2.6); Potassium 4.3 mmol/L (3.3-5.1); Sodium 142 mmol/L (135-145); Total Protein 7.4 g/dL (6.5-8.0)
[2024-09-24 19:04] LABS: Ethanol < 10 mg/dL
[2024-09-24 19:08] LABS: B Type Natriuretic Peptide 46 pg/mL (<100)
[2024-09-24 19:11] LABS: Troponin-I High Sensitivity < 2.7 ng/L (<3.5-17.0)
[2024-09-24 19:30] VITALS: BP 166/69; PULSE 75; RESP 14; O2SAT 98
[2024-09-24 19:30] LABS: Platelet Count 142 X10*3/uL (160-400); White Blood Count 7.8 X10*3/uL (4.8-10.8)
[2024-09-24 20:20] VITALS: BP 162/77; PULSE 73; RESP 19; TEMP 36.8; O2SAT 100
[2024-09-24 20:57] LABS: Troponin-I High Sensitivity < 2.7 ng/L (<3.5-17.0)
[2024-09-24 21:41] VITALS: BP 147/67; PULSE 72; RESP 18; TEMP 36.7; O2SAT 97
[2024-09-24 21:42] VITALS: BP 147/67; PULSE 72; RESP 18; TEMP 36.7; O2SAT 97
== END 2024-09-24 21:43 | disposition home or self-care (01) ==
PROVIDERS: Emergency Provider Emergency Medicine; PCP Internal Medicine
DX: R42 Dizziness and giddiness (principal); E11.9 Type 2 diabetes mellitus without complications; R07.89 Other chest pain; R06.02 Shortness of breath; R11.0 Nausea; Z79.4 Long term (current) use of insulin; Z51.81 Encounter for therapeutic drug level monitoring; Z79.899 Other long term (current) drug therapy
CPT/HCPCS: 36415; 80048; 80076; 80307; 82947; 83735; 83880; 84484; 85025; 93005; 96360; 96361; 99284; 99285

== ENCOUNTER → 2024-09-24 18:02 | Outpatient (BNV) | payer OTHER, SELFPAY | PROVIDERS: Emergency Provider Emergency Medicine; PCP Internal Medicine; Visit Provider Internal Medicine Cardiovascular Disease | DX: R94.31 Abnormal electrocardiogram [ECG] [EKG] (principal) | CPT/HCPCS: 93010 ==

== ENCOUNTER 2024-09-27 14:20 | Outpatient (AMB) | payer OTHER, SELFPAY ==
--- NOTE | 2024-09-27 14:22 | MHC.PC.OV ---
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: Not Required per policy Accompanied by: Self / Same As Patient Allergies latex [LATEX] Allergy (Intermediate, Verified 12/16/24 16:17) RASH atorvastatin [From Lipitor] Allergy (Mild, Verified 12/16/24 16:17) MUSCLE ACHES dulaglutide [Trulicity] Allergy (Unknown, Verified 12/16/24 16:17) rash and itching pioglitazone Allergy (Unknown, Verified 12/16/24 16:17) Urinary frequency pork derived (porcine) [PORK DERIVED (PORCINE)] Allergy (Unknown, Verified 12/16/24 16:17) YAZIDISM BELIEF canagliflozin [Invokana] Adverse Reaction (Unknown, Verified 12/16/24 16:17) recurrent UTI, dizziness Tanzeum Allergy (Unknown, Uncoded 12/16/24 16:17) rash Medication List - Last Reconciled 09/27/24 by Darryl Robles MD acetone (urine) test (Ketone Urine Test strips) P.r.n. glucose over 250, nausea, and vomiting, illness up to t.i.d. albuterol sulfate 2.5 mg (3 mL) inhalation QID PRN 30 days albuterol sulfate 90 mcg/actuation (ProAir HFA) 2 puffs inhalation QID PRN 30 days benazepril 2.5 mg (1/2 x 5 mg) PO DAILY 90 days betamethasone dipropionate 0.05% 1 appl topical BID PRN blood sugar diagnostic (FreeStyle Lite Strips) As directed 4 times a day blood-glucose meter (FreeStyle Lite Meter kit) As directed blood-glucose meter,continuous (FreeStyle Consuelo 3 [place]) USE DIRECTED blood-glucose sensor (FreeStyle Consuelo 3 Plus Sensor device) As directed every 15 days blood-glucose sensor (FreeStyle Consuelo 3 Sensor device) As directed change every 14 days cholecalciferol (vitamin D3) 50 mcg PO DAILY 90 days [DIABETIC SHOES As directed] glucagon 3 mg/actuation (Baqsimi) 3 mg intranasal ONCE PRN 30 days Humalog U-100 Insulin (insulin lispro) Up to 78 units via VGO subcut daily; 30 days NS hydroxyzine HCl 10 mg PO Q8H PRN insulin glargine (Lantus Solostar U-100 Insulin) 14 units (0.14 mL) subcut QPM 90 days Jardiance (empagliflozin) 25 mg PO QAM 90 days NS lancets (FreeStyle Lancets) As directed 4 times a day levothyroxine 50 mcg PO DAILY 90 days mometasone 0.1% 1 appl topical DAILY PRN 30 days mupirocin 2% 1 appl topical TID 7 days [NEBULIZER and all related accessories, including tubing and mask As directed] omega-3 fatty acids 1,000 mg PO BID 30 days pen needle, diabetic (BD Ultra-Fine [place] Pen Needle) As directed once daily pen needle, diabetic (1st Tier Unifine Pentips) As directed rosuvastatin 40 mg PO DAILY 90 days sub-q insulin device, 40 unit (V-GO 40 device) USE DIRECTED [V-GO 40 device As directed] Tobacco use date assessed: 09/27/24 Fall risk assessment: No Falls in past year Last assessed Fall Risk: 09/27/24 Dental Screening Dental Screen Date: 09/22/24 [facility]24 [facility] Details Patient comes in today for follow up of her ER visit a few days ago Relates that she went to her sister's wake and was viewing the body of her sister, who recently when she suddenly felt very dizzy with some chest discomfort and an overall feeling of unwellness She was brought to the ER immediately by family members for further evaluation Work ups done in the ER all came back negative and patient gradually felt better while being worked up in the ER She was eventually discharged back home with instructions to follow up with her PCP in a few days States that she still feels very sad about her sister's recent passing but overall she feels okay and has not had any further recurrence of her symptoms Thinks that she just got overwhelmed at the time when she was viewing her sister She denies any headaches and has no further recurrence of her dizziness Denies any chest pains, no SOB No nausea/vomiting, no abdominal pain No change in bowel habits noted PFSH Medical History Mixed hyperlipidemia Diabetes mellitus with stage 3 chronic kidney disease, with long-term current use of insulin Chronic kidney disease, stage III (moderate) Acquired hypothyroidism Restrictive lung disease Restrictive lung disease Bronchial asthma Allergic rhinitis Insomnia Diabetic polyneuropathy associated with type 2 diabetes mellitus Diabetic nephropathy associated with type 2 diabetes mellitus Non-proliferative diabetic retinopathy, both eyes skilled nursing (current) use of insulin Diabetes type 2, uncontrolled Overweight (BMI 25.0-29.9) Chronic interstitial cystitis Varicose veins of both lower extremities Osteoarthritis of left hip Lumbosacral spondylosis Vitamin D deficiency Pityriasis rosea GERD (gastroesophageal reflux disease) Allergic rhinitis Restrictive lung disease Coronary artery disease Essential hypertension Hyperlipidemia Chronic kidney disease, stage 2 (mild) Diabetes mellitus with stage 2 chronic kidney disease, with long-term current use of insulin Surgical History Hx of colonoscopy (~08/11/19) FH: JUANCHO-BSO (total abdominal hysterectomy and bilateral salpingo-oophorectomy) Family History Father Diabetes Mother CVD (cardiovascular disease) Social History Household Members: None Housing: House Do you presently have visiting nurse or other home services: No Unable to assess alcohol history related to: Unknown Alcohol intake: never Patient Tobacco Use Status: Never used Tobacco e-Cigarette/Vaping Use: Never Used Second Hand Smoke Exposure: Yes Advance Directives Date on File: 07/02/21 service: No Current occupational status: employed 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 Gilbert Khan, Aleja Phillip, Hugo Aleman and colleagues, with an educational jose alfredo from [employer]. Review of Systems Const Denies chills, Denies fatigue, Denies fever(s) and Denies headache(s) ENT Denies dysphagia, Denies dizziness, Denies otalgia, Denies headache(s), Denies neck pain, Denies odynophagia and Denies sore throat Card Denies chest pain, Denies irregular heart rhythm, Denies palpitations and Denies dyspnea Resp Denies chest congestion, Denies cough and Denies dyspnea GI Denies abdominal pain, Denies constipation, Denies dysphagia, Denies heartburn, Denies diarrhea, Denies nausea, Denies odynophagia and Denies vomiting Denies urinary frequency, Denies dysuria and Denies urinary urgency Musc Denies back pain, Denies arthralgias and Denies neck pain Skin/Breast Denies rash Neuro Denies dizziness, Denies headache(s) and Denies paresthesias Psych Denies anxiety and Denies depression Endo Denies fatigue and Denies palpitations Woody/Lymph Denies easy bruising Physical exam (Primary Care) Vital Signs: Last Vital Signs Pulse 68 09/27/24 14:23 BP 120/70 09/27/24 14:23 Pulse Ox 98 09/27/24 14:23 Oxygen Delivery Method Room Air 09/27/24 14:23 BMI result Body Mass Index 25.5 Tobacco/Smoking Status: Tobacco use Status Tobacco use date assessed 09/27/24 09/27/24 14:27 Patient Tobacco Use Status Never used Tobacco 09/27/24 14:27 e-Cigarette/Vaping Use Never Used 09/27/24 14:27 Thrive Assessment: Date of Thrive Assessment Date Thrive assessed 09/22/24 09/27/24 14:27 Const General: no acute distress and alert HENMN Throat: Yes posterior oropharynx normal and Yes tonsils normal (no TP congestion) Neck Neck: Yes no lymphadenopathy and Yes supple Thyroid: Thyroid normal Resp Auscultation: clear to auscultation bilaterally, no rales and no wheezes Cardio Rate: regular rate Rhythm: regular rhythm Heart sounds: no murmurs GI Palpation (GI): Soft to palpation and nontender Auscultation: normal bowel sounds General: Yes no CVA tenderness Back/Spine/Pelvis Back: no CVA tenderness Thoracic/Lumbar Spine: No lumbar spinal tenderness Skin Rashes: no rashes Extrem General: Yes no clubbing, cyanosis or edema Results Reviewed Results Reviewed: Laboratory Tests 09/24/24 18:37 WBC 7.8 Hgb 14.5 Hct 44.1 Plt Count 142 L D Sodium 142 Potassium 4.3 Creatinine 1.51 H Estimated GFR 34 Random Glucose 200 H Calcium 10.3 H AST 39 H ALT 28 Coding Level of Care Code Est Pt Level 4 (63529) Diagnoses Dizziness R42 Chest discomfort R07.89 Coronary artery disease involving [place] coronary artery of [place] heart without angina pectoris I25.10 Coronary Disease-Associated Artery/Lesion type: [place] artery [place] vs. transplanted heart: [place] heart Associated angina: without angina Type 2 diabetes mellitus with stage 3b chronic kidney disease, with long-term current use of insulin E11.22; N18.32; Z79.4 Diabetes mellitus type: type 2 Chronic kidney disease stage 3 subtype: stage 3b (GFR 30-44) Stage 3b chronic kidney disease N18.32 Chronic kidney disease stage 3 subtype: stage 3b (GFR 30-44) Mixed hyperlipidemia E78.2 Essential hypertension I10 Acquired hypothyroidism E03.9 Restrictive lung disease J98.4 Insomnia, unspecified type G47.00 Insomnia type: unspecified Assessment & Plan Assessment & Plan (1) Dizziness: Code(s): R42 - Dizziness and giddiness Category: Medical Plan: Discussed with patient that her recent symptoms were likely from her being overwhelmed by her sister's recent passing and based on her recent labs, possibly some degree of acute dehydration as well She has been reassured that her recent labs done at the ER all came back normal except for her serum creatinine and GFR, which have both declined slightly Cardiac markers done at the ER also came back negative (2) Chest discomfort: Code(s): R07.89 - Other chest pain Category: Medical Plan: Discussed with patient that her recent symptoms are most likely due to her being overwhelmed by her sister's recent passing but her son, who came in with her today, remains very concerned about his mother's overall risks given that she is a diabetic and with her sister's recent passing from what was likely a coronary event, wants his mother checked out further Will send her for nuclear stress testing and also refer her to cardiology ANA for further evaluation (3) Coronary artery disease: Code(s): I25.10 - Atherosclerotic heart disease of [place] coronary artery without angina pectoris Category: Medical Qualifiers: Coronary Disease-Associated Artery/Lesion type: [place] artery [place] vs. transplanted heart: [place] heart Associated angina: without angina Qualified Code(s): I25.10 - Atherosclerotic heart disease of [place] coronary artery without angina pectoris Plan: Patient is advised to continue with aggressive risk factor modification, including her blood pressure, blood sugar and cholesterol levels Follow up with cardiology as scheduled (4) Diabetes mellitus with stage 3 chronic kidney disease, with long-term current use of insulin: Code(s): E11.22 - Type 2 diabetes mellitus with diabetic chronic kidney disease; N18.30 - Chronic kidney disease, stage 3 unspecified; 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.4 - 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 of insulin Category: Medical Qualifiers: Diabetes mellitus type: type 2 Chronic kidney disease stage 3 subtype: stage 3b (GFR 30-44) Qualified Code(s): E11.22 - Type 2 diabetes mellitus with diabetic chronic kidney disease; N18.32 - Chronic kidney disease, stage 3b; Z79.4 - skilled nursing (current) use of insulin Plan: Her HgbA1c was at 7.4% on her labs done last week (her in-office HgbA1c was previously at 8.4% a few months ago) - goal is at least <7.0% Reinforced diabetic diet Continue Jardiance 25 mg Q AM, Lantus 10 units Q PM and Humalog via VGO at 40, 5 clicks with meals; 1 click for correction BS > 200 mg/DL, 1 click with snacks. To use bolus 10 min before meals Her dose of Lantus was increased by endocrinology to 14 units about a month ago but patient felt that her blood sugar was dropping too low and she lowered her dose back down to 10 units on her own Follow up with endocrinology as scheduled (5) Chronic kidney disease, stage III (moderate): Code(s): N18.30 - Chronic kidney disease, stage 3 unspecified Category: Medical Qualifiers: Chronic kidney disease stage 3 subtype: stage 3b (GFR 30-44) Qualified Code(s): N18.32 - Chronic kidney disease, stage 3b Plan: She is advised that her renal function appears to have stabilized recently although her serum creatinine and GFR have decreased slightly from previous on her labs done at the ER a few days ago - these are likely due to inadequate oral fluids given that she has been overwhelmed and busy over the past week attending to her sister's affairs and Have reminded her to make sure she keeps up with her oral fluid intake Continue Jardiance 25 mg Q AM Follow up with nephrology as scheduled (6) Mixed hyperlipidemia: Code(s): E78.2 - Mixed hyperlipidemia Category: Medical Plan: Reinforced low cholesterol diet Continue Rosuvastatin 40 mg QD (7) Essential hypertension: Code(s): I10 - Essential (primary) hypertension Category: Medical Plan: Reinforced low sodium diet - goal is systolic BP of at least 130 mm or less Continue Benazepril 2.5 mg QD (8) Acquired hypothyroidism: Code(s): E03.9 - Hypothyroidism, unspecified Category: Medical Plan: Continue Levothyroxine 50 mcg QD (9) Restrictive lung disease: Comment: PER SPIROMETRY SHE HAS EVIDENCE OF MODERATE DEGREE OF RESTRICTIVE LUNG DISORDER. ETIOLOGY OF THIS ISSUE IS NOT CLEAR, SHE DOES HAVE A RELATIVELY FLAT CHEST. X-RAY CHEST IS ORDERED TO SEE IF THERE IS ANY PARENCHYMAL LUNG DISEASE . AT ANY RATE IT IS NOT VERY SYMPTOMATIC FOR HER AT THIS TIME. Code(s): J98.4 - Other disorders of lung Category: Medical Plan: PFTs done in January 2019 revealed (+) moderately severe restrictive pulmonary disease with no obstructive component Patient uses her Albuterol inhaler (Ventolin HFA) 4 times a day as needed mostly for symptomatic relief Follow up with pulmonary as scheduled - she now sees Dr. 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
[2024-09-27 14:23] VITALS: BP 120/70; PULSE 68; O2SAT 98; BMI 25.5
== END 2024-09-27 15:09 | disposition home or self-care (01) ==
LOC: HO.HMCH 14:21
PROVIDERS: PCP Internal Medicine; Visit Provider Internal Medicine
DX: R42 Dizziness and giddiness (principal); R07.89 Other chest pain; I25.10 Atherosclerotic heart disease of native coronary artery without angina pectoris; E11.22 Type 2 diabetes mellitus with diabetic chronic kidney disease; N18.32 Chronic kidney disease, stage 3b; Z79.4 Long term (current) use of insulin; E78.2 Mixed hyperlipidemia; I10 Essential (primary) hypertension; E03.9 Hypothyroidism, unspecified; J98.4 Other disorders of lung; G47.00 Insomnia, unspecified

== ENCOUNTER → 2024-09-27 14:20 | Outpatient (BNVA) | payer OTHER, SELFPAY | PROVIDERS: PCP Internal Medicine; Visit Provider Internal Medicine ==

== ENCOUNTER 2024-10-22 09:11 | Outpatient (AMB) | payer OTHER, SELFPAY ==
--- NOTE | 2024-10-22 09:17 | A.OFFPC_ITS ---
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 Accompanied by: Grandson Allergies latex [LATEX] Allergy (Intermediate, Verified 10/22/24 09:27) RASH atorvastatin [From Lipitor] Allergy (Mild, Verified 10/22/24 09:27) MUSCLE ACHES dulaglutide [Trulicity] Allergy (Unknown, Verified 10/22/24 09:27) rash and itching pioglitazone Allergy (Unknown, Verified 10/22/24 09:27) Urinary frequency pork derived (porcine) [PORK DERIVED (PORCINE)] Allergy (Unknown, Verified 10/22/24 09:27) SAMARITAN BELIEF canagliflozin [Invokana] Adverse Reaction (Unknown, Verified 10/22/24 09:27) recurrent UTI, dizziness Tanzeum Allergy (Unknown, Uncoded 10/22/24 09:27) rash Medication List - Last Reconciled 10/22/24 by Darryl Robles MD acetone (urine) test (Ketone Urine Test strips) P.r.n. glucose over 250, nausea, and vomiting, illness up to t.i.d. albuterol sulfate 2.5 mg (3 mL) inhalation QID PRN 30 days albuterol sulfate 90 mcg/actuation (ProAir HFA) 2 puffs inhalation QID PRN 30 d ays benazepril 2.5 mg (1/2 x 5 mg) PO DAILY 90 days betamethasone dipropionate 0.05% 1 appl topical BID PRN blood sugar diagnostic (FreeStyle Lite Strips) As directed 4 times a day blood-glucose meter (FreeStyle Lite Meter kit) As directed blood-glucose meter,continuous (FreeStyle Consuelo 3 [place]) USE DIRECTED blood-glucose sensor (FreeStyle Consuelo 3 Plus Sensor device) As directed every 15 days blood-glucose sensor (FreeStyle Consuelo 3 Sensor device) As directed change every 14 days cholecalciferol (vitamin D3) 50 mcg PO DAILY 90 days [DIABETIC SHOES As directed] glucagon 3 mg/actuation (Baqsimi) 3 mg intranasal ONCE PRN 30 days Humalog U-100 Insulin (insulin lispro) Up to 78 units via VGO subcut daily; 30 days NS hydroxyzine HCl 10 mg PO Q8H PRN insulin glargine (Lantus Solostar U-100 Insulin) 14 units (0.14 mL) subcut QPM 90 days Jardiance (empagliflozin) 25 mg PO QAM 90 days NS lancets (FreeStyle Lancets) As directed 4 times a day levothyroxine 50 mcg PO DAILY 90 days mometasone 0.1% 1 appl topical DAILY PRN 30 days mupirocin 2% 1 appl topical TID 7 days mupirocin 2% 1 appl topical TID 7 days [NEBULIZER and all related accessories, including tubing and mask As directed] omega-3 fatty acids 1,000 mg PO BID 30 days pen needle, diabetic (BD Ultra-Fine [place] Pen Needle) As directed once daily pen needle, diabetic (1st Tier Unifine Pentips) As directed rosuvastatin 40 mg PO DAILY 90 days sub-q insulin device, 40 unit (V-GO 40 device) USE DIRECTED [V-GO 40 device As directed] Tobacco use date assessed: 09/27/24 Dental Screening Dental Screen Date: 09/22/24 [facility] Annual exam HPI Details Patient comes in today for her annual physical examination States that she feels okay She denies any headaches or dizziness Denies any chest pains, no SOB No nausea/vomiting, no abdominal pain No change in bowel habits noted Denies any acute urinary symptoms She had her follow up labs done last month - these have been previously discussed with her at her last appointment recently She is up-to-date with her colon cancer screening - is not due for repeat colonoscopy until 2028 She last had her annual mammogram and bone density screening done in January 2024 and is already scheduled for her next mammogram in January 2025 [facility] Medical History Mixed hyperlipidemia Diabetes mellitus with stage 3 chronic kidney disease, with long-term current use of insulin Chronic kidney disease, stage III (moderate) Acquired hypothyroidism Restrictive lung disease Restrictive lung disease Bronchial asthma Allergic rhinitis Insomnia Diabetic polyneuropathy associated with type 2 diabetes mellitus Diabetic nephropathy associated with type 2 diabetes mellitus Non-proliferative diabetic retinopathy, both eyes detention (current) use of insulin Diabetes type 2, uncontrolled Overweight (BMI 25.0-29.9) Chronic interstitial cystitis Varicose veins of both lower extremities Osteoarthritis of left hip Lumbosacral spondylosis Vitamin D deficiency Pityriasis rosea GERD (gastroesophageal reflux disease) Allergic rhinitis Restrictive lung disease Coronary artery disease Essential hypertension Hyperlipidemia Chronic kidney disease, stage 2 (mild) Diabetes mellitus with stage 2 chronic kidney disease, with long-term current use of insulin Surgical History Hx of colonoscopy (~08/11/19) FH: JUANCHO-BSO (total abdominal hysterectomy and bilateral salpingo-oophorectomy) Family History Father Diabetes Mother CVD (cardiovascular disease) Social History Household Members: None Housing: House Do you presently have visiting nurse or other home services: No Unable to assess alcohol history related to: Unknown Alcohol intake: never Patient Tobacco Use Status: Never used Tobacco e-Cigarette/Vaping Use: Never Used Second Hand Smoke Exposure: Yes Advance Directives Date on File: 07/02/21 service: No Current occupational status: employed 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 1. Little interest or pleasure in doing things: not at all 2. Feeling down, depressed, or hopeless: not at all 3. Trouble falling or staying asleep, or sleeping too much: not at all 4. Feeling tired or having little energy: not at all 5. Poor appetite or overeating: not at all 6. Feeling bad about yourself - or that you are a failure or have let yourself or your family down: not at all 7. Trouble concentrating on things, such as reading the newspaper or watching television: not at all 8. Moving or speaking so slowly that other people could have noticed. Or the opposite - being so fidgety or restless that you have been moving around a lot more than usual: not at all 9. Thoughts that you would be better off or of hurting yourself in some way: not at all Total score: 0 Depression Screening Interpretation: Negative Depression Screening Done: Yes 95687 - PHQ-9 Billing: Yes Source: Developed by Drs. Gilbert Khan, Aleja Phillip, Hugo Aleman and colleagues, with an educational jose alfredo from [employer]. Thrive Questionnaire Date Thrive assessed: 09/22/24 VITALY-7 AMB Questionnaire VITALY-7 Date VITALY - 7 assessed: 09/22/24 Source: Developed by Drs. Gilbert Khan, Aleja Phillip, Hugo Aleman and colleagues, with an educational jose alfredo from [employer]. Review of Systems Const Denies chills, Denies fatigue, Denies fever(s), Denies headache(s) and Denies malaise Eyes Denies blurry vision, Denies change in vision, Denies irritation and Denies itchy eyes ENT Denies dysphagia, Denies dizziness, Denies otalgia, Denies headache(s), Denies nasal congestion, Denies neck pain, Denies odynophagia, Denies sinus pain and Denies sore throat Card Denies chest pain, Denies rapid heart rate, Denies irregular heart rhythm, Denies palpitations and Denies dyspnea Resp Denies chest congestion, Denies cough, Denies dyspnea and Denies wheezing GI Denies abdominal pain, Denies bloating, Denies constipation, Denies dysphagia, Denies heartburn, Denies diarrhea, Denies nausea, Denies odynophagia and Denies vomiting Denies hematuria, Denies urinary frequency, Denies dysuria, Denies urinary incontinence and Denies urinary urgency Musc Denies back pain, Denies arthralgias, Denies joint swelling, Denies muscle weakness and Denies neck pain Skin/Breast Denies breast pain, Denies breast mass, Denies change in pigmentation, Denies lesions, Denies rash and Denies unusual bruising Neuro Denies dizziness, Denies headache(s) and Denies paresthesias Psych Denies anxiety and Denies depression Endo Denies fatigue and Denies palpitations Woody/Lymph Denies easy bruising Aller/Immun Denies itchy eyes and Denies wheezing Physical exam (Primary Care) Vital Signs: Last Vital Signs Pulse 90 10/22/24 09:18 BP 110/60 10/22/24 09:18 Pulse Ox 98 10/22/24 09:18 Oxygen Delivery Method Room Air 10/22/24 09:18 BMI result Body Mass Index 25.6 Tobacco/Smoking Status: Tobacco use Status Tobacco use date assessed 09/27/24 10/22/24 09:19 Patient Tobacco Use Status Never used Tobacco 10/22/24 09:19 e-Cigarette/Vaping Use Never Used 10/22/24 09:19 PHQ-9: PHQ-9 Score PHQ-9: Total score 0 10/22/24 09:19 Depression Screening Interpretation: Negative Thrive Assessment: Date of Thrive Assessment Date Thrive assessed 09/22/24 10/22/24 09:19 Advance Care Planning discussion: Completed/Scanned Date of discussion: 10/22/24 Who was present: patient, son (HCP), PCP Forms completed: Health Care Proxy, MOLST and Comfort care/DNR Time spent: 16-45 minutes Actual minutes spent: 20 Const General: no acute distress, alert and awake Orientation/consciousness: patient oriented x3 HENMT Head: Yes normocephalic and Yes atraumatic Ears: external ears normal, TM's normal bilaterally and EAC's normal General nose exam: No nasal discharge present Face and sinus: Yes normal facial exam and Yes sinuses nontender Teeth and gingiva: dentition normal Throat: Yes posterior oropharynx normal and Yes tonsils normal (no TP congestion) Eyes Eyelids: Yes eyelids normal Conjunctivae: conjunctivae normal Pupils: Equal, round and reactive pupils present EOM: EOMs intact bilaterally Neck Neck: Yes no lymphadenopathy and Yes supple Thyroid: Thyroid normal Resp Auscultation: clear to auscultation bilaterally, no rales and no wheezes Cardio Rate: regular rate Rhythm: regular rhythm Heart sounds: no murmurs GI Palpation (GI): Soft to palpation, nontender and No hepatosplenomegaly present Auscultation: normal bowel sounds General: Yes no CVA tenderness Back/Spine/Pelvis Back: no CVA tenderness Thoracic/Lumbar Spine: thoracic and lumbar spine normal to inspection Skin Lesions: no lesions Rashes: no rashes Neuro General: patient oriented x3, moves all extremities, no focal motor deficits and CN's II-XI intact bilaterally Cranial nerves: Yes Equal, round and reactive pupils present Cognition (Neuro): normal cognition Gait exam (Neuro): Normal gait present Extrem General: Yes no clubbing, cyanosis or edema Results Reviewed Results Reviewed: Laboratory Tests 09/21/24 09/24/24 08:00 18:37 WBC 7.8 Hgb 14.5 Hct 44.1 Plt Count 142 L D Sodium 142 Potassium 4.3 Creatinine 1.51 H Estimated GFR 34 Random Glucose 200 H Fasting Glucose 212 H Hemoglobin A1c % 7.4 H Magnesium 2.3 AST 39 H ALT 28 Triglycerides 174 H Cholesterol 153 LDL Cholesterol, Calc 81 HDL Cholesterol 38 L Vitamin B12 674 25-OH Vitamin D Total 40.3 TSH 2.97 Free T4 1.12 PTH Intact 124.2 H Ur Specific Merna >= 1.030 H Urine Protein Negative Urine Glucose (UA) >=1000 H Urine Blood Negative Urine Nitrite Negative Ur Leukocyte Esterase Negative Coding Level of Care Code Est Pt Prev Care >65y(99901) Diagnoses Annual physical exam Z00.00 Type 2 diabetes mellitus with stage 3b chronic kidney disease, with long-term current use of insulin E11.22; N18.32; Z79.4 Diabetes mellitus type: type 2 Chronic kidney disease stage 3 subtype: stage 3b (GFR 30-44) Stage 3b chronic kidney disease N18.32 Chronic kidney disease stage 3 subtype: stage 3b (GFR 30-44) Mixed hyperlipidemia E78.2 Essential hypertension I10 Coronary artery disease involving [place] coronary artery of [place] heart without angina pectoris I25.10 Coronary Disease-Associated Artery/Lesion type: [place] artery [place] vs. transplanted heart: [place] heart Associated angina: without angina Acquired hypothyroidism E03.9 Restrictive lung disease J98.4 Acute nonintractable headache, unspecified headache type R51.9 Headache chronicity pattern: acute headache Headache type: unspecified Intractability: not intractable Allergic rhinitis, unspecified seasonality, unspecified trigger J30.9 Allergic rhinitis trigger: unspecified Allergic rhinitis seasonality: unspecified Pityriasis rosea L42 Vitamin D deficiency E55.9 Insomnia, unspecified type G47.00 Insomnia type: unspecified Overweight (BMI 25.0-29.9) E66.3 Additional Codes PHQ-9 - 11906 - PHQ-9 Billing: Yes ([id number]) Vital Signs *Quality* - Advance Care Planning discussion: Completed/Scanned ([id number]) Vital Signs *Quality* - Time spent: 16-45 minutes ([id number]) Assessment & Plan Assessment & Plan (1) Annual physical exam: Code(s): Z00.00 - Encounter for general adult medical examination without abnormal findings Category: Medical Plan: Results of her labs done last month again reviewed and discussed with patient and her son She is up-to-date with her colon cancer screening - is not due for repeat c olonoscopy until 2028 She last had her annual mammogram and bone density screening done in January 2024 She no longer has to keep up with annual gynecology exam and pap smear and patient chose not to do so (2) Diabetes mellitus with stage 3 chronic kidney disease, with long-term current use of insulin: Code(s): E11.22 - Type 2 diabetes mellitus with diabetic chronic kidney disease; N18.30 - Chronic kidney disease, stage 3 unspecified; Z79.4 - 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 (current) 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 of insulin Category: Medical Qualifiers: Diabetes mellitus type: type 2 Chronic kidney disease stage 3 subtype: stage 3b (GFR 30-44) Qualified Code(s): E11.22 - Type 2 diabetes mellitus with diabetic chronic kidney disease; N18.32 - Chronic kidney disease, stage 3b; Z79.4 - 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 To use bolus 10 min before meals Her dose of Lantus was increased by endocrinology to 14 units a couple of months ago but patient felt that her blood sugar was dropping too low and she lowered her dose back down to 10 units on her own - states that she will discuss this further with endocrinology at her next follow up appointment Follow up with endocrinology as scheduled (3) Chronic kidney disease, stage III (moderate): Code(s): N18.30 - Chronic kidney disease, stage 3 unspecified Category: Medical Qualifiers: Chronic kidney disease stage 3 subtype: stage 3b (GFR 30-44) Qualified Code(s): N18.32 - Chronic kidney disease, stage 3b Plan: She is advised that her renal function appears to have stabilized recently, based on her most recent labs - reminded that the best way to preserve her renal function is with tight control of her blood sugar and blood pressure Continue Jardiance 25 mg Q AM Follow up with nephrology as scheduled (4) Mixed hyperlipidemia: Code(s): E78.2 - Mixed hyperlipidemia Category: Medical Plan: Results of her labs done last month again reviewed and discussed with patient and her son Reinforced low cholesterol diet Continue Rosuvastatin 40 mg QD Will recheck her labs and fasting lipids in 3 months for follow up (5) Essential hypertension: Code(s): I10 - Essential (primary) hypertension Category: Medical Plan: Reinforced low sodium diet - goal is systolic BP of at least 130 mm or less Continue Benazepril 2.5 mg QD (6) Coronary artery disease: Code(s): I25.10 - Atherosclerotic heart disease of [place] coronary artery without angina pectoris Category: Medical Qualifiers: Coronary Disease-Associated Artery/Lesion type: [place] artery [place] vs. transplanted heart: [place] heart Associated angina: without angina Quali fied Code(s): I25.10 - Atherosclerotic heart disease of [place] coronary artery without angina pectoris Plan: Patient is advised to continue with aggressive risk factor modification, including her blood pressure, blood sugar and cholesterol levels Follow up with cardiology as scheduled (7) Acquired hypothyroidism: Code(s): E03.9 - Hypothyroidism, unspecified Category: Medical Plan: Her TFTs were normal on her recent labs Continue Levothyroxine 50 mcg QD Will recheck her TFTs in 3 months (8) Restrictive lung disease: Comment: PER SPIROMETRY SHE HAS EVIDENCE OF MODERATE DEGREE OF RESTRICTIVE LUNG DISORDER. ETIOLOGY OF THIS ISSUE IS NOT CLEAR, SHE DOES HAVE A RELATIVELY FLAT CHEST. X-RAY CHEST IS ORDERED TO SEE IF THERE IS ANY PARENCHYMAL LUNG DISEASE . AT ANY RATE IT IS NOT VERY SYMPTOMATIC FOR HER AT THIS TIME. Code(s): J98.4 - Other disorders of lung Category: Medical Plan: PFTs done in January 2019 revealed (+) moderately severe restrictive pulmonary disease with no obstructive component Patient uses her Albuterol inhaler (Ventolin HFA) 4 times a day as needed mostly for symptomatic relief Follow up with pulmonary as scheduled - she now sees Dr. Gamboa (9) Headache: Code(s): R51.9 - Headache, unspecified Category: Medical Qualifiers: Headache chronicity pattern: acute headache Headache type: unspecified Intractability: not intractable Qualified Code(s): R51.9 - Headache, unspecified Plan: These are most likely tension headaches - states that they seem to have calmed down a lot lately, especially since she has taken a month off following her sister's and she also took the time to have her eye surgery done recently Continue Fioricet 1 tablet 3 to 4 times a day as needed Follow up with neurology as scheduled (10) Allergic rhinitis: Code(s): J30.9 - Allergic rhinitis, unspecified Category: Medical Qualifiers: Allergic rhinitis trigger: unspecified Allergic rhinitis seasonality: unspecified Qualified Code(s): J30.9 - Allergic rhinitis, unspecified Plan: Continue Hydroxyzine 10 mg every 8 hours as needed Patient also takes OTC Benadryl 25 mg Q 6 hrs PRN additionally for symptomatic relief (11) Pityriasis rosea: Code(s): L42 - Pityriasis rosea Category: Medical Plan: Continue Betamethasone dipropionate 0.05% BID PRN; Mometasone 0.1% cream QD was not helping Follow up with dermatology as scheduled (12) Vitamin D deficiency: Code(s): E55.9 - Vitamin D deficiency, unspecified Category: Medical Plan: Continue Vitamin D3 2000 units (capsule) QD (13) Insomnia: Code(s): G47.00 - Insomnia, unspecified Category: Medical Qualifiers: Insomnia type: unspecified Qualified Code(s): G47.00 - Insomnia, unspecified Plan: Sleep hygiene reinforced Continue Zolpidem 5 mg Q HS PRN (14) Overweight (BMI 25.0-29.9): Code(s): E66.3 - Overweight Category: Medical Plan: Reinforced diet/exercise as tolerated/lose weight Plan Follow up in 3 months Orders: Orders Complete Blood Count Auto Diff 3 Months D64.9 - Anemia, unspecified Comprehensive [place]. Panel Fast 3 Months E78.00 - Pure hypercholesterolemia, unspecified Microalbumin, Random (w Creat) 3 Months E11.9 - Type 2 diabetes mellitus without complications UA CC w/rflx Micro + Cult 3 Months R30.0 - Dysuria Lipid Panel 3 Months E78.00 - Pure hypercholesterolemia, unspecified TSH reflex Free T4 3 Months E78.00 - Pure hypercholesterolemia, unspecified Hemoglobin A1c 3 Months E11.9 - Type 2 diabetes mellitus without complications Vitamin D 25-OH Total 3 Months E55.9 - Vitamin D deficiency, unspecified Medications: Refilled mupirocin 2% 1 appl topical TID 7 days 50 grams 0RF
[2024-10-22 09:18] VITALS: BP 110/60; PULSE 90; O2SAT 98; BMI 25.6
== END 2024-10-22 09:48 | disposition home or self-care (01) ==
PROVIDERS: PCP Internal Medicine; Visit Provider Internal Medicine
DX: Z00.00 Encounter for general adult medical examination without abnormal findings (principal); E11.22 Type 2 diabetes mellitus with diabetic chronic kidney disease; N18.32 Chronic kidney disease, stage 3b; Z79.4 Long term (current) use of insulin; E78.2 Mixed hyperlipidemia; I10 Essential (primary) hypertension; I25.10 Atherosclerotic heart disease of native coronary artery without angina pectoris; E03.9 Hypothyroidism, unspecified; J98.4 Other disorders of lung; R51.9 Headache, unspecified; J30.9 Allergic rhinitis, unspecified; L42 Pityriasis rosea; E55.9 Vitamin D deficiency, unspecified; G47.00 Insomnia, unspecified; E66.3 Overweight

== ENCOUNTER → 2024-10-22 09:11 | Outpatient (BNVA) | payer OTHER, SELFPAY | PROVIDERS: PCP Internal Medicine; Visit Provider Internal Medicine | DX: Z00.00 Encounter for general adult medical examination without abnormal findings (principal); I12.9 Hypertensive chronic kidney disease with stage 1 through stage 4 chronic kidney disease, or unspecified chronic kidney disease; E11.22 Type 2 diabetes mellitus with diabetic chronic kidney disease; N18.32 Chronic kidney disease, stage 3b; E78.2 Mixed hyperlipidemia; I25.10 Atherosclerotic heart disease of native coronary artery without angina pectoris; J98.4 Other disorders of lung; E03.9 Hypothyroidism, unspecified; R51.9 Headache, unspecified; J30.9 Allergic rhinitis, unspecified; L42 Pityriasis rosea; E55.9 Vitamin D deficiency, unspecified; G47.00 Insomnia, unspecified; E66.3 Overweight; Z68.25 Body mass index [BMI] 25.0-25.9, adult; Z79.4 Long term (current) use of insulin; Z71.3 Dietary counseling and surveillance | CPT/HCPCS: 96127; 99397; 99497 ==

== ENCOUNTER 2024-11-03 14:42 | Outpatient (AMB) | payer OTHER, SELFPAY ==
--- NOTE | 2024-11-03 15:03 | HO.NEPHOV ---
Vital Signs 11/03/24 15:04 Height 5 ft 5 in Weight 152 lb 6 oz BMI 25.4 BP 140/70 H Blood Pressure Location Rt brachial Position Sitting Pulse 82 Pulse Source Pulse Oximeter Pulse Oximetry (%) 99 Oxygen Delivery Method Room Air Intake Visit Reasons: 6 mon follow up/ LVM Mail Deliverer Required: No Accompanied by: Grand Child Allergies latex [LATEX] Allergy (Intermediate, Verified 11/03/24 15:04) RASH atorvastatin [From Lipitor] Allergy (Mild, Verified 11/03/24 15:04) MUSCLE ACHES dulaglutide [Trulicity] Allergy (Unknown, Verified 11/03/24 15:04) rash and itching pioglitazone Allergy (Unknown, Verified 11/03/24 15:04) Urinary frequency pork derived (porcine) [PORK DERIVED (PORCINE)] Allergy (Unknown, Verified 11/03/24 15:04) ZOROASTRIANISM BELIEF canagliflozin [Invokana] Adverse Reaction (Unknown, Verified 11/03/24 15:04) recurrent UTI, dizziness Tanzeum Allergy (Unknown, Uncoded 10/22/24 09:27) rash HPI Comments Details: Dre was seen in follow up for chronic kidney disease. She has longstanding diabetes and hypertension. Her blood sugar control is fair. She is not known to have any significant proteinuria. She is on angiotensin receptor racheal. She has no family history of any renal disease. She has no history of malignancy, renal stones, edema or hematuria. She denies having chest pain, shortness of breath, proximal nocturnal dyspnea, orthopnea. She was given Invokana in the past which she did not tolerate due to urinary symptoms. She is currently on Jardiance & statins. She denies congestive heart failure, carotid stenosis, CVA, SVETLANA or PD. She is active. [facility] Medical History Mixed hyperlipidemia Diabetes mellitus with stage 3 chronic kidney disease, with long-term current use of insulin Chronic kidney disease, stage III (moderate) Acquired hypothyroidism Restrictive lung disease Restrictive lung disease Bronchial asthma Allergic rhinitis Insomnia Diabetic polyneuropathy associated with type 2 diabetes mellitus Diabetic nephropathy associated with type 2 diabetes mellitus Non-proliferative diabetic retinopathy, both eyes retirement (current) use of insulin Diabetes type 2, uncontrolled Overweight (BMI 25.0-29.9) Chronic interstitial cystitis Varicose veins of both lower extremities Osteoarthritis of left hip Lumbosacral spondylosis Vitamin D deficiency Pityriasis rosea GERD (gastroesophageal reflux disease) Allergic rhinitis Restrictive lung disease Coronary artery disease Essential hypertension Hyperlipidemia Chronic kidney disease, stage 2 (mild) Diabetes mellitus with stage 2 chronic kidney disease, with long-term current use of insulin Surgical History Hx of colonoscopy (~08/11/19) FH: JUANCHO-BSO (total abdominal hysterectomy and bilateral salpingo-oophorectomy) Family History Father Diabetes Mother CVD (cardiovascular disease) Social History Household Members: None Housing: House Do you presently have visiting nurse or other home services: No Unable to assess alcohol history related to: Unknown Alcohol intake: never Patient Tobacco Use Status: Never used Tobacco e-Cigarette/Vaping Use: Never Used Second Hand Smoke Exposure: Yes Advance Directives Date on File: 07/02/21 service: No Current occupational status: employed 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 needs: No Hearing needs: No Vision needs: No Review of Systems Const All systems reviewed & are unremarkable except as noted in HPI and below Physical Exam Vital Signs: Last Vital Signs Pulse 82 11/03/24 15:04 BP 140/70 H 11/03/24 15:04 Pulse Ox 99 11/03/24 15:04 Oxygen Delivery Method Room Air 11/03/24 15:04 BMI result Body Mass Index 25.4 Const General: comfortable and no acute distress Orientation/consciousness: patient oriented x3 HEENT Head: Yes normocephalic Mouth: Normal oral and palatal mucosa present Eyes EOM: EOMs intact bilaterally Neck Neck: Yes supple Resp Auscultation: clear to auscultation bilaterally Cardio Jugular venous distension: no JVD Rate: regular rate GI Palpation (GI): Soft to palpation Auscultation: normal bowel sounds General: Yes no CVA tenderness Back/Spine/Pelvis Back: no CVA tenderness Skin General skin exam: no rashes or lesions noted Neuro General: patient oriented x3 and moves all extremities Extrem General: Yes no pedal edema Results Reviewed Nephrology Results: Hgb 14.5 g/dl (12.0-16.0) 10/25/24 WBC 7.8 X10*3/uL (4.8-10.8) 09/24/24 Plt Count 142 X10*3/uL (160-400) L 09/24/24 Sodium 142 mmol/L (135-145) 09/24/24 Potassium 4.3 mmol/L (3.3-5.1) 09/24/24 Chloride 109 mmol/L (96-108) H 09/24/24 Carbon Dioxide 24 mmol/L (22-29) 09/24/24 BUN 29 mg/dL (9-16) H 09/24/24 Creatinine 1.51 mg/dL (0.5-1.4) H 09/24/24 Calcium 10.3 mg/dL (8.4-10.2) H 09/24/24 PTH Intact 124.2 pg/mL (8.7-77.1) H 09/21/24 Urine Protein Negative mg/dL (Neg-Trace) 09/21/24 Urine Creatinine 90.94 mg/dL 09/21/24 Protein/Creatinin Ratio TNP 09/21/24 Assessment & Plan Assessment & Plan (1) Chronic kidney disease, stage III (moderate): Code(s): N18.30 - Chronic kidney disease, stage 3 unspecified Category: Medical Qualifiers: Chronic kidney disease stage 3 subtype: stage 3b (GFR 30-44) Qualified Code(s): N18.32 - Chronic kidney disease, stage 3b (2) Secondary hyperparathyroidism: Code(s): N25.81 - Secondary hyperparathyroidism of renal origin Category: Medical Plan Dre has chronic kidney disease most likely from vascular disease. She does not have any proteinuria. There was a question of her having retinopathy. She denies any neuropathy as well as peripheral arterial disease. Her urine output is good. She is on Jardiance and benazepril. She may need a sestamibi scan for her parathyroid given her calcium and PTH levels being on the higher side. She does not need a renal biopsy now. I did not make any other medication changes today. She should avoid nonsteroidal anti-inflammatories, maintain good hydration and minimize sodium in the diet. All questions were answered. Follow-up given Orders: Orders Electrolytes 3 Months N18.32 - Chronic kidney disease, stage 3b Blood Urea Nitrogen 3 Months N18.32 - Chronic kidney disease, stage 3b Creatinine 3 Months N18.32 - Chronic kidney disease, stage 3b Coding Level of Care Code Est Pt Level 4 (78358) Diagnoses Stage 3b chronic kidney disease N18.32 Chronic kidney disease stage 3 subtype: stage 3b (GFR 30-44) Secondary hyperparathyroidism N25.81
[2024-11-03 15:04] VITALS: BP 140/70; PULSE 82; O2SAT 99; BMI 25.4
== END 2024-11-03 15:37 | disposition home or self-care (01) ==
PROVIDERS: PCP Internal Medicine; Visit Provider Internal Medicine Nephrology
DX: N18.32 Chronic kidney disease, stage 3b (principal); N25.81 Secondary hyperparathyroidism of renal origin
CPT/HCPCS: 99214

== ENCOUNTER → 2024-11-03 14:42 | Outpatient (BNVA) | payer OTHER, SELFPAY | PROVIDERS: PCP Internal Medicine; Visit Provider Internal Medicine Nephrology | DX: N18.32 Chronic kidney disease, stage 3b (principal); N25.81 Secondary hyperparathyroidism of renal origin | CPT/HCPCS: 99212 ==

== ENCOUNTER 2024-12-16 16:05 | Outpatient (AMB) | payer OTHER, SELFPAY ==
[2024-12-16 16:09] VITALS: BP 120/80; PULSE 92; BMI 25.7
--- NOTE | 2024-12-16 16:09 | A.OFFVIS_ITS ---
Vital Signs 12/16/24 16:09 Height 5 ft 5 in Weight 154 lb 5.177 oz BMI 25.7 BP 120/80 Blood Pressure Location Rt brachial Position Sitting Pulse 92 Pulse Source Pulse Oximeter Intake Visit Reasons: T2DM Intake Note: Patient presents today for a follow-up on Diabetes Type 2: Last Diabetic eye exam was on: DUE Last Podiatry exam was on: Patient does not see a Web Page Developer Most recent HbA1c: 7.0%, 12/16/2024 Random Glucose- 92 mg/dL, Today Psychiatric Technician Required: No Accompanied by: Self / Same As Patient Allergies latex [LATEX] Allergy (Intermediate, Verified 12/16/24 16:17) RASH atorvastatin [From Lipitor] Allergy (Mild, Verified 12/16/24 16:17) MUSCLE ACHES dulaglutide [Trulicity] Allergy (Unknown, Verified 12/16/24 16:17) rash and itching pioglitazone Allergy (Unknown, Verified 12/16/24 16:17) Urinary frequency pork derived (porcine) [PORK DERIVED (PORCINE)] Allergy (Unknown, Verified 12/16/24 16:17) CONGREGATION BELIEF canagliflozin [Invokana] Adverse Reaction (Unknown, Verified 12/16/24 16:17) recurrent UTI, dizziness Tanzeum Allergy (Unknown, Uncoded 12/16/24 16:17) rash HPI Comments Details: Patient is 74-year-old female with DM type 2 diagnosed October 2005 who presents for management of diabetes. She was last seen by Dr. Jimenez in January and by Mari MAYA 06/07/24 at which time Lantus 10 units was added to her diabetes regime. Past medical history: Diabetes type 2, hypertension, hyperlipidemia Micro and macrovascular complications: retinopathy, nephropathy, neuropathy, CAD Medications tried in the past: Intolerant of Trulicity causes allergic site reactions. Reports intolerant of Victoza, Tanzeum. She had recurrent UTI with Invokana Last eye exam catract ext stable ehye Past medical history: Diabetes type 2, hypertension, hyperlipidemia Micro and macrovascular complications: retinopathy, nephropathy, CAD Diabetes medications: Lantus 10 units V Go 40, 5 clicks with meals. Plus one click for blood glucose over 200 Freestyle eleonora sensor 3 average glucose: 186 14 day continuous glucose sensor report reviewed Glucose Management indicator 7.8% Time in ranges: Fifteen % very high (above 250) 34 % high (181-250) 51 % in range (70-180] 0 % low (69-55) 0 % very low (below 54) 32.8 Glucose variability [ ] (target <36%) Interpretation of CGMS [she is having persistent highs after lunch ] Symptoms reported: denies numbness, tingling, cramping in lower extremities Hypoglycemia: No Hyperglycemia: urinary frequency, nocturia 1x/night, occasional polydypsia Exercise: walks Lease Out Man - CDE education: long time ago Web Page Developer: denies has numbness Dental exam: last year Ophthalmology evaluation: saw optho 10/2023 told no retinopathy NPDR, no macular edema. Other specialists: Dobie Worker, Dr. Aylaa Previous DM medications tried: Intolerant of Trulicity causes allergic site reactions. Reports intolerant of Victoza, Tanzeum. She had recurrent UTI with Invokana Diabetes medications: Lantus 12 units at 2 am (works nights) V Go 40, 5 clicks with meals. Plus one click for blood glucose over 200 Jardiance 25 mg QD Blood glucose monitoring: Unfortunately, patient did not bring her her sensor or glucometer with her to the follow-up visit Symptoms reported: denies numbness, tingling, cramping in lower extremities Hypoglycemia: No Hyperglycemia: urinary frequency, nocturia 1x/night, occasional polydypsia Exercise: walks all-night at home. 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 Lease Out Man - CDE education: long time ago Web Page Developer: [employer] Dental exam: last year Ophthalmology evaluation: saw optho 10/2023 told no retinopathy NPDR, no macular edema. Other specialists: Dobie WorkerDr. 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 Diabetes type 2, uncontrolled Overweight (BMI 25.0-29.9) Chronic interstitial cystitis Varicose veins of both lower extremities Osteoarthritis of left hip Lumbosacral spondylosis Vitamin D deficiency Pityriasis rosea GERD (gastroesophageal reflux disease) Allergic rhinitis Restrictive lung disease Coronary artery disease Essential hypertension Hyperlipidemia Chronic kidney disease, stage 2 (mild) Diabetes mellitus with stage 2 chronic kidney disease, with long-term current use of insulin Surgical History Hx of colonoscopy (~08/11/19) FH: JUANCHO-BSO (total abdominal hysterectomy and bilateral salpingo-oophorectomy) Family History Father Diabetes Mother CVD (cardiovascular disease) Social History Household Members: None Housing: House Do you presently have visiting nurse or other home services: No Unable to assess alcohol history related to: Unknown Alcohol intake: never Patient Tobacco Use Status: Never used Tobacco e-Cigarette/Vaping Use: Never Used Second Hand Smoke Exposure: Yes Advance Directives Date on File: 07/02/21 service: No Current occupational status: employed 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 needs: No Hearing needs: No Vision needs: No Physical Exam Vital Signs: BMI result Body Mass Index 25.7 Results AMB Hemoglobin A1c AMB Hemoglobin A1c 7.0 % Last Edit by REVA Murdock on 12/16/24 16:35 Assessment & Plan Assessment & Plan Orders: Orders AMB Hemoglobin A1c Today E11.22 - Type 2 diabetes mellitus with diabetic chronic kidney disease, N18.2 - Chronic kidney disease, stage 2 (mild), Z79.4 - MCC (current) use of insulin Medications: Refilled Jardiance (empagliflozin) 25 mg PO QAM 90 days 90 tabs 1RF NS Humalog U-100 Insulin (insulin lispro) Up to 78 units via VGO subcut daily; 30 days 30 mL 3RF NS E11.65 - Type 2 diabetes mellitus with hyperglycemia sub-q insulin device, 40 unit (V-GO 40 device) USE DIRECTED 30 ea 3RF rosuvastatin 40 mg PO DAILY 90 days 90 tabs 3RF E11.65 - Type 2 diabetes mellitus with hyperglycemia, E78.5 - Hyperlipidemia, unspecified insulin glargine (Lantus Solostar U-100 Insulin) 14 units (0.14 mL) subcut QPM 90 days 15 mL 3RF Coding
[2024-12-16 16:23] LABS: Glucose, Whole Blood 92 mg/dL (60-115)
== END 2024-12-16 16:49 | disposition home or self-care (01) ==
PROVIDERS: PCP Internal Medicine; Visit Provider Nurse Practitioner Adult Health
DX: E11.22 Type 2 diabetes mellitus with diabetic chronic kidney disease (principal); N18.2 Chronic kidney disease, stage 2 (mild); Z79.4 Long term (current) use of insulin

== ENCOUNTER → 2024-12-16 16:05 | Outpatient (BNVA) | payer OTHER, SELFPAY | PROVIDERS: PCP Internal Medicine; Visit Provider Nurse Practitioner Adult Health | DX: E11.22 Type 2 diabetes mellitus with diabetic chronic kidney disease (principal); N18.2 Chronic kidney disease, stage 2 (mild); Z79.4 Long term (current) use of insulin | CPT/HCPCS: 82947; 83036; 99212 ==

== ENCOUNTER → 2025-01-28 08:04 | Outpatient (REF) | payer OTHER, SELFPAY ==
--- NOTE | 2025-01-28 08:09 | CA_ITS ---
Acquisition Time: 2025-01-28 08:15:08 Total Exercise Time: 00:02:00 Test Indications: CP Medications: Protocol: LEXISCAN Max HR: 100 BPM 67% of Pred: 148 BPM Max BP: 144/68 mmHG Max Work Load: 1.0 METS Pharmacological stress test with Lexiscan injection, while sittng and kicking her legs, without anginal symptoms, with isolated PACs, with normotensive response to injection, with nondiagnostic EKG for ischemia. Nuclear images pending. Test reviewed with Dr Domingo. Referred By: Darryl Robles Electronically Signed By: LARRY DELEON
== END ==
LOC: HO.CARD 08:04
PROVIDERS: PCP Internal Medicine; Visit Provider Internal Medicine
DX: R07.9 Chest pain, unspecified (principal); E11.22 Type 2 diabetes mellitus with diabetic chronic kidney disease; N18.32 Chronic kidney disease, stage 3b; Z79.4 Long term (current) use of insulin
CPT/HCPCS: 93017; J0280; J2785

== ENCOUNTER → 2025-01-28 08:09 | Outpatient (BNV) | payer OTHER, SELFPAY | PROVIDERS: PCP Internal Medicine; Visit Provider Nurse Practitioner Family | DX: I49.1 Atrial premature depolarization (principal) | CPT/HCPCS: 78452; 93016; 93018 ==

== ENCOUNTER 2025-04-29 15:04 | Outpatient (AMB) | payer OTHER, SELFPAY ==
[2025-04-29 15:15] VITALS: BP 130/64; PULSE 71; BMI 33.2
--- NOTE | 2025-04-29 15:15 | A.OFFVIS_ITS ---
Vital Signs 04/29/25 15:15 Height 5 ft 5 in Weight 199 lb 4.766 oz BMI 33.2 BP 130/64 Blood Pressure Location Rt radial Position Sitting Pulse 71 Pulse Source Monitor Intake Visit Reasons: follow up testings ns on 03/17 dr garcia pt Intake Note: f/up-testing Out Of School Hours Care Worker Required: No Accompanied by: Self / Same As Patient Allergies latex [LATEX] Allergy (Intermediate, Verified 12/16/24 16:17) RASH atorvastatin [From Lipitor] Allergy (Mild, Verified 12/16/24 16:17) MUSCLE ACHES dulaglutide [Trulicity] Allergy (Unknown, Verified 12/16/24 16:17) rash and itching pioglitazone Allergy (Unknown, Verified 12/16/24 16:17) Urinary frequency pork derived (porcine) [PORK DERIVED (PORCINE)] Allergy (Unknown, Verified 12/16/24 16:17) JUDAISM BELIEF canagliflozin [Invokana] Adverse Reaction (Unknown, Verified 12/16/24 16:17) recurrent UTI, dizziness Tanzeum Allergy (Unknown, Uncoded 12/16/24 16:17) rash Medication List - Last Reconciled 04/29/25 by Mazin Garcia NP acetone (urine) test (Ketone Urine Test strips) P.r.n. glucose over 250, nausea, and vomiting, illness up to t.i.d. albuterol sulfate 2.5 mg (3 mL) inhalation QID PRN 30 days albuterol sulfate 90 mcg/actuation (ProAir HFA) 2 puffs inhalation QID PRN 30 days benazepril 2.5 mg (1/2 x 5 mg) PO DAILY 90 days betamethasone dipropionate 0.05% 1 appl topical BID PRN blood sugar diagnostic (FreeStyle Lite Strips) As directed 4 times a day blood-glucose meter (FreeStyle Lite Meter kit) As directed blood-glucose sensor (FreeStyle Consuelo 3 Plus Sensor device) As directed every 15 days blood-glucose,telephoto installer,cont (FreeStyle Consuelo 3 [place]) USE DIRECTED cholecalciferol (vitamin D3) 50 mcg PO DAILY 90 days [DIABETIC SHOES As directed] glucagon 3 mg/actuation (Baqsimi) 3 mg intranasal ONCE PRN 30 days Humalog U-100 Insulin (insulin lispro) Up to 78 units via VGO subcut daily; 30 days NS hydroxyzine HCl 10 mg PO Q8H PRN insulin glargine (Lantus Solostar U-100 Insulin) 14 units (0.14 mL) subcut QPM 90 days Jardiance (empagliflozin) 25 mg PO QAM 90 days NS lancets (FreeStyle Lancets) As directed 4 times a day levothyroxine 50 mcg PO DAILY 90 days mometasone 0.1% 1 appl topical DAILY PRN 30 days mupirocin 2% 1 appl topical TID 7 days [NEBULIZER and all related accessories, including tubing and mask As directed] omega-3 fatty acids 1,000 mg PO BID 30 days pen needle, diabetic (BD Ultra-Fine [place] Pen Needle) As directed once daily pen needle, diabetic (1st Tier Unifine Pentips) As directed rosuvastatin 40 mg PO DAILY 90 days sub-q insulin device, 40 unit (V-GO 40 device) USE DIRECTED sub-q insulin device, 40 unit (V-GO 40 device) for daily use [V-GO 40 device As directed] HPI Comments Details: This is a 74-year-old female patient coming in for an overdue follow-up visit. Patient with a history of hypertension, hyperlipidemia, diabetes, and coronary artery disease. Patient was seen in the ER for chest discomfort and some dizziness back in August 2024. Her workup in the emergency room was unremarkable. Subsequently, patient underwent a myocardial perfusion study ordered by her PCP. Today, patient is reporting feeling well overall and denies any cardiac symptoms including exertional chest pain, shortness of breath, palpitations, dizziness, orthopnea, PND, leg edema, presyncope, or syncope. Patient states she is compliant with all her medications. 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 Diabetes type 2, uncontrolled Overweight (BMI 25.0-29.9) Chronic interstitial cystitis Varicose veins of both lower extremities Osteoarthritis of left hip Lumbosacral spondylosis Vitamin D deficiency Pityriasis rosea GERD (gastroesophageal reflux disease) Allergic rhinitis Restrictive lung disease Coronary artery disease Essential hypertension Hyperlipidemia Chronic kidney disease, stage 2 (mild) Diabetes mellitus with stage 2 chronic kidney disease, with long-term current use of insulin Surgical History Hx of colonoscopy (~08/11/19) FH: JUANCHO-BSO (total abdominal hysterectomy and bilateral salpingo-oophorectomy) Family History Father Diabetes Mother CVD (cardiovascular disease) Social History Household Members: None Housing: House Do you presently have visiting nurse or other home services: No Unable to assess alcohol history related to: Unknown Alcohol intake: never Patient Tobacco Use Status: Never used Tobacco e-Cigarette/Vaping Use: Never Used Second Hand Smoke Exposure: Yes Advance Directives Date on File: 07/02/21 service: No Current occupational status: employed 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 needs: No Hearing needs: No Vision needs: No Review of Systems Const Denies chills, Denies fatigue, Denies fever(s), Denies frequent falls, Denies weakness, Denies weight gain and Denies weight loss ENT Denies dizziness Card Denies chest pain, Denies leg edema, Denies lightheadedness, Denies palpitations, Denies dyspnea and Denies dyspnea on exertion Resp Denies cough, Denies dyspnea and Denies dyspnea on exertion GI Denies hematochezia Musc Denies abnormal gait, Denies muscle weakness, Denies numbness, Denies radiating pain into limb and Denies tingling Neuro Denies abnormal gait, Denies dizziness, Denies frequent falls, Denies numbness, Denies tingling and Denies weakness Endo Denies fatigue and Denies palpitations Physical Exam Vital Signs: Last Vital Signs Pulse 71 04/29/25 15:15 BP 130/64 04/29/25 15:15 BMI result Body Mass Index 33.2 Const General: cooperative, healthy appearing, comfortable and no acute distress Orientation/consciousness: patient oriented x3 HEENT Head: Yes normal to inspection Neck Neck: Yes normal visual inspection, Yes trachea midline and Yes supple Chest Chest palpation & inspection: normal inspection of the chest Resp Effort & Inspection: normal respiratory effort Auscultation: clear to auscultation bilaterally, no crackles, no rales, no rhonchi and no wheezes Cardio Jugular venous distension: no JVD Palpation: normal PMI Rate: regular rate Rhythm: regular rhythm Heart sounds: S1 normal heart sound present, S2 normal heart sound present, no click, no gallops, no murmurs and no rubs Peripheral pulses: Peripheral pulses 2+ throughout GI Inspection: Yes normal to inspection Palpation (GI): Soft to palpation Auscultation: normal bowel sounds Skin General skin exam: no rashes or lesions noted Neuro General: patient oriented x3 Extrem General: Yes normal to inspection, No no pedal edema and No calf tenderness Psych Appearance: grossly normal Mental Status: mental status grossly normal Speech and movement: Normal speech and movement present Office Procedures EKG Details: EKG today showed normal sinus rhythm, rate 71 beats per minute, left axis deviation, question old septal infarct, normal [place], [place]. [id number], Complete Assessment & Plan Assessment & Plan (1) Coronary artery disease: Code(s): I25.10 - Atherosclerotic heart disease of [place] coronary artery without angina pectoris Category: Medical Qualifiers: Coronary Disease-Associated Artery/Lesion type: [place] artery [place] vs. transplanted heart: [place] heart Associated angina: without angina Qualified Code(s): I25.10 - Atherosclerotic heart disease of [place] coronary artery without angina pectoris Plan: 01/28/2025-patient underwent a myocardial perfusion study which was normal.; from records, history of small mixed plaque at the origin of LAD on a coronary CTA. Clinically stable. Given her negative myocardial perfusion study this time around, no further testing is indicated. In case of any new symptoms, we will update the coronary CTA to monitor disease progression. Continue baby aspirin therapy. Continue statin therapy. (2) Essential hypertension: Code(s): I10 - Essential (primary) hypertension Category: Medical Plan: Blood pressure today is well-controlled. Continue current regimen. Ideally, blood pressure goal less than 130/80. (3) Hyperlipidemia: Code(s): E78.5 - Hyperlipidemia, unspecified Category: Medical Qualifiers: Hyperlipidemia type: pure hypercholesterolemia Qualified Code(s): E78.00 - Pure hypercholesterolemia, unspecified Plan: Most recent LDL at 81, not within goal of LDL less than 70. Patient has upcoming lipid profile with PCP. Continue statin therapy. (4) Diabetes type 2, uncontrolled: Code(s): E11.65 - Type 2 diabetes mellitus with hyperglycemia Category: Medical Qualifiers: Glycemic state: with hyperglycemia Qualified Code(s): E11.65 - Type 2 diabetes mellitus with hyperglycemia Plan: Most recent A1c at 7%. Continue aggressive diabetes management with an A1c goal less than 7%. Advised heart healthy diet, regular exercise, med compliance, and management of vascular risk factors. Follow up in 1 year, sooner if needed. In the interim, patient will call the office with any concerns or change in symptoms. This note was generated using voice recognition software. While every effort has been made to ensure accuracy and proper electric furnace operator, there may be occasional errors that could affect the content or meaning of the described symptoms. Orders: Orders AMB EKG-In Office Today I25.10 - Atherosclerotic heart disease of [place] coronary artery without angina pectoris Coding Level of Care Code Tele Est Pt Level 4 (48720) Complex EM visit Add On G2211 Diagnoses Coronary artery disease involving [place] coronary artery of [place] heart without angina pectoris I25.10 Coronary Disease-Associated Artery/Lesion type: [place] artery [place] vs. transplanted heart: [place] heart Associated angina: without angina Essential hypertension I10 Pure hypercholesterolemia E78.00 Hyperlipidemia type: pure hypercholesterolemia Uncontrolled type 2 diabetes mellitus with hyperglycemia E11.65 Glycemic state: with hyperglycemia CPT Codes EKG - CPT: 16307-[id number], Complete ([id number]) Time Spent (min) 32 Comment Time spent in reviewing the chart, test results, assessment, counseling and documentation.
== END 2025-04-29 15:36 | disposition home or self-care (01) ==
LOC: HO.HCS 15:05
PROVIDERS: PCP Internal Medicine
DX: I11.9 Hypertensive heart disease without heart failure (principal); I25.10 Atherosclerotic heart disease of native coronary artery without angina pectoris; E78.00 Pure hypercholesterolemia, unspecified; E11.65 Type 2 diabetes mellitus with hyperglycemia; R94.31 Abnormal electrocardiogram [ECG] [EKG]
CPT/HCPCS: 93010; 99214; G2211

== ENCOUNTER → 2025-04-29 15:04 | Outpatient (BNVA) | payer OTHER, SELFPAY | PROVIDERS: PCP Internal Medicine | DX: I25.10 Atherosclerotic heart disease of native coronary artery without angina pectoris (principal); I10 Essential (primary) hypertension; E78.00 Pure hypercholesterolemia, unspecified; R94.31 Abnormal electrocardiogram [ECG] [EKG]; E11.65 Type 2 diabetes mellitus with hyperglycemia; Z79.4 Long term (current) use of insulin; Z79.84 Long term (current) use of oral hypoglycemic drugs | CPT/HCPCS: 93005; 99212 ==

== ENCOUNTER 2025-05-02 06:41 | Outpatient (REF) | payer OTHER, SELFPAY ==
[2025-05-02 06:53] LABS: MANUAL DIFF FLAG NO
[2025-05-02 07:22] LABS: Basophils Percent Auto 0.6 % (0-2); Eosinophils Absolute Auto 0.1 X10*3/uL (0.0-0.4); Eosinophils Percent Auto 1.5 % (0-4); Hematocrit 46.8 % (37.0-47.0); Hemoglobin 15.5 g/dl (12.0-16.0); Imm Gran Abs Auto 0.02 X10*3/uL (0.00-0.03); Imm Gran Pct Auto 0.3 % (0.0-0.4); Lymphocytes Absolute Auto 3.3 X10*3/uL (1.2-4.9); Lymphocytes Percent Auto 45.7 % (20-40); Mean Corpuscular HGB Conc 33.1 g/dl (31.0-35.0); Mean Corpuscular Hemoglobin 27.1 pg (27.0-33.0); Mean Corpuscular Volume 81.8 fL (80.0-98.0); Mean Platelet Volume 11.9 fL (9.4-12.3); Monocytes Absolute Auto 0.3 X10*3/uL (0.1-1.2); Monocytes Percent Auto 4.7 % (2-11); Neutrophils Absolute Auto 3.4 x10*3/uL (2.0-8.3); Neutrophils Percent Auto 47.2 % (45-73); Platelet Count 186 X10*3/uL (160-400); Red Blood Count 5.72 X10*6/uL (4.20-5.50); Red Cell Distribution Width 14.1 % (11.0-16.0); White Blood Count 7.2 X10*3/uL (4.8-10.8)
[2025-05-02 07:42] LABS: Estimated Average Glucose 212 mg/dL; Total Hemoglobin (HGBA1C) 4053.8948 umol/L
[2025-05-02 07:53] LABS: Alanine Aminotransferase 37 U/L (0-31); Albumin Level 4.4 g/dL (3.5-5.0); Alkaline Phosphatase 109 U/L (39-117); Anion Gap 14 (12-20); Aspartate Amino Transferase 35 U/L (5-31); Bilirubin Total 0.3 mg/dL (0.0-1.0); Blood Urea Nitrogen 25 mg/dL (9-16); Calcium 9.8 mg/dL (8.4-10.2); Carbon Dioxide 23 mmol/L (22-29); Chloride 110 mmol/L (96-108); Cholesterol 181 mg/dL (<200); Estimated Glomerular Filt Rate 48; Glucose Fasting 147 mg/dL (60-99); HDL Cholesterol 38 mg/dL (>40); LDL Cholesterol Calculated 88 mg/dL (<100); Potassium 4.1 mmol/L (3.3-5.1); Sodium 143 mmol/L (135-145); Total Protein 7.5 g/dL (6.5-8.0); Triglycerides 276 mg/dL (<150)
[2025-05-02 08:01] LABS: Appearance Urine Clear; Color Urine Yellow; Glucose Urine UA >=1000 mg/dL (Negative); Leukocyte Esterase Urine Negative (Negative); Nitrite Urine Negative (Negative); PH 5.5 (5.0-9.0); Specific Gravity - Urine >= 1.030 (1.005-1.025); UMIC TRIGGER UACC YES; Urine Blood Negative (Negative); Urine Ketones Negative (Negative); Urine Protein Negative (Neg-Trace)
[2025-05-02 08:10] LABS: TSH reflex Free T4 11.87 uIU/mL (0.32-4.0); Vitamin D 25-OH Total 34.3 ng/mL (>30)
[2025-05-02 08:13] LABS: Bacteria Urine None Seen (None Seen); Hyaline Casts Urine 0-2 /LPF (0-2); RBC Urine 0-2 /HPF (0-2); WBC Urine 0-5 /HPF (0-5)
[2025-05-02 08:39] LABS: Creatinine Urine 77.45 mg/dL; Microalbum/Creatinine Ratio Ur 15.4 ug/mg cr (<30)
[2025-05-02 09:41] LABS: Free T4 (Free Thyroxine) 0.79 ng/dL (0.71-1.85)
== END 2025-05-02 06:42 | disposition home or self-care (01) ==
LOC: HO.LAB 06:41
PROVIDERS: Absent Provider Internal Medicine Nephrology; PCP Internal Medicine; Referring Provider Internal Medicine; Visit Provider Internal Medicine
DX: E78.00 Pure hypercholesterolemia, unspecified (principal); E11.9 Type 2 diabetes mellitus without complications; E55.9 Vitamin D deficiency, unspecified; D64.9 Anemia, unspecified; R30.0 Dysuria
CPT/HCPCS: 36415; 80053; 80061; 81001; 81003; 82043; 82306; 82570; 83036; 84439; 84443; 85025

== ENCOUNTER 2025-05-27 15:50 | Outpatient (AMB) | payer OTHER, SELFPAY ==
--- OUTSIDE RECORDS SUMMARY | 2025-05-27 15:52 | XMS_ITS | Patient Health Record ---
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 Name Role Phone Luís Robles MDneth Primary Care Provider UnaGilbert Laird [phone] Allergies Allergen (clinical drug ingredient) Drug/Non Drug Allergy documented on EMR Reaction Allergy Type Onset Date Status pioglitazone Actos Unknown Drug Allergy Acti ve Reason For Referral No Information Medications Medication SIG (Take, Route, Fr equency, Duration) Notes Start Date End Date Status Trulicity 0.75 MG/0.5ML Subcutaneous for 028 Active glipiZIDE 5 MG Oral for 030 Ac tive Vitamin D3 1000 UNIT Oral for 030 Active Simvastatin 20 MG Oral for 030 Active Benazepril HCl 10 MG Oral for 030 Active Janumet 50-1000 MG Oral for 030 Active Problems Problem Type SNOMED Code ICD Code Onset Dates Problem Status W/U Status Risk Notes Problem Gastroesophageal reflux disease (386844727) GERD (gastroesopha geal reflux disease) (530.81) Active confirmed Problem Heartburn (52544791) Chronic heartburn (787.1) Active confirmed Plan Of Treatment Pending Test Test Name Order Date GI BIOPSY 10/03/2015 Future Test Test Name Order Date UPPER GI ENDOSCOPY 08/15/2015 Insurance Providers Payer Name Payer Address Payer Phone Subscriber Number Group Number Insured Name Patient Relationship to Insured Coverage Start Date Coverage End Date [facility] [address] [place] [phone] [id number] YESENIA DUARTE Self - patient is the insured Medical (General) History Medical History History ICD Code Diabetes mellitus Denies [place],CVA,Lung disease,renal disease HTN Hyperlipidemia Negative colonoscopy in 05/[address] Dorsey Surgical History Surgery Date(Month/Year) 1979 breast biopsy-left
--- NOTE | 2025-05-27 16:08 | HO.NEPHOV_ITS ---
Vital Signs 05/27/25 16:09 Height 5 ft 5 in Weight 155 lb 4 oz BMI 25.8 BP 120/63 Blood Pressure Location Rt brachial Position Sitting Pulse 70 Pulse Source Pulse Oximeter Pulse Oximetry (%) 95 Oxygen Delivery Method Room Air Intake Visit Reasons: Chronic kidney disease-Conf Intake Note: Patient here for a follow-up, had cataracts surgery on August 2024. 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 Accompanied by: Son Allergies latex (LATEX) Allergy (Intermediate, Verified 05/31/25 14:19) RASH atorvastatin (From Lipitor) Allergy (Mild, Verified 05/31/25 14:19) MUSCLE ACHES dulaglutide (Trulicity) Allergy (Unknown, Verified 05/31/25 14:19) rash and itching pioglitazone Allergy (Unknown, Verified 05/31/25 14:19) Urinary frequency pork derived (porcine) (PORK DERIVED (PORCINE)) Allergy (Unknown, Verified 05/31/25 14:19) TENRIISM BELIEF canagliflozin (Invokana) Adverse Reaction (Unknown, Verified 05/31/25 14:19) recurrent UTI, dizziness Tanzeum Allergy (Unknown, Uncoded 05/31/25 14:19) rash Do you need a note to return to daycare/school/sports/work: No HPI Comments Details: Dre was seen in follow up for chronic kidney disease. She has longstanding diabetes and hypertension. Her blood sugar control is not very good. She is not known to have any significant proteinuria. She is on angiotensin receptor racheal. She has no family history of any renal disease. She has no history of malignancy, renal stones, edema or hematuria. She denies having chest pain, shortness of breath, proximal nocturnal dyspnea, orthopnea. She was given Invokana in the past which she did not tolerate due to urinary symptoms. She is currently on Jardiance & statins. She denies congestive heart failure, carotid stenosis, CVA, SVETLANA or PD. She is active. She has not been taking thyroid medication as prescribed. [facility] Medical History Mixed hyperlipidemia Diabetes mellitus with stage 3 chronic kidney disease, with long-term current use of insulin Chronic kidney disease, stage III (moderate) Acquired hypothyroidism Restrictive lung disease Restrictive lung disease Bronchial asthma Allergic rhinitis Insomnia Diabetic polyneuropathy associated with type 2 diabetes mellitus Diabetic nephropathy associated with type 2 diabetes mellitus Non-proliferative diabetic retinopathy, both eyes halfway (current) use of insulin Diabetes type 2, uncontrolled Overweight (BMI 25.0-29.9) Chronic interstitial cystitis Varicose veins of both lower extremities Osteoarthritis of left hip Lumbosacral spondylosis Vitamin D deficiency Pityriasis rosea GERD (gastroesophageal reflux disease) Allergic rhinitis Restrictive lung disease Coronary artery disease Essential hypertension Hyperlipidemia Chronic kidney disease, stage 2 (mild) Diabetes mellitus with stage 2 chronic kidney disease, with long-term current use of insulin Surgical History Hx of cataract surgery Hx of colonoscopy (~08/11/19) FH: JUANCHO-BSO (total abdominal hysterectomy and bilateral salpingo-oophorectomy) Family History Father Diabetes Mother CVD (cardiovascular disease) Social History Household Members: None Housing: House Do you presently have visiting nurse or other home services: No Unable to assess alcohol history related to: Unknown Alcohol intake: never Patient Tobacco Use Status: Never used Tobacco e-Cigarette/Vaping Use: Never Used Second Hand Smoke Exposure: Yes Advance Directives Date on File: 07/02/21 service: No Current occupational status: employed 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 needs: No Hearing needs: No Vision needs: No Physical Exam Vital Signs: Last Vital Signs Pulse 70 05/27/25 16:09 BP 120/63 05/27/25 16:09 Pulse Ox 95 05/27/25 16:09 Oxygen Delivery Method Room Air 05/27/25 16:09 BMI result Body Mass Index 25.8 Const General: comfortable and no acute distress Orientation/consciousness: patient oriented x3 HEENT Head: Yes normocephalic Mouth: Normal oral and palatal mucosa present Eyes EOM: EOMs intact bilaterally Neck Neck: Yes supple Resp Auscultation: clear to auscultation bilaterally Cardio Jugular venous distension: no JVD Rate: regular rate GI Palpation (GI): Soft to palpation Auscultation: normal bowel sounds General: Yes no CVA tenderness Back/Spine/Pelvis Back: no CVA tenderness Skin General skin exam: no rashes or lesions noted Neuro General: patient oriented x3 and moves all extremities Extrem General: Yes no pedal edema Results Reviewed Nephrology Results: Hgb, (12.0-16.0) 15.5 g/dl 05/02/25 WBC, (4.8-10.8) 7.2 X10*3/uL 05/02/25 Plt Count, (160-400) 186 X10*3/uL Δ 05/02/25 Sodium, (135-145) 143 mmol/L 05/02/25 Potassium, (3.3-5.1) 4.1 mmol/L 05/02/25 Chloride, (96-108) 110 mmol/L H 05/02/25 Carbon Dioxide, (22-29) 23 mmol/L 05/02/25 BUN, (9-16) 25 mg/dL H 05/02/25 Creatinine, (0.5-1.4) 1.12 mg/dL 05/02/25 Calcium, (8.4-10.2) 9.8 mg/dL 05/02/25 Urine Protein, (Neg-Trace) Negative mg/dL 05/02/25 Urine Creatinine 77.45 mg/dL 05/02/25 Assessment & Plan Assessment & Plan (1) Essential hypertension: Code(s): I10 - Essential (primary) hypertension Category: Medical (2) Chronic kidney disease, stage III (moderate): Code(s): N18.30 - Chronic kidney disease, stage 3 unspecified Category: Medical Qualifiers: Chronic kidney disease stage 3 subtype: stage 3b (GFR 30-44) Qualified Code(s): N18.32 - Chronic kidney disease, stage 3b Plan Dre has chronic kidney disease most likely from vascular disease. She does not have any proteinuria. There was a question of her having retinopathy. She denies any neuropathy as well as peripheral arterial disease. Her urine output is good. She is on Jardiance and benazepril. She may need a sestamibi scan for her parathyroid given her calcium and PTH levels being on the higher side. She does not need a renal biopsy now. Her blood sugar needs to be better. I did not make any other medication changes today. She should avoid nonsteroidal anti- inflammatories, maintain good hydration and minimize sodium in the diet. All questions were answered. Follow-up given Orders: Orders Electrolytes 6 Months N18.32 - Chronic kidney disease, stage 3b, I10 - Essential (primary) hypertension Creatinine 6 Months N18.32 - Chronic kidney disease, stage 3b, I10 - Essential (primary) hypertension Hemoglobin A1c 6 Months N18.32 - Chronic kidney disease, stage 3b Protein Creatinine Ratio, Ur 6 Months N18.32 - Chronic kidney disease, stage 3b, I10 - Essential (primary) hypertension Blood Urea Nitrogen 6 Months N18.32 - Chronic kidney disease, stage 3b, I10 - Essential (primary) hypertension Medications: Refilled levothyroxine Take on an empty stomach, first thing in the morning, with water. Do not eat or drink anything else for 30 minutes afterwards 50 mcg PO DAILY 90 tabs 1RF 90 days E03.9 - Hypothyroidism, unspecified Coding Level of Care Code Est Pt Level 4 (65622) Diagnoses Essential hypertension I10 Stage 3b chronic kidney disease N18.32 Chronic kidney disease stage 3 subtype: stage 3b (GFR 30-44)
[2025-05-27 16:09] VITALS: BP 120/63; PULSE 70; O2SAT 95; BMI 25.8
== END 2025-05-27 16:34 | disposition home or self-care (01) ==
LOC: HO.HKA 15:51
PROVIDERS: PCP Internal Medicine; Visit Provider Internal Medicine Nephrology
DX: I10 Essential (primary) hypertension (principal); N18.32 Chronic kidney disease, stage 3b
CPT/HCPCS: 99214

== ENCOUNTER → 2025-05-27 15:50 | Outpatient (BNVA) | payer OTHER, SELFPAY | PROVIDERS: PCP Internal Medicine; Visit Provider Internal Medicine Nephrology | DX: N18.32 Chronic kidney disease, stage 3b (principal); I10 Essential (primary) hypertension | CPT/HCPCS: 99212 ==

== ENCOUNTER 2025-05-31 14:03 | Outpatient (AMB) | payer OTHER, SELFPAY ==
--- NOTE | 2025-05-31 14:05 | MHC.OFFVIS ---
Vital Signs 05/31/25 14:09 Height 5 ft 5 in Weight 155 lb 13.869 oz BMI 25.9 BP 116/64 Blood Pressure Location Rt brachial Position Sitting Pulse 71 Pulse Source Pulse Oximeter Pulse Oximetry (%) 97 Oxygen Delivery Method Room Air Intake Visit Reasons: T2DM Intake Note: Patient present today to follow up on Type 2 Diabetes Mellitus. Last seen by Ceci Grubbs on 12/16/2024 Patient receives DME supplies through: [facility] Last Diabetic Eye exam: August 2024 Last Podiatry Visit: Does not see a Transfer Specialist Random Glucose: 189 mg/dl HgA1C: 9.0% 05/02/2025 Solution Specialist Required: No Accompanied by: Grand Child Allergies latex (LATEX) Allergy (Intermediate, Verified 05/31/25 14:19) RASH atorvastatin (From Lipitor) Allergy (Mild, Verified 05/31/25 14:19) MUSCLE ACHES dulaglutide (Trulicity) Allergy (Unknown, Verified 05/31/25 14:19) rash and itching pioglitazone Allergy (Unknown, Verified 05/31/25 14:19) Urinary frequency pork derived (porcine) (PORK DERIVED (PORCINE)) Allergy (Unknown, Verified 05/31/25 14:19) TEMPLE BELIEF canagliflozin (Invokana) Adverse Reaction (Unknown, Verified 05/31/25 14:19) recurrent UTI, dizziness Tanzeum Allergy (Unknown, Uncoded 05/31/25 14:19) rash HPI Comments Details: Patient is 74-year-old female with DM type 2 diagnosed October 2005 who presents for management of diabetes. Past medical history: Diabetes type 2, hypertension, hyperlipidemia Micro and macrovascular complications: retinopathy, nephropathy, neuropathy, CAD Diabetes medications: Diabetes medications: Lantus 12 units V Go 40, 5 clicks with meals. Plus one click for blood glucose over 200, Jardiance 25 mg QD Intolerant of Trulicity causes allergic site reactions. Reports intolerant of Victoza, Tanzeum. She had recurrent UTI with Invokana Blood glucose monitoring: [place] 3 download shows average glucose of 173 with G mi of 7.4% and variability 26%. The sensor his active 96% of the time. 54% are in target range with 41% hyperglycemia and 5% very hyperglycemic and no hypoglycemia Symptoms reported: denies numbness, tingling, cramping in lower extremities Hypoglycemia: Rare Hyperglycemia: urinary frequency, nocturia 1x/night, occasional polydypsia Exercise: walks all-night at home. Also has foot compensation expert. Cardiac Nurse Practitioner - CDE education: long time ago Transfer Specialist: laurent Dental exam: last year Ophthalmology evaluation: last yr -needs appt Other specialists: Complaint Supervisor, Dr. Ayala Did not meet with the regional sales associate Laboratory Tests 02/13/22 02/13/22 02/13/22 07:20 07:22 07:22 Creatinine 0.96 Estimated GFR 58 Hemoglobin A1c % 9.5 Triglycerides 159 Cholesterol 127 D LDL Cholesterol, Calc 58 HDL Cholesterol 38 TSH 2.39 Microalb/Creat Ratio 8.0 06/28/21 10/17/21 10/23/21 16:20 15:19 08:51 Creatinine 1.27 Estimated GFR 42 Hgb A1c (Clinic) 10.9 H TSH 4.76 H [facility] Medical History Mixed hyperlipidemia Diabetes mellitus with stage 3 chronic kidney disease, with long-term current use of insulin Chronic kidney disease, stage III (moderate) Acquired hypothyroidism Restrictive lung disease Restrictive lung disease Bronchial asthma Allergic rhinitis Insomnia Diabetic polyneuropathy associated with type 2 diabetes mellitus Diabetic nephropathy associated with type 2 diabetes mellitus Non-proliferative diabetic retinopathy, 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 Diabetes type 2, uncontrolled Overweight (BMI 25.0-29.9) Chronic interstitial cystitis Varicose veins of both lower extremities Osteoarthritis of left hip Lumbosacral spondylosis Vitamin D deficiency Pityriasis rosea GERD (gastroesophageal reflux disease) Allergic rhinitis Restrictive lung disease Coronary artery disease Essential hypertension Hyperlipidemia Chronic kidney disease, stage 2 (mild) Diabetes mellitus with stage 2 chronic kidney disease, with long-term current use of insulin Surgical History Hx of colonoscopy (~08/11/19) FH: JUANCHO-BSO (total abdominal hysterectomy and bilateral salpingo-oophorectomy) Family History Father Diabetes Mother CVD (cardiovascular disease) Social History Household Members: None Housing: House Do you presently have visiting nurse or other home services: No Unable to assess alcohol history related to: Unknown Alcohol intake: never Patient Tobacco Use Status: Never used Tobacco e-Cigarette/Vaping Use: Never Used Second Hand Smoke Exposure: Yes Advance Directives Date on File: 07/02/21 service: No Current occupational status: employed 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 Absence of acromegalic features. Neck exam reveals nl size thyroid about 15 gms. No thyroid nodules palpable. No carotid bruits present. Lungs CTA. Heart S1 S2, Reg R/R. No M/R/ G. Skin exam reveals absence of vitiligo or acanthosis nigricans. Abdominal exam reveals Soft NT/ND with NA BS. No organomegaly present. Neck Other: . Extrem Other: Visual exam of foot performed. No ulcerations or open lesions. No onchomycosis, no callouses.Pulses 2 + distally Sensation intact to monofilament exam. Vibratory sensation sensed is intact with 128 Hz tuning fork Assessment & Plan Assessment & Plan (1) Diabetes type 2, uncontrolled: Code(s): E11.65 - Type 2 diabetes mellitus with hyperglycemia Category: Medical Qualifiers: Glycemic state: with hyperglycemia Qualified Code(s): E11.65 - Type 2 diabetes mellitus with hyperglycemia Plan: This is a 74-year-old female with a history of type 2 diabetes being treated with Tradjenta, metformin, basal insulin along with V-Go system with fair but adequate glycemic control considering comorbidities and age and known microvascular and macrovascular complications namely retinopathy, nephropathy, neuropathy, CAD. Plan is continue the current management. Medications: Changed From pen needle, diabetic (BD Ultra-Fine [place] Pen Needle) As directed once daily 100 ea 3RF E11.42 - Type 2 diabetes mellitus with diabetic polyneuropathy To pen needle, diabetic As directed once daily 100 ea 3RF E11.42 - Type 2 diabetes mellitus with diabetic polyneuropathy Refilled glucagon 3 mg/actuation (Baqsimi) 3 mg intranasal ONCE PRN 2 ea 1RF Unresponsive hypoglycemia may repeat in 15 minutes 30 days insulin glargine (Lantus Solostar U-100 Insulin) 14 units (0.14 mL) subcut QPM 15 mL 3RF 90 days blood-glucose sensor (FreeStyle Consuelo 3 Plus Sensor device) As directed every 15 days 2 ea 11RF Humalog U-100 Insulin (insulin lispro) Up to 78 units via VGO subcut daily; 40 mL 3RF 30 days NS E11.65 - Type 2 diabetes mellitus with hyperglycemia Jardiance (empagliflozin) 25 mg PO QAM 90 tabs 1RF 90 days NS sub-q insulin device, 40 unit (V-GO 40 device) for daily use 30 ea 3RF Coding Level of Care Code Est Pt Level 4 (39281) Complex EM visit Add On G2211 Diagnoses Uncontrolled type 2 diabetes mellitus with hyperglycemia E11.65 Glycemic state: with hyperglycemia
[2025-05-31 14:09] VITALS: BP 116/64; PULSE 71; O2SAT 97; BMI 25.9
[2025-05-31 14:22] LABS: Glucose, Whole Blood 189 mg/dL (60-115)
--- OUTSIDE RECORDS SUMMARY | 2025-05-31 15:16 | XMS_ITS | Patient Health Record ---
Author Organization [facility] Address [address] [place] [address] Care Team Providers Care Manager File Name Role Phone Luís Robles MDneth Primary Care Provider UnaGilbert Laird [phone] Allergies Allergen (clinical drug ingredient) Drug/Non Drug [...] Status Risk Notes Problem Gastroesophageal reflux disease (030227210) GERD (gastroesopha geal reflux disease) (530.81) Active confirmed Problem Heartburn (72354423) Chronic heartburn (787.1) Active confirmed Plan Of Treatment Pending Test Test Name Order Date GI BIOPSY 10/03/2015 Future Test Test Name Order Date UPPER GI ENDOSCOPY 08/15/2015 Insurance Providers Payer Name Payer Address Payer Phone Subscriber Number Group Number Insured Name Patient Relationship to Insured Coverage Start Date Coverage End Date [facility] [address] [place] [phone] [id number] YESENIA DUARTE Self - patient is the insured Medical (General) History Medical History History ICD Code Diabetes mellitus Denies [place],CVA,Lung disease,renal disease HTN Hyperlipidemia Negative colonoscopy in 05/[address] Dorsey Surgical History Surgery Date(Month/Year) 1979 breast biopsy-left
== END 2025-05-31 14:26 | disposition home or self-care (01) ==
LOC: HO.ENCR 14:03
PROVIDERS: PCP Internal Medicine; Visit Provider Internal Medicine Endocrinology, Diabetes & Metabolism
DX: E11.65 Type 2 diabetes mellitus with hyperglycemia (principal)
CPT/HCPCS: 99214; G2211

== ENCOUNTER → 2025-05-31 14:03 | Outpatient (BNVA) | payer OTHER, SELFPAY | PROVIDERS: PCP Internal Medicine; Visit Provider Internal Medicine Endocrinology, Diabetes & Metabolism | DX: E11.65 Type 2 diabetes mellitus with hyperglycemia (principal); E11.42 Type 2 diabetes mellitus with diabetic polyneuropathy | CPT/HCPCS: 82947; 99212 ==

== ENCOUNTER 2025-07-22 16:00 | Outpatient (AMB) | payer OTHER, SELFPAY ==
[2025-07-22 16:04] VITALS: BP 120/64; PULSE 83; O2SAT 97; BMI 25.8
--- NOTE | 2025-07-22 16:04 | A.OFFPC_ITS ---
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: No Accompanied by: Self / Same As Patient Allergies latex (LATEX) Allergy (Intermediate, Verified 07/22/25 16:41) RASH atorvastatin (From Lipitor) Allergy (Mild, Verified 07/22/25 16:41) MUSCLE ACHES dulaglutide (Trulicity) Allergy (Unknown, Verified 07/22/25 16:41) rash and itching pioglitazone Allergy (Unknown, Verified 07/22/25 16:41) Urinary frequency pork derived (porcine) (PORK DERIVED (PORCINE)) Allergy (Unknown, Verified 0 07/22/25 16:41) MUSLIM BELIEF canagliflozin (Invokana) Adverse Reaction (Unknown, Verified 07/22/25 16:41) recurrent UTI, dizziness Tanzeum Allergy (Unknown, Uncoded 07/22/25 16:41) rash Medication List - Last Reconciled 07/22/25 by Darryl Robles MD acetone (urine) test (Ketone Urine Test strips) P.r.n. glucose over 250, nausea, and vomiting, illness up to t.i.d. albuterol sulfate 2.5 mg (3 mL) inhalation QID PRN 30 days albuterol sulfate 90 mcg/actuation (ProAir HFA) 2 puffs inhalation QID PRN 30 days benazepril 2.5 mg (1/2 x 5 mg) PO DAILY 90 days betamethasone dipropionate 0.05% 1 appl topical BID PRN blood sugar diagnostic (FreeStyle Lite Strips) As directed 4 times a day blood-glucose meter (FreeStyle Lite Meter kit) As directed blood-glucose sensor (FreeStyle Consuelo 3 Plus Sensor device) As directed every 15 days blood-glucose,engineering recruiter,cont (FreeStyle Consuelo 3 [place]) USE DIRECTED cholecalciferol (vitamin D3) 50 mcg PO DAILY 90 days [DIABETIC SHOES As directed] glucagon 3 mg/actuation (Baqsimi) 3 mg intranasal ONCE PRN 30 days Humalog U-100 Insulin (insulin lispro) Up to 78 units via VGO subcut daily; 30 days NS hydroxyzine HCl 10 mg PO Q8H PRN insulin glargine (Lantus Solostar U-100 Insulin) 14 units (0.14 mL) subcut QPM 90 days Jardiance (empagliflozin) 25 mg PO QAM 90 days NS lancets (FreeStyle Lancets) As directed 4 times a day levothyroxine 50 mcg PO DAILY 90 days mometasone 0.1% 1 appl topical DAILY PRN 30 days mupirocin 2% 1 appl topical TID 7 days [NEBULIZER and all related accessories, including tubing and mask As directed] omega-3 fatty acids 1,000 mg PO BID 30 days pen needle, diabetic USE ONCE A DAY DIRECTED pen needle, diabetic As directed once daily rosuvastatin 40 mg PO DAILY 90 days sub-q insulin device, 40 unit (V-GO 40 device) USE DIRECTED sub-q insulin device, 40 unit (V-GO 40 device) for daily use [V-GO 40 device As directed] Tobacco use date assessed: 07/22/25 Fall risk assessment: No Falls in past year Last assessed Fall Risk: 07/22/25 Dental Screening Dental Screen Date: 07/22/25 Did you have a dental visit in the last 12 months?: Yes Did you have a dental problem in the last 6 months where you did not have access to dental care?: No Was dental information given to patient?: Patient has dentist HPI DM, hyperlipidemia, HTN- needs A1C HPI Details Patient comes in today for her follow up visit - she was last seen here on 10/22/2024 Patient states that she feels okay She denies any headaches or dizziness Denies any chest pains, no increased SOB No nausea/vomiting, no abdominal pain No change in bowel habits noted She had her follow up labs done back in May 2025 but has not other more recent labs done - to discuss her results [facility] Medical History Mixed hyperlipidemia Diabetes mellitus with stage 3 chronic kidney disease, with long-term current use of insulin Chronic kidney disease, stage III (moderate) Acquired hypothyroidism Restrictive lung disease Restrictive lung disease Bronchial asthma Allergic rhinitis Insomnia Diabetic polyneuropathy associated with type 2 diabetes mellitus Diabetic nephropathy associated with type 2 diabetes mellitus Non-proliferative diabetic retinopathy, both eyes prison (current) use of insulin Diabetes type 2, uncontrolled Overweight (BMI 25.0-29.9) Chronic interstitial cystitis Varicose veins of both lower extremities Osteoarthritis of left hip Lumbosacral spondylosis Vitamin D deficiency Pityriasis rosea GERD (gastroesophageal reflux disease) Allergic rhinitis Restrictive lung disease Coronary artery disease Essential hypertension Hyperlipidemia Chronic kidney disease, stage 2 (mild) Diabetes mellitus with stage 2 chronic kidney disease, with long-term current use of insulin Surgical History Hx of cataract surgery Hx of colonoscopy (~08/11/19) FH: JUANCHO-BSO (total abdominal hysterectomy and bilateral salpingo-oophorectomy) Family History Father Diabetes Mother CVD (cardiovascular disease) Social History Household Members: None Housing: House Do you presently have visiting nurse or other home services: No Unable to assess alcohol history related to: Unknown Alcohol intake: never Patient Tobacco Use Status: Never used Tobacco e-Cigarette/Vaping Use: Never Used Second Hand Smoke Exposure: Yes Advance Directives Date on File: 07/02/21 service: No Current occupational status: employed 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 1. Little interest or pleasure in doing things: not at all 2. Feeling down, depressed, or hopeless: not at all 3. Trouble falling or staying asleep, or sleeping too much: not at all 4. Feeling tired or having little energy: not at all 5. Poor appetite or overeating: not at all 6. Feeling bad about yourself - or that you are a failure or have let yourself or your family down: not at all 7. Trouble concentrating on things, such as reading the newspaper or watching television: not at all 8. Moving or speaking so slowly that other people could have noticed. Or the opposite - being so fidgety or restless that you have been moving around a lot more than usual: not at all 9. Thoughts that you would be better off or of hurting yourself in some way: not at all Total score: 0 Depression Screening Interpretation: Negative Depression Screening Done: Yes 15715 - PHQ-9 Billing: Yes Source: Developed by Drs. Gilbert Khan, Aleja Phillip, Hugo Aleman and colleagues, with an educational jose alfredo from [employer]. Thrive Questionnaire Date Thrive assessed: 07/22/25 I am a: Patient What is your living situation today?: I have a steady place to live Within the past 12 months, did the food you bought not last and you didn't have the money to get more?: I choose not to answer this question Within the past 12 months, did you worry whether your food would run out before you got money to buy more?: I choose not to answer this question Do you have trouble paying for medicines?: I choose not to answer this question Do you have trouble getting transportation to medical appointments?: I choose not to answer this question Do you have trouble paying your heating and electricity bill?: I choose not to answer this question Do you have trouble taking care of your child, family member or friend?: No Do you have trouble with day-to-day activities such as bathing, preparing meals, shopping, managing finances, etc.?: I choose not to answer this question Are you currently unemployed and looking for a job?: No Are you interested in more education?: I choose not to answer this question Please select the resources that you would like help with: Food Currently or been in a relationship where the following occur: No concerns reported THRIVE Score: 0 AUDIT C Alcohol Use Questionnaire (AUDIT-C) 1. How often do you have a drink containing alcohol?: Never 3. How often do you have six or more drinks on one occasion?: Never Total Score: 0 Score Reviewed/Action Taken: Yes VITALY-7 AMB Questionnaire VITALY-7 Date VITALY - 7 assessed: 07/22/25 Feeling nervous, anxious, or on edge: 0 = Not at all Not being able to stop or control worryin = Not at all Worrying too much about different things: 0 = Not at all Trouble relaxin = Not at all Being so restless that it is hard to sit still: 0 = Not at all Becoming easily annoyed or irritable: 0 = Not at all Feeling afraid as if something awful might happen: 0 = Not at all Total VITALY-7 score (0-4 normal; 5-9 mild; 10-14 moderate; 15-21 severe): 0 Source: Developed by Drs. Gilbert Khan, Aleja Phillip, Hugo Aleman and colleagues, with an educational jose alfredo from [employer]. Review of Systems Const Denies chills, Denies fatigue, Denies fever(s) and Denies headache(s) ENT Denies dysphagia, Denies dizziness, Denies otalgia, Denies headache(s), Denies neck pain, Denies odynophagia and Denies sore throat Card Denies chest pain, Denies rapid heart rate, Denies irregular heart rhythm, Denies palpitations and Denies dyspnea Resp Denies chest congestion, Denies cough and Denies dyspnea GI Denies abdominal pain, Denies constipation, Denies dysphagia, Denies heartburn, Denies diarrhea, Denies nausea, Denies odynophagia and Denies vomiting Denies difficulty voiding, Reports nocturia, Denies dysuria and Denies urinary urgency Musc Denies back pain, Denies arthralgias and Denies neck pain Skin/Breast Denies rash Neuro Denies dizziness, Denies headache(s) and Denies paresthesias Psych Denies anxiety and Denies depression Endo Denies fatigue and Denies palpitations Woody/Lymph Denies easy bruising Physical exam (Primary Care) Vital Signs: Last Vital Signs Pulse 83 07/22/25 16:04 BP 120/64 07/22/25 16:04 Pulse Ox 97 07/22/25 16:04 Oxygen Delivery Method Room Air 07/22/25 16:04 BMI result Body Mass Index 25.8 Tobacco/Smoking Status: Tobacco use Status Tobacco use date assessed 07/22/25 07/22/25 16:08 Patient Tobacco Use Status Never used Tobacco 07/22/25 16:08 e-Cigarette/Vaping Use Never Used 07/22/25 16:08 PHQ-9: PHQ-9 Score PHQ-9: Total score 0 07/22/25 16:52 Depression Screening Interpretation: Negative Thrive Assessment: Date of Thrive Assessment Date Thrive assessed 07/22/25 07/22/25 16:08 Currently or been in a relationship where the following occur: No concerns reported Const General: no acute distress and alert HENMT Ears: TM's normal bilaterally and EAC's normal Throat: Yes posterior oropharynx normal and Yes tonsils normal (no TP congestion) Neck Neck: Yes supple and No lymphadenopathy Thyroid: Thyroid normal Resp Auscultation: clear to auscultation bilaterally, no rales and no wheezes Cardio Rate: regular rate Rhythm: regular rhythm Heart sounds: no murmurs GI Palpation (GI): Soft to palpation and nontender Auscultation: normal bowel sounds General: Yes no CVA tenderness Back/Spine/Pelvis Back: no CVA tenderness Thoracic/Lumbar Spine: No lumbar spinal tenderness Skin Rashes: no rashes Extrem General: Yes no clubbing, cyanosis or edema Results AMB Hemoglobin A1c AMB Hemoglobin A1c 8.4 % Last Edit by REVA Anderson on 07/22/25 16 :52 Results Reviewed Results Reviewed: Laboratory Last Values Hgb A1c (Clinic) 8.4 % (4.0-6.0) H 07/22/25 16:46 Laboratory Tests 05/02/25 05/02/25 06:50 06:51 WBC 7.2 Hgb 15.5 Hct 46.8 Plt Count 186 D Sodium 143 Potassium 4.1 Creatinine 1.12 Estimated GFR 48 Fasting Glucose 147 H Hemoglobin A1c % 9.0 H Calcium 9.8 AST 35 H ALT 37 H Triglycerides 276 H Cholesterol 181 LDL Cholesterol, Calc 88 HDL Cholesterol 38 L 25-OH Vitamin D Total 34.3 TSH 11.87 H Free T4 0.79 Ur Specific [place] >= 1.030 H Urine Protein Negative Urine Glucose (UA) >=1000 H Urine Blood Negative Urine Nitrite Negative Ur Leukocyte Esterase Negative Microalb/Creat Ratio 15.4 Coding Level of Care Code Est Pt Level 4 (10253) Diagnoses Type 2 diabetes mellitus with stage 3b chronic kidney disease, with long-term current use of insulin E11.22; N18.32; Z79.4 Chronic kidney disease stage 3 subtype: stage 3b (GFR 30-44) Diabetes mellitus type: type 2 Stage 3b chronic kidney disease N18.32 Chronic kidney disease stage 3 subtype: stage 3b (GFR 30-44) Mixed hyperlipidemia E78.2 Essential hypertension I10 Coronary artery disease involving barrow coronary artery of barrow heart without angina pectoris I25.10 Associated angina: without angina Coronary Disease-Associated Artery/Lesion type: barrow artery [place] vs. transplanted heart: barrow heart Acquired hypothyroidism E03.9 Restrictive lung disease J98.4 Acute nonintractable headache, unspecified headache type R51.9 Headache chronicity pattern: acute headache Headache type: unspecified Intractability: not intractable Allergic rhinitis, unspecified seasonality, unspecified trigger J30.9 Allergic rhinitis seasonality: unspecified Allergic rhinitis trigger: unspecified Pityriasis rosea L42 Vitamin D deficiency E55.9 Insomnia, unspecified type G47.00 Insomnia type: unspecified Overweight (BMI 25.0-29.9) E66.3 Additional Codes PHQ-9 - 80978 - PHQ-9 Billing: Yes ([id number]) Assessment & Plan Assessment & Plan (1) Diabetes mellitus with stage 3 chronic kidney disease, with long-term current use of insulin: Code(s): E11.22 - Type 2 diabetes mellitus with diabetic chronic kidney disease; N18.30 - Chronic kidney disease, stage 3 unspecified; Z79.4 - 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 of insulin Category: Medical Qualifiers: Chronic kidney disease stage 3 subtype: stage 3b (GFR 30-44) Diabetes mellitus type: type 2 Qualified Code(s): E11.22 - Type 2 diabetes mellitus with diabetic chronic kidney disease; N18.32 - Chronic kidney disease, stage 3b; Z79.4 - prison (current) use of insulin Plan: Her in-office HgbA1c today is at 8.4% (HgbA1c was at 9.0% back in early May 2025 and at 7.4% previously in August 2024) - goal is at least <7.0% Reinforced diabetic diet Continue Jardiance 25 mg Q AM, Lantus 10 units Q PM and Humalog via VGO at 40, 5 clicks with meals; 1 click for correction BS > 200 mg/DL, 1 click with snacks. To use bolus 10 min before meals Follow up with endocrinology as scheduled - she was just seen by Dr. Jimenez in early May 2025 but it looks like no changes were made to her medication regimen at the time (2) Chronic kidney disease, stage III (moderate): Code(s): N18.30 - Chronic kidney disease, stage 3 unspecified Category: Medical Qualifiers: Chronic kidney disease stage 3 subtype: stage 3b (GFR 30-44) Qualified Code(s): N18.32 - Chronic kidney disease, stage 3b Plan: She is advised that her renal function appears to have stabilized recently, based on her most recent labs Have reminded patient again that the best way to preserve her renal function is with tight control of her blood sugar and blood pressure Continue Jardiance 25 mg Q AM Follow up with nephrology as scheduled (3) Mixed hyperlipidemia: Code(s): E78.2 - Mixed hyperlipidemia Category: Medical Plan: Results of her labs done back in May 2025 reviewed and discussed with patient and her son Reinforced low cholesterol diet Continue Rosuvastatin 40 mg QD Will recheck her labs and fasting lipids in 3 months for follow up (4) Essential hypertension: Code(s): I10 - Essential (primary) hypertension Category: Medical Plan: Reinforced low sodium diet - goal is systolic BP of at least 130 mm or less Continue Benazepril 2.5 mg QD (5) Coronary artery disease: Code(s): I25.10 - Atherosclerotic heart disease of barrow coronary artery without angina pectoris Category: Medical Qualifiers: Associated angina: without angina Coronary Disease-Associated Artery/Lesion type: barrow artery [place] vs. transplanted heart: barrow heart Qualified Code(s): I25.10 - Atherosclerotic heart disease of barrow coronary artery without angina pectoris Plan: Patient is advised to continue with aggressive risk factor modification, including her blood pressure, blood sugar and cholesterol levels Follow up with cardiology as scheduled (6) Acquired hypothyroidism: Code(s): E03.9 - Hypothyroidism, unspecified Category: Medical Plan: Patient admits that she was not taking her thyroid Rx previously and just started back on it about 2 weeks ago Have advised her that her TSH level back in May 2025 was significantly elevated at 11.87, consistent with her not taking her medication at the time Continue Levothyroxine 50 mcg QD and have again emphasized to her the importance of compliance with her medications Will recheck her TFTs in 3 months for follow-up (7) Restrictive lung disease: Comment: PER SPIROMETRY SHE HAS EVIDENCE OF MODERATE DEGREE OF RESTRICTIVE LUNG DISORDER. ETIOLOGY OF THIS ISSUE IS NOT CLEAR, SHE DOES HAVE A RELATIVELY FLAT CHEST. X-RAY CHEST IS ORDERED TO SEE IF THERE IS ANY PARENCHYMAL LUNG DISEASE . AT ANY RATE IT IS NOT VERY SYMPTOMATIC FOR HER AT THIS TIME. Code(s): J98.4 - Other disorders of lung Category: Medical Plan: PFTs done in January 2019 revealed (+) moderately severe restrictive pulmonary disease with no obstructive component Patient uses her Albuterol inhaler (Ventolin HFA) 4 times a day as needed mostly for symptomatic relief Follow up with pulmonary as scheduled - she sees Dr. Gamboa at [facility] [place] (8) Headache: Code(s): R51.9 - Headache, unspecified Category: Medical Qualifiers: Headache chronicity pattern: acute headache Headache type: unspecified Intractability: not intractable Qualified Code(s): R51.9 - Headache, unspecified Plan: These are most likely tension headaches - states that they seem to have calmed down a lot lately, especially since she has taken a month off following her sister's and she also took the time to have her eye surgery done recently Continue Fioricet 1 tablet 3 to 4 times a day as needed Follow up with neurology as scheduled (9) Allergic rhinitis: Code(s): J30.9 - Allergic rhinitis, unspecified Category: Medical Qualifiers: Allergic rhinitis seasonality: unspecified Allergic rhinitis trigger: unspecified Qualified Code(s): J30.9 - Allergic rhinitis, unspecified Plan: Continue Hydroxyzine 10 mg every 8 hours as needed Patient also takes OTC Benadryl 25 mg Q 6 hrs PRN additionally for symptomatic relief (10) Pityriasis rosea: Code(s): L42 - Pityriasis rosea Category: Medical Plan: Continue Betamethasone dipropionate 0.05% BID PRN; Mometasone 0.1% cream QD was not helping Follow up with dermatology as scheduled (11) Vitamin D deficiency: Code(s): E55.9 - Vitamin D deficiency, unspecified Category: Medical Plan: Continue Vitamin D3 2000 units (capsule) QD (12) Insomnia: Code(s): G47.00 - Insomnia, unspecified Category: Medical Qualifiers: Insomnia type: unspecified Qualified Code(s): G47.00 - Insomnia, u nspecified Plan: Sleep hygiene reinforced Continue Zolpidem 5 mg Q HS PRN (13) Overweight (BMI 25.0-29.9): Code(s): E66.3 - Overweight Category: Medical Plan: Reinforced diet/exercise as tolerated/lose weight Plan To return as scheduled in early October 2025 for her annual physical examination Orders: Orders Complete Blood Count Auto Diff 10/22/25 D64.9 - Anemia, unspecified, Z00.00 - Encounter for general adult medical examination without abnormal findings Lipid Panel 10/22/25 E78.00 - Pure hypercholesterolemia, unspecified, Z00.00 - Encounter for general adult medical examination without abnormal findings Microalbumin, Random (w Creat) 10/22/25 E11.9 - Type 2 diabetes mellitus without complications, Z00.00 - Encounter for general adult medical examination without abnormal findings Vitamin B12 and Folate 10/22/25 E53.8 - Deficiency of other specified B group vitamins, Z00.00 - Encounter for general adult medical examination without abno rmal findings AMB Hemoglobin A1c 07/22/25 Z13.9 - Encounter for screening, unspecified Comprehensive [place]. Panel Fast 10/22/25 E78.00 - Pure hypercholesterolemia, unspecified, Z00.00 - Encounter for general adult medical examination without abnormal findings Hemoglobin A1c 10/22/25 E11.9 - Type 2 diabetes mellitus without complications, Z00.00 - Encounter for general adult medical examination without abnormal findings Thyroid Stimulating Hormone 10/22/25 E03.9 - Hypothyroidism, unspecified, Z00.00 - Encounter for general adult medical examination without abnormal findings Free T4 (Free Thyroxine) 10/22/25 E03.9 - Hypothyroidism, unspecified, Z00.00 - Encounter for general adult medical examination without abnormal findings UA CC w/rflx Micro + Cult 10/22/25 R30.0 - Dysuria, Z00.00 - Encounter for general adult medical examination without abnormal findings Vitamin D 25-OH Total 10/22/25 E55.9 - Vitamin D deficiency, unspecified, Z00.00 - Encounter for general adult medical examination without abnormal findings
== END 2025-07-22 17:08 | disposition home or self-care (01) ==
LOC: HO.HMCH 16:01
PROVIDERS: PCP Internal Medicine; Visit Provider Internal Medicine
DX: Z13.9 Encounter for screening, unspecified (principal)

== ENCOUNTER → 2025-07-22 16:00 | Outpatient (BNVA) | payer OTHER, SELFPAY | PROVIDERS: PCP Internal Medicine; Visit Provider Internal Medicine | DX: E11.22 Type 2 diabetes mellitus with diabetic chronic kidney disease (principal); I12.9 Hypertensive chronic kidney disease with stage 1 through stage 4 chronic kidney disease, or unspecified chronic kidney disease; N18.32 Chronic kidney disease, stage 3b; E78.2 Mixed hyperlipidemia; I25.10 Atherosclerotic heart disease of native coronary artery without angina pectoris; E03.9 Hypothyroidism, unspecified; J98.4 Other disorders of lung; R51.9 Headache, unspecified; J30.9 Allergic rhinitis, unspecified; L42 Pityriasis rosea; E55.9 Vitamin D deficiency, unspecified; G47.00 Insomnia, unspecified; E66.3 Overweight; Z68.25 Body mass index [BMI] 25.0-25.9, adult; Z79.4 Long term (current) use of insulin | CPT/HCPCS: 83036; 96127; 99212 ==

== ENCOUNTER 2025-10-22 07:28 | Outpatient (REF) | payer OTHER, SELFPAY ==
--- NOTE | ~2025-10-22 | MM_ITS ---
EXAMINATION: MM SCREENING DIGITAL BREAST TOMOSYNTHESIS, BILATERAL CLINICAL INFORMATION: Screening. Asymptomatic. History of left excisional biopsy in 2011. COMPARISON: Comparison made to multiple prior, most recent February 04, 2024, and most remote March 25, 2014. TECHNIQUE: Digital breast tomosynthesis is performed in mediolateral oblique and craniocaudal views along with computer-aided detection (CAD). Synthesized 2D images are generated from the tomosynthesis. FINDINGS: BREAST COMPOSITION: There are scattered areas of fibroglandular density. RIGHT BREAST: No significant masses, suspicious calcifications or other abnormalities are seen. LEFT BREAST: History of previous excisional biopsy. No significant masses, suspicious calcifications or other abnormalities are seen. MM/MM tomosynthesis screening BI IMPRESSION: BILATERAL BREASTS: Benign, no mammographic evidence of malignancy. Normal interval follow-up is recommended in 12 months. ASSESSMENT: BI-RADS: Category 2: Benign RECOMMENDATION: Routine annual mammography screening. FOLLOW-UP: 1 year F/U This examination should not preclude the clinical evaluation of a suspicious palpable abnormality. This patient's information was entered into a reminder system with a target due date for their next mammogram. Electronically signed by: Kasi Alberts MD 10/24/2025 07:00 PM [facility]
--- OUTSIDE RECORDS SUMMARY | 2025-10-22 07:30 | XMS_ITS | Patient Health Record ---
Author Organization [facility] Address [address] [place] [address] Care Team Providers Care Health Insurance Agent Name Role Phone Jorge Luis Robles MDh Primary Care Provider Gilbert Vega [phone] Allergies Allergen (clinical drug ingredient) Drug/Non Drug Allergy documented on EMR Reaction Allergy Type Onset Date Status pioglitazone Actos Unknown Drug Allergy Acti ve Reason For Referral No Information Medications Medication SIG (Take, Route, Frequency, Duration) Notes Start Date End Date Status Trulicity 0.75 MG/0.5ML Solution Pen-injector Subcutaneous; Duration: 028 Active glipiZIDE 5 MG Tablet Oral; Duration: 030 Active Vitamin D3 1000 UNIT Tablet Oral; Duration: 030 Active Simvastatin 20 MG Tablet Oral; Duration: 030 Active Benazepril HCl 10 MG Tablet Oral; Duration: 030 Active Janumet 50-1000 MG Tablet Oral; Duration: 030 Active Social History Social History Additional Details Category Social Info Options Details Miscellaneous: Marital status: 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 [employer] Caffeine: none Section Notes: From [facility] originally--came here in 2004; nonsmoker; no alcohol Problems Problem Type SNOMED Code ICD Code Onset Dates Problem Status W/U Status Risk Notes Problem Gastroesophageal reflux disease (289300840) GERD (gastroesopha geal reflux disease) (530.81) Active confirmed Problem Heartburn (57060089) Chronic heartburn (787.1) Active confirmed Plan Of Treatment Pending Test Test Name Order Date GI BIOPSY 10/03/2015 Future Test Test Name Order Date UPPER GI ENDOSCOPY 08/15/2015 Insurance Providers Payer Name Payer Address Payer Phone Subscriber Number Group Number Insured Name Patient Relationship to Insured Coverage Start Date Coverage End Date [facility] [address] [facility] JEANA ROCHA [phone] [id number] YESENIA DUARTE Self - patient is the insured Medical (General) History Medical History History ICD Code Diabetes mellitus Denies [place],CVA,Lung disease,renal disease HTN Hyperlipidemia Negative colonoscopy in 05/[address] Dorsey Surgical History Surgery Date(Month/Year) JUANCHO 1979 breast biopsy-left
== END 2025-10-22 07:29 | disposition home or self-care (01) ==
LOC: HO.MAMMO 07:28
PROVIDERS: PCP Internal Medicine; Visit Provider Internal Medicine
DX: Z12.31 Encounter for screening mammogram for malignant neoplasm of breast (principal)
CPT/HCPCS: 77063; 77067

== ENCOUNTER → 2025-10-22 07:45 | Outpatient (BNV) | payer OTHER, SELFPAY | PROVIDERS: PCP Internal Medicine; Visit Provider Radiology Body Imaging | DX: Z12.31 Encounter for screening mammogram for malignant neoplasm of breast (principal) | CPT/HCPCS: 77063; 77067 ==

== ENCOUNTER 2025-11-03 06:55 | Outpatient (REF) | payer OTHER, SELFPAY ==
--- OUTSIDE RECORDS SUMMARY | 2025-11-03 06:58 | XMS_ITS | Patient Health Record ---
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 [employer] Caffeine: none Section Notes: From [facility] originally--came here in 2004; nonsmoker; no alcohol Problems Problem Type SNOMED Code ICD Code Onset Dates Problem Status W/U Status Risk Notes Problem Gastroesophageal reflux disease (146086359) GERD (gastroesopha geal reflux disease) (530.81) Active confirmed Problem Heartburn (48816950) Chronic heartburn (787.1) Active confirmed Plan Of Treatment Pending Test Test Name Order Date GI BIOPSY 10/03/2015 Future Test Test Name Order Date UPPER GI ENDOSCOPY 08/15/2015 Insurance Providers Payer Name Payer Address Payer Phone Subscriber Number Group Number Insured Name Patient Relationship to Insured Coverage Start Date Coverage End Date [facility] [address] [facility] [place], [place] [phone] [id number] YESENIA DUARTE Self - patient is the insured Medical (General) History Medical History History ICD Code Diabetes mellitus Denies NM,CVA,Lung disease,renal disease HTN Hyperlipidemia Negative colonoscopy in 05/[address] Drosey Surgical History Surgery Date(Month/Year) JUANCHO 1979 breast biopsy-left
[2025-11-03 07:32] LABS: MANUAL DIFF FLAG NO
[2025-11-03 08:01] LABS: Hematocrit 49.3 % (37.0-47.0); Hemoglobin 15.7 g/dl (12.0-16.0); Imm Gran Abs Auto 0.04 X10*3/uL (0.00-0.03); Imm Gran Pct Auto 0.5 % (0.0-0.4); Lymphocytes Absolute Auto 2.1 X10*3/uL (1.2-4.9); Mean Corpuscular HGB Conc 31.8 g/dl (31.0-35.0); Mean Corpuscular Hemoglobin 26.5 pg (27.0-33.0); Mean Corpuscular Volume 83.1 fL (80.0-98.0); NRBC Abs Auto 0.000 X10*3/uL (0.0-0.012); NRBC Pct Auto 0.0 /100WBC (0.0-0.2); Platelet Count 167 X10*3/uL (160-400); Red Blood Count 5.93 X10*6/uL (4.20-5.50); White Blood Count 7.3 X10*3/uL (4.8-10.8)
[2025-11-03 08:15] LABS: Appearance Urine Cloudy; Glucose Urine UA >=1000 mg/dL (Negative); PH 5.5 (5.0-9.0); Specific Gravity - Urine >= 1.030 (1.005-1.025); UMIC TRIGGER UACC YES
[2025-11-03 08:20] LABS: Blood Urea Nitrogen 20 mg/dL (9-16)
[2025-11-03 08:20] LABS: UACC Culture Trigger YES
[2025-11-03 08:32] LABS: Microalbum/Creatinine Ratio Ur 20.6 ug/mg cr (<30); Protein/Creatinine Ratio, Ur 0.11 (<0.2); Total Protein Urine Random 9 mg/dL (<12)
[2025-11-03 08:34] LABS: Alanine Aminotransferase 23 U/L (0-31); Albumin Level 4.6 g/dL (3.5-5.0); Alkaline Phosphatase 106 U/L (39-117); Anion Gap 14 (12-20); Aspartate Amino Transferase 31 U/L (5-31); Blood Urea Nitrogen 19 mg/dL (9-16); Calcium 9.9 mg/dL (8.4-10.2); Carbon Dioxide 24 mmol/L (22-29); Chloride 108 mmol/L (96-108); Cholesterol 239 mg/dL (<200); Estimated Glomerular Filt Rate 49; HDL Cholesterol 39 mg/dL (>40); Potassium 4.3 mmol/L (3.3-5.1); Sodium 142 mmol/L (135-145); Total Protein 7.6 g/dL (6.5-8.0); Triglycerides 356 mg/dL (<150)
[2025-11-03 08:45] LABS: Free T4 (Free Thyroxine) 0.90 ng/dL (0.71-1.85); Thyroid Stimulating Hormone 4.02 uIU/mL (0.32-4.0)
[2025-11-03 08:56] LABS: Folate 13.8 ng/mL (> or = 4.0); Vitamin B12 614 pg/mL (200-900)
== END 2025-11-03 06:56 | disposition home or self-care (01) ==
LOC: HO.LAB 06:55
PROVIDERS: Internal Medicine Nephrology; PCP Internal Medicine; Visit Provider Internal Medicine
DX: I12.9 Hypertensive chronic kidney disease with stage 1 through stage 4 chronic kidney disease, or unspecified chronic kidney disease (principal); E11.22 Type 2 diabetes mellitus with diabetic chronic kidney disease; N18.32 Chronic kidney disease, stage 3b; D63.1 Anemia in chronic kidney disease; E53.8 Deficiency of other specified B group vitamins; Z00.00 Encounter for general adult medical examination without abnormal findings; E78.00 Pure hypercholesterolemia, unspecified; E03.9 Hypothyroidism, unspecified; E55.9 Vitamin D deficiency, unspecified
CPT/HCPCS: 36415; 80053; 80061; 81001; 81003; 82043; 82306; 82570; 82607; 82746; 83036; 84156; 84439; 84443; 84520; 85025; 87086

== ENCOUNTER 2025-11-07 02:43 | Emergency (ER) | payer OTHER, SELFPAY ==
--- NOTE | ~2025-11-07 | XR_ITS ---
CLINICAL HISTORY: cough 2 view chest x-ray Comparison: CR/SR - XR CHEST 2 VIEWS - 06/19/24 16:49 EDT Findings: No consolidation or effusion. Heart size is normal. No acute fracture. IMPRESSION: 1. No acute findings. This document has been electronically signed by: Benny Mcmahon MD on 11/07/2025 04:15:08
[2025-11-07 02:45] VITALS: BP 183/87; PULSE 89; RESP 18; TEMP 37.2; O2SAT 95; BMI 26.2
[2025-11-07 03:17] VITALS: BP 172/82; PULSE 100; RESP 20; TEMP 37.6; O2SAT 99
[2025-11-07 03:33] LABS: IDNOW Serial# 55D5AD1C; Strep A Nucleic Acid Negative (Negative)
[2025-11-07 04:01] LABS: Resp Syncy Virus RNA Qual PCR NEGATIVE (Negative); SARS COV2 PCR INHOUSE NEGATIVE (Negative)
--- NOTE | 2025-11-07 05:37 | ED_ITS ---
HPI - URI/Sore Throat General Chief Complaint: Upper Respiratory Symptoms Stated Complaint: Cough Congestion Running Nose Time Seen by Provider: 11/07/25 05:03 Source: patient Mode of arrival: ambulatory Limitations: no limitations History of Present Illness ED Provider: Maximilian MAYA HPI Narrative: The patient is a 77-year-old female presents with 1?2 days of mild URI symptoms that acutely worsened last night. She describes pressure in her head, burning sensation in the throat, rhinorrhea, sinus congestion, and frequent cough productive of white sputum. She reports subjective fever with chills and generalized weakness. Denies objective fever, vomiting, diarrhea, and urinary symptoms. She has taken no medications for these symptoms. 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 Related Data Previous Rx's ?Medication ?Instructions ?Recorded omega-3 fatty acids 1,000 mg 1,000 mg PO BID 30 days # 60 caps 04/02/21 capsule mometasone 0.1 % topical cream 1 appl topical DAILY OR N skin 10/02/22 irritation 30 days #45 grams cholecalciferol (vitamin D3) 50 50 mcg PO DAILY 90 day s #90 caps 03/03/23 mcg (2,000 unit) capsule hydroxyzine HCl 10 mg tablet 10 mg PO Q8H PRN itching/ rash #90 03/03/23 tabs blood sugar diagnostic (FreeStyle #120 ea 03/25/24 Lite Strips) blood-glucose meter (FreeStyle #1 ea 03/25/24 Lite Meter kit) lancets 28 gauge (FreeStyle #120 ea 03/25/24 Lancets) albuterol sulfate 90 mcg/actuation 2 puff inhalation Q ID PRN 05/05/24 aerosol inhaler (ProAir HFA) shortness of breath or wh eezing 30 days #8.5 grams blood-glucose,events solutions consultant,cont #1 ea 05/24/24 (FreeStyle Consuelo 3 [place]) NEBULIZER and all related #1 ea 06/07/24 accessories, including tubing and mask albuterol sulfate 2.5 mg/3 mL 2.5 mg (3 mL) inhalation QID PRN 06/11/24 (0.083 %) solution for nebulization shortness of breat h or wheezing 30 days #180 mL DIABETIC SHOES #2 ea 09/01/24 acetone (urine) test (Ketone Urine #25 ea 09/01/24 Test strips) V-GO 40 device #30 ea 09/24/24 mupirocin 2 % topical ointment 1 appl topical TID 7 da ys #50 grams 10/22/24 benazepril 5 mg tablet 2.5 mg (1/2 x 5 mg) PO DAILY 90 12/14/24 days #45 caps sub-q insulin device, 40 unit #30 ea 12/16/24 (V-GO 40 device) rosuvastatin 40 mg tablet 40 mg PO DAILY 90 days #90 t abs 04/24/25 betamethasone dipropionate 0.05 % 1 appl topical BID P RN skin rash 05/06/25 topical cream #45 grams levothyroxine 50 mcg tablet 50 mcg PO DAILY 90 days #9 0 tabs 05/27/25 Humalog U-100 Insulin 100 unit/mL See Rx Instructions subcut DAILY 05/31/25 subcutaneous solution (insulin 30 days #40 mL lispro) Jardiance 25 mg tablet 25 mg PO QAM 90 days #90 tab s 05/31/25 (empagliflozin) blood-glucose sensor (FreeStyle #2 ea 05/31/25 Consuelo 3 Plus Sensor device) glucagon 3 mg/actuation nasal 3 mg intranasal ONCE PRN 05/31/25 spray (Baqsimi) Unresponsive hypoglycemia ma y repeat in 15 minutes 30 days #2 ea insulin glargine 100 unit/mL (3 14 unit (0.14 mL) subc ut QPM 90 05/31/25 mL) subcutaneous pen ( #15 mL Solostar U-100 Insulin) pen needle, diabetic 32 gauge x #100 ea 05/31/25 5/32 pen needle, diabetic 31 gauge x #100 ea 06/08/25 3/16 sub-q insulin device, 40 unit #30 ea 06/23/25 (V-GO 40 device) benzonatate 100 mg capsule 100 mg PO TID PRN cough #30 caps 08/02/25 Allergies Allergy/AdvReac Type Severity Reaction Status Date / Time latex (LATEX) Allergy Intermediate RASH Verified 11/07/25 02:49 atorvastatin (From Lipitor) Allergy Mild MUSCLE Verified 11/07/25 02:49 ACHES dulaglutide (Trulicity) Allergy Unknown rash and Verified 11/07/25 02:49 itching pioglitazone Allergy Unknown Urinary Verified 11/07/25 02:49 frequency pork derived (porcine) (PORK Allergy Unknown SCIENTOLOGY Verified 11/07/25 02:49 DERIVED (PORCINE)) BELIEF canagliflozin (Invokana) AdvReac Unknown recurrent Verified 11/07/25 02:49 UTI, dizziness Tanzeum Allergy Unknown rash Uncoded 07/22/25 16:41 Review of Systems Review of Systems: Yes all other systems are reviewed and are negative [facility] Past Medical History Medical History Mixed hyperlipidemia Diabetes mellitus with stage 3 chronic kidney disease, with long-term current use of insulin Chronic kidney disease, stage III (moderate) Acquired hypothyroidism Restrictive lung disease Restrictive lung disease Bronchial asthma Allergic rhinitis Insomnia Diabetic polyneuropathy associated with type 2 diabetes mellitus Diabetic nephropathy associated with type 2 diabetes mellitus Non-proliferative diabetic retinopathy, 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 Diabetes type 2, uncontrolled Overweight (BMI 25.0-29.9) Chronic interstitial cystitis Varicose veins of both lower extremities Osteoarthritis of left hip Lumbosacral spondylosis Vitamin D deficiency Pityriasis rosea GERD (gastroesophageal reflux disease) Allergic rhinitis Restrictive lung disease Coronary artery disease Essential hypertension Hyperlipidemia Chronic kidney disease, stage 2 (mild) Diabetes mellitus with stage 2 chronic kidney disease, with long-term current use of insulin Surgical History Hx of cataract surgery Hx of colonoscopy (~08/11/19) FH: JUANCHO-BSO (total abdominal hysterectomy and bilateral salpingo-oophorectomy) Family History Family History Father Diabetes Mother CVD (cardiovascular disease) Social History Social History Household Members: None Housing: House Do you presently have visiting nurse or other home services: No Alcohol intake: never Patient Tobacco Use Status: Never used Tobacco Smoked in Last 30 Days: No e-Cigarette/Vaping Use: Never Used Second Hand Smoke Exposure: Yes Use of substances other than those prescribed or required for medical reasons: No Advance Directives: Yes Advance Directives on File: Yes Advance Directives Date on File: 07/02/21 service: No Current occupational status: employed 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 Vital signs as documented. HEAD: Atraumatic, normocephalic. EYES: EOMs grossly intact, pupils equal, conjunctiva clear, no exudate. ENT: Nares patent, no discharge. Airway patent, no audible stridor, visible mucosa is pink and moist without noted lesions. Posterior pharynx demonstrates no tonsillar or peritonsillar swelling, no tonsillar exudate. Uvula is midline and nonedematous. NECK: Trachea is midline, no obvious masses or gross abnormalities. CHEST: Symmetric movement, normal appearance. LUNGS: LS present and CTAB, no w/r/r. Non-labored work of breathing. CARDIAC: Regular Rhythm, S1/S2 appreciated, no murmurs, rubs or gallops. ABDOMEN: Abdomen soft and non-tender x4 quadrants, no palpable masses or organomegaly. : Deferred. EXTREMITIES: Normal tone, moves all extremities spontaneously without reported pain. No obvious acute injury or deformity noted. NEURO: Alert and oriented x3, CN II-XII appear grossly intact. Cerebellar Functioning grossly intact. No obvious sensory or motor deficits. Speech clear and appropriate. PSYCH: normal affect, appropriate eye contact, fluid speech, with appropriate response to questioning. No reported suicidality or homicidality. SKIN: Warm, dry, color appropriate, normal turgor. No rashes noted. Medical Decision Making Medical Decision Making [facility] Narrative: 5:42 AM 11/07/2025 (Ari MAYA): The patient is a 77-year-old female presents with 1?2 days of mild URI symptoms that acutely worsened last night. She describes pressure in her head, burning sensation in the throat, rhinorrhea, sinus congestion, and frequent cough productive of white sputum. She reports subjective fever with chills and generalized weakness. Denies objective fever, vomiting, diarrhea, and urinary symptoms. She has taken no medications for these symptoms. On exam patient is well-appearing, no evidence of acute distress. Lung sounds are clear. Posterior pharynx is unremarkable. The patient's chest X-ray was negative for pneumonia, and COVID-19, influenza, and RSV tests were negative. Patient will be treated with supportive care and discharged to follow up with PCP. Lab Data Labs: Lab Results 11/07/25 Range/Units 02:56 Influenza Type A (PCR) NEGATIVE (Negative) Influenza Type B (PCR) NEGATIVE (Negative) RSV RNA Qual (PCR) NEGATIVE (Negative) SARS-CoV-2 RNA (RT-PCR) NEGATIVE (Negative) S. pyogenes GrpA DANIA Negative (Negative) Discharge Plan Discharge Clinical Impression: Upper respiratory infection Patient Disposition: Home, Self-Care Instructions: Upper Respiratory Infection (ED) Additional Instructions: Thank you for choosing [facility]'s Emergency Department for your care today. Thankfully your laboratory evaluation, viral swabs, chest x-ray, exam, and vital signs today are reassuring. You tested negative for influenza, COVID, RSV, strep throat, and pneumonia. At this time there is no indication for admission to the hospital or continued ED observation, and it is safe to discharge you home. Your symptoms are likely due to a viral upper respiratory infection, there is no indication for antibiotics. You should take alternating (staggered) doses of ibuprofen 600mg and Tylenol 1000mg every 4 hours as needed for any additional pain. Please stay well hydrated and get plenty of rest. Please follow up with your primary care physician for re-evaluation, additional management of your symptoms, and continued preventative care. If you do not have a primary care physician, please call the [facility] at [phone] to establish a new primary care physician. While waiting to establish your new primary care physician, you can call our Walk[facility] at [phone] for non-emergency needs. Please return to the emergency department if you develop a severe or sudden change in your symptoms, a fever over 100.4 that does not improve with Tylenol or Ibuprofen, recurrent vomiting, or any other new or worsening symptoms or concerns. Prescriptions: No Action (DME) blood-glucose meter [FreeStyle Lite Meter] Kit See Rx Instructions .ROUTE .MEDSUPPLY Qty: 1 0RF Rx Instructions: As directed (DME) FreeStyle Lite Strips Strip See Rx Instructions .ROUTE .MEDSUPPLY Qty: 120 12RF Rx Instructions: As directed 4 times a day (DME) lancets [FreeStyle Lancets] 28 gauge misc See Rx Instructions .ROUTE .MEDSUPPLY Qty: 120 12RF Rx Instructions: As directed 4 times a day (DME) FreeStyle Consuelo 3 [place] Misc See Rx Instructions .ROUTE .COMPLEX Qty: 1 0RF Dose Instruction: USE DIRECTED Rx Instructions: USE DIRECTED (DME) NEBULIZER and all related accessories, including tubing and mask See Rx Instructions .Route .MEDSUPPLY Qty: 1 0RF Rx Instructions: As directed albuterol sulfate 2.5 mg /3 mL (0.083 %) solution for nebulization 2.5 mg inhalation QID PRN (Reason: shortness of breath or wheezing) 30 Days Qty: 180 3RF (DME) DIABETIC SHOES See Rx Instructions .Route .MEDSUPPLY Qty: 2 0RF Rx Instructions: As directed (DME) V-GO 40 device See Rx Instructions .Route .MEDSUPPLY Qty: 30 3RF Rx Instructions: As directed benazepril 5 mg tablet 2.5 mg PO DAILY 90 Days Qty: 45 3RF rosuvastatin 40 mg tablet 40 mg PO DAILY 90 Days Qty: 90 3RF betamethasone dipropionate 0.05 % cream 1 appl topical BID PRN (Reason: skin rash) Qty: 45 0RF (DME) pen needle, diabetic 31 gauge x 3/16 needle See Rx Instructions .ROUTE .COMPLEX Qty: 100 3RF Dose Instruction: USE ONCE A DAY DIRECTED Rx Instructions: USE ONCE A DAY DIRECTED (DME) V-GO 40 Device See Rx Instructions .Route Qty: 30 3RF Rx Instructions: for daily use benzonatate 100 mg capsule 100 mg PO TID PRN (Reason: cough) Qty: 30 0RF mometasone 0.1 % cream 1 appl topical DAILY PRN (Reason: skin irritation) 30 Days Qty: 45 2RF cholecalciferol (vitamin D3) 50 mcg (2,000 unit) capsule 50 mcg PO DAILY 90 Days Qty: 90 3RF hydroxyzine HCl 10 mg tablet 10 mg PO Q8H PRN (Reason: itching/rash) Qty: 90 1RF omega-3 fatty acids 1,000 mg capsule 1,000 mg PO BID 30 Days Qty: 60 6RF (DME) Ketone Urine Test Strip See Rx Instructions .ROUTE .MEDSUPPLY Qty: 25 1RF Rx Instructions: P.r.n. glucose over 250, nausea, and vomiting, illness up to t.i.d. (DME) V-GO 40 Device See Rx Instructions .ROUTE .COMPLEX Qty: 30 3RF Dose Instruction: USE DIRECTED Rx Instructions: USE DIRECTED albuterol sulfate [ProAir HFA] 90 mcg/actuation HFA aerosol inhaler 2 puff inhalation QID PRN (Reason: shortness of breath or wheezing) 30 Days Qty: 8.5 0RF mupirocin 2 % ointment 1 appl topical TID 7 Days Qty: 50 0RF levothyroxine 50 mcg tablet 50 mcg PO DAILY 90 Days Qty: 90 1RF Rx Instructions: Take on an empty stomach, first thing in the morning, with water. Do not eat or drink anything else for 30 minutes afterwards (DME) FreeStyle Consuelo 3 Plus Sensor Device See Rx Instructions .Route Qty: 2 11RF Rx Instructions: As directed every 15 days Baqsimi 3 mg/actuation spray,non-aerosol 3 mg intranasal ONCE PRN (Reason: Unresponsive hypoglycemia may repeat in 15 minutes) 30 Days Qty: 2 1RF insulin lispro [Humalog U-100 Insulin] 100 unit/mL solution See Rx Instructions subcut DAILY 30 Days Qty: 40 3RF Rx Instructions: Up to 78 units via VGO subcut daily; insulin glargine [Lantus Solostar U-100 Insulin] 100 unit/mL (3 mL) insulin pen 14 unit subcut QPM 90 Days Qty: 15 3RF Jardiance 25 mg tablet 25 mg PO QAM 90 Days Qty: 90 1RF (DME) pen needle, diabetic 32 gauge x 5/32 needle See Rx Instructions .ROUTE .MEDSUPPLY Qty: 100 3RF Rx Instructions: As directed once daily Referrals: Darryl Robles MD [Primary Care Provider, Internal Medicine] Clinical Impression: Upper respiratory infection Print Language: Estonian
[2025-11-07 05:49] VITALS: BP 174/85; PULSE 99; RESP 16; TEMP 37.2; O2SAT 96
[2025-11-07 05:57] VITALS: BP 174/85; PULSE 99; RESP 16; TEMP 37.2; O2SAT 96
== END 2025-11-07 06:04 | disposition home or self-care (01) ==
PROVIDERS: Emergency Provider Emergency Medicine; PCP Internal Medicine
DX: J06.9 Acute upper respiratory infection, unspecified (principal); R05.9 Cough, unspecified; J02.9 Acute pharyngitis, unspecified; R51.9 Headache, unspecified; R50.9 Fever, unspecified; Z03.818 Encounter for observation for suspected exposure to other biological agents ruled out
CPT/HCPCS: 71046; 87637; 87651; 96372; 99284; J1885

== ENCOUNTER → 2025-11-07 03:31 | Outpatient (BNV) | payer OTHER, SELFPAY | PROVIDERS: Emergency Provider Emergency Medicine; PCP Internal Medicine; Visit Provider Radiology Diagnostic Radiology | DX: R05.9 Cough, unspecified (principal) | CPT/HCPCS: 71046 ==

== ENCOUNTER 2025-11-18 14:48 | Outpatient (AMB) | payer OTHER, SELFPAY ==
--- NOTE | 2025-11-18 14:56 | HO.NEPHOV_ITS ---
Vital Signs 11/18/25 15:01 Height 5 ft 5 in Weight 156 lb 8 oz BMI 26.0 BP 120/70 Blood Pressure Location Rt brachial Position Sitting Pulse 76 Pulse Source Pulse Oximeter Pulse Oximetry (%) 96 Oxygen Delivery Method Room Air Intake Visit Reasons: 6mon follow-up w/labs-Conf Family Law Specialist Required: No Accompanied by: Self / Same As Patient Allergies latex (LATEX) Allergy (Intermediate, Verified 11/18/25 15:01) RASH atorvastatin (From Lipitor) Allergy (Mild, Verified 11/18/25 15:01) MUSCLE ACHES dulaglutide (Trulicity) Allergy (Unknown, Verified 11/18/25 15:01) rash and itching pioglitazone Allergy (Unknown, Verified 11/18/25 15:01) Urinary frequency pork derived (porcine) (PORK DERIVED (PORCINE)) Allergy (Unknown, Verified 10/31 08/25 15:01) SHINTO BELIEF canagliflozin (Invokana) Adverse Reaction (Unknown, Verified 11/18/25 15:01) recurrent UTI, dizziness Tanzeum Allergy (Unknown, Uncoded 07/22/25 16:41) rash HPI Comments Details: Dre was seen in follow up for chronic kidney disease. She has longstanding diabetes and hypertension. Her blood sugar control is not very good. She is not known to have any significant proteinuria. She is on angiotensin receptor racheal. She has no family history of any renal disease. She has no history of malignancy, renal stones, edema or hematuria. She denies having chest pain, shortness of breath, proximal nocturnal dyspnea, orthopnea. She was given Invokana in the past which she did not tolerate due to urinary symptoms. She is currently on Jardiance & statins. She denies congestive heart failure, carotid stenosis, CVA, SVETLANA or PD. She is active. [facility] Medical History Mixed hyperlipidemia Diabetes mellitus with stage 3 chronic kidney disease, with long-term current use of insulin Chronic kidney disease, stage III (moderate) Acquired hypothyroidism Restrictive lung disease Restrictive lung disease Bronchial asthma Allergic rhinitis Insomnia Diabetic polyneuropathy associated with type 2 diabetes mellitus Diabetic nephropathy associated with type 2 diabetes mellitus Non-proliferative diabetic retinopathy, both eyes half-way (current) use of insulin Diabetes type 2, uncontrolled Overweight (BMI 25.0-29.9) Chronic interstitial cystitis Varicose veins of both lower extremities Osteoarthritis of left hip Lumbosacral spondylosis Vitamin D deficiency Pityriasis rosea GERD (gastroesophageal reflux disease) Allergic rhinitis Restrictive lung disease Coronary artery disease Essential hypertension Hyperlipidemia Chronic kidney disease, stage 2 (mild) Diabetes mellitus with stage 2 chronic kidney disease, with long-term current use of insulin Surgical History Hx of cataract surgery Hx of colonoscopy (~08/11/19) FH: JUANCHO-BSO (total abdominal hysterectomy and bilateral salpingo-oophorectomy) Family History Father Diabetes Mother CVD (cardiovascular disease) Social History Household Members: None Housing: House Do you presently have visiting nurse or other home services: No Unable to assess alcohol history related to: Unknown Alcohol intake: never Patient Tobacco Use Status: Never used Tobacco e-Cigarette/Vaping Use: Never Used Second Hand Smoke Exposure: Yes Advance Directives Date on File: 07/02/21 service: No Current occupational status: employed 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 needs: No Hearing needs: No Vision needs: No Review of Systems Const All systems reviewed & are unremarkable except as noted in HPI and below Physical Exam Vital Signs: Last Vital Signs Pulse 76 11/18/25 15:01 BP 120/70 11/18/25 15:01 Pulse Ox 96 11/18/25 15:01 Oxygen Delivery Method Room Air 11/18/25 15:01 BMI result Body Mass Index 26.0 Const General: comfortable and no acute distress Orientation/consciousness: patient oriented x3 HEENT Head: Yes normocephalic Mouth: Normal oral and palatal mucosa present Eyes EOM: EOMs intact bilaterally Neck Neck: Yes supple Resp Auscultation: clear to auscultation bilaterally Cardio Jugular venous distension: no JVD Rate: regular rate GI Palpation (GI): Soft to palpation Auscultation: normal bowel sounds General: Yes no CVA tenderness Back/Spine/Pelvis Back: no CVA tenderness Skin General skin exam: no rashes or lesions noted Neuro General: patient oriented x3 and moves all extremities Extrem General: Yes no pedal edema Results Reviewed Nephrology Results: Hgb, (12.0-16.0) 15.7 g/dl 11/03/25 WBC, (4.8-10.8) 7.3 X10*3/uL 11/03/25 Plt Count, (160-400) 167 X10*3/uL 11/03/25 Sodium, (135-145) 142 mmol/L 11/03/25 Potassium, (3.3-5.1) 4.3 mmol/L 11/03/25 Chloride, (96-108) 108 mmol/L 11/03/25 Carbon Dioxide, (22-29) 24 mmol/L 11/03/25 BUN, (9-16) 19 mg/dL H 11/03/25 Creatinine, (0.5-1.4) 1.10 mg/dL 11/03/25 Calcium, (8.4-10.2) 9.9 mg/dL 11/03/25 Urine Protein, (Neg-Trace) Negative mg/dL 11/03/25 Urine Creatinine 82.09 mg/dL 11/03/25 Protein/Creatinin Ratio, (<0.2) 0.11 11/03/25 Assessment & Plan Assessment & Plan (1) Essential hypertension: Code(s): I10 - Essential (primary) hypertension Category: Medical (2) Chronic kidney disease, stage III (moderate): Code(s): N18.30 - Chronic kidney disease, stage 3 unspecified Category: Medical Qualifiers: Chronic kidney disease stage 3 subtype: stage 3b (GFR 30-44) Qualified Code(s): N18.32 - Chronic kidney disease, stage 3b Plan Dre has chronic kidney disease most likely from vascular disease. She does not have any proteinuria. There was a question of her having retinopathy. She denies any neuropathy as well as peripheral arterial disease. Her urine output is good. She is on Jardiance and benazepril. She may need a sestamibi scan for her parathyroid given her calcium and PTH levels being on the higher side. She does not need a renal biopsy now. Her blood sugar needs to be better. I did not make any other medication changes today. She should avoid nonsteroidal anti- inflammatories, maintain good hydration and minimize sodium in the diet. All questions were answered. Follow-up given Orders: Orders Parathyroid Hormone Intact 6 Months I10 - Essential (primary) hypertension, N 18.32 - Chronic kidney disease, stage 3b Vitamin D 25-OH Total 6 Months I10 - Essential (primary) hypertension, N18.32 - Chronic kidney disease, stage 3b Phosphorus 6 Months I10 - Essential (primary) hypertension, N18.32 - Chronic kidney disease, stage 3b Creatinine 6 Months I10 - Essential (primary) hypertension, N18.32 - Chronic kidney disease, stage 3b Calcium 6 Months I10 - Essential (primary) hypertension, N18.32 - Chronic kidney disease, stage 3b Electrolytes 6 Months I10 - Essential (primary) hypertension, N18.32 - Chronic kidney disease, stage 3b Blood Urea Nitrogen 6 Months I10 - Essential (primary) hypertension, N18.32 - Chronic kidney disease, stage 3b Coding Level of Care Code Est Pt Level 4 (64667) Diagnoses Essential hypertension I10 Stage 3b chronic kidney disease N18.32 Chronic kidney disease stage 3 subtype: stage 3b (GFR 30-44)
[2025-11-18 15:01] VITALS: BP 120/70; PULSE 76; O2SAT 96; BMI 26.0
--- OUTSIDE RECORDS SUMMARY | 2025-11-18 16:11 | XMS_ITS | Patient Health Record ---
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 [employer] Caffeine: none Section Notes: From [facility] originally--came here in 2004; nonsmoker; no alcohol Problems Problem Type SNOMED Code ICD Code Onset Dates Problem Status W/U Status Risk Notes Problem Gastroesophageal reflux disease (815908850) GERD (gastroesopha geal reflux disease) (530.81) Active confirmed Problem Heartburn (25910553) Chronic heartburn (787.1) Active confirmed Plan Of Treatment Pending Test Test Name Order Date GI BIOPSY 10/03/2015 Future Test Test Name Order Date UPPER GI ENDOSCOPY 08/15/2015 Insurance Providers Payer Name Payer Address Payer Phone Subscriber Number Group Number Insured Name Patient Relationship to Insured Coverage Start Date Coverage End Date [facility] [address] [facility] [place] [phone] [id number] YESENIA DUARTE Self - patient is the insured Medical (General) History Medical History History ICD Code Diabetes mellitus Denies [place],CVA,Lung disease,renal disease HTN Hyperlipidemia Negative colonoscopy in 05/[address] Dorsey Surgical History Surgery Date(Month/Year) JUANCHO 1979 breast biopsy-left
== END 2025-11-18 15:15 | disposition home or self-care (01) ==
LOC: HO.HKA 14:49
PROVIDERS: PCP Internal Medicine; Visit Provider Internal Medicine Nephrology
DX: I10 Essential (primary) hypertension (principal); N18.32 Chronic kidney disease, stage 3b
CPT/HCPCS: 99214

== ENCOUNTER → 2025-11-18 14:48 | Outpatient (BNVA) | payer OTHER, SELFPAY | PROVIDERS: PCP Internal Medicine; Visit Provider Internal Medicine Nephrology | DX: I12.9 Hypertensive chronic kidney disease with stage 1 through stage 4 chronic kidney disease, or unspecified chronic kidney disease (principal); N18.32 Chronic kidney disease, stage 3b; E11.22 Type 2 diabetes mellitus with diabetic chronic kidney disease; Z79.84 Long term (current) use of oral hypoglycemic drugs; Z79.899 Other long term (current) drug therapy | CPT/HCPCS: 99212 ==

== ENCOUNTER 2025-11-20 07:07 | Emergency (ER) | payer OTHER, SELFPAY ==
--- NOTE | ~2025-11-20 | XR_ITS ---
CLINICAL HISTORY: cough, weakness 2 view chest x-ray Comparison: 11/07/2025 Findings: No consolidation or effusion. Heart size is normal. No acute fracture. IMPRESSION: 1. No acute findings. This document has been electronically signed by: Evgeny Tsai MD on 11/20/2025 07:44:56
[2025-11-20 07:10] VITALS: BP 171/82; PULSE 77; RESP 16; TEMP 36.4; O2SAT 98; BMI 27.4
--- NOTE | 2025-11-20 07:16 | ECG_ITS ---
Test Reason : SOB Blood Pressure : */* mmHG Vent. Rate : 73 BPM Atrial Rate : 73 BPM P-R Int : 162 ms QRS Dur : 84 ms QT Int : 384 ms P-R-T Axes : 50 -52 70 degrees QTcB Int : 423 ms Normal sinus rhythm Left axis deviation Septal infarct (cited on or before 17-Oct-2021) Abnormal ECG When compared with ECG of 24-Sep-2024 18:02, No significant change was found Referred By: Generic ED Physician Electronically Signed By: Reynold Domingo
--- OUTSIDE RECORDS SUMMARY | 2025-11-20 07:56 | XMS_ITS | Patient Health Record ---
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 [employer] Caffeine: none Section Notes: From [facility] originally--came here in 2004; nonsmoker; no alcohol Problems Problem Type SNOMED Code ICD Code Onset Dates Problem Status W/U Status Risk Notes Problem Gastroesophageal reflux disease (275869878) GERD (gastroesopha geal reflux disease) (530.81) Active confirmed Problem Heartburn (53697786) Chronic heartburn (787.1) Active confirmed Plan Of Treatment Pending Test Test Name Order Date GI BIOPSY 10/03/2015 Future Test Test Name Order Date UPPER GI ENDOSCOPY 08/15/2015 Insurance Providers Payer Name Payer Address Payer Phone Subscriber Number Group Number Insured Name Patient Relationship to Insured Coverage Start Date Coverage End Date [facility] [address] [facility] [place] [phone] [id number] YESENIA DUARTE Self - patient is the insured Medical (General) History Medical History History ICD Code Diabetes mellitus Denies [place],CVA,Lung disease,renal disease HTN Hyperlipidemia Negative colonoscopy in 05/[address] Dorsey Surgical History Surgery Date(Month/Year) JUANCHO 1979 breast biopsy-left
--- NOTE | 2025-11-20 07:58 | ED_ITS ---
HPI - General Adult General Chief complaint: Weakness Stated complaint: ? pneumonia Time Seen by Provider: 11/20/25 07:55 Source: patient, RN notes reviewed and old records reviewed Mode of arrival: ambulatory History of Present Illness ED Provider: Erica MCCOY narrative: patient is a 75-year-old female with history of T2 dm, asthma, CKD stage 3, hypothyroidism, HTN, GERD, CAD presenting to the emergency department with complaint of ongoing cough, shortness of breath and fatigue. States symptoms began around November 06. She was seen in this ED on 11/07 and diagnosed with viral illness. She then followed up with her PCP who prescribed a Z-Ryan and prednisone. She reports written little relief from this and states that she typically gets pneumonia once per flu season and requires a stronger antibiotic than azithromycin. Complains of chest pain with inspiration and coughing. MD complaint: shortness of breath Related Data Previous Rx's ?Medication ?Instructions ?Recorded mometasone 0.1 % topical cream 1 appl topical DAILY CO N skin 10/02/22 irritation 30 days #45 grams cholecalciferol (vitamin D3) 50 50 mcg PO DAILY 90 day s #90 caps 03/03/23 mcg (2,000 unit) capsule blood sugar diagnostic (FreeStyle #120 ea 03/25/24 Lite Strips) blood-glucose meter (FreeStyle #1 ea 03/25/24 Lite Meter kit) lancets 28 gauge (FreeStyle #120 ea 03/25/24 Lancets) blood-glucose,implementation consultant,cont #1 ea 05/24/24 (FreeStyle Consuelo 3 [place]) NEBULIZER and all related #1 ea 06/07/24 accessories, including tubing and mask albuterol sulfate 2.5 mg/3 mL 2.5 mg (3 mL) inhalation QID PRN 06/11/24 (0.083 %) solution for nebulization shortness of breat h or wheezing 30 days #180 mL DIABETIC SHOES #2 ea 09/01/24 acetone (urine) test (Ketone Urine #25 ea 09/01/24 Test strips) V-GO 40 device #30 ea 09/24/24 mupirocin 2 % topical ointment 1 appl topical TID 7 da ys #50 grams 10/22/24 benazepril 5 mg tablet 2.5 mg (1/2 x 5 mg) PO DAILY 90 12/14/24 days #45 caps sub-q insulin device, 40 unit #30 ea 12/16/24 (V-GO 40 device) rosuvastatin 40 mg tablet 40 mg PO DAILY 90 days #90 t abs 04/24/25 betamethasone dipropionate 0.05 % 1 appl topical BID P RN skin rash 05/06/25 topical cream #45 grams levothyroxine 50 mcg tablet 50 mcg PO DAILY 90 days #9 0 tabs 05/27/25 Humalog U-100 Insulin 100 unit/mL See Rx Instructions subcut DAILY 05/31/25 subcutaneous solution (insulin 30 days #40 mL lispro) Jardiance 25 mg tablet 25 mg PO QAM 90 days #90 tab s 05/31/25 (empagliflozin) blood-glucose sensor (FreeStyle #2 ea 05/31/25 Consuelo 3 Plus Sensor device) glucagon 3 mg/actuation nasal 3 mg intranasal ONCE PRN 05/31/25 spray (Baqsimi) Unresponsive hypoglycemia ma y repeat in 15 minutes 30 days #2 ea insulin glargine 100 unit/mL (3 14 unit (0.14 mL) subc ut QPM 90 05/31/25 mL) subcutaneous pen ( #15 mL Solostar U-100 Insulin) pen needle, diabetic 32 gauge x #100 ea 05/31/25 pen needle, diabetic 31 gauge x #100 ea 06/08/2502/13 benzonatate 100 mg capsule 100 mg PO TID PRN cough #30 caps 11/09/25 sub-q insulin device, 40 unit #30 ea 11/09/25 (V-GO 40 device) azithromycin 250 mg tablet See Rx Instructions PO .COM PLEX #6 11/11/25 tabs prednisone 20 mg tablet 40 mg (2 x 20 mg) PO DAILY 4 days 11/14/25 #8 tabs doxycycline hyclate 100 mg capsule 100 mg PO BID #10 c aps 11/20/25 prednisone 20 mg tablet 20 mg PO DAILY #5 tabs 11/20 Allergies Allergy/AdvReac Type Severity Reaction Status Date / Time latex (LATEX) Allergy Intermediate RASH Verified 11/20/25 07:11 atorvastatin (From Lipitor) Allergy Mild MUSCLE Verified 11/20/25 07:11 ACHES dulaglutide (Trulicity) Allergy Unknown rash and Verified 11/20/25 07:11 itching pioglitazone Allergy Unknown Urinary Verified 11/20/25 07:11 frequency pork derived (porcine) (PORK Allergy Unknown SABIANIST Verified 11/20/25 07:11 DERIVED (PORCINE)) BELIEF canagliflozin (Invokana) AdvReac Unknown recurrent Verified 11/20/25 07:11 UTI, dizziness Tanzeum Allergy Unknown rash Uncoded 11/20/25 07:11 Review of Systems Review of Systems: As per HPI Yes all other systems are reviewed and are negative Constitutional: Constitutional: Reports as per HPI PMFSH Past Medical History Medical History Mixed hyperlipidemia Diabetes mellitus with stage 3 chronic kidney disease, with long-term current use of insulin Chronic kidney disease, stage III (moderate) Acquired hypothyroidism Restrictive lung disease Restrictive lung disease Bronchial asthma Allergic rhinitis Insomnia Diabetic polyneuropathy associated with type 2 diabetes mellitus Diabetic nephropathy associated with type 2 diabetes mellitus Non-proliferative diabetic retinopathy, 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 Diabetes type 2, uncontrolled Overweight (BMI 25.0-29.9) Chronic interstitial cystitis Varicose veins of both lower extremities Osteoarthritis of left hip Lumbosacral spondylosis Vitamin D deficiency Pityriasis rosea GERD (gastroesophageal reflux disease) Allergic rhinitis Restrictive lung disease Coronary artery disease Essential hypertension Hyperlipidemia Chronic kidney disease, stage 2 (mild) Diabetes mellitus with stage 2 chronic kidney disease, with long-term current use of insulin Surgical History Hx of cataract surgery Hx of colonoscopy (~08/11/19) FH: JUANCHO-BSO (total abdominal hysterectomy and bilateral salpingo-oophorectomy) Family History Family History Father Diabetes Mother CVD (cardiovascular disease) Social History Social History Household Members: None Housing: House Do you presently have visiting nurse or other home services: No Alcohol intake: never Patient Tobacco Use Status: Never used Tobacco Smoked in Last 30 Days: No e-Cigarette/Vaping Use: Never Used Second Hand Smoke Exposure: Yes Use of substances other than those prescribed or required for medical reasons: No Advance Directives: Yes Advance Directives on File: Yes Advance Directives Date on File: 07/02/21 service: No Current occupational status: employed 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 Blood pressure elevated. Heart rate normal. Respiratory rate normal. Temperature normal. Oxygen saturation normal. Const General: cooperative, healthy appearing and no acute distress Orientation/consciousness: oriented to person, oriented to place, oriented to time and patient oriented x3 Limitations: no limitations HENMT Head: Yes normocephalic and Yes atraumatic Ears: external ears normal General nose exam: Normal external nose present Face and sinus: Yes face symmetric Mouth: oropharynx normal and moist mucous membranes Throat: Yes uvula midline Eyes Pupils: Equal, round and reactive pupils present Neck Neck: Yes normal visual inspection and Yes supple Resp Effort & Inspection: normal respiratory effort and able to speak in complete sentences Auscultation: clear to auscultation bilaterally and wheezes scattered wheezes Cardio Rate: regular rate Rhythm: regular rhythm Heart sounds: S1 normal heart sound present and S2 normal heart sound present GI Palpation (GI): Soft to palpation and nontender Auscultation: normoactive bowel sounds General: Yes no CVA tenderness Back/Spine/Pelvis Back: no CVA tenderness Skin General skin exam: elasticity normal and turgor normal Neuro General: oriented to person, oriented to place, oriented to time, patient oriented x3, moves all extremities, no focal motor deficits and CN's II-XI intact bilaterally Cranial nerves: Yes Equal, round and reactive pupils present Cognition (Neuro): normal cognition Extrem General: Yes full ROM, Yes no pedal edema and Yes no calf tenderness Psych Mental Status: mental status grossly normal Affect: normal affect Thought process: Normal thought process present Medical Decision Making Medical Decision Making MDM Narrative: patient is a 75-year-old female with history of T2 dm, asthma, CKD stage 3, hypothyroidism, HTN, GERD, CAD presenting to the emergency department with complaint of ongoing cough, shortness of breath and fatigue. On exam patient is awake, A+Ox3, VS WNL, afebrile, normal neurological exam without focal deficits, physical exam findings as above. Given reported symptoms and physical exam findings, initial differential includes but is not limited to Viral URI, bronchitis, pneumonia, asthma exacerbation. PE unlikely, Wells 0. Labs notable for no significant leukocytosis. X-ray chest is without focal infiltrate. My interpretation is in agreement with the radiologist's interpretation. Given patient's extensive medical comorbidities, will treat with a course of doxycycline and additional course of prednisone. Advised close follow up with PCP. Return precautions discussed. patient verbalized understanding of and agreement with plan. Differential Diagnosis Differential Diagnoses: The differential diagnosis associated with the presentation includes as per [facility] Admission/Observation Consideration of admission/observation: Escalation of care including admission/observation considered Patient would have been admitted to the hospital and transferred to appropriate facility had their clinical presentation warranted hospital admission. Lab Data [facility] Lab Attestation statement: I reviewed the patient's lab results. as per [facility] Independent Interpretation I performed an independent interpretation of an: Plain X-Ray Interpretation: Chest x-ray is without focal infiltrate. Radiology Impression Discussion of test interpretation with radiology: I have reviewed the radiologist's reading. Radiologist Impression: 2 view chest x-ray Comparison: 11/07/2025 Findings: No consolidation or effusion. Heart size is normal. No acute fracture. IMPRESSION: 1. No acute findings. External Record Review External record reviewed: Inpatient record, Office record and Outpatient record Prescription Management I considered prescription management with: Antibiotic and Other Chronic Conditions Patient?s care impacted by: Diabetes, Hypertension and Other Discharge Plan Discharge Clinical Impression: Shortness of breath, Cough Patient Disposition: Home, Self-Care Additional Instructions: You You were seen in the emergency department today for cough and shortness of breath. You are being treated with doxycycline which is an antibiotic. Complete the full course as prescribed even if your symptoms improve. You are also being prescribed a short course of prednisone which is a steroid to decrease inflammation. Be sure you are getting adequate rest and adequate fluid intake. Follow up with your primary care provider as needed. Return to the emergency department if you develop worsening shortness of breath, chest pain or palpitations, dizziness or lightheadedness, fever 100.4? F or greater or any other new or concerning symptoms. Prescriptions: New doxycycline hyclate 100 mg capsule 100 mg PO BID Qty: 10 0RF prednisone 20 mg tablet 20 mg PO DAILY Qty: 5 0RF No Action (DME) blood-glucose meter [FreeStyle Lite Meter] Kit See Rx Instructions .ROUTE .MEDSUPPLY Qty: 1 0RF Rx Instructions: As directed (DME) FreeStyle Lite Strips Strip See Rx Instructions .ROUTE .MEDSUPPLY Qty: 120 12RF Rx Instructions: As directed 4 times a day (DME) lancets [FreeStyle Lancets] 28 gauge misc See Rx Instructions .ROUTE .MEDSUPPLY Qty: 120 12RF Rx Instructions: As directed 4 times a day (DME) FreeStyle Consuelo 3 [place] Misc See Rx Instructions .ROUTE .COMPLEX Qty: 1 0RF Dose Instruction: USE DIRECTED Rx Instructions: USE DIRECTED (DME) NEBULIZER and all related accessories, including tubing and mask See Rx Instructions .Route .MEDSUPPLY Qty: 1 0RF Rx Instructions: As directed albuterol sulfate 2.5 mg /3 mL (0.083 %) solution for nebulization 2.5 mg inhalation QID PRN (Reason: shortness of breath or wheezing) 30 Days Qty: 180 3RF (DME) DIABETIC SHOES See Rx Instructions .Route .MEDSUPPLY Qty: 2 0RF Rx Instructions: As directed (DME) V-GO 40 device See Rx Instructions .Route .MEDSUPPLY Qty: 30 3RF Rx Instructions: As directed benazepril 5 mg tablet 2.5 mg PO DAILY 90 Days Qty: 45 3RF rosuvastatin 40 mg tablet 40 mg PO DAILY 90 Days Qty: 90 3RF betamethasone dipropionate 0.05 % cream 1 appl topical BID PRN (Reason: skin rash) Qty: 45 0RF (DME) pen needle, diabetic 31 gauge x 3/16 needle See Rx Instructions .ROUTE .COMPLEX Qty: 100 3RF Dose Instruction: USE ONCE A DAY DIRECTED Rx Instructions: USE ONCE A DAY DIRECTED (DME) V-GO 40 Device See Rx Instructions .ROUTE .COMPLEX Qty: 30 3RF Dose Instruction: FOR DAILY USE Rx Instructions: FOR DAILY USE benzonatate 100 mg capsule 100 mg PO TID PRN (Reason: cough) Qty: 30 1RF azithromycin 250 mg tablet See Rx Instructions PO .COMPLEX Qty: 6 0RF Rx Instructions: take 500 mg today (day 1), then 250 mg for 4 days (days 2-5) PO prednisone 20 mg tablet 40 mg PO DAILY 4 Days Qty: 8 0RF mometasone 0.1 % cream 1 appl topical DAILY PRN (Reason: skin irritation) 30 Days Qty: 45 2RF cholecalciferol (vitamin D3) 50 mcg (2,000 unit) capsule 50 mcg PO DAILY 90 Days Qty: 90 3RF (DME) Ketone Urine Test Strip See Rx Instructions .ROUTE .MEDSUPPLY Qty: 25 1RF Rx Instructions: P.r.n. glucose over 250, nausea, and vomiting, illness up to t.i.d. (DME) V-GO 40 Device See Rx Instructions .ROUTE .COMPLEX Qty: 30 3RF Dose Instruction: USE DIRECTED Rx Instructions: USE DIRECTED mupirocin 2 % ointment 1 appl topical TID 7 Days Qty: 50 0RF levothyroxine 50 mcg tablet 50 mcg PO DAILY 90 Days Qty: 90 1RF Rx Instructions: Take on an empty stomach, first thing in the morning, with water. Do not eat or drink anything else for 30 minutes afterwards (DME) FreeStyle Consuelo 3 Plus Sensor Device See Rx Instructions .Route Qty: 2 11RF Rx Instructions: As directed every 15 days Baqsimi 3 mg/actuation spray,non-aerosol 3 mg intranasal ONCE PRN (Reason: Unresponsive hypoglycemia may repeat in 15 minutes) 30 Days Qty: 2 1RF insulin lispro [Humalog U-100 Insulin] 100 unit/mL solution See Rx Instructions subcut DAILY 30 Days Qty: 40 3RF Rx Instructions: Up to 78 units via VGO subcut daily; insulin glargine [Lantus Solostar U-100 Insulin] 100 unit/mL (3 mL) insulin pen 14 unit subcut QPM 90 Days Qty: 15 3RF Jardiance 25 mg tablet 25 mg PO QAM 90 Days Qty: 90 1RF (DME) pen needle, diabetic 32 gauge x 5/32 needle See Rx Instructions .ROUTE .MEDSUPPLY Qty: 100 3RF Rx Instructions: As directed once daily Print Language: [place]araguan
[2025-11-20 08:15] LABS: MANUAL DIFF FLAG NO
[2025-11-20 08:17] LABS: Hematocrit 44.2 % (37.0-47.0); Hemoglobin 14.1 g/dl (12.0-16.0); Imm Gran Abs Auto 0.10 X10*3/uL (0.00-0.03); Imm Gran Pct Auto 1.0 % (0.0-0.4); Lymphocytes Absolute Auto 4.6 X10*3/uL (1.2-4.9); Mean Corpuscular HGB Conc 31.9 g/dl (31.0-35.0); Mean Corpuscular Hemoglobin 26.5 pg (27.0-33.0); Mean Corpuscular Volume 82.9 fL (80.0-98.0); NRBC Abs Auto 0.000 X10*3/uL (0.0-0.012); NRBC Pct Auto 0.0 /100WBC (0.0-0.2); Platelet Count 232 X10*3/uL (160-400); Red Blood Count 5.33 X10*6/uL (4.20-5.50); White Blood Count 9.5 X10*3/uL (4.8-10.8)
[2025-11-20 08:33] VITALS: BP 155/72; PULSE 70; RESP 16; TEMP 36.6; O2SAT 98
[2025-11-20 08:35] LABS: Alanine Aminotransferase 18 U/L (0-31); Albumin Level 4.0 g/dL (3.5-5.0); Alkaline Phosphatase 99 U/L (39-117); Anion Gap 12 (12-20); Aspartate Amino Transferase 22 U/L (5-31); Blood Urea Nitrogen 27 mg/dL (9-16); Calcium 9.2 mg/dL (8.4-10.2); Carbon Dioxide 23 mmol/L (22-29); Chloride 110 mmol/L (96-108); Creatinine Clr Calc Pharmacy 46.9; Estimated Glomerular Filt Rate 52; Potassium 4.3 mmol/L (3.3-5.1); Sodium 141 mmol/L (135-145); Total Protein 6.6 g/dL (6.5-8.0)
[2025-11-20 08:51] LABS: Troponin-I High Sensitivity < 2.7 ng/L (<3.5-17.0)
[2025-11-20 09:06] VITALS: BP 155/72; PULSE 70; RESP 16; TEMP 36.6; O2SAT 98
== END 2025-11-20 09:06 | disposition home or self-care (01) ==
PROVIDERS: Emergency Provider Emergency Medicine Emergency Medical Services; PCP Internal Medicine
DX: R06.02 Shortness of breath (principal); R05.9 Cough, unspecified; E11.22 Type 2 diabetes mellitus with diabetic chronic kidney disease; I12.9 Hypertensive chronic kidney disease with stage 1 through stage 4 chronic kidney disease, or unspecified chronic kidney disease; N18.30 Chronic kidney disease, stage 3 unspecified; J45.909 Unspecified asthma, uncomplicated; Z79.4 Long term (current) use of insulin; Z79.899 Other long term (current) drug therapy
CPT/HCPCS: 36415; 71046; 80053; 84484; 85025; 93005; 99283; 99284

== ENCOUNTER → 2025-11-20 07:15 | Outpatient (BNV) | payer OTHER, SELFPAY | PROVIDERS: Emergency Provider Emergency Medicine Emergency Medical Services; PCP Internal Medicine; Visit Provider Specialist | DX: R05.9 Cough, unspecified (principal); R53.1 Weakness | CPT/HCPCS: 71046 ==

== ENCOUNTER → 2025-11-20 07:16 | Outpatient (BNV) | payer OTHER, SELFPAY | PROVIDERS: Emergency Provider Emergency Medicine Emergency Medical Services; PCP Internal Medicine; Visit Provider Internal Medicine Cardiovascular Disease | DX: I25.2 Old myocardial infarction (principal) | CPT/HCPCS: 93010 ==